=== PATIENT | female | born 1940 ===

== ENCOUNTER 2016-12-15 22:44 | Observation (INO) | payer MEDICARE, MEDICAID ==
[2016-12-15 22:45] VITALS: BMI 34.9
[2016-12-15 23:45] LABS: BASO # 0.1 K/uL (0.0-0.2); BASO % 0.9 % (0.0-2.0); EOS # 0.2 K/uL (0.0-0.7); EOS % 2.5 % (0.0-4.0); HEMATOCRIT 33.5 % (34.0-47.0); LYMPH # 1.2 K/uL (1.0-4.3); LYMPH % 16.8 % (20.0-40.0); MEAN CELL VOLUME 97.3 fl (81.0-99.0); MEAN CORPUSCULAR HEMOGLOBIN 30.7 pg (27.0-31.0); MEAN CORPUSCULAR HGB CONC 31.5 g/dL (33.0-37.0); MEAN PLATELET VOLUME 9.3 fl (7.2-11.7); MONO # 0.6 K/uL (0.0-0.8); MONO % 7.6 % (0.0-10.0); NEUT # 5.3 K/uL (1.8-7.0); NEUT % 72.2 % (50.0-75.0); RED CELL DISTRIBUTION WIDTH 15.7 % (11.5-14.5); WHITE BLOOD COUNT 7.3 K/uL (4.8-10.8)
--- NOTE | 2016-12-15 23:54 | ED PDOC ---
HPI: SOB/CHF/COPD Time Seen by Provider: 12/15/16 22:53 Chief Complaint (Nursing): Chest Pain Chief Complaint (Provider): SOB History Per: Patient History/Exam Limitations: no limitations Onset/Duration Of Symptoms: Hrs Current Symptoms Are (Timing): Still Present Additional Complaint(s): 76yo female who is oxygen dependent presents to the ED with c/o SOB with associated mild chest pain. Patient states she was out all day with daughter and was experiencing worsening SOB throughout the day. States she noticed portable oxygen concentrator was not working throughout the entire day. Currently complaining of shortness of breath. Past Medical History Reviewed: Historical Data, Nursing Documentation, Vital Signs Vital Signs: Last Vital Signs Temp 98.4 F 12/15/16 22:52 Pulse 82 12/15/16 22:52 Resp 20 12/15/16 22:52 BP 160/73 H 12/15/16 22:52 Pulse Ox 92 L 12/16/16 00:38 - Medical History PMH: Anxiety, Arthritis, CAD (with stent), CHF, CVA (?paresthesias), Diabetes, Gastritis, HTN, Hypercholesterolemia, Sleep Apnea Denies: HIV, Chronic Kidney Disease - Surgical History Surgical History: Coronary Stent Denies: - Family History Family History: States: No Known Family Hx - Home Medications Home Medications: Ambulatory Orders Medication Instructions Recorded Aspirin [Aspirin Chewable] 81 mg PO DAILY 12/16/16 Atorvastatin [Lipitor] 1 tab PO HS 12/16/16 Carvedilol [Coreg] 1 tab PO BID 12/16/16 Clopidogrel [Plavix] 1 tab PO DAILY 12/16/16 Furosemide [Lasix] 1 tab PO DAILY 12/16/16 Hunalog 12/16/16 Insulin Detemir [Levemir] 40 units SQ BID 12/16/16 Multivitamin [Daily John] 1 tab PO DAILY 12/16/16 Valsartan [Diovan] 1 tab PO DAILY 12/16/16 amLODIPine [Norvasc] 1 tab PO DAILY 12/16/16 - Allergies Allergies/Adverse Reactions: Allergies Allergy/AdvReac Type Severity Reaction Status Date / Time No Known Allergies Allergy Verified 02/15/16 20:23 Review of Systems ROS Statement: Except As Marked, All Systems Reviewed And Found Negative Cardiovascular: Positive for: Chest Pain (mild ) Respiratory: Positive for: Shortness of Breath Physical Exam - Reviewed Nursing Documentation Reviewed: Yes (mild at bases) Vital Signs Reviewed: Yes - Physical Exam Appears: Positive for: Well, No Acute Distress Head Exam: Positive for: ATRAUMATIC, NORMAL INSPECTION, NORMOCEPHALIC Skin: Positive for: Normal Color, Warm, Dry Eye Exam: Positive for: Normal appearance, EOMI, PERRL ENT: Positive for: Normal ENT Inspection Neck: Positive for: Normal, Painless ROM, Supple Cardiovascular/Chest: Positive for: Regular Rate, Rhythm. Negative for: Murmur , Tachycardia Respiratory: Positive for: Crackles (b/l ). Negative for: Wheezing, Respiratory Distress Gastrointestinal/Abdominal: Positive for: Normal Exam, Soft. Negative for: Tenderness Back: Positive for: Normal Inspection. Negative for: L CVA Tenderness, R CVA Tenderness Extremity: Positive for: Normal ROM. Negative for: Tenderness, Pedal Edema, Deformity Neurologic/Psych: Positive for: Alert, Oriented - Laboratory Results Result Diagrams: 12/15/16 23:43 12/15/16 23:43 - ECG O2 Sat by Pulse Oximetry: 92 Medical Decision Making Medical Decision Makin: Impression: r/o ACS v. hypercapnia Plan: ABG EKG Labs CXR O2 via nasal cannula reassess 1230AM: Will admit for r/o ACS, hypercapnia. Scribe Attestation: Documented by Gwendolyn Ohara acting as a scribe for Tho Troncoso MD. Provider Scribe Attestation: All medical record entries made by the Scribe were at my direction and personally dictated by me. I have reviewed the chart and agree that the record accurately reflects my personal performance of the history, physical exam, medical decision making, and the department course for this patient. I have also personally directed, reviewed, and agree with the discharge instructions and disposition. Disposition - Clinical Impression Clinical Impression: Chest pain, Hypercapnia, Hyperglycemia - Disposition Disposition Time: 00:30 Condition: STABLE
[2016-12-15 23:58] LABS: BLOOD UREA NITROGEN 21 mg/dl (7-17); CALCIUM 9.1 mg/dL (8.4-10.2); CARBON DIOXIDE 33 mmol/L (22-30); CHLORIDE 96 mmol/L (98-107); GFR AFRICAN-AMERICAN > 60; SODIUM 137 mmol/l (132-148)
[2016-12-16] LABS: GLUCOSE,RANDOM 436 mg/dL (65-105)
[2016-12-16 00:01] LABS: POTASSIUM 5.9 MMOL/L (3.6-5.0)
[2016-12-16 00:20] LABS: PARTIAL THROMBOPLASTIN TIME 25.5 SECONDS (23.3-32.5)
[2016-12-16 00:25] LABS: ABG ALLEN TEST YES; ARTERIAL BLOOD GAS HCO3 34.1 mmol/L (21-28); ARTERIAL BLOOD GAS MODE 2LNC; ARTERIAL BLOOD GAS PH 7.35 (7.35-7.45); ARTERIAL BLOOD GAS PO2 73 mm/Hg (80-100)
[2016-12-16] MEDS ORDERED: Insulin Regular 100 units/ml SC STA (00:37)
[2016-12-16] MEDS ORDERED: Insulin Regular 100 units/ml ONE ×4 (00:55→16:33)
[2016-12-16] MEDS ORDERED: Dextrose 50% SYRINGE Inj (50 ml) IV PRN (01:00)
[2016-12-16] MEDS ORDERED: Glucagon Recombinant 1 mg Inj IM PRN (01:00)
[2016-12-16] MEDS: Sodium Chloride 0.9% 1,000 ML IV SCH ×3 (01:03→21:30)
[2016-12-16] MEDS ORDERED: Simethicone 80 mg Chewtab PO PRN (01:03)
--- NOTE | 2016-12-16 01:05 | CP.PCM.HP ---
History of Present Illness - History of Present Illness History of Present Illness: 76 y/o female with past medical history of CAD, DM, HLD, HTN, CVA, urinary incontinence and hypercapnia; who is also oxygen dependent presents to the ED with c/o SOB with associated mild chest pain. Patient states she was out all day with daughter and was experiencing worsening SOB throughout the day. daughter reports she noticed portable oxygen concentrator was not working throughout the entire day. Pt seen and evaluated in ED, SOB has improved as she is on oxygen now, chest pain has improved as well. denies any dizziness, changes in vision. Also reports feeling abdominal pain due to feeling very gassy , no other complaints otherwise Present on Admission - Present on Admission Any Indicators Present on Admission: Yes History of Uncontrolled Diabetes: Yes Review of Systems - Review of Systems All systems: reviewed and no additional remarkable complaints except Review of Systems: Per HPI Past Patient History - Tetanus Immunizations Tetanus Immunization: Unknown - Past Medical History & Family History Past Medical History?: Yes - Past Social History Smoking Status: Never Smoked - CARDIAC Hx Congestive Heart Failure: Yes Hx Hypercholesterolemia: Yes Hx Hypertension: Yes - PULMONARY Hx Sleep Apnea: Yes - NEUROLOGICAL Hx Neurological Disorder: Yes (CVA) - HEENT Hx HEENT Problems: No - RENAL Hx Chronic Kidney Disease: No - ENDOCRINE/METABOLIC Hx Endocrine Disorders: Yes (DM) - HEMATOLOGICAL/ONCOLOGICAL Hx Human Immunodeficiency Virus (HIV): No - INTEGUMENTARY Hx Dermatological Problems: No - MUSCULOSKELETAL/RHEUMATOLOGICAL Hx Arthritis: Yes - GASTROINTESTINAL Hx Gastritis: Yes - GENITOURINARY/GYNECOLOGICAL Hx Genitourinary Disorders: No - PSYCHIATRIC Hx Anxiety: Yes - SURGICAL HISTORY Hx Coronary Stent: Yes - ANESTHESIA Hx Anesthesia: Yes Hx Anesthesia Reactions: No Hx Malignant Hyperthermia: No Meds Allergies/Adverse Reactions: Allergies Allergy/AdvReac Type Severity Reaction Status Date / Time No Known Allergies Allergy Verified 02/15/16 20:23 Physical Exam - Constitutional Appears: Non-toxic, No Acute Distress - Head Exam Head Exam: NORMOCEPHALIC - Eye Exam Eye Exam: Normal appearance - ENT Exam ENT Exam: Mucous Membranes Moist - Respiratory Exam Respiratory Exam: Clear to Auscultation Bilateral, NORMAL BREATHING PATTERN. absent: Wheezes - Cardiovascular Exam Cardiovascular Exam: REGULAR RHYTHM, +S1, +S2 - GI/Abdominal Exam GI & Abdominal Exam: Normal Bowel Sounds, Soft, Tenderness. absent: Guarding Additional comments: diffuse tenderness - Extremities Exam Extremities exam: Negative for: calf tenderness, pedal edema - Neurological Exam Neurological exam: Alert, CN II-XII Intact, Oriented x3 - Skin Skin Exam: Normal Color Results - Vital Signs Recent Vital Signs: Last Vital Signs Temp 98.4 F 12/15/16 22:52 Pulse 82 12/15/16 22:52 Resp 20 12/15/16 22:52 BP 160/73 H 12/15/16 22:52 Pulse Ox 92 L 12/16/16 00:42 - Labs Result Diagrams: 12/16/16 05:58 12/15/16 23:43 Assessment & Plan - Assessment and Plan (Free Text) Assessment: 76 y/o female with past medical history of CAD, DM, HLD, HTN, CVA, urinary incontinence and hypercapnia, being admitted for ACS rule out and hypercapnia Plan: 1. Chest pain ACS rule out F/u trop x2 R/u repeat EKG the morning monitor 2. Hypercapnia (Chronic) Pt currently on oxygen SOB Improving monitor 3. Gas pain Simethicone ordered Monitor 4. Insulin Dependent Diabetic Accucheck Home levemir restarted SSI hypoglycemic protocol ordered 5. HTN and CAD Home meds resumed 6. HLD Home meds resumed 7. Diet Diabetic Heart Healthy 8. DVT prophylaxis- lovenox 40mg SC
--- NOTE | 2016-12-16 01:29 | CT ---
EXAM: CT Head Without Intravenous Contrast CLINICAL HISTORY: 76 years old, female; Signs and symptoms; Speech disturbance; Additional info: Slurred speech x 2 days TECHNIQUE: Axial computed tomography images of the head/brain without intravenous contrast. This CT exam was performed using one or more of the following dose reduction techniques: automated exposure control, adjustment of the mA and/or kV according to patient size, and/or use of iterative reconstruction technique. Coronal and sagittal reformatted images were created and reviewed. EXAM DATE/TIME: 12/16/2016 12:34 AM COMPARISON: CT - HEAD W/O CONTRAST 07/18/2016 9:04:48 PM FINDINGS: Brain: Ventricles are normal in size and configuration. There is no midline shift.There is mild decrease attenuation in periventricular white matter. There are no intra-axial or extra-axial mass lesions or areas of hemorrhage. There are no abnormal fluid collections. Ramirez-white differentiation is maintained. Ventricles: See above. Bones: Cranial vault is intact. Soft tissues: unremarkable Sinuses: There is no acute sinusitis. Ears and mastoids: Middle ears and mastoids are unremarkable Orbits: Orbital contents are unremarkable. IMPRESSION: No acute intracranial abnormality
[2016-12-16 06:03] LABS: BASO # 0.1 K/uL (0.0-0.2); EOS # 0.2 K/uL (0.0-0.7); EOS % 2.3 % (0.0-4.0); HEMATOCRIT 32.6 % (34.0-47.0); LYMPH # 1.2 K/uL (1.0-4.3); LYMPH % 15.5 % (20.0-40.0); MEAN CELL VOLUME 97.7 fl (81.0-99.0); MEAN CORPUSCULAR HEMOGLOBIN 30.8 pg (27.0-31.0); MEAN CORPUSCULAR HGB CONC 31.5 g/dL (33.0-37.0); MEAN PLATELET VOLUME 8.8 fl (7.2-11.7); MONO # 0.8 K/uL (0.0-0.8); MONO % 10.7 % (0.0-10.0); NEUT # 5.4 K/uL (1.8-7.0); NEUT % 70.5 % (50.0-75.0); RED CELL DISTRIBUTION WIDTH 15.5 % (11.5-14.5); WHITE BLOOD COUNT 7.7 K/uL (4.8-10.8)
[2016-12-16 07:10] LABS: ALB/GLOB RATIO 1.5 (1.0-2.1); ALKALINE PHOSPHATASE 85 U/L (38-126); ALT/SGPT 40 U/L (9-52); AST/SGOT 21 U/L (14-36); BILIRUBIN,TOTAL 0.5 mg/dl (0.2-1.3); BLOOD UREA NITROGEN 18 mg/dl (7-17); CALCIUM 9.2 mg/dL (8.4-10.2); CARBON DIOXIDE 33 mmol/L (22-30); CHLORIDE 101 mmol/L (98-107); GFR AFRICAN-AMERICAN > 60; GLUCOSE,RANDOM 236 mg/dL (65-105); POTASSIUM 4.1 MMOL/L (3.6-5.0); SODIUM 144 mmol/l (132-148); TOTAL PROTEIN 6.7 G/DL (6.3-8.2)
--- NOTE | 2016-12-16 08:02 | CARD ---
APPROVED REPORT EKG Measurement Heart [id number] <Conclusion> Normal sinus rhythm Possible Left atrial enlargement Nonspecific ST abnormality Abnormal ECG
[2016-12-16] MEDS ORDERED: Patient's Own Med (Insulin Detemir [Levemir] 40 units) SQ SCH (09:00)
[2016-12-16] MEDS ORDERED: Patient's Own Med (Multivitamin [Daily Vite] 1 TAB) PO SCH (09:00)
[2016-12-16] MEDS: Insulin Regular 100 units/ml SC SCH ×4 (09:05→22:51)
[2016-12-16] MEDS: Multivitamin With Minerals Tab PO SCH (09:09)
[2016-12-16] MEDS: Enoxaparin 40 mg Syringe SC SCH (09:10)
--- NOTE | 2016-12-16 10:15 | RAD ---
PROCEDURE: CHEST RADIOGRAPH, 1 VIEW HISTORY: sob, cp COMPARISON: None available. FINDINGS: LUNGS: Clear. PLEURA: No pneumothorax or pleural fluid seen. CARDIOVASCULAR: Normal. OSSEOUS STRUCTURES: No significant abnormalities. VISUALIZED UPPER ABDOMEN: Normal. OTHER FINDINGS: None. IMPRESSION: No active disease.
[2016-12-16] MEDS: Insulin Detemir 100 Units/ml Inj SC SCH ×2 (11:04→22:52)
--- NOTE | 2016-12-16 16:49 | CP.PCM.PCO ---
Physician Communication Note - Physician Communication Note Physician Communication Note: Seen AM, stable, Decided to admit to hosp PM, Pulm and Cardio consults.
--- NOTE | 2016-12-16 23:05 | CP.PCM.CON ---
History of Present Illness - History of Present Illness History of Present Illness: Pt seen and examined, chart reviewed, full consult to follow. Cont present treatment. Maintain O2 Sat > 90% but avoid hyperoxia. Cont nebulized treatment. R/O ACS. PUD and DVT Px. Past Patient History - Tetanus Immunizations Tetanus Immunization: Unknown - Past Medical History & Family History Past Medical History?: Yes - Past Social History Smoking Status: Never Smoked - CARDIAC Hx Cardiac Disorders: Yes (CHF,CAD,HTN,HLD) - PULMONARY Hx Respiratory Disorders: Yes (SOB) - NEUROLOGICAL Hx Neurological Disorder: Yes (CVA) - HEENT Hx HEENT Problems: No - RENAL Hx Chronic Kidney Disease: No - ENDOCRINE/METABOLIC Hx Endocrine Disorders: Yes (DM) - HEMATOLOGICAL/ONCOLOGICAL Hx Blood Disorders: Yes (ANEMIA) - INTEGUMENTARY Hx Dermatological Problems: No - MUSCULOSKELETAL/RHEUMATOLOGICAL Hx Musculoskeletal Disorders: Yes (ARTHRITIS) - GASTROINTESTINAL Hx Gastritis: Yes - GENITOURINARY/GYNECOLOGICAL Hx Genitourinary Disorders: No - PSYCHIATRIC Hx Psychophysiologic Disorder: No - SURGICAL HISTORY Hx Coronary Stent: Yes - ANESTHESIA Hx Anesthesia: Yes Hx Anesthesia Reactions: No Hx Malignant Hyperthermia: No Meds Allergies/Adverse Reactions: Allergies Allergy/AdvReac Type Severity Reaction Status Date / Time No Known Allergies Allergy Verified 02/15/16 20:23 - Medications Medications: Current Medications Amlodipine Besylate (Norvasc) 5 mg PO DAILY [facility] Last Admin: 12/16/16 09:09 Dose: 5 mg Aspirin (Aspirin Chewable) 81 mg PO DAILY [facility] Last Admin: 12/16/16 09:09 Dose: 81 mg Atorvastatin Calcium (Lipitor) 40 mg PO HS [facility] Last Admin: 12/16/16 22:54 Dose: 40 mg Carvedilol (Coreg) 25 mg PO BID [facility] Last Admin: 12/16/16 11:42 Dose: 25 mg Clopidogrel Bisulfate (Plavix) 75 mg PO DAILY [facility] Last Admin: 12/16/16 09:09 Dose: 75 mg Dextrose (Dextrose 50% Inj) 0 ml IV STAT PRN; Protocol PRN Reason: Hyglycemia Protocol Dextrose (Glutose 15) 0 gm PO ONCE PRN; Protocol PRN Reason: Hypoglycemia Protocol Enoxaparin Sodium (Lovenox) 40 mg SC DAILY [facility] PRN Reason: Protocol Last Admin: 12/16/16 09:10 Dose: 40 mg Furosemide (Lasix) 40 mg PO DAILY [facility] Last Admin: 12/16/16 09:09 Dose: 40 mg Glucagon (Glucagen Diagnostic Kit) 0 mg IM STAT PRN; Protocol PRN Reason: Hypoglycemia Protocol Sodium Chloride (Sodium Chloride 0.9%) 1,000 mls @ 100 mls/hr IV .Q10H [facility] Stop: 12/17/16 00:36 Last Admin: 12/16/16 21:30 Dose: 100 mls/hr Insulin Detemir (Levemir) 40 units SC BID [facility] Last Admin: 12/16/16 22:52 Dose: 40 unit Insulin Human Regular (Humulin R) 0 units SC ACHS [facility] PRN Reason: Protocol Last Admin: 12/16/16 22:51 Dose: Not Given Multivitamins/Minerals (Therapeutic-M Tab) 1 tab PO DAILY [facility] Last Admin: 12/16/16 09:09 Dose: 1 tab Simethicone (Mylicon Chew Tab) 80 mg PO QID PRN PRN Reason: Flatulence Valsartan (Diovan) 160 mg PO DAILY [facility] Last Admin: 12/16/16 09:09 Dose: 160 mg Results - Vital Signs Recent Vital Signs: Last Vital Signs Temp 97.9 F 12/16/16 20:16 Pulse 70 12/16/16 20:16 Resp 18 12/16/16 20:16 BP 154/71 H 12/16/16 20:16 Pulse Ox 99 12/16/16 20:16 - Labs Result Diagrams: 12/16/16 05:58 12/16/16 05:58 Labs: Laboratory Results - last 24 hr 12/16/16 12/16/16 16:30 22:06 POC Glucose (mg/dL) 212 H Troponin I 0.0190
[2016-12-17] MEDS: Insulin Regular 100 units/ml SC SCH ×3 (06:33→18:04)
[2016-12-17 06:47] LABS: BASO # 0.1 K/uL (0.0-0.2); BASO % 0.7 % (0.0-2.0); EOS # 0.2 K/uL (0.0-0.7); EOS % 2.9 % (0.0-4.0); HEMATOCRIT 30.8 % (34.0-47.0); MEAN CELL VOLUME 97.4 fl (81.0-99.0); MEAN CORPUSCULAR HEMOGLOBIN 31.4 pg (27.0-31.0); MEAN CORPUSCULAR HGB CONC 32.2 g/dL (33.0-37.0); MEAN PLATELET VOLUME 8.4 fl (7.2-11.7); MONO # 0.6 K/uL (0.0-0.8); MONO % 8.7 % (0.0-10.0); NEUT % 72.7 % (50.0-75.0); RED CELL DISTRIBUTION WIDTH 15.5 % (11.5-14.5); WHITE BLOOD COUNT 6.9 K/uL (4.8-10.8)
[2016-12-17 07:20] LABS: ALB/GLOB RATIO 1.5 (1.0-2.1); ALKALINE PHOSPHATASE 83 U/L (38-126); ALT/SGPT 38 U/L (9-52); AST/SGOT 23 U/L (14-36); BILIRUBIN,TOTAL 0.6 mg/dl (0.2-1.3); BLOOD UREA NITROGEN 15 mg/dl (7-17); CALCIUM 9.3 mg/dL (8.4-10.2); CARBON DIOXIDE 37 mmol/L (22-30); CHLORIDE 101 mmol/L (98-107); GFR AFRICAN-AMERICAN > 60; GLUCOSE,RANDOM 100 mg/dL (65-105); POTASSIUM 4.6 MMOL/L (3.6-5.0); SODIUM 144 mmol/l (132-148); TOTAL PROTEIN 6.5 G/DL (6.3-8.2)
[2016-12-17] MEDS: Multivitamin With Minerals Tab PO SCH (09:07)
[2016-12-17] MEDS: Insulin Detemir 100 Units/ml Inj SC SCH ×2 (09:08→18:04)
[2016-12-17] MEDS: Enoxaparin 40 mg Syringe SC SCH (09:09)
--- NOTE | 2016-12-17 12:19 | CP.PCM.CON ---
History of Present Illness - History of Present Illness History of Present Illness: CC: Chest pain. HPI: I have been requested on cardiac consultation by Dr. Mendez for Mrs. Alexandra who is a pleasant 76 year old female who is well known to our practice and is accompanied by her psychometrician. She has a history of CAD, s/p PCI , hypertension, DM, dyslipidemia and gait instability and presents with complaints of non radiating left sided chest pain which is constant and is associated with left sided back pain. She also complains of easy fatigability and dyspnea with minimal effort, however due to her gait instability her mobility is limited. The patient states that she is compliant with her medical regimen and no changes have been made. She denies fever, cough, congestion, nausea, vomiting or syncope but has generalized weakness and fatigue. A chest Xray revealed nor acute findings, an ECG shows NSR, NSSTT abnormalities, troponin is negative and the Hgb is 9.9. She has been maintained on her medical regimen and bipap with improvement in her symptoms. Review of Systems - Constitutional Constitutional: As Per HPI, Fatigue, Lethargy, Weakness - EENT Additional comments: Negative. - Cardiovascular Cardiovascular: Chest Pain at Rest, Dyspnea on Exertion - Respiratory Respiratory: Dyspnea, Dyspnea on Exertion - Gastrointestinal Additional comments: Negative. - Genitourinary Additional comments: Negative. - Musculoskeletal Musculoskeletal: Muscle Weakness - Integumentary Additional comments: Negative. - Neurological Neurological: Abnormal Gait - Psychiatric Additional comments: Negative. - Endocrine Endocrine: Fatigue - Hematologic/Lymphatic Additional comments: Negative. Past Patient History - Tetanus Immunizations Tetanus Immunization: Unknown - Past Medical History & Family History Past Medical History?: Yes - Past Social History Smoking Status: Never Smoked Alcohol: None Home Situation {Lives}: With Family - CARDIAC Hx Cardiac Disorders: Yes (CHF,CAD,HTN,HLD) Hx Angina: Yes Hx Circulatory Problems: Yes Hx Hypercholesterolemia: Yes Hx Hypertension: Yes - PULMONARY Hx Respiratory Disorders: Yes (SOB) - NEUROLOGICAL Hx Neurological Disorder: Yes (CVA) - HEENT Hx HEENT Problems: No - RENAL Hx Chronic Kidney Disease: No - ENDOCRINE/METABOLIC Hx Endocrine Disorders: Yes (DM) Hx Diabetes Mellitus Type 1: Yes - HEMATOLOGICAL/ONCOLOGICAL Hx Blood Disorders: Yes (ANEMIA) Hx AIDS: No Hx Human Immunodeficiency Virus (HIV): No - INTEGUMENTARY Hx Dermatological Problems: No - MUSCULOSKELETAL/RHEUMATOLOGICAL Hx Musculoskeletal Disorders: Yes (ARTHRITIS) Hx Falls: No - GASTROINTESTINAL Hx Gastritis: Yes - GENITOURINARY/GYNECOLOGICAL Hx Genitourinary Disorders: No - PSYCHIATRIC Hx Psychophysiologic Disorder: No - SURGICAL HISTORY Hx Angiogram: Yes Hx Angioplasty: Yes Hx Cardiac Catheterization: Yes Hx Coronary Stent: Yes - ANESTHESIA Hx Anesthesia: Yes Hx Anesthesia Reactions: No Hx Malignant Hyperthermia: No Meds Allergies/Adverse Reactions: Allergies Allergy/AdvReac Type Severity Reaction Status Date / Time No Known Allergies Allergy Verified 02/15/16 20:23 - Medications Medications: Current Medications Amlodipine Besylate (Norvasc) 5 mg PO DAILY [facility] Last Admin: 12/17/16 09:09 Dose: 5 mg Aspirin (Aspirin Chewable) 81 mg PO DAILY [facility] Last Admin: 12/17/16 09:07 Dose: 81 mg Atorvastatin Calcium (Lipitor) 40 mg PO HS [facility] Last Admin: 12/16/16 22:54 Dose: 40 mg Carvedilol (Coreg) 25 mg PO BID [facility] Last Admin: 12/17/16 09:07 Dose: 25 mg Clopidogrel Bisulfate (Plavix) 75 mg PO DAILY [facility] Last Admin: 12/17/16 09:06 Dose: 75 mg Dextrose (Dextrose 50% Inj) 0 ml IV STAT PRN; Protocol PRN Reason: Hyglycemia Protocol Dextrose (Glutose 15) 0 gm PO ONCE PRN; Protocol PRN Reason: Hypoglycemia Protocol Enoxaparin Sodium (Lovenox) 40 mg SC DAILY [facility] PRN Reason: Protocol Last Admin: 12/17/16 09:09 Dose: 40 mg Furosemide (Lasix) 40 mg PO DAILY [facility] Last Admin: 12/17/16 09:08 Dose: 40 mg Glucagon (Glucagen Diagnostic Kit) 0 mg IM STAT PRN; Protocol PRN Reason: Hypoglycemia Protocol Insulin Detemir (Levemir) 40 units SC BID [facility] Last Admin: 12/17/16 09:08 Dose: 40 unit Insulin Human Regular (Humulin R) 0 units SC ACHS [facility] PRN Reason: Protocol Last Admin: 12/17/16 06:33 Dose: Not Given Multivitamins/Minerals (Therapeutic-M Tab) 1 tab PO DAILY [facility] Last Admin: 12/17/16 09:07 Dose: 1 tab Simethicone (Mylicon Chew Tab) 80 mg PO QID PRN PRN Reason: Flatulence Last Admin: 12/17/16 09:06 Dose: 80 mg Valsartan (Diovan) 160 mg PO DAILY [facility] Last Admin: 12/17/16 09:07 Dose: 160 mg Physical Exam - Constitutional Appears: Well, Non-toxic, No Acute Distress - Head Exam Head Exam: NORMAL INSPECTION, NORMOCEPHALIC - Eye Exam Eye Exam: Normal appearance - ENT Exam ENT Exam: Mucous Membranes Moist, Normal Exam - Neck Exam Neck exam: Positive for: Normal Inspection - Respiratory Exam Respiratory Exam: Clear to Auscultation Bilateral, NORMAL BREATHING PATTERN - Cardiovascular Exam Cardiovascular Exam: REGULAR RHYTHM, +S1, +S2, Systolic Murmur - GI/Abdominal Exam GI & Abdominal Exam: Soft Additional comments: Obese. - Extremities Exam Extremities exam: Positive for: full ROM, normal inspection - Back Exam Back exam: NORMAL INSPECTION - Neurological Exam Neurological exam: Alert, Oriented x3 - Psychiatric Exam Psychiatric exam: Normal Affect, Normal Mood - Skin Skin Exam: Dry, Intact, Normal Color, Warm Results - Vital Signs Recent Vital Signs: Last Vital Signs Temp 98.4 F 12/17/16 08:22 Pulse 76 12/17/16 09:09 Resp 18 12/17/16 08:22 BP 156/56 H 12/17/16 09:09 Pulse Ox 96 12/17/16 08:22 - Labs Result Diagrams: 12/17/16 05:40 12/17/16 05:40 Labs: Laboratory Results - last 24 hr 12/16/16 12/16/16 12/16/16 16:30 16:37 22:06 WBC RBC Hgb Hct MCV MCH MCHC RDW Plt Count MPV Neut % (Auto) Lymph % (Auto) Brewster % (Auto) Eos % (Auto) Baso % (Auto) Neut # Lymph # Brewster # Eos # Baso # Sodium Potassium Chloride Carbon Dioxide Anion Gap BUN Creatinine Est GFR ( Amer) Est GFR (Non-Af Amer) POC Glucose (mg/dL) 254 H 212 H Random Glucose Calcium Total Bilirubin AST ALT Alkaline Phosphatase Troponin I 0.0190 Total Protein Albumin Globulin Albumin/Globulin Ratio 12/17/16 12/17/16 12/17/16 04:58 05:40 05:40 WBC 6.9 RBC 3.16 L Hgb 9.9 L Hct 30.8 L MCV 97.4 MCH 31.4 H MCHC 32.2 L RDW 15.5 H Plt Count 178 MPV 8.4 Neut % (Auto) 72.7 Lymph % (Auto) 15.0 L Brewster % (Auto) 8.7 Eos % (Auto) 2.9 Baso % (Auto) 0.7 Neut # 5.0 Lymph # 1.0 Brewster # 0.6 Eos # 0.2 Baso # 0.1 Sodium 144 Potassium 4.6 Chloride 101 Carbon Dioxide 37 H Anion Gap 11 BUN 15 Creatinine 0.7 Est GFR ( Amer) > 60 Est GFR (Non-Af Amer) > 60 POC Glucose (mg/dL) 131 H Random Glucose 100 Calcium 9.3 Total Bilirubin 0.6 AST 23 ALT 38 Alkaline Phosphatase 83 Troponin I Total Protein 6.5 Albumin 3.9 Globulin 2.6 Albumin/Globulin Ratio 1.5 12/17/16 11:22 WBC RBC Hgb Hct MCV MCH MCHC RDW Plt Count MPV Neut % (Auto) Lymph % (Auto) Brewster % (Auto) Eos % (Auto) Baso % (Auto) Neut # Lymph # Brewster # Eos # Baso # Sodium Potassium Chloride Carbon Dioxide Anion Gap BUN Creatinine Est GFR ( Amer) Est GFR (Non-Af Amer) POC Glucose (mg/dL) 336 H Random Glucose Calcium Total Bilirubin AST ALT Alkaline Phosphatase Troponin I Total Protein Albumin Globulin Albumin/Globulin Ratio Assessment & Plan - Assessment and Plan (Free Text) Assessment: Atypical chest pain. Dyspnea. CAD. HTN. DM. Dyslipidemia. Gait instability. Plan: Continue present cardiac medications. Follow up troponin. PT/OT. Stable cardiac shel[facility], will review past records. Thank you.
[2016-12-17 12:23] VITALS: RESP 20
--- NOTE | 2016-12-17 13:28 | CP.PCM.PN ---
Subjective - Date & Time of Evaluation Date of Evaluation: 12/17/16 Time of Evaluation: 08:55 - Subjective Subjective: Patient seen and examined bedside. Sitting upright in bed, wearing NC at 2L, with reported dyspnea, that has improved since admission. The patient continues to have chest pain and back pain that is constant, nonradiating. She slept with bipap machine, and reports she slept well while using the machine. Admits chest and back pain, fatigue and dyspnea, Denies headache, nausea, vomiting, abdominal pain, pedal edema. Objective - Vital Signs/Intake and Output Vital Signs (last 24 hours): Temp Pulse Resp BP Pulse Ox 98.0 F 71 20 143/64 97 12/17/16 12:22 12/17/16 12:22 12/17/16 12:22 12/17/16 12:22 12/17/16 12:22 - Medications Medications: Current Medications Amlodipine Besylate (Norvasc) 5 mg PO DAILY [facility] Last Admin: 12/17/16 09:09 Dose: 5 mg Aspirin (Aspirin Chewable) 81 mg PO DAILY [facility] Last Admin: 12/17/16 09:07 Dose: 81 mg Atorvastatin Calcium (Lipitor) 40 mg PO HS [facility] Last Admin: 12/16/16 22:54 Dose: 40 mg Carvedilol (Coreg) 25 mg PO BID [facility] Last Admin: 12/17/16 09:07 Dose: 25 mg Clopidogrel Bisulfate (Plavix) 75 mg PO DAILY [facility] Last Admin: 12/17/16 09:06 Dose: 75 mg Dextrose (Dextrose 50% Inj) 0 ml IV STAT PRN; Protocol PRN Reason: Hyglycemia Protocol Dextrose (Glutose 15) 0 gm PO ONCE PRN; Protocol PRN Reason: Hypoglycemia Protocol Enoxaparin Sodium (Lovenox) 40 mg SC DAILY [facility] PRN Reason: Protocol Last Admin: 12/17/16 09:09 Dose: 40 mg Furosemide (Lasix) 40 mg PO DAILY [facility] Last Admin: 12/17/16 09:08 Dose: 40 mg Glucagon (Glucagen Diagnostic Kit) 0 mg IM STAT PRN; Protocol PRN Reason: Hypoglycemia Protocol Insulin Detemir (Levemir) 40 units SC BID [facility] Last Admin: 12/17/16 09:08 Dose: 40 unit Insulin Human Regular (Humulin R) 0 units SC ACHS [facility] PRN Reason: Protocol Last Admin: 12/17/16 06:33 Dose: Not Given Multivitamins/Minerals (Therapeutic-M Tab) 1 tab PO DAILY [facility] Last Admin: 12/17/16 09:07 Dose: 1 tab Simethicone (Mylicon Chew Tab) 80 mg PO QID PRN PRN Reason: Flatulence Last Admin: 12/17/16 09:06 Dose: 80 mg Valsartan (Diovan) 160 mg PO DAILY [facility] Last Admin: 12/17/16 09:07 Dose: 160 mg - Labs Labs: 12/17/16 05:40 12/17/16 05:40 PT 10.4 SECONDS (9.6-11.2) 12/15/16 23:12 INR 1.00 (0.92-1.08) 12/15/16 23:12 APTT 25.5 SECONDS (23.3-32.5) 12/15/16 23:12 - Constitutional Appears: Non-toxic - Head Exam Head Exam: NORMAL INSPECTION - Eye Exam Eye Exam: Normal appearance - ENT Exam ENT Exam: Mucous Membranes Moist - Respiratory Exam Respiratory Exam: Rales (bilateral, right more than left), NORMAL BREATHING PATTERN - GI/Abdominal Exam GI & Abdominal Exam: Soft, Normal Bowel Sounds. absent: Tenderness - Extremities Exam Extremities Exam: absent: Pedal Edema - Neurological Exam Neurological Exam: Alert, Awake, CN II-XII Intact, Oriented x3 - Skin Skin Exam: Dry, Intact, Normal Color Assessment and Plan - Assessment and Plan (Free Text) Assessment: Assessment: 76 y/o female with past medical history of CAD, DM, HLD, HTN, CVA, urinary incontinence and hypercapnia, admitted for ACS rule out and hypercapnia. Plan: 1. Chest pain ACS rule out chest and back pain are constant, but do not appear to be cardiac in nature. Will follow up with recommendations from pulmonary. troponins : negative x 2 monitor Appreciate cardiology input: Stable cardiac shelby, will continue current medications and recommend PT/OT and f/u troponins. 2. Hypercapnia (Chronic) Pt currently on oxygen. SOB Improving but persists. Positive results with the BIPAP. Walking test today. monitor Will discuss with case management: home o2 and bipap machine. 3. Gas pain Resolved Simethicone ordered 4. Insulin Dependent Diabetic Accuchecks, Home levemir restarted SSI hypoglycemic protocol ordered Will continue to monitor. 5. HTN and CAD Home meds resumed 6. HLD Home meds resumed 7. Diet Diabetic Heart Healthy 8. DVT prophylaxis- lovenox 40mg SC
[2016-12-17 19:36] VITALS: BP 146/66; PULSE 73; TEMP 98.4; O2SAT 98
== END 2016-12-17 20:35 | disposition home or self-care (01) ==
LOC: H.ER 22:44 → H.ERHOLD 12-16 00:40 → OBSVTOIN 12-16 15:27 → INTOOBSV 12-16 15:27 → H.TEL 12-16 18:41
PROVIDERS: ADMIT Family Medicine Geriatric Medicine; ATTEND Family Medicine Geriatric Medicine
DX: R07.89 Other chest pain (principal); R06.89 Other abnormalities of breathing; I25.10 Atherosclerotic heart disease of native coronary artery without angina pectoris; E11.9 Type 2 diabetes mellitus without complications; E78.5 Hyperlipidemia, unspecified; I11.0 Hypertensive heart disease with heart failure; I50.9 Heart failure, unspecified; R26.89 Other abnormalities of gait and mobility; Z95.5 Presence of coronary angioplasty implant and graft; Z99.81 Dependence on supplemental oxygen; G47.30 Sleep apnea, unspecified; Z79.4 Long term (current) use of insulin; Z86.73 Personal history of transient ischemic attack (TIA), and cerebral infarction without residual deficits
CPT/HCPCS: 36415; 70450; 71010; 80048; 80053; 82164; 82803; 82948; 83880; 84484; 85025; 85610; 85730; 93005; 94620; 94660; 96372; 99285; G0378; J1650; J7040

== ENCOUNTER 2017-07-23 16:03 | Emergency (ER) | payer MEDICARE, MEDICAID ==
[2017-07-23 16:03] VITALS: BMI 34.9
[2017-07-23 16:21] VITALS: RESP 18; TEMP 99.2
--- NOTE | 2017-07-23 17:12 | ED PDOC ---
HPI: SOB/CHF/COPD Time Seen by Provider: 07/23/17 16:39 Chief Complaint (Nursing): Shortness Of Breath History Per: Patient (this is a 77 yo female who presents to the ER with complaints of cough, chills, bodyaches and shortness since yesterday. She has a h/o DM, hyperlipidemia and CHF/CAD (h/o coronary cath). She has not received her flu vaccine.), Family History/Exam Limitations: no limitations Onset/Duration Of Symptoms: Days (yesterday), Sudden Onset Current Symptoms Are (Timing): Still Present Initiating Event: Upper Respiratory Illness Current Respiratory Medications: See Home Med List Severity: Moderate Past Medical History Reviewed: Historical Data, Nursing Documentation, Vital Signs Vital Signs: Last Vital Signs Temp 99.2 F 07/23/17 16:19 Pulse 97 H 07/23/17 16:19 Resp 18 07/23/17 17:24 BP 148/64 07/23/17 16:19 Pulse Ox 97 07/23/17 17:24 - Medical History PMH: Anxiety, Arthritis, CAD (with stent), CHF, CVA (?paresthesias), Diabetes, Gastritis, HTN, Hypercholesterolemia, Sleep Apnea Denies: HIV, Chronic Kidney Disease - Surgical History Surgical History: Coronary Stent Denies: - Family History Family History: States: No Known Family Hx - Living Arrangements Living Arrangements: With Family - Social History Current smoker - smoking cessation education provided: No Ex-Smoker (has not smoked in the last 12 months): No Alcohol: None Drugs: Denies - Home Medications Home Medications: Ambulatory Orders Medication Instructions Recorded Aspirin [Aspirin Chewable] 81 mg PO DAILY 12/16/16 Atorvastatin [Lipitor] 1 tab PO HS 12/16/16 Carvedilol [Coreg] 1 tab PO BID 12/16/16 Clopidogrel [Plavix] 1 tab PO DAILY 12/16/16 Furosemide [Lasix] 1 tab PO DAILY 12/16/16 Insulin Detemir [Levemir] 40 units SQ BID 12/16/16 Insulin Lispro [humALOG] 5 unit SC WM 12/16/16 Multivitamin [Daily John] 1 tab PO DAILY 12/16/16 Valsartan [Diovan] 1 tab PO DAILY 12/16/16 amLODIPine [Norvasc] 1 tab PO DAILY 12/16/16 Insulin Detemir [Levemir] 40 units SC BID vial 12/17/16 Insulin Human Regular [HumuLIN R] 0 units SC ACHS ml 12/17/16 Multimineral/Multivitamin 1 tab PO DAILY tab 12/17/16 [Therapeutic-M Tab] Oseltamivir Phosphate [Tamiflu] 75 mg PO BID #10 capsule 07/23/17 - Allergies Allergies/Adverse Reactions: Allergies Allergy/AdvReac Type Severity Reaction Status Date / Time No Known Allergies Allergy Verified 02/15/16 20:23 Review of Systems ROS Statement: Except As Marked, All Systems Reviewed And Found Negative Constitutional: Positive for: Chills, Malaise. Negative for: Fever Cardiovascular: Negative for: Chest Pain Respiratory: Positive for: Cough, Shortness of Breath, SOB with Exertion Gastrointestinal: Negative for: Nausea, Vomiting Neurological: Positive for: Weakness Physical Exam - Reviewed Nursing Documentation Reviewed: Yes Vital Signs Reviewed: Yes - Physical Exam Appears: Positive for: Well, Non-toxic, No Acute Distress Head Exam: Positive for: ATRAUMATIC, NORMAL INSPECTION, NORMOCEPHALIC Skin: Positive for: Normal Color, Warm, DRY Eye Exam: Positive for: Normal appearance, EOMI ENT: Positive for: Normal ENT Inspection Neck: Positive for: Normal Cardiovascular/Chest: Positive for: Regular Rate, Rhythm Respiratory: Positive for: Normal Breath Sounds, Rales (both bases bilaterally) Gastrointestinal/Abdominal: Positive for: Normal Exam, Bowel Sounds, Soft Back: Positive for: Normal Inspection Extremity: Positive for: Normal ROM. Negative for: Pedal Edema, Swelling Neurologic/Psych: Positive for: Alert, Oriented - Laboratory Results Result Diagrams: 07/23/17 17:30 - ECG O2 Sat by Pulse Oximetry: 99 Disposition - Clinical Impression Clinical Impression: Influenza A - Patient ED Disposition Is Patient to be Admitted: No Doctor Will See Patient In The: Office Counseled Patient/Family Regarding: Diagnosis, Need For Followup, Rx Given - Disposition Referrals: [facility] [Outside] Disposition: Routine/Home Disposition Time: 18:00 Condition: STABLE Prescriptions: Oseltamivir Phosphate [Tamiflu] 75 mg PO BID #10 capsule Instructions: Influenza (ED) Forms: [facility] (Trinidadian) Print Language: ESTONIAN - POA Present On Arrival: None
[2017-07-23 17:38] LABS: EOS # 0.2 K/uL (0.0-0.7); EOS % 4.8 % (0.0-4.0); HEMOGLOBIN 12.3 g/dL (12.0-16.0); LYMPH # 0.9 K/uL (1.0-4.3); LYMPH % 18.6 % (20.0-40.0); MEAN CELL VOLUME 96.1 fl (81.0-99.0); MEAN CORPUSCULAR HEMOGLOBIN 30.6 pg (27.0-31.0); MEAN CORPUSCULAR HGB CONC 31.9 g/dL (33.0-37.0); MEAN PLATELET VOLUME 8.7 fl (7.2-11.7); MONO # 0.9 K/uL (0.0-0.8); MONO % 18.1 % (0.0-10.0); NEUT # 2.8 K/uL (1.8-7.0); NEUT % 57.5 % (50.0-75.0); NRBC % 0.2 % (0.0-0.0); RBC 4.01 Mil/uL (3.80-5.20); RED CELL DISTRIBUTION WIDTH 14.2 % (11.5-14.5); WHITE BLOOD COUNT 4.8 K/uL (4.8-10.8)
--- NOTE | 2017-07-23 17:43 | RAD ---
HISTORY: shortness of breath COMPARISON: 02/22/2017. TECHNIQUE: Chest PA and lateral FINDINGS: LUNGS: No active pulmonary disease. Linear atelectasis left lower lobe PLEURA: No significant pleural effusion identified. No pneumothorax apparent. CARDIOVASCULAR: No radiographic findings to suggest acute or significant cardiovascular disease. OSSEOUS STRUCTURES: No significant abnormalities. VISUALIZED UPPER ABDOMEN: Normal. OTHER FINDINGS: None. IMPRESSION: No active disease. No significant interval change compared to the prior examination(s).
[2017-07-23 18:24] VITALS: O2SAT 99
[2017-07-23 18:42] VITALS: BP 144/84; PULSE 84
--- NOTE | 2017-07-24 12:04 | CARD ---
APPROVED REPORT EKG Measurement Heart [id number] <Conclusion> Normal sinus rhythm Prolonged QT Abnormal ECG
== END 2017-07-23 18:42 | disposition home or self-care (01) ==
LOC: H.ER 16:03
DX: J10.1 Influenza due to other identified influenza virus with other respiratory manifestations (principal); E11.9 Type 2 diabetes mellitus without complications; E78.00 Pure hypercholesterolemia, unspecified; F41.9 Anxiety disorder, unspecified; I11.0 Hypertensive heart disease with heart failure; Z79.4 Long term (current) use of insulin; J44.9 Chronic obstructive pulmonary disease, unspecified; Z79.82 Long term (current) use of aspirin; Z86.73 Personal history of transient ischemic attack (TIA), and cerebral infarction without residual deficits; Z87.891 Personal history of nicotine dependence; Z95.5 Presence of coronary angioplasty implant and graft

== ENCOUNTER 2017-11-12 15:47 | Emergency (ER) | payer MEDICARE, MEDICAID ==
[2017-11-12 15:47] VITALS: BMI 34.9
[2017-11-12 16:03] VITALS: TEMP 98.1; O2SAT 98
[2017-11-12 17:24] LABS: BASO # 0.1 K/uL (0.0-0.2); BASO % 1.1 % (0.0-2.0); EOS # 0.2 K/uL (0.0-0.7); EOS % 2.1 % (0.0-4.0); HEMOGLOBIN 12.2 g/dL (12.0-16.0); LYMPH # 1.4 K/uL (1.0-4.3); LYMPH % 19.3 % (20.0-40.0); MEAN CELL VOLUME 96.9 fl (81.0-99.0); MEAN CORPUSCULAR HEMOGLOBIN 32.4 pg (27.0-31.0); MEAN CORPUSCULAR HGB CONC 33.4 g/dL (33.0-37.0); MEAN PLATELET VOLUME 9.2 fl (7.2-11.7); MONO # 0.7 K/uL (0.0-0.8); MONO % 9.4 % (0.0-10.0); NEUT % 68.1 % (50.0-75.0); NRBC % 0.1 % (0.0-0.0); RBC 3.78 Mil/uL (3.80-5.20); RED CELL DISTRIBUTION WIDTH 13.7 % (11.5-14.5); WHITE BLOOD COUNT 7.3 K/uL (4.8-10.8)
[2017-11-12 17:38] LABS: ALB/GLOB RATIO 1.3 (1.0-2.1); ALBUMIN 3.9 g/dL (3.5-5.0); ALT/SGPT 37 U/L (9-52); AST/SGOT 23 U/L (14-36); BLOOD UREA NITROGEN 20 mg/dl (7-17); CALCIUM 9.5 mg/dL (8.4-10.2); GFR AFRICAN-AMERICAN > 60; GFR NON-AFRICAN AMERICAN > 60
--- NOTE | 2017-11-12 17:46 | CT ---
PROCEDURE: CT HEAD WITHOUT CONTRAST. HISTORY: headache, right sided pain COMPARISON: Unenhanced head CT 12/16/2016 prior TECHNIQUE: Axial computed tomography images were obtained through the head/brain without intravenous contrast. Radiation dose: Total exam DLP = 836.54 mGy-cm. This CT exam was performed using one or more of the following dose reduction techniques: Automated exposure control, adjustment of the mA and/or kV according to patient size, and/or use of iterative reconstruction technique. FINDINGS: HEMORRHAGE: No intracranial hemorrhage. BRAIN: Trace periventricular chronic microangiopathy is reiterated with normal corticomedullary differentiation once again. There is no mass-effect in the midline brain anatomy is unremarkable throughout. Post fossa contents are stable including the brainstem. Cavernous ICA segment superior atherosclerotic. No suspicious extra-axial fluid collection appreciated. VENTRICLES: Unremarkable. No hydrocephalus. CALVARIUM: Unremarkable. PARANASAL SINUSES: Unremarkable as visualized. No significant inflammatory changes. MASTOID AIR CELLS: Unremarkable as visualized. No inflammatory changes. OTHER FINDINGS: None. IMPRESSION: Stable nonacute unenhanced head CT as discussed above. Limited age-related neuro degenerative changes are reiterated. Follow-up CT or MRI are available if clinically warranted.
[2017-11-12 17:49] LABS: PARTIAL THROMBOPLASTIN TIME 28.9 Seconds (25.6-37.1)
--- NOTE | 2017-11-12 19:11 | ED PDOC ---
HPI: General Adult Time Seen by Provider: 11/12/17 16:31 Chief Complaint (Nursing): Lower Extremity Problem/Injury Chief Complaint (Provider): Right knee pain, right shoulder pain History Per: Patient History/Exam Limitations: no limitations Onset/Duration Of Symptoms: Days Have you had recent travel within the past 21 days to any of the following countries: [place], [place], [place] or [place]?: No Current Symptoms Are (Timing): Still Present Additional Complaint(s): 77 yo female with HTN and DM presents with right shoulder and arm pain with tingling and right knee pain since yesterday. Pt reports frontal headache. PT denies chest pain or SOB. PT denies N/V/D. Pt denies trauma. Pt reports right shoulder pain in the past. Past Medical History Reviewed: Historical Data, Nursing Documentation, Vital Signs Vital Signs: Last Vital Signs Temp 98.1 F 11/12/17 16:00 Pulse 73 11/12/17 16:00 Resp 14 11/12/17 16:00 BP 170/75 H 11/12/17 16:00 Pulse Ox 98 11/12/17 16:00 - Medical History PMH: Anxiety, Arthritis, CAD (with stent), CHF, CVA (?paresthesias), Diabetes, Gastritis, HTN, Hypercholesterolemia, Sleep Apnea Denies: HIV, Chronic Kidney Disease - Surgical History Surgical History: Coronary Stent Denies: - Family History Family History: States: Unknown Family Hx - Living Arrangements Living Arrangements: With Family - Social History Current smoker - smoking cessation education provided: No - Home Medications Home Medications: Ambulatory Orders Medication Instructions Recorded Aspirin [Aspirin Chewable] 81 mg PO DAILY 12/16/16 Atorvastatin [Lipitor] 1 tab PO HS 12/16/16 Carvedilol [Coreg] 1 tab PO BID 12/16/16 Clopidogrel [Plavix] 1 tab PO DAILY 12/16/16 Furosemide [Lasix] 1 tab PO DAILY 12/16/16 Insulin Detemir [Levemir] 40 units SQ BID 12/16/16 Insulin Lispro [humALOG] 5 unit SC WM 12/16/16 Multivitamin [Daily John] 1 tab PO DAILY 12/16/16 Valsartan [Diovan] 1 tab PO DAILY 12/16/16 amLODIPine [Norvasc] 1 tab PO DAILY 12/16/16 Insulin Detemir [Levemir] 40 units SC BID vial 12/17/16 Insulin Human Regular [HumuLIN R] 0 units SC ACHS ml 12/17/16 Multimineral/Multivitamin 1 tab PO DAILY tab 12/17/16 [Therapeutic-M Tab] Oseltamivir Phosphate [Tamiflu] 75 mg PO BID #10 capsule 07/23/17 - Allergies Allergies/Adverse Reactions: Allergies Allergy/AdvReac Type Severity Reaction Status Date / Time No Known Allergies Allergy Verified 11/12/17 16:00 Review of Systems ROS Statement: Except As Marked, All Systems Reviewed And Found Negative Constitutional: Negative for: Fever, Chills Musculoskeletal: Positive for: Shoulder Pain, Leg Pain Physical Exam - Reviewed Nursing Documentation Reviewed: Yes Vital Signs Reviewed: Yes - Physical Exam Appears: Positive for: Well, Non-toxic, No Acute Distress Head Exam: Positive for: ATRAUMATIC, NORMAL INSPECTION, NORMOCEPHALIC Skin: Positive for: Normal Color, Warm, DRY Eye Exam: Positive for: Normal appearance ENT: Positive for: Normal ENT Inspection Neck: Positive for: Normal, Painless ROM Cardiovascular/Chest: Positive for: Regular Rate, Rhythm Respiratory: Positive for: CNT, Normal Breath Sounds Gastrointestinal/Abdominal: Positive for: Normal Exam, Soft. Negative for: Bowel Sounds, Tenderness Back: Positive for: Normal Inspection Extremity: Positive for: Normal ROM (Pt reports pain in right shoulder with ROM and right knee ). Negative for: Tenderness, Deformity, Swelling Neurologic/Psych: Positive for: Alert, Oriented - Laboratory Results Result Diagrams: 11/12/17 17:19 11/12/17 17:19 - ECG O2 Sat by Pulse Oximetry: 98 Pulse Ox Interpretation: Normal Medical Decision Making Medical Decision Making: Labs normal except glucose. Accucheck at 1910 - [address] Hernandes. Disposition - Clinical Impression Clinical Impression: Arthritis - Patient ED Disposition Is Patient to be Admitted: No Counseled Patient/Family Regarding: Diagnosis, Need For Followup - Disposition Disposition: Routine/Home Disposition Time: 19:29 Condition: GOOD Additional Instructions: Please follow-up with PMD. Instructions: Arthritis and Exercise Print Language: TURKMEN
[2017-11-12 19:44] VITALS: BP 167/71; PULSE 84; RESP 18
--- NOTE | 2017-11-13 08:26 | RAD ---
HISTORY: right shoulder pain/tingling, feverish, headache COMPARISON: 07/23/2017. FINDINGS: Incompletely visualized is a left endovascular stent graft. LUNGS: The lungs are clear. PLEURA: No significant pleural effusion identified, no pneumothorax apparent. CARDIOVASCULAR: Normal. OSSEOUS STRUCTURES: No significant abnormalities. VISUALIZED UPPER ABDOMEN: Normal. OTHER FINDINGS: None. IMPRESSION: No active pulmonary disease.
--- NOTE | 2017-11-13 12:36 | CARD ---
APPROVED REPORT EKG Measurement Heart [id number] <Conclusion> Normal sinus rhythm Nonspecific ST abnormality Abnormal ECG
== END 2017-11-12 19:44 | disposition home or self-care (01) ==
LOC: H.ER 15:47
DX: M25.511 Pain in right shoulder (principal); M25.561 Pain in right knee; R51 Headache; R20.2 Paresthesia of skin; E11.9 Type 2 diabetes mellitus without complications; E78.00 Pure hypercholesterolemia, unspecified; F41.9 Anxiety disorder, unspecified; I11.0 Hypertensive heart disease with heart failure; I25.10 Atherosclerotic heart disease of native coronary artery without angina pectoris; Z79.4 Long term (current) use of insulin; Z79.82 Long term (current) use of aspirin; Z86.73 Personal history of transient ischemic attack (TIA), and cerebral infarction without residual deficits; Z95.5 Presence of coronary angioplasty implant and graft

== ENCOUNTER 2018-04-15 17:22 | Inpatient (IN) | payer MEDICARE, MEDICAID ==
[2018-04-15 17:23] VITALS: BMI 34.9
[2018-04-15] MEDS ORDERED: Albuterol-Ipratrop 3 mg / 0.5 (3 ml) UD INH STA (18:04)
[2018-04-15 18:21] LABS: BASO % 0.4 % (0.0-2.0); EOS % 0.3 % (0.0-4.0); HEMOGLOBIN 10.2 g/dL (12.0-16.0); LYMPH # 0.6 K/uL (1.0-4.3); LYMPH % 10.2 % (20.0-40.0); MEAN CELL VOLUME 100.1 fl (81.0-99.0); MEAN CORPUSCULAR HEMOGLOBIN 32.9 pg (27.0-31.0); MEAN CORPUSCULAR HGB CONC 32.9 g/dL (33.0-37.0); MEAN PLATELET VOLUME 8.3 fl (7.2-11.7); MONO # 0.4 K/uL (0.0-0.8); NEUT # 5.2 K/uL (1.8-7.0); NEUT % 83.1 % (50.0-75.0); RBC 3.1 Mil/uL (3.80-5.20); RED CELL DISTRIBUTION WIDTH 15.1 % (11.5-14.5); WHITE BLOOD COUNT 6.2 K/uL (4.8-10.8)
[2018-04-15] MEDS ORDERED: Insulin Regular 100 units/ml IV STA (18:25)
[2018-04-15] MEDS ORDERED: Albuterol-Ipratrop 3 mg / 0.5 (3 ml) UD ONE (18:28)
--- NOTE | 2018-04-15 18:28 | RAD ---
Date of service: 04/15/2018 HISTORY: SOB COMPARISON: Chest radiograph dated 11/12/2017. TECHNIQUE: Chest PA and lateral FINDINGS: LUNGS: Questionable patchy infiltrate in the right midlung. PLEURA: No significant pleural effusion identified. No pneumothorax apparent. CARDIOVASCULAR: Atherosclerotic aortic calcifications. Cardiomediastinal silhouette stably enlarged OSSEOUS STRUCTURES: Unchanged. VISUALIZED UPPER ABDOMEN: Normal. OTHER FINDINGS: None. IMPRESSION: Questionable patchy infiltrate in the right midlung.
[2018-04-15 18:32] LABS: PROTHROMBIN TIME 10.6 Seconds (9.8-13.1)
[2018-04-15 18:35] LABS: PARTIAL THROMBOPLASTIN TIME 29.9 Seconds (25.6-37.1)
[2018-04-15 18:37] LABS: ALB/GLOB RATIO 1.1 (1.0-2.1); ALBUMIN 3.1 g/dL (3.5-5.0); CALCIUM 8.9 mg/dL (8.4-10.2)
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
[2018-04-15] MEDS ORDERED: Azithromycin 500 MG in Sodium Chloride 0.9% 250 ML IV STA (18:52)
[2018-04-15 18:55] LABS: TROPONIN I 0.044 ng/mL (0.00-0.120)
--- NOTE | 2018-04-15 18:58 | CT ---
Date of service: 04/15/2018 PROCEDURE: CT HEAD WITHOUT CONTRAST. HISTORY: Dizziness COMPARISON: CT head dated 11/12/2017 TECHNIQUE: Axial computed tomography images were obtained through the head/brain without intravenous contrast. Radiation dose: Total exam DLP = 846.1 mGy-cm. This CT exam was performed using one or more of the following dose reduction techniques: Automated exposure control, adjustment of the mA and/or kV according to patient size, and/or use of iterative reconstruction technique. FINDINGS: HEMORRHAGE: No intracranial hemorrhage. BRAIN: No mass effect or edema. Mild atrophy. Mild chronic microvascular ischemic changes. VENTRICLES: Unremarkable. No hydrocephalus. CALVARIUM: Unremarkable. PARANASAL SINUSES: Unremarkable as visualized. No significant inflammatory changes. MASTOID AIR CELLS: Unremarkable as visualized. No inflammatory changes. OTHER FINDINGS: None. IMPRESSION: No acute intracranial pathology. Age-related changes. No significant interval change.
[2018-04-15] MEDS ORDERED: cefTRIAXone (Rocephin) 1 gm Inj ONE (19:14)
[2018-04-15] MEDS ORDERED: Azithromycin 500 MG IV IVPB ONE (19:15)
[2018-04-15] MEDS ORDERED: Insulin Regular 100 units/ml ONE (19:15)
[2018-04-15] MEDS ORDERED: Sodium Chloride 3% for Inhalation 4 ML VIAL.NEB IH PRN (20:47)
[2018-04-15] MEDS ORDERED: Albuterol-Ipratrop 3 mg / 0.5 (3 ml) UD INH PRN (21:06)
[2018-04-15] MEDS ORDERED: Dextrose 50% SYRINGE Inj (50 ml) IV PRN (21:07)
[2018-04-15] MEDS ORDERED: Glucagon Recombinant 1 mg Inj IM PRN (21:07)
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
[2018-04-16] MEDS: Piperacillin/Tazobact 3.375 GM in Sodium Chloride 0.9% 100 ML IVPB SCH ×3 (00:44→17:09)
[2018-04-16] MEDS: Insulin Lispro (humaLOG) 100 Units/ml Inj SC SCH ×5 (00:46→22:03)
[2018-04-16] MEDS ORDERED: Influenza Vaccine (5 YR UP)/PF 60 MCG/0.5 ML SYR IM ONE (02:23)
[2018-04-16 05:20] LABS: BASO % 0.5 % (0.0-2.0); EOS # 0.1 K/uL (0.0-0.7); EOS % 1.1 % (0.0-4.0); HEMOGLOBIN 10.2 g/dL (12.0-16.0); LYMPH # 1.2 K/uL (1.0-4.3); LYMPH % 19.7 % (20.0-40.0); MEAN CELL VOLUME 99.1 fl (81.0-99.0); MEAN CORPUSCULAR HEMOGLOBIN 32.8 pg (27.0-31.0); MEAN CORPUSCULAR HGB CONC 33.1 g/dL (33.0-37.0); MEAN PLATELET VOLUME 8.7 fl (7.2-11.7); MONO # 0.6 K/uL (0.0-0.8); NEUT % 67.7 % (50.0-75.0); RBC 3.11 Mil/uL (3.80-5.20); RED CELL DISTRIBUTION WIDTH 14.9 % (11.5-14.5); WHITE BLOOD COUNT 5.9 K/uL (4.8-10.8)
[2018-04-16 05:25] LABS: ALB/GLOB RATIO 1.1 (1.0-2.1); ALT/SGPT 36 U/L (9-52); AST/SGOT 26 U/L (14-36); BLOOD UREA NITROGEN 23 mg/dl (7-17); CALCIUM 8.9 mg/dL (8.4-10.2); GFR NON-AFRICAN AMERICAN > 60
[2018-04-16] MEDS ORDERED: Insulin Lispro (humaLOG) 100 Units/ml Inj SC SCH (07:30)
[2018-04-16] MEDS ORDERED: Patient's Own Med (Insulin Detemir [Levemir] 40 units) SQ SCH (09:00)
[2018-04-16] MEDS ORDERED: Patient's Own Med (Multivitamin [Daily Vite] 1 TAB) PO SCH (09:00)
[2018-04-16] MEDS ORDERED: Insulin Detemir 100 Units/ml Inj SC SCH (09:00)
[2018-04-16] MEDS: Enoxaparin 40 mg Syringe SC SCH (09:09)
[2018-04-16] MEDS: Multivitamin With Minerals Tab PO SCH (09:11)
--- NOTE | 2018-04-16 09:28 | CARD ---
APPROVED REPORT Date of service: 04/15/2018 EKG Measurement Heart [id number] <Conclusion> Normal sinus rhythm Anterior infarct, age undetermined Abnormal ECG
[2018-04-16] MEDS: Insulin Detemir 100 Units/ml Inj SC SCH ×2 (10:20→22:06)
[2018-04-16 10:51] LABS: ABG ALLEN TEST YES; ARTERIAL BLOOD GAS HCO3 31.9 mmol/L (21-28); ARTERIAL BLOOD GAS HEMOGLOBIN 10.7 g/dL (11.7-17.4); ARTERIAL BLOOD GAS O2 CAPACITY 14.5 mL/dL (16-24); ARTERIAL BLOOD GAS O2 CONTENT 11.7 ML/dL (15-23); ARTERIAL BLOOD GAS O2 SAT 80.5 % (95-98); ARTERIAL BLOOD GAS PCO2 58 mm/Hg (35-45); ARTERIAL BLOOD GAS PO2 39 mm/Hg (80-100); ARTERIAL BLOOD GAS TCO2 37.7 mmol/L (22-28)
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
[2018-04-16] MEDS: guaiFENesin 600 mg ER Tab PO SCH ×2 (12:29→21:13)
[2018-04-17] MEDS: Piperacillin/Tazobact 3.375 GM in Sodium Chloride 0.9% 100 ML IVPB SCH ×3 (01:09→16:59)
[2018-04-17 07:09] LABS: HEMOGLOBIN 10.3 g/dL (12.0-16.0); MEAN CELL VOLUME 100.4 fl (81.0-99.0); MEAN CORPUSCULAR HEMOGLOBIN 33.4 pg (27.0-31.0); MEAN CORPUSCULAR HGB CONC 33.3 g/dL (33.0-37.0); RBC 3.1 Mil/uL (3.80-5.20); RED CELL DISTRIBUTION WIDTH 14.6 % (11.5-14.5); WHITE BLOOD COUNT 7.5 K/uL (4.8-10.8)
[2018-04-17] MEDS: Insulin Lispro (humaLOG) 100 Units/ml Inj SC SCH ×4 (07:21→22:00)
[2018-04-17 08:14] LABS: CALCIUM 9.1 mg/dL (8.4-10.2)
[2018-04-17] MEDS: Enoxaparin 40 mg Syringe SC SCH (08:24)
[2018-04-17] MEDS: Multivitamin With Minerals Tab PO SCH (08:25)
[2018-04-17] MEDS: guaiFENesin 600 mg ER Tab PO SCH ×2 (08:26→22:00)
[2018-04-17] MEDS: Insulin Detemir 100 Units/ml Inj SC SCH ×2 (08:27→21:53)
--- NOTE | 2018-04-17 08:56 | CP.PCM.PN ---
Addendum entered by Lexi Ferrell MD 04/17/18 18:52: Surrogate Decision maker - daughter Symone Original Note: <Arturo Felizel - Last Filed: 04/17/18 09:56> Subjective - Date & Time of Evaluation Date of Evaluation: 04/17/18 Time of Evaluation: 09:20 - Subjective Subjective: Seen at bedside in not acute distress, sitting in bed. No acute events overnight. States she feels "better". On O2 NC. No changes in urination or stools. Tolerating PO diet. Objective - Vital Signs/Intake and Output Vital Signs (last 24 hours): Temp Pulse Resp BP Pulse Ox 97.9 F 80 20 140/86 94 L 04/17/18 04:30 04/17/18 08:26 04/17/18 04:30 04/17/18 08:26 04/17/18 04:30 Intake and Output: 04/17/18 04/17/18 06:59 18:59 Intake Total 250 Balance 250 - Medications Medications: Current Medications Albuterol/Ipratropium (Duoneb 3 Mg/0.5 Mg (3 Ml) Ud) 3 ml INH RQ4 PRN PRN Reason: Shortness of Breath Last Admin: 04/16/18 11:22 Dose: 3 ml Aspirin (Aspirin Chewable) 81 mg PO DAILY [facility] Last Admin: 04/17/18 08:25 Dose: 81 mg Atorvastatin Calcium (Lipitor) 40 mg PO HS [facility] Last Admin: 04/16/18 21:13 Dose: 40 mg Carvedilol (Coreg) 25 mg PO BID [facility] Last Admin: 04/17/18 08:25 Dose: 25 mg Clopidogrel Bisulfate (Plavix) 75 mg PO DAILY [facility] Last Admin: 04/17/18 08:25 Dose: 75 mg Dextrose (Dextrose 50% Inj) 0 ml IV STAT PRN; Protocol PRN Reason: Hypoglycemia Protocol Dextrose (Glutose 15) 0 gm PO ONCE PRN; Protocol PRN Reason: Hypoglycemia Protocol Enoxaparin Sodium (Lovenox) 40 mg SC DAILY [facility]; Protocol Last Admin: 04/17/18 08:24 Dose: 40 mg Escitalopram Oxalate (Lexapro) 20 mg PO HS [facility] Last Admin: 04/16/18 21:13 Dose: 20 mg Furosemide (Lasix) 40 mg PO DAILY [facility] Last Admin: 04/17/18 08:24 Dose: 40 mg Glucagon (Glucagen Diagnostic Kit) 0 mg IM STAT PRN; Protocol PRN Reason: Hypoglycemia Protocol Guaifenesin (Mucinex La) 600 mg PO Q12 [facility] Last Admin: 04/17/18 08:26 Dose: 600 mg Vancomycin HCl 1 gm/ Sodium (Chloride) 250 mls @ 166.667 mls/hr IVPB DAILY [facility]; Protocol Last Admin: 04/17/18 08:29 Dose: 166.667 mls/hr Piperacillin Sod/Tazobactam (Sod 3.375 gm/ Sodium Chloride) 100 mls @ 100 mls/hr IVPB Q8 [facility]; Protocol Last Admin: 04/17/18 08:28 Dose: 100 mls/hr Insulin Detemir (Levemir) 30 units SC BID@0900,2100 [facility] Last Admin: 04/17/18 08:27 Dose: 30 units Insulin Human Lispro (Humalog) 8 units SC WM [facility] Insulin Human Lispro (Humalog) 0 units SC ACHS [facility]; Protocol Last Admin: 04/17/18 07:21 Dose: 3 units Isosorbide Mononitrate (Imdur) 60 mg PO DAILY [facility] Last Admin: 04/17/18 08:30 Dose: 60 mg Losartan Potassium (Cozaar) 50 mg PO DAILY [facility] Last Admin: 04/17/18 08:26 Dose: 50 mg Mirtazapine (Remeron 15mg Odt) 15 mg PO DAILY [facility] Last Admin: 04/17/18 08:25 Dose: 15 mg Multivitamins/Minerals (Therapeutic-M Tab) 1 tab PO DAILY [facility] Last Admin: 04/17/18 08:25 Dose: 1 tab - Labs Labs: 04/17/18 06:08 04/17/18 06:08 PT 10.6 Seconds (9.8-13.1) 04/15/18 18:16 INR 1.0 04/15/18 18:16 APTT 29.9 Seconds (25.6-37.1) 04/15/18 18:16 - Constitutional Appears: Non-toxic, No Acute Distress - Head Exam Head Exam: NORMAL INSPECTION - Eye Exam Eye Exam: EOMI, PERRL - ENT Exam ENT Exam: Mucous Membranes Moist - Respiratory Exam Respiratory Exam: Rales (BB and R/middle lung), NORMAL BREATHING PATTERN. absent: Decreased Breath Sounds, Wheezes - Cardiovascular Exam Cardiovascular Exam: REGULAR RHYTHM, +S1, +S2. absent: Gallop - GI/Abdominal Exam GI & Abdominal Exam: Soft, Normal Bowel Sounds. absent: Tenderness - Extremities Exam Extremities Exam: Normal Capillary Refill. absent: Calf Tenderness, Pedal Edema - Neurological Exam Neurological Exam: Alert, Awake, Oriented x3 - Psychiatric Exam Psychiatric exam: Normal Affect, Normal Mood - Skin Skin Exam: Normal Color, Warm Assessment and Plan - Assessment and Plan (Free Text) Assessment: 77 y/o woman w/ pmh of CAD, HTN, preserved EF CHF, IDDM2, Hx of CVA, СВЕТЛАНА (CPAP at home), on home O2 presents to the ED w/ dyspnea CAP acute Stable CURB 65 =2 on admission - Rales on right middle and lower lobe on PE - CXR: questionable patchy infiltrate in the right midlung - ABG Yesterday showed hypoxemia with hypercarbia on room air - c/w duonebs q4h PRN - C/w Current abx treatment with Vanco and Zosyn - f/u blood and sputum culture - C/w mucinex q12h - manager hris consult for home O2 Preserved EF CHF - last echo 07/21/2016: EF 60-65%, normal systolic function, aortic valve sclerosis - c/w coreg, losartan, ASA, isosorbide - No signs of fluid overload. Hold lasix for now IDDM2 - uncontrolled - last HbA1c 9.9% (09/03/2017) - Accuchecks around 200s since Yesterrday - Increase Levemir 30 units q12h - hold lispro WM for now - C/w insulin correction scale - hypoglycemic protocol CAD - c/w coreg, ASA, statin HODA on admission - GFR worsened compared to Yesterday. Poss due to dyuretics? - BUN improved - Creat WNL - Hold Lasix for now Monitor HTN - chronic - BP stable - c/w losartan СЕВТЛАНА - CPAP at home CVA - c/w plavix, ASA Prophylactic measures - DVT: lovenox 40 mg SC daily <Lexi Ferrell - Last Filed: 04/17/18 16:24> Objective - Vital Signs/Intake and Output Vital Signs (last 24 hours): Temp Pulse Resp BP Pulse Ox 98.5 F 76 20 132/64 99 09/30/18 16:10 04/17/18 16:10 04/17/18 16:10 04/17/18 16:10 04/17/18 16:10 Intake and Output: 04/17/18 04/17/18 06:59 18:59 Intake Total 250 Balance 250 - Medications Medications: Current Medications Albuterol/Ipratropium (Duoneb 3 Mg/0.5 Mg (3 Ml) Ud) 3 ml INH RQ4 PRN PRN Reason: Shortness of Breath Last Admin: 04/16/18 11:22 Dose: 3 ml Aspirin (Aspirin Chewable) 81 mg PO DAILY [facility] Last Admin: 04/17/18 08:25 Dose: 81 mg Atorvastatin Calcium (Lipitor) 40 mg PO HS [facility] Last Admin: 04/16/18 21:13 Dose: 40 mg Carvedilol (Coreg) 25 mg PO BID [facility] Last Admin: 04/17/18 08:25 Dose: 25 mg Clopidogrel Bisulfate (Plavix) 75 mg PO DAILY [facility] Last Admin: 04/17/18 08:25 Dose: 75 mg Dextrose (Dextrose 50% Inj) 0 ml IV STAT PRN; Protocol PRN Reason: Hypoglycemia Protocol Dextrose (Glutose 15) 0 gm PO ONCE PRN; Protocol PRN Reason: Hypoglycemia Protocol Enoxaparin Sodium (Lovenox) 40 mg SC DAILY [facility]; Protocol Last Admin: 04/17/18 08:24 Dose: 40 mg Escitalopram Oxalate (Lexapro) 20 mg PO HS [facility] Last Admin: 04/16/18 21:13 Dose: 20 mg Furosemide (Lasix) 40 mg PO DAILY [facility] Last Admin: 04/17/18 08:24 Dose: 40 mg Glucagon (Glucagen Diagnostic Kit) 0 mg IM STAT PRN; Protocol PRN Reason: Hypoglycemia Protocol Guaifenesin (Mucinex La) 600 mg PO Q12 [facility] Last Admin: 04/17/18 08:26 Dose: 600 mg Vancomycin HCl 1 gm/ Sodium (Chloride) 250 mls @ 166.667 mls/hr IVPB DAILY [facility]; Protocol Last Admin: 04/17/18 08:29 Dose: 166.667 mls/hr Piperacillin Sod/Tazobactam (Sod 3.375 gm/ Sodium Chloride) 100 mls @ 100 mls/hr IVPB Q8 [facility]; Protocol Last Admin: 04/17/18 08:28 Dose: 100 mls/hr Insulin Detemir (Levemir) 30 units SC BID@0900,2100 [facility] Last Admin: 04/17/18 08:27 Dose: 30 units Insulin Human Lispro (Humalog) 8 units SC WM [facility] Insulin Human Lispro (Humalog) 0 units SC ACHS [facility]; Protocol Last Admin: 04/17/18 12:23 Dose: 6 units Isosorbide Mononitrate (Imdur) 60 mg PO DAILY [facility] Last Admin: 04/17/18 08:30 Dose: 60 mg Losartan Potassium (Cozaar) 50 mg PO DAILY [facility] Last Admin: 04/17/18 08:26 Dose: 50 mg Mirtazapine (Remeron 15mg Odt) 15 mg PO DAILY [facility] Last Admin: 04/17/18 08:25 Dose: 15 mg Multivitamins/Minerals (Therapeutic-M Tab) 1 tab PO DAILY [facility] Last Admin: 04/17/18 08:25 Dose: 1 tab Saccharomyces Boulardii (Florastor) 250 mg PO BID [facility] - Labs Labs: 04/17/18 06:08 04/17/18 06:08 PT 10.6 Seconds (9.8-13.1) 04/15/18 18:16 INR 1.0 04/15/18 18:16 APTT 29.9 Seconds (25.6-37.1) 04/15/18 18:16 Attending/Attestation - Attestation I have personally seen and examined this patient.: Yes I have fully participated in the care of the patient.: Yes I have reviewed all pertinent clinical information, including history, physical exam and plan: Yes Notes (Text): Pneumonia, likely bacterial CHF, chronic, diastolic dysfunction, normal EF DM type II , uncontrolled, with retirement use of Insulin Acute Kidney Injury
[2018-04-17 16:19] LABS: SQUAMOUS EPITHIAL < 1 /hpf (0-5); URINE BACTERIA RARE (<OCC); URINE BILIRUBIN NEGATIVE (NEGATIVE); URINE BLOOD SMALL (NEGATIVE); URINE CLARITY SLIGHTY-CLOUDY (Clear); URINE COLOR YELLOW (YELLOW); URINE GLUCOSE (UA) >=500 mg/dL (Normal); URINE LEUKOCYTE ESTERASE NEG Leu/uL (Negative); URINE PROTEIN 100 mg/dL (NEGATIVE); URINE UROBILINOGEN 0.2-1.0 mg/dL (0.2-1.0)
[2018-04-17] MEDS: Saccharomyces Boulardi 250 mg Cap PO SCH (16:57)
[2018-04-18] MEDS: Piperacillin/Tazobact 3.375 GM in Sodium Chloride 0.9% 100 ML IVPB SCH ×3 (01:10→16:45)
[2018-04-18 05:39] LABS: MEAN CELL VOLUME 98.8 fl (81.0-99.0); MEAN CORPUSCULAR HEMOGLOBIN 32.9 pg (27.0-31.0); MEAN CORPUSCULAR HGB CONC 33.3 g/dL (33.0-37.0); RBC 3.06 Mil/uL (3.80-5.20); RED CELL DISTRIBUTION WIDTH 14.5 % (11.5-14.5); WHITE BLOOD COUNT 7.2 K/uL (4.8-10.8)
[2018-04-18] MEDS: Insulin Lispro (humaLOG) 100 Units/ml Inj SC SCH ×5 (06:46→21:19)
[2018-04-18] MEDS: Saccharomyces Boulardi 250 mg Cap PO SCH ×2 (09:43→16:41)
[2018-04-18] MEDS: guaiFENesin 600 mg ER Tab PO SCH ×2 (09:45→21:18)
[2018-04-18] MEDS: Enoxaparin 40 mg Syringe SC SCH (09:45)
[2018-04-18] MEDS: Multivitamin With Minerals Tab PO SCH (09:47)
[2018-04-18] MEDS: Insulin Detemir 100 Units/ml Inj SC SCH ×2 (11:20→21:17)
--- NOTE | 2018-04-18 12:24 | CP.PCM.PN ---
Addendum entered and electronically signed by Rosalba Booth MD 04/18/18 20:35: Levemir changed to 34 units BID & Lispro restarted, 3 units SC WM Original Note: Subjective - Date & Time of Evaluation Date of Evaluation: 04/18/18 Time of Evaluation: 10:45 - Subjective Subjective: Patient was seen and evaluated this morning with Dr. Burger. Patient was not in any acute distress. She slept well last night, but complained of shortness of breath while walking to the restroom this morning. She is currently on 3L of oxygen via [place]. She denied any fever, chills, chest pain or abdominal pain. Objective - Vital Signs/Intake and Output Vital Signs (last 24 hours): Temp Pulse Resp BP Pulse Ox 98.9 F 90 18 145/73 96 04/18/18 12:18 04/18/18 12:18 04/18/18 12:18 04/18/18 12:18 04/18/18 12:18 - Medications Medications: Current Medications Albuterol/Ipratropium (Duoneb 3 Mg/0.5 Mg (3 Ml) Ud) 3 ml INH RQ4 PRN PRN Reason: Shortness of Breath Last Admin: 04/16/18 11:22 Dose: 3 ml Aspirin (Aspirin Chewable) 81 mg PO DAILY [facility] Last Admin: 04/18/18 09:41 Dose: 81 mg Atorvastatin Calcium (Lipitor) 40 mg PO HS [facility] Last Admin: 04/17/18 21:53 Dose: 40 mg Carvedilol (Coreg) 25 mg PO BID [facility] Last Admin: 04/18/18 09:41 Dose: 25 mg Clopidogrel Bisulfate (Plavix) 75 mg PO DAILY [facility] Last Admin: 04/18/18 09:46 Dose: 75 mg Dextrose (Dextrose 50% Inj) 0 ml IV STAT PRN; Protocol PRN Reason: Hypoglycemia Protocol Dextrose (Glutose 15) 0 gm PO ONCE PRN; Protocol PRN Reason: Hypoglycemia Protocol Enoxaparin Sodium (Lovenox) 40 mg SC DAILY [facility]; Protocol Last Admin: 04/18/18 09:45 Dose: 40 mg Escitalopram Oxalate (Lexapro) 20 mg PO HS [facility] Last Admin: 04/17/18 21:53 Dose: 20 mg Furosemide (Lasix) 40 mg PO DAILY [facility] Last Admin: 04/17/18 08:24 Dose: 40 mg Glucagon (Glucagen Diagnostic Kit) 0 mg IM STAT PRN; Protocol PRN Reason: Hypoglycemia Protocol Guaifenesin (Mucinex La) 600 mg PO Q12 [facility] Last Admin: 04/18/18 09:45 Dose: 600 mg Vancomycin HCl 1 gm/ Sodium (Chloride) 250 mls @ 166.667 mls/hr IVPB DAILY [facility]; Protocol Last Admin: 04/18/18 09:47 Dose: 166.667 mls/hr Piperacillin Sod/Tazobactam (Sod 3.375 gm/ Sodium Chloride) 100 mls @ 100 mls/h r IVPB Q8 [facility]; Protocol Last Admin: 04/18/18 10:40 Dose: 100 mls/hr Insulin Detemir (Levemir) 30 units SC BID@0900,2100 [facility] Last Admin: 04/18/18 11:20 Dose: 30 units Insulin Human Lispro (Humalog) 8 units SC WM [facility] Insulin Human Lispro (Humalog) 0 units SC ACHS [facility]; Protocol Last Admin: 04/18/18 06:46 Dose: Not Given Isosorbide Mononitrate (Imdur) 60 mg PO DAILY [facility] Last Admin: 04/18/18 09:43 Dose: 60 mg Losartan Potassium (Cozaar) 50 mg PO DAILY [facility] Last Admin: 04/18/18 09:42 Dose: 50 mg Mirtazapine (Remeron 15mg Odt) 15 mg PO HS ONE Stop: 04/19/18 20:01 Multivitamins/Minerals (Therapeutic-M Tab) 1 tab PO DAILY [facility] Last Admin: 04/18/18 09:47 Dose: 1 tab Saccharomyces Boulardii (Florastor) 250 mg PO BID [facility] Last Admin: 04/18/18 09:43 Dose: 250 mg - Labs Labs: 04/18/18 04:30 04/18/18 04:30 PT 10.6 Seconds (9.8-13.1) 04/15/18 18:16 INR 1.0 04/15/18 18:16 APTT 29.9 Seconds (25.6-37.1) 04/15/18 18:16 - Constitutional Appears: Non-toxic, No Acute Distress - Head Exam Head Exam: ATRAUMATIC - Neck Exam Neck Exam: Full ROM - Respiratory Exam Additional comments: Crackles noted on right, but no wheeze or rhonchi - Cardiovascular Exam Cardiovascular Exam: REGULAR RHYTHM, +S1, +S2 - GI/Abdominal Exam GI & Abdominal Exam: Soft, Normal Bowel Sounds - Extremities Exam Additional comments: calves nontender with no pitting edema Assessment and Plan - Assessment and Plan (Free Text) Assessment: 77 y/o woman with pmhx of CAD, HTN, CHF with preserved EF, Insulin-dependent DM2, hx of CVA, СВЕТЛАНА with CPAP and home O2 was admitted for community acquire pneumonia. 1. Community Acquired Pneumonia (Acute) -Will discontinue Vanco and continue Zosyn. -Repeat CXR done today showed no active pulmonary disease, no significant pleural effusion identified. -Previous CXR showed questionable patchy infiltrate in the right mid-lung. -Continue with duonebs q4h PRN. - Follow up blood and sputum culture. - Continue with mucinex q12h. - health spa manager consult for home Oxygen. 2. CHF with Preserved EF - Last echo 07/21/2016: EF 60-65%, normal systolic function, aortic valve sclerosis - Will continue with Coreg, Losartan, ASA, and Isosorbide Mononitrate. - Will resume lasix 40mg QD. -Cardiology consulted. Will follow up recommendations. IDDM2 (Uncontrolled) - last HbA1c 9.9% (09/03/2017) - Accuchecks around 200s since yesterday - Increase Levemir 40 units q12h. - With continue to hold lispro WM for now - Continue with insulin correction scale. - Hypoglycemic protocol in place. CAD - Will continue Coreg, ASA & Statin. HODA on admission - BUN 23 with creatinine 1.2. - Lasix was restarted today. -Ordered BMP for tomorrow AM. HTN (chronic) - Will continue losartan. СВЕТЛАНА - CPAP at home. CVA - Will continue with plavix & ASA. Prophylactic measures - DVT: lovenox 40 mg SC daily
--- NOTE | 2018-04-18 14:09 | RAD ---
Date of service: 04/18/2018 HISTORY: Exertional dyspnea COMPARISON: 04/15/2018. TECHNIQUE: Chest PA and lateral FINDINGS: LUNGS: No active pulmonary disease. PLEURA: No significant pleural effusion identified. No pneumothorax apparent. CARDIOVASCULAR: No radiographic findings to suggest acute or significant cardiovascular disease. OSSEOUS STRUCTURES: No significant abnormalities. VISUALIZED UPPER ABDOMEN: Normal. OTHER FINDINGS: None. IMPRESSION: No active disease. No significant interval change compared to the prior examination(s).
--- NOTE | 2018-04-18 17:35 | CP.PCM.CON ---
History of Present Illness - History of Present Illness History of Present Illness: CC: Dizziness. HPI: I have been requested on cardiology consultation by Dr. Burger on Mrs. Alexandra who is a 77 year old female with a PMH of CAD, s/p PCI, HTN, DM and dyslipidemia who presents with her for evaluation of intermittent dizziness since last . Fortunately she has not had any syncope, but has experienced gait disturbance and falls in the past. She denies chest pain, palpitations, edema, cough, fever, chills but has mild exertional dyspnea. A chest xray was unremarkable and an ECG revealed NSR, anterior SC, old. No cardiac troponin or BNP has been checked. She has been diagnosed with pneumonia and has been started on antibiotics and feels well at this time, however her dizziness persists. Review of Systems - Constitutional Constitutional: As Per HPI, Weakness. absent: Chills, Fever, Night Sweats - EENT Eyes: absent: Blurred Vision, Diplopia Ears: Disequilibrium, Dizziness Nose/Mouth/Throat: absent: Nasal Congestion, Dysphagia - Cardiovascular Cardiovascular: Dyspnea on Exertion. absent: Chest Pain, Edema, Leg Edema, Palpitations, Syncope - Respiratory Respiratory: Dyspnea on Exertion. absent: Wheezing, Chest Congestion, Excessive Mucous Production - Gastrointestinal Gastrointestinal: absent: Abdominal Pain, Diarrhea, Heartburn, Nausea, Vomiting - Genitourinary Genitourinary: absent: Dysuria - Musculoskeletal Musculoskeletal: Back Pain. absent: Muscle Weakness, Myalgias, Numbness - Integumentary Integumentary: absent: Erythema, Rash - Neurological Neurological: Dizziness, Vertigo - Psychiatric Psychiatric: absent: Anxiety, Confusion - Endocrine Endocrine: Fatigue - Hematologic/Lymphatic Hematologic: absent: Easy Bleeding, Easy Bruising Past Patient History - Infectious Disease Hx of Infectious Diseases: None - Tetanus Immunizations Tetanus Immunization: Unknown - Past Medical History & Family History Past Medical History?: Yes - Past Social History Smoking Status: Never Smoked - CARDIAC Hx Cardiac Disorders: Yes Hx Angina: Yes Hx Circulatory Problems: Yes Hx Congestive Heart Failure: Yes Hx Hypercholesterolemia: Yes Hx Hypertension: Yes - PULMONARY Hx Respiratory Disorders: Yes Hx Sleep Apnea: Yes - NEUROLOGICAL Hx Neurological Disorder: Yes HX Cerebrovascular Accident: Yes Hx Vertigo: Yes - RENAL Hx Chronic Kidney Disease: No - ENDOCRINE/METABOLIC Hx Endocrine Disorders: Yes Hx Diabetes Mellitus Type 2: Yes - HEMATOLOGICAL/ONCOLOGICAL Hx Blood Disorders: No Hx Human Immunodeficiency Virus (HIV): No - INTEGUMENTARY Hx Dermatological Problems: No - MUSCULOSKELETAL/RHEUMATOLOGICAL Hx Musculoskeletal Disorders: Yes Hx Arthritis: Yes Hx Falls: Yes - GASTROINTESTINAL Hx Gastrointestinal Disorders: Yes Hx Gastritis: Yes - GENITOURINARY/GYNECOLOGICAL Hx Genitourinary Disorders: No - PSYCHIATRIC Hx Psychophysiologic Disorder: Yes Hx Anxiety: Yes Hx Substance Use: No - SURGICAL HISTORY Hx Surgeries: Yes Hx Coronary Stent: Yes - ANESTHESIA Hx Anesthesia: Yes Hx Anesthesia Reactions: No Hx Malignant Hyperthermia: No Meds Allergies/Adverse Reactions: Allergies Allergy/AdvReac Type Severity Reaction Status Date / Time No Known Allergies Allergy Verified 01/10/18 14:32 - Medications Medications: Current Medications Albuterol/Ipratropium (Duoneb 3 Mg/0.5 Mg (3 Ml) Ud) 3 ml INH RQ4 PRN PRN Reason: Shortness of Breath Last Admin: 04/16/18 11:22 Dose: 3 ml Aspirin (Aspirin Chewable) 81 mg PO DAILY [facility] Last Admin: 04/18/18 09:41 Dose: 81 mg Atorvastatin Calcium (Lipitor) 40 mg PO HS [facility] Last Admin: 04/17/18 21:53 Dose: 40 mg Carvedilol (Coreg) 25 mg PO BID [facility] Last Admin: 04/18/18 16:41 Dose: 25 mg Clopidogrel Bisulfate (Plavix) 75 mg PO DAILY [facility] Last Admin: 04/18/18 09:46 Dose: 75 mg Dextrose (Dextrose 50% Inj) 0 ml IV STAT PRN; Protocol PRN Reason: Hypoglycemia Protocol Dextrose (Glutose 15) 0 gm PO ONCE PRN; Protocol PRN Reason: Hypoglycemia Protocol Enoxaparin Sodium (Lovenox) 40 mg SC DAILY [facility]; Protocol Last Admin: 04/18/18 09:45 Dose: 40 mg Escitalopram Oxalate (Lexapro) 20 mg PO HS [facility] Last Admin: 04/17/18 21:53 Dose: 20 mg Furosemide (Lasix) 40 mg PO DAILY [facility] Last Admin: 04/17/18 08:24 Dose: 40 mg Glucagon (Glucagen Diagnostic Kit) 0 mg IM STAT PRN; Protocol PRN Reason: Hypoglycemia Protocol Guaifenesin (Mucinex La) 600 mg PO Q12 [facility] Last Admin: 04/18/18 09:45 Dose: 600 mg Vancomycin HCl 1 gm/ Sodium (Chloride) 250 mls @ 166.667 mls/hr IVPB DAILY [facility]; Protocol Last Admin: 04/18/18 09:47 Dose: 166.667 mls/hr Piperacillin Sod/Tazobactam (Sod 3.375 gm/ Sodium Chloride) 100 mls @ 100 mls/hr IVPB Q8 [facility]; Protocol Last Admin: 04/18/18 16:45 Dose: 100 mls/hr Insulin Detemir (Levemir) 40 units SC BID@0900,2100 [facility] Insulin Human Lispro (Humalog) 0 units SC ACHS [facility]; Protocol Last Admin: 04/18/18 16:36 Dose: 10 units Insulin Human Lispro (Humalog) 3 units SC [facility] Isosorbide Mononitrate (Imdur) 60 mg PO DAILY [facility] Last Admin: 04/18/18 09:43 Dose: 60 mg Losartan Potassium (Cozaar) 50 mg PO DAILY [facility] Last Admin: 04/18/18 09:42 Dose: 50 mg Mirtazapine (Remeron 15mg Odt) 15 mg PO HS ONE Stop: 04/19/18 20:01 Multivitamins/Minerals (Therapeutic-M Tab) 1 tab PO DAILY [facility] Last Admin: 04/18/18 09:47 Dose: 1 tab Saccharomyces Boulardii (Florastor) 250 mg PO BID [facility] Last Admin: 04/18/18 16:41 Dose: 250 mg Physical Exam - Constitutional Appears: Well, Non-toxic, No Acute Distress, Younger Than Stated Age - Head Exam Head Exam: ATRAUMATIC, NORMAL INSPECTION, NORMOCEPHALIC - Eye Exam Eye Exam: Normal appearance, PERRL. absent: Conjunctival injection, Scleral icterus - ENT Exam ENT Exam: Mucous Membranes Moist, Normal Exam, Normal External Ear Exam - Neck Exam Neck exam: Positive for: Full Rom, Normal Inspection - Respiratory Exam Respiratory Exam: Clear to Auscultation Bilateral, NORMAL BREATHING PATTERN. absent: Rales, Rhonchi, Wheezes - GI/Abdominal Exam GI & Abdominal Exam: Soft. absent: Distended, Guarding, Tenderness - Rectal Exam Rectal Exam: Deferred - Extremities Exam Extremities exam: Positive for: full ROM, normal capillary refill, normal inspection. Negative for: pedal edema - Back Exam Back exam: NORMAL INSPECTION - Neurological Exam Neurological exam: Alert, CN II-XII Intact, Oriented x3 - Psychiatric Exam Psychiatric exam: Normal Affect, Normal Mood - Skin Skin Exam: Dry, Intact, Normal Color, Warm Results - Vital Signs Recent Vital Signs: Last Vital Signs Temp 98.7 F 04/18/18 15:29 Pulse 77 04/18/18 16:41 Resp 20 04/18/18 15:29 BP 146/72 04/18/18 16:41 Pulse Ox 96 04/18/18 15:29 - Labs Result Diagrams: 04/18/18 04:30 04/18/18 04:30 Labs: Laboratory Results - last 24 hr 04/17/18 04/18/18 04/18/18 21:25 04:30 04:30 WBC 7.2 RBC 3.06 L Hgb 10.0 L Hct 30.2 L MCV 98.8 MCH 32.9 H MCHC 33.3 RDW 14.5 Plt Count 202 Sodium 142 Potassium 4.2 Chloride 104 Carbon Dioxide 35 H Anion Gap 7 L BUN 23 H Creatinine 1.2 Est GFR ( Amer) 53 Est GFR (Non-Af Amer) 44 POC Glucose (mg/dL) 146 H Random Glucose 108 H Calcium 9.0 04/18/18 04/18/18 05:27 11:23 WBC RBC Hgb Hct MCV MCH MCHC RDW Plt Count Sodium Potassium Chloride Carbon Dioxide Anion Gap BUN Creatinine Est GFR ( Amer) Est GFR (Non-Af Amer) POC Glucose (mg/dL) 104 237 H Random Glucose Calcium Assessment & Plan - Assessment and Plan (Free Text) Assessment: 1. Dizziness. 2. Vertigo. 3. CAD, stable. 4. Possible pneumonia. 5. DM. 6. HTN. 7. Dyslipidemia. Plan: 1. Continue antibiotics. 2. Continue present cardiac medications. 3. MRI of brain. 4. Neurology evaluation. 5. Stable cardiac shelby, will sign off, thank you for allowing me to participate in the care of this patient. - Date & Time Date: 04/18/18 Time: 17:15
[2018-04-18] MEDS ORDERED: Insulin Detemir 100 Units/ml Inj SC SCH (21:00)
[2018-04-19] MEDS: Piperacillin/Tazobact 3.375 GM in Sodium Chloride 0.9% 100 ML IVPB SCH ×3 (00:19→17:17)
[2018-04-19 06:12] LABS: CALCIUM 8.9 mg/dL (8.4-10.2)
[2018-04-19] MEDS: Insulin Lispro (humaLOG) 100 Units/ml Inj SC SCH ×7 (06:44→22:02)
--- NOTE | 2018-04-19 09:20 | CP.PCM.PN ---
Addendum entered and electronically signed by Rosalba Booht MD 04/20/18 14:30: hx of CVA Original Note: Subjective - Date & Time of Evaluation Date of Evaluation: 04/19/18 Time of Evaluation: 08:57 - Subjective Subjective: Patient was seen and examined this AM. She is complaining of dizziness, which she reports has prevented her from getting out of bed. She denied any fever, chills, chest pain or shortness of breath at this time. Objective - Vital Signs/Intake and Output Vital Signs (last 24 hours): Temp Pulse Resp BP Pulse Ox 98.5 F 77 18 179/66 H 97 04/19/18 08:01 04/19/18 08:01 04/19/18 08:01 04/19/18 08:01 04/19/18 08:01 Intake and Output: 04/19/18 04/19/18 06:59 18:59 Intake Total 280 Balance 280 - Medications Medications: Current Medications Albuterol/Ipratropium (Duoneb 3 Mg/0.5 Mg (3 Ml) Ud) 3 ml INH RQ4 PRN PRN Reason: Shortness of Breath Last Admin: 04/16/18 11:22 Dose: 3 ml Aspirin (Aspirin Chewable) 81 mg PO DAILY [facility] Last Admin: 04/18/18 09:41 Dose: 81 mg Atorvastatin Calcium (Lipitor) 40 mg PO HS [facility] Last Admin: 04/18/18 21:20 Dose: 40 mg Carvedilol (Coreg) 25 mg PO BID [facility] Last Admin: 04/18/18 16:41 Dose: 25 mg Clopidogrel Bisulfate (Plavix) 75 mg PO DAILY [facility] Last Admin: 04/18/18 09:46 Dose: 75 mg Dextrose (Dextrose 50% Inj) 0 ml IV STAT PRN; Protocol PRN Reason: Hypoglycemia Protocol Dextrose (Glutose 15) 0 gm PO ONCE PRN; Protocol PRN Reason: Hypoglycemia Protocol Enoxaparin Sodium (Lovenox) 40 mg SC DAILY [facility]; Protocol Last Admin: 04/18/18 09:45 Dose: 40 mg Escitalopram Oxalate (Lexapro) 20 mg PO HS [facility] Last Admin: 04/18/18 21:20 Dose: 20 mg Furosemide (Lasix) 40 mg PO DAILY [facility] Last Admin: 04/17/18 08:24 Dose: 40 mg Glucagon (Glucagen Diagnostic Kit) 0 mg IM STAT PRN; Protocol PRN Reason: Hypoglycemia Protocol Guaifenesin (Mucinex La) 600 mg PO Q12 [facility] Last Admin: 04/18/18 21:18 Dose: 600 mg Piperacillin Sod/Tazobactam (Sod 3.375 gm/ Sodium Chloride) 100 mls @ 100 mls/hr IVPB Q8 [facility]; Protocol Last Admin: 04/19/18 00:19 Dose: 100 mls/hr Insulin Detemir (Levemir) 34 units SC BID@0900,2100 [facility] Last Admin: 04/18/18 21:17 Dose: 34 units Insulin Human Lispro (Humalog) 0 units SC ACHS [facility]; Protocol Last Admin: 04/19/18 06:44 Dose: 2 units Insulin Human Lispro (Humalog) 3 units SC WM [facility] Last Admin: 04/18/18 17:43 Dose: 3 units Isosorbide Mononitrate (Imdur) 60 mg PO DAILY [facility] Last Admin: 04/18/18 09:43 Dose: 60 mg Losartan Potassium (Cozaar) 50 mg PO DAILY [facility] Last Admin: 04/18/18 09:42 Dose: 50 mg Mirtazapine (Remeron 15mg Odt) 15 mg PO HS ONE Stop: 04/19/18 20:01 Multivitamins/Minerals (Therapeutic-M Tab) 1 tab PO DAILY [facility] Last Admin: 04/18/18 09:47 Dose: 1 tab Saccharomyces Boulardii (Florastor) 250 mg PO BID [facility] Last Admin: 04/18/18 16:41 Dose: 250 mg - Labs Labs: 04/18/18 04:30 04/19/18 04:20 PT 10.6 Seconds (9.8-13.1) 04/15/18 18:16 INR 1.0 04/15/18 18:16 APTT 29.9 Seconds (25.6-37.1) 04/15/18 18:16 - Constitutional Appears: No Acute Distress - Head Exam Head Exam: ATRAUMATIC - Respiratory Exam Additional comments: crackles noted b/l; no wheeze or rhonchi - Cardiovascular Exam Cardiovascular Exam: REGULAR RHYTHM, +S1, +S2 - GI/Abdominal Exam GI & Abdominal Exam: Soft, Normal Bowel Sounds Additional comments: no guarding or rigidity - Extremities Exam Extremities Exam: Full ROM Additional comments: no pitting edema Assessment and Plan - Assessment and Plan (Free Text) Assessment: 77 y/o woman with pmhx of CAD, HTN, CHF with preserved EF, Insulin-dependent DM2, hx of CVA, СВЕТЛАНА with CPAP and home O2 was admitted for community acquire pneumonia. 1. Community Acquired Pneumonia (Acute) - Continue Zosyn. -Repeat CXR done 04/18/2018 showed no active pulmonary disease, no significant pleural effusion identified. -Previous CXR showed questionable patchy infiltrate in the right mid-lung. -Continue with duonebs q4h PRN. - Continue with mucinex q12h. - Will continue to follow up with protective services case worker in regards to home oxygen. 2. CHF with Preserved EF - Last echo 07/21/2016: EF 60-65%, normal systolic function, aortic valve sclerosis. -(04/15/2018) Troponin: 0.0440 -(04/15/2018)Pro-BNP: 768 -Will continue with Coreg, Losartan, ASA, and Isosorbide Mononitrate. - Continue lasix 40mg QD. -Record Center Coordinator, Dr. Dodge was consulted, and noted that patient is stable cardiac shelby/continue with cardiac meds. 3. IDDM2 (Uncontrolled) - last HbA1c 9.9% (09/03/2017) - Accuchecks around 200s since yesterday - Continue Levemir 34 units q12h. - Continue lispro 3 units SC WM. - Continue with insulin correction scale. - Hypoglycemic protocol in place. 4. Dizziness -Neurology was consulted and recommended gabapentin. -PT evaluated and recommended TCU vs home with home care. 5. CAD -Continue Coreg, ASA & Statin. 6. HODA on admission - BUN 27 with creatinine 1.1. Today's BUN/creatinine: 25/1.3 - Continue Lasix. -Ordered BMP for tomorrow AM. 7. HTN (chronic) - Continue losartan. - Continue lasix. 8. СВЕТЛАНА - Continue CPAP. 9. CVA - Continue with plavix & ASA. 10. DVT prophylaxis - Lovenox 40 mg SC daily
[2018-04-19] MEDS: Saccharomyces Boulardi 250 mg Cap PO SCH ×2 (10:11→17:05)
[2018-04-19] MEDS: Enoxaparin 40 mg Syringe SC SCH (10:13)
[2018-04-19] MEDS: Multivitamin With Minerals Tab PO SCH (10:14)
[2018-04-19] MEDS: guaiFENesin 600 mg ER Tab PO SCH ×2 (10:14→21:30)
[2018-04-19] MEDS: Insulin Detemir 100 Units/ml Inj SC SCH ×2 (10:20→21:30)
--- NOTE | 2018-04-19 15:57 | CP.PCM.CON ---
History of Present Illness - History of Present Illness History of Present Illness: neurology consult dictated plan; 1. neurontin 300 mg qhs 2. physical therapy and gait training thank you Dr. najera Past Patient History - Infectious Disease Hx of Infectious Diseases: None - Tetanus Immunizations Tetanus Immunization: Unknown - Past Medical History & Family History Past Medical History?: Yes - Past Social History Smoking Status: Never Smoked - CARDIAC Hx Cardiac Disorders: Yes Hx Congestive Heart Failure: Yes Hx Hypercholesterolemia: Yes Hx Hypertension: Yes - PULMONARY Hx Respiratory Disorders: Yes Hx Sleep Apnea: Yes - NEUROLOGICAL HX Cerebrovascular Accident: Yes - HEENT Hx HEENT Problems: No - RENAL Hx Chronic Kidney Disease: No - ENDOCRINE/METABOLIC Hx Diabetes Mellitus Type 2: Yes - HEMATOLOGICAL/ONCOLOGICAL Hx Blood Disorders: No Hx Human Immunodeficiency Virus (HIV): No - INTEGUMENTARY Hx Dermatological Problems: No - MUSCULOSKELETAL/RHEUMATOLOGICAL Hx Arthritis: Yes - GASTROINTESTINAL Hx Gastrointestinal Disorders: Yes Hx Gastritis: Yes - GENITOURINARY/GYNECOLOGICAL Hx Genitourinary Disorders: No - PSYCHIATRIC Hx Psychophysiologic Disorder: Yes Hx Anxiety: Yes Hx Substance Use: No - SURGICAL HISTORY Hx Surgeries: Yes Hx Coronary Stent: Yes - ANESTHESIA Hx Anesthesia: Yes Hx Anesthesia Reactions: No Hx Malignant Hyperthermia: No Meds Allergies/Adverse Reactions: Allergies Allergy/AdvReac Type Severity Reaction Status Date / Time No Known Allergies Allergy Verified 01/10/18 14:32 - Medications Medications: Current Medications Albuterol/Ipratropium (Duoneb 3 Mg/0.5 Mg (3 Ml) Ud) 3 ml INH RQ4 PRN PRN Reason: Shortness of Breath Last Admin: 04/16/18 11:22 Dose: 3 ml Aspirin (Aspirin Chewable) 81 mg PO DAILY [facility] Last Admin: 04/19/18 10:10 Dose: 81 mg Atorvastatin Calcium (Lipitor) 40 mg PO HS [facility] Last Admin: 04/18/18 21:20 Dose: 40 mg Carvedilol (Coreg) 25 mg PO BID [facility] Last Admin: 04/19/18 10:10 Dose: 25 mg Clopidogrel Bisulfate (Plavix) 75 mg PO DAILY [facility] Last Admin: 04/19/18 10:14 Dose: 75 mg Dextrose (Dextrose 50% Inj) 0 ml IV STAT PRN; Protocol PRN Reason: Hypoglycemia Protocol Dextrose (Glutose 15) 0 gm PO ONCE PRN; Protocol PRN Reason: Hypoglycemia Protocol Enoxaparin Sodium (Lovenox) 40 mg SC DAILY [facility]; Protocol Last Admin: 04/19/18 10:13 Dose: 40 mg Escitalopram Oxalate (Lexapro) 20 mg PO HS [facility] Last Admin: 04/18/18 21:20 Dose: 20 mg Furosemide (Lasix) 40 mg PO DAILY [facility] Last Admin: 04/19/18 10:12 Dose: 40 mg Glucagon (Glucagen Diagnostic Kit) 0 mg IM STAT PRN; Protocol PRN Reason: Hypoglycemia Protocol Guaifenesin (Mucinex La) 600 mg PO Q12 [facility] Last Admin: 04/19/18 10:14 Dose: 600 mg Piperacillin Sod/Tazobactam (Sod 3.375 gm/ Sodium Chloride) 100 mls @ 100 mls/hr IVPB Q8 [facility]; Protocol Last Admin: 04/19/18 10:14 Dose: 100 mls/hr Insulin Detemir (Levemir) 34 units SC BID@0900,2100 [facility] Last Admin: 04/19/18 10:20 Dose: Not Given Insulin Human Lispro (Humalog) 0 units SC ACHS [facility]; Protocol Last Admin: 04/19/18 06:44 Dose: 2 units Insulin Human Lispro (Humalog) 3 units SC [facility] Last Admin: 04/19/18 07:30 Dose: Not Given Isosorbide Mononitrate (Imdur) 60 mg PO DAILY [facility] Last Admin: 04/19/18 10:12 Dose: 60 mg Losartan Potassium (Cozaar) 50 mg PO DAILY [facility] Last Admin: 04/19/18 10:11 Dose: 50 mg Mirtazapine (Remeron 15mg Odt) 15 mg PO [facility] Multivitamins/Minerals (Therapeutic-M Tab) 1 tab PO DAILY [facility] Last Admin: 04/19/18 10:14 Dose: 1 tab Saccharomyces Boulardii (Florastor) 250 mg PO BID [facility] Last Admin: 04/19/18 10:11 Dose: 250 mg Results - Vital Signs Recent Vital Signs: Last Vital Signs Temp 97.9 F 04/19/18 12:21 Pulse 71 04/19/18 12:21 Resp 18 04/19/18 12:21 BP 124/64 04/19/18 12:21 Pulse Ox 100 04/19/18 12:21 - Labs Result Diagrams: 04/18/18 04:30 04/19/18 04:20 Labs: Laboratory Results - last 24 hr 04/18/18 04/18/18 04/18/18 15:42 15:45 21:13 Sodium Potassium Chloride Carbon Dioxide Anion Gap BUN Creatinine Est GFR ( Amer) Est GFR (Non-Af Amer) POC Glucose (mg/dL) 447 H* 442 H* 297 H Random Glucose Calcium 04/19/18 04/19/18 04/19/18 04:20 05:23 10:30 Sodium 139 Potassium 4.4 Chloride 103 Carbon Dioxide 34 H Anion Gap 6 L BUN 25 H Creatinine 1.3 H Est GFR ( Amer) 48 Est GFR (Non-Af Amer) 40 POC Glucose (mg/dL) 158 H 173 H Random Glucose 163 H Calcium 8.9 04/19/18 11:08 Sodium Potassium Chloride Carbon Dioxide Anion Gap BUN Creatinine Est GFR ( Amer) Est GFR (Non-Af Amer) POC Glucose (mg/dL) 170 H Random Glucose Calcium
[2018-04-20] MEDS: Piperacillin/Tazobact 3.375 GM in Sodium Chloride 0.9% 100 ML IVPB SCH ×2 (01:04→08:21)
[2018-04-20 06:02] LABS: HEMOGLOBIN 9.8 g/dL (12.0-16.0); MEAN CORPUSCULAR HEMOGLOBIN 33.6 pg (27.0-31.0); RBC 2.92 Mil/uL (3.80-5.20); WHITE BLOOD COUNT 7.9 K/uL (4.8-10.8)
[2018-04-20 06:28] LABS: ALBUMIN 3.2 g/dL (3.5-5.0); CALCIUM 9.4 mg/dL (8.4-10.2)
[2018-04-20] MEDS: Insulin Lispro (humaLOG) 100 Units/ml Inj SC SCH ×4 (06:45→12:01)
[2018-04-20 08:10] VITALS: RESP 18
[2018-04-20] MEDS: Multivitamin With Minerals Tab PO SCH (08:18)
[2018-04-20] MEDS: Saccharomyces Boulardi 250 mg Cap PO SCH (08:18)
[2018-04-20] MEDS: Enoxaparin 40 mg Syringe SC SCH (08:20)
[2018-04-20] MEDS: guaiFENesin 600 mg ER Tab PO SCH (08:21)
--- NOTE | 2018-04-20 08:44 | CON ---
DATE: 04/19/2018 HISTORY OF PRESENT ILLNESS: This is a 77-year-old woman with past medical history of hypertension, diabetes type 2, history of stroke, СВЕТЛАНА, CPAP at home, hypertension who presented to the ER initially for dyspnea and was admitted for the same; however, the patient reports that her walking is very slow for the last two years and they have not sort neurology consult. REVIEW OF SYSTEMS: Significant only for weakness bilaterally. No headache. No diarrhea. No nausea. No vomiting. There is no history of fall. There is no history of lower back disease. There is no other history available at this time. The patient does not complain of aphagia, does not complain of weakness, does not complain blurring to vision. A 12-point assessed negative and was otherwise as reported in HPI. PAST MEDICAL HISTORY CAD, CHF, IDM2, history of stroke, СВЕТЛАНА . PAST SURGICAL HISTORY: None. FAMILY HISTORY: No tobacco. No alcohol. Lives with family. Has several daughters. PHYSICAL EXAMINATION: GENERAL: Alert and oriented x3. NEUROLOGIC: PERRL. Cranial nerves II through XII intact. The patient has somewhat mask like faces. There is no cogwheel rigidity noted. Strength is normal bilaterally. asymmetric stocking distribution in her legs bilaterally. Strength is 5/5 upper and lower limbs bilaterally. Sensory intact to fine touch and pin in the upper limbs and lower limbs as reported. Gait is wide based and guarded, +1 DTRs upper and lower limbs bilaterally. CAT scan of the head was done on admission and it showed that there were no stroke, there were no hemorrhages, essentially normal. LABORATORY DATA: White count 7.2, hemoglobin 10, hematocrit 30, platelets 202. Chemistry sodium 139, potassium 4.4, carbon dioxide 34, BUN 25, creatinine 1.3, glucose 170 high as 442 on admission. Urine is normal except for 6 rbcs. MEDICATIONS: She is on aspirin, carvedilol, Plavix, dextrose, enoxaparin, Lexapro, Lasix, Glucagon, insulin, Humalog 3 units and 34 units, valsartan, mirtazapine and multivitamins. IMPRESSION: This is a 77-year-old female with severe diabetic neuropathy. I feel that her gait abnormality is secondary to this neuropathy. In addition, she does not seem to have disease although we will have physical therapy evaluate her and will make further determination after their assessment. PLAN: 1. Uncontrolled diabetes. 2. Gabapentin 300 mg ever night if patient complaints of numbness and tingling although now she is not. 3. Physical therapy and gait training. Thank you for this interesting consult. We will follow. Kelin Snyder MD
[2018-04-20] MEDS ORDERED: Insulin Detemir 100 Units/ml Inj SC SCH (09:00)
--- NOTE | 2018-04-20 10:51 | CP.PCM.DIS ---
Provider - Provider Date of Admission: 04/15/18 19:49 Attending physician: Santhosh Burger MD Time Spent in preparation of Discharge (in minutes): 60 Hospital Course - Lab Results Lab Results: Most Recent Lab Values WBC 7.9 K/uL (4.8-10.8) 04/20/18 05:30 RBC 2.92 Mil/uL (3.80-5.20) L 04/20/18 05:30 Hgb 9.8 g/dL (12.0-16.0) L 04/20/18 05:30 Hct 28.9 % (34.0-47.0) L 04/20/18 05:30 MCV 99.0 fl (81.0-99.0) 04/20/18 05:30 MCH 33.6 pg (27.0-31.0) H 04/20/18 05:30 MCHC 34.0 g/dL (33.0-37.0) 04/20/18 05:30 RDW 14.0 % (11.5-14.5) 04/20/18 05:30 Plt Count 257 K/uL (130-400) 04/20/18 05:30 MPV 8.7 fl (7.2-11.7) 04/16/18 04:50 Neut % (Auto) 67.7 % (50.0-75.0) 04/16/18 04:50 Lymph % (Auto) 19.7 % (20.0-40.0) L 04/16/18 04:50 [place] % (Auto) 11.0 % (0.0-10.0) H 04/16/18 04:50 Eos % (Auto) 1.1 % (0.0-4.0) 04/16/18 04:50 Baso % (Auto) 0.5 % (0.0-2.0) 04/16/18 04:50 Neut # (Auto) 4.0 K/uL (1.8-7.0) 04/16/18 04:50 Lymph # (Auto) 1.2 K/uL (1.0-4.3) 04/16/18 04:50 [place] # (Auto) 0.6 K/uL (0.0-0.8) 04/16/18 04:50 Eos # (Auto) 0.1 K/uL (0.0-0.7) 04/16/18 04:50 Baso # (Auto) 0.0 K/uL (0.0-0.2) 04/16/18 04:50 PT 10.6 Seconds (9.8-13.1) 04/15/18 18:16 INR 1.0 04/15/18 18:16 APTT 29.9 Seconds (25.6-37.1) 04/15/18 18:16 pCO2 58 mm/Hg (35-45) H 04/16/18 08:16 pO2 39 mm/Hg (80-100) L* 04/16/18 08:16 HCO3 31.9 mmol/L (21-28) H 04/16/18 08:16 ABG pH 7.40 (7.35-7.45) 04/16/18 08:16 ABG Total CO2 37.7 mmol/L (22-28) H 04/16/18 08:16 ABG O2 Saturation 80.5 % (95-98) L 04/16/18 08:16 ABG O2 Content 11.7 ML/dL (15-23) L 04/16/18 08:16 ABG Base Excess 9.4 mmol/L (-2.0-3.0) H 04/16/18 08:16 ABG Hemoglobin 10.7 g/dL (11.7-17.4) L 04/16/18 08:16 ABG Carboxyhemoglobin 1.8 % (0.5-1.5) H 04/16/18 08:16 POC ABG HHb (Measured) 18.9 % (0.0-5.0) H 04/16/18 08:16 ABG Methemoglobin 1.4 % (0.0-3.0) 04/16/18 08:16 ABG O2 Capacity 14.5 mL/dL (16-24) L 04/16/18 08:16 Parviz Test Yes 04/16/18 08:16 A-a O2 Difference 38.0 mm/Hg 04/16/18 08:16 Hgb O2 Saturation 77.9 % (95.0-98.0) L 04/16/18 08:16 FiO2 21.0 % 04/16/18 08:16 Crit Value Called To Dr avery monteiro 04/16/18 08:16 Crit Value Called By 15 04/16/18 08:16 Crit Value Read Back Y 04/16/18 08:16 Blood Gas Notified Time 1059 04/16/18 08:16 Sodium 140 mmol/l (132-148) 04/20/18 04:30 Potassium 4.4 MMOL/L (3.6-5.0) 04/20/18 04:30 Chloride 100 mmol/L (98-107) 04/20/18 04:30 Carbon Dioxide 34 mmol/L (22-30) H 04/20/18 04:30 Anion Gap 10 (10-20) 04/20/18 04:30 BUN 23 mg/dl (7-17) H 04/20/18 04:30 Creatinine 1.2 mg/dl (0.7-1.2) 04/20/18 04:30 Est GFR ( Amer) 53 04/20/18 04:30 Est GFR (Non-Af Amer) 44 04/20/18 04:30 POC Glucose (mg/dL) 229 mg/dL (65-110) H 04/20/18 05:37 Random Glucose 258 mg/dL (65-105) H 04/20/18 04:30 Calcium 9.4 mg/dL (8.4-10.2) 04/20/18 04:30 Phosphorus 3.5 mg/dl (2.5-4.5) 04/20/18 04:30 Magnesium 2.3 MG/DL (1.6-2.3) 04/20/18 04:30 Total Bilirubin 0.5 mg/dl (0.2-1.3) 04/20/18 04:30 AST 30 U/L (14-36) 04/20/18 04:30 ALT 27 U/L (9-52) 04/20/18 04:30 Alkaline Phosphatase 63 U/L (38-126) 04/20/18 04:30 Troponin I 0.0440 ng/mL (0.00-0.120) 04/15/18 18:16 NT-Pro-B Natriuret Pep 768 pg/ml (0-900) 04/15/18 18:16 Total Protein 6.4 G/DL (6.3-8.2) 04/20/18 04:30 Albumin 3.2 g/dL (3.5-5.0) L 04/20/18 04:30 Globulin 3.2 gm/dL (2.2-3.9) 04/20/18 04:30 Albumin/Globulin Ratio 1.0 (1.0-2.1) 04/20/18 04:30 Urine Color Yellow (YELLOW) 04/17/18 15:46 Urine Clarity Slighty-cloudy (Clear) 04/17/18 15:46 Urine pH 6.0 (5.0-8.0) 04/17/18 15:46 Ur Specific [place] 1.011 (1.003-1.030) 04/17/18 15:46 Urine Protein 100 mg/dL (NEGATIVE) 04/17/18 15:46 Urine Glucose (UA) >=500 mg/dL (Normal) 04/17/18 15:46 Urine Ketones Negative mg/dL (NEGATIVE) 04/17/18 15:46 Urine Blood Small (NEGATIVE) 04/17/18 15:46 Urine Nitrate Negative (NEGATIVE) 04/17/18 15:46 Urine Bilirubin Negative (NEGATIVE) 04/17/18 15:46 Urine Urobilinogen 0.2-1.0 mg/dL (0.2-1.0) 04/17/18 15:46 Ur Leukocyte Esterase Neg Moni/uL (Negative) 04/17/18 15:46 Urine RBC (Auto) 6 /hpf (0-3) H 04/17/18 15:46 Urine Microscopic WBC 1 /hpf (0-5) 04/17/18 15:46 Ur Squamous Epith Cells < 1 /hpf (0-5) 04/17/18 15:46 Urine Bacteria Rare (<OCC) 04/17/18 15:46 - Hospital Course Hospital Course: 77 y/o woman with pmhx of CAD, HTN, CHF with preserved EF, Insulin-dependent DM2, hx of CVA, СВЕТЛАНА with CPAP and home O2 who presented to ED c/o shortness of breath after being without home oxygen for 2 days because it was stolen. Initial CXR was performed and showed questionable patchy infiltrate in the right mid- lung. She was admitted for community acquired pneumonia, and treated with antibiotics. She also had complaints of dizziness. She was seen and evaluated by neurologist who recommended gabapentin & physical therapy. PT evaluated the patient, TCU was recommended, and she will be admitted to TCU for further evaluation/treatment. 1. Community Acquired Pneumonia (Acute, resolved) -Zosyn- received 5th dose today; will continue for 2 more doses for 7 total doses. 2. CHF with Preserved EF (Chronic, asymptomatic) - Last echo 07/21/2016: EF 60-65%, normal systolic function, aortic valve sclerosis. -Continue with Coreg, Losartan, ASA, Lasix, and Isosorbide Mononitrate. 3. IDDM2 (Uncontrolled, Chronic) - last HbA1c 9.9% (09/03/2017) 4. Dizziness (Acute) -Neurology was consulted and recommended gabapentin. -PT evaluated and recommended TCU. 5. CAD (previous history) -Continue Coreg, ASA & Statin. 6. HODA on admission (acute, stable) - BUN 23 with creatinine 1.2 today. - Continue Lasix. 7. HTN (Chronic, asymptomatic) - Losartan dose increased to 100mg PO QD. - Continue lasix. 8. СВЕТЛАНА (Chronic) - Continue CPAP. 9. CVA (previous hx, asymptomatic) - Continue with plavix & ASA. Discharge Exam - Head Exam Head Exam: ATRAUMATIC, NORMOCEPHALIC - Neck Exam Neck exam: Full Rom - Respiratory Exam Additional comments: crackles diffusely noted - Cardiovascular Exam Cardiovascular Exam: REGULAR RHYTHM, +S1, +S2 - GI/Abdominal Exam GI & Abdominal Exam: Normal Bowel Sounds, Soft Additional comments: nontender, no rigidity, no guarding - Extremities Exam Additional comments: calves nontender, no pitting edema - Neurological Exam Neurological exam: Alert, Oriented x3 - Psychiatric Exam Psychiatric exam: Normal Affect, Normal Mood Discharge Plan - Discharge Medications Prescriptions: Clopidogrel [Plavix] 75 mg PO DAILY 30 Days #30 tab - Follow Up Plan Condition: GUARDED Disposition: HOME/ ROUTINE
[2018-04-20 12:00] VITALS: BP 157/69; PULSE 67; TEMP 97.7; O2SAT 99
== END 2018-04-20 15:13 | DRG 194 ==
LOC: H.ER 17:22 → H.ERHOLD 19:49 → H.TEL 22:45
PROVIDERS: ADMIT Family Medicine; ATTEND Family Medicine
PROC: 5A09457 Assistance with Respiratory Ventilation, 24-96 Consecutive Hours, Continuous Positive Airway Pressure (ICD-10-PCS; principal; 2018-04-15)
PROC: 3E0F7GC Introduction of Other Therapeutic Substance into Respiratory Tract, Via Natural or Artificial Opening (ICD-10-PCS; 2018-04-15)
PROC: 3E02340 Introduction of Influenza Vaccine into Muscle, Percutaneous Approach (ICD-10-PCS; 2018-04-16)
DX: J15.9 Unspecified bacterial pneumonia (principal); I50.32 Chronic diastolic (congestive) heart failure; N17.9 Acute kidney failure, unspecified; I35.8 Other nonrheumatic aortic valve disorders; I25.10 Atherosclerotic heart disease of native coronary artery without angina pectoris; I11.0 Hypertensive heart disease with heart failure; E11.40 Type 2 diabetes mellitus with diabetic neuropathy, unspecified; E11.65 Type 2 diabetes mellitus with hyperglycemia; R09.02 Hypoxemia; G47.33 Obstructive sleep apnea (adult) (pediatric); E78.5 Hyperlipidemia, unspecified; E78.00 Pure hypercholesterolemia, unspecified; E86.0 Dehydration; R42 Dizziness and giddiness; F41.9 Anxiety disorder, unspecified; K29.70 Gastritis, unspecified, without bleeding; M19.90 Unspecified osteoarthritis, unspecified site; Z86.73 Personal history of transient ischemic attack (TIA), and cerebral infarction without residual deficits; Z23 Encounter for immunization; Z99.81 Dependence on supplemental oxygen; Z91.14 Patient's other noncompliance with medication regimen; Z91.11 Patient's noncompliance with dietary regimen; Z79.4 Long term (current) use of insulin; Z95.5 Presence of coronary angioplasty implant and graft; Z79.02 Long term (current) use of antithrombotics/antiplatelets

== ENCOUNTER 2018-04-20 14:14 | Inpatient (IN) | payer OTHER, MEDICAID ==
[2018-04-20 15:27] VITALS: BMI 34.6
[2018-04-20] MEDS ORDERED: Sodium Chloride 3% for Inhalation 4 ML VIAL.NEB IH SCH (17:00)
[2018-04-20] MEDS ORDERED: Insulin Detemir 100 Units/ml Inj SC SCH ×2 (17:00→17:30)
[2018-04-20] MEDS ORDERED: Dextrose 50% SYRINGE Inj (50 ml) IVP PRN (17:22)
[2018-04-20] MEDS ORDERED: Glucagon Recombinant 1 mg Inj IM PRN (17:22)
[2018-04-20] MEDS ORDERED: Dextrose 50% SYRINGE Inj (50 ml) IV PRN (17:22)
[2018-04-20] MEDS: Saccharomyces Boulardi 250 mg Cap PO SCH ×2 (18:16→18:56)
[2018-04-20] MEDS: Albuterol 0.083% Inhal Sol (2.5 mg/3 mL) UD INH PRN (18:26)
[2018-04-20] MEDS: Insulin Lispro (humaLOG) 100 Units/ml Inj SC SCH (18:53)
[2018-04-20] MEDS: Insulin Detemir 100 Units/ml Inj SC SCH (21:39)
[2018-04-20] MEDS: Insulin Regular 100 units/ml SC SCH (21:40)
[2018-04-21 06:29] LABS: HEMOGLOBIN 8.9 g/dL (12.0-16.0); MEAN CORPUSCULAR HEMOGLOBIN 33.3 pg (27.0-31.0); MEAN CORPUSCULAR HGB CONC 33.7 g/dL (33.0-37.0); RBC 2.66 Mil/uL (3.80-5.20); RED CELL DISTRIBUTION WIDTH 14.2 % (11.5-14.5); WHITE BLOOD COUNT 7.1 K/uL (4.8-10.8)
[2018-04-21] MEDS: Insulin Regular 100 units/ml SC SCH ×4 (06:35→22:07)
[2018-04-21 06:36] LABS: CALCIUM 9.1 mg/dL (8.4-10.2)
[2018-04-21 07:26] LABS: IRON 12 ug/dL (37-170)
[2018-04-21 07:35] LABS: % IRON SATURATION 6 % (20-55); TOTAL IRON BINDING CAPACITY 211 ug/dL (250-450)
[2018-04-21] MEDS: Insulin Lispro (humaLOG) 100 Units/ml Inj SC SCH ×3 (07:45→18:31)
[2018-04-21] MEDS: guaiFENesin 600 mg ER Tab PO PRN ×2 (08:44→22:06)
[2018-04-21] MEDS: Enoxaparin 40 mg Syringe SC SCH (08:44)
[2018-04-21] MEDS: Saccharomyces Boulardi 250 mg Cap PO SCH ×2 (08:44→16:53)
[2018-04-21] MEDS: Insulin Detemir 100 Units/ml Inj SC SCH ×2 (08:48→21:00)
--- NOTE | 2018-04-21 12:48 | CP.PCM.HP ---
History of Present Illness - History of Present Illness History of Present Illness: 77 y/o F with hx of CAD, HTN, CHF with preserved ED, DMII, hx of CVA, СВЕТЛАНА ( on CPAP at home) is admitted to TCU after being discharged from hospital where she was admitted due to dyspnea following two days without home oxygen. Since being on TCU, patient complained of nausea, and was given zofran. PMD: Dr. Burger PMH: CAD, HTN, CHF with preserved ED, DMII, hx of CVA, СВЕТЛАНА ( on CPAP at home) Meds: see list PSH: none Famhx: non-contributory Sochx: denies EtOH, smoking or drug use Present on Admission - Present on Admission Any Indicators Present on Admission: No History of DVT/PE: No History of Uncontrolled Diabetes: Yes Urinary Catheter: No Decubitus Ulcer Present: No Past Patient History - Infectious Disease Hx of Infectious Diseases: None - Tetanus Immunizations Tetanus Immunization: Unknown - Past Medical History & Family History Past Medical History?: Yes - Past Social History Smoking Status: Never Smoked - CARDIAC Hx Cardiac Disorders: Yes Hx Congestive Heart Failure: Yes Hx Hypercholesterolemia: Yes Hx Hypertension: Yes - PULMONARY Hx Respiratory Disorders: Yes Hx Pneumonia: Yes (recent admission) Hx Sleep Apnea: Yes - NEUROLOGICAL HX Cerebrovascular Accident: Yes - HEENT Hx HEENT Problems: No - RENAL Hx Chronic Kidney Disease: No - ENDOCRINE/METABOLIC Hx Diabetes Mellitus Type 2: Yes - HEMATOLOGICAL/ONCOLOGICAL Hx Blood Disorders: No Hx AIDS: No Hx Human Immunodeficiency Virus (HIV): No - INTEGUMENTARY Hx Dermatological Problems: No - MUSCULOSKELETAL/RHEUMATOLOGICAL Hx Arthritis: Yes - GASTROINTESTINAL Hx Gastrointestinal Disorders: Yes Hx Gastritis: Yes - GENITOURINARY/GYNECOLOGICAL Hx Genitourinary Disorders: No - PSYCHIATRIC Hx Psychophysiologic Disorder: Yes Hx Anxiety: Yes Hx Substance Use: No - SURGICAL HISTORY Hx Surgeries: Yes Hx Coronary Stent: Yes - ANESTHESIA Hx Anesthesia: Yes Hx Anesthesia Reactions: No Hx Malignant Hyperthermia: No Has any member of the family had a problem w/ anesthesia?: Yes Meds Allergies/Adverse Reactions: Allergies Allergy/AdvReac Type Severity Reaction Status Date / Time No Known Allergies Allergy Verified 04/20/18 15:23 Physical Exam - Constitutional Appears: Non-toxic - Head Exam Head Exam: ATRAUMATIC, NORMAL INSPECTION - Neck Exam Neck exam: Positive for: Full Rom - Respiratory Exam Additional comments: crackles auscultated diffusely - Cardiovascular Exam Cardiovascular Exam: REGULAR RHYTHM, +S1, +S2 - GI/Abdominal Exam Additional comments: soft, nontender, rigidity, guarding - Extremities Exam Additional comments: calves nontender, no pitting edema Results - Vital Signs Recent Vital Signs: Last Vital Signs Temp 97.9 F 04/21/18 08:00 Pulse 82 04/21/18 09:15 Resp 20 04/21/18 08:00 BP 150/60 04/21/18 12:21 Pulse Ox 92 L 04/21/18 09:15 - Labs Result Diagrams: 04/21/18 06:00 04/21/18 06:00 Labs: Laboratory Results - last 24 hr 04/20/18 04/20/18 04/20/18 16:51 19:40 21:30 WBC RBC Hgb Hct MCV MCH MCHC RDW Plt Count Sodium Potassium Chloride Carbon Dioxide Anion Gap BUN Creatinine Est GFR ( Amer) Est GFR (Non-Af Amer) POC Glucose (mg/dL) 210 H 177 H 144 H Random Glucose Calcium Iron TIBC % Saturation Ferritin 04/21/18 04/21/18 04/21/18 05:22 06:00 06:00 WBC 7.1 RBC 2.66 L Hgb 8.9 L Hct 26.3 L MCV 99.0 MCH 33.3 H MCHC 33.7 RDW 14.2 Plt Count 260 Sodium 139 Potassium 4.5 Chloride 101 Carbon Dioxide 38 H Anion Gap 5 L BUN 24 H Creatinine 1.1 Est GFR ( Amer) 58 Est GFR (Non-Af Amer) 48 POC Glucose (mg/dL) 120 H Random Glucose 124 H Calcium 9.1 Iron TIBC % Saturation Ferritin 04/21/18 04/21/18 04/21/18 07:07 07:07 10:57 WBC RBC Hgb Hct MCV MCH MCHC RDW Plt Count Sodium Potassium Chloride Carbon Dioxide Anion Gap BUN Creatinine Est GFR ( Amer) Est GFR (Non-Af Amer) POC Glucose (mg/dL) 319 H Random Glucose Calcium Iron 12 L TIBC 211 L % Saturation 6 L Ferritin 172.0 Assessment & Plan - Assessment and Plan (Free Text) Assessment: 77 y/o F with hx of CAD, HTN, CHF with preserved EF, DMII, hx of CVA, СВЕТЛАНА (CPAP on home admitted to TCU for physical therapy needed because of deconditioning). 1. Community Acquired Pneumonia (Acute) -Zosyn- received 6th dose today; will continue for 1 more doses for 7 total doses. 2. CHF with Preserved EF (Chronic, asymptomatic) -Continue with Coreg, Losartan, ASA, Lasix, and Isosorbide Mononitrate. 3. IDDM2 (Uncontrolled, Chronic) - last HbA1c 9.9% (09/03/2017) -Continue levemir 38 units, and lispro 5 units. 4. Dizziness (Acute) -Neurology was consulted and recommended gabapentin. -PT evaluated and recommended TCU. 5. Hypoxia (Acute, patient desaturated to 88% while working with PT) -PT held for today; Continue 3L of oxygen [place] -Continue to monitor 6. CAD (previous history) -Continue Coreg, ASA & Statin. 7. HODA on admission (acute, stable) - BUN 23 with creatinine 1.2 today. - Continue Lasix. 8. HTN (Chronic, asymptomatic) - Losartan dose increased to 100mg PO QD. - Given lasix 20mg IVP because morning BP remains elevated. -Continue lasix PO. 9. СВЕТЛАНА (Chronic) - Continue CPAP. 10. CVA (previous hx, asymptomatic) - Continue with plavix & ASA. 11. DVT Prophylaxis -Lovenox 40 mg SC daily
[2018-04-22] MEDS: Insulin Regular 100 units/ml SC SCH ×4 (07:14→21:41)
[2018-04-22] MEDS: Insulin Lispro (humaLOG) 100 Units/ml Inj SC SCH ×3 (07:15→17:53)
[2018-04-22] MEDS: Saccharomyces Boulardi 250 mg Cap PO SCH ×2 (08:28→17:04)
[2018-04-22] MEDS: Insulin Detemir 100 Units/ml Inj SC SCH ×2 (08:28→21:43)
[2018-04-22] MEDS: Pantoprazole 20 mg EC Tab PO SCH (08:29)
[2018-04-22] MEDS: Enoxaparin 40 mg Syringe SC SCH (08:29)
[2018-04-22 11:21] LABS: ABG ALLEN TEST YES; ARTERIAL BLOOD GAS HCO3 32.8 mmol/L (21-28); ARTERIAL BLOOD GAS HEMOGLOBIN 9.1 g/dL (11.7-17.4); ARTERIAL BLOOD GAS O2 CAPACITY 12.4 mL/dL (16-24); ARTERIAL BLOOD GAS O2 CONTENT 12.4 ML/dL (15-23); ARTERIAL BLOOD GAS O2 SAT 100.2 % (95-98); ARTERIAL BLOOD GAS PCO2 64 mm/Hg (35-45); ARTERIAL BLOOD GAS PH 7.37 (7.35-7.45); ARTERIAL BLOOD GAS PO2 85 mm/Hg (80-100)
[2018-04-22 11:35] LABS: HEMOGLOBIN 8.9 g/dL (12.0-16.0); MEAN CELL VOLUME 99.5 fl (81.0-99.0); MEAN CORPUSCULAR HEMOGLOBIN 32.7 pg (27.0-31.0); MEAN CORPUSCULAR HGB CONC 32.9 g/dL (33.0-37.0); RBC 2.71 Mil/uL (3.80-5.20); RED CELL DISTRIBUTION WIDTH 14.1 % (11.5-14.5); WHITE BLOOD COUNT 6.5 K/uL (4.8-10.8)
[2018-04-22 11:49] LABS: CALCIUM 9.1 mg/dL (8.4-10.2)
[2018-04-23] MEDS: Insulin Regular 100 units/ml SC SCH ×4 (07:06→21:15)
[2018-04-23] MEDS: Insulin Lispro (humaLOG) 100 Units/ml Inj SC SCH ×3 (07:07→18:27)
[2018-04-23 08:33] LABS: HEMOGLOBIN 9.5 g/dL (12.0-16.0); MEAN CELL VOLUME 98.3 fl (81.0-99.0); MEAN CORPUSCULAR HEMOGLOBIN 33.1 pg (27.0-31.0); MEAN CORPUSCULAR HGB CONC 33.7 g/dL (33.0-37.0); RBC 2.87 Mil/uL (3.80-5.20); RED CELL DISTRIBUTION WIDTH 14.1 % (11.5-14.5); WHITE BLOOD COUNT 7.3 K/uL (4.8-10.8)
[2018-04-23] MEDS: Pantoprazole 20 mg EC Tab PO SCH (08:39)
[2018-04-23] MEDS: Enoxaparin 40 mg Syringe SC SCH (08:41)
[2018-04-23] MEDS: Insulin Detemir 100 Units/ml Inj SC SCH ×2 (08:43→21:09)
[2018-04-23 08:47] LABS: CALCIUM 9.6 mg/dL (8.4-10.2)
--- NOTE | 2018-04-23 11:53 | CP.PCM.CON ---
History of Present Illness - History of Present Illness History of Present Illness: Asked to evaluate this 77-year-old female with a prior diagnosis of obstructive sleep apnea. She underwent a sleep study approximately 2 years ago and has been using nasal CPAP as directed since that time. She does relate a history of sleeping well since the initiation of her CPAP but does still complain of daytime somnolence. She does use her CPAP as needed during the daytime as well. She has had a number of hospitalizations and review of prior blood gases do show chronic hypercapnic respiratory failure. She has been chronically overweight, but her present weight has been stable. She has worked in a clothing factory in the past, but denies any symptomatology such as coughing or shortness of breath during her employment. Past Patient History - Infectious Disease Hx of Infectious Diseases: None - Tetanus Immunizations Tetanus Immunization: Unknown - Past Medical History & Family History Past Medical History?: Yes Past Family History: Reviewed and not pertinent (no family members with pulmonary disease) - Past Social History Smoking Status: Never Smoked (raised in the home where her father smoked heavily) Chewing Tobacco Use: No Cigar Use: No Alcohol: None Drugs: Denies Home Situation {Lives}: With Family - CARDIAC Hx Congestive Heart Failure: Yes Hx Hypercholesterolemia: Yes Hx Hypertension: Yes - PULMONARY Hx Pneumonia: Yes (recent admission) Hx Sleep Apnea: Yes (on nasal CPAP at home) - NEUROLOGICAL HX Cerebrovascular Accident: Yes - HEENT Hx HEENT Problems: No - RENAL Hx Chronic Kidney Disease: No - ENDOCRINE/METABOLIC Hx Diabetes Mellitus Type 2: Yes - HEMATOLOGICAL/ONCOLOGICAL Hx Blood Disorders: No Hx Human Immunodeficiency Virus (HIV): No - INTEGUMENTARY Hx Dermatological Problems: No - MUSCULOSKELETAL/RHEUMATOLOGICAL Hx Arthritis: Yes - GASTROINTESTINAL Hx Gastritis: Yes - GENITOURINARY/GYNECOLOGICAL Hx Genitourinary Disorders: No - PSYCHIATRIC Hx Anxiety: Yes Hx Substance Use: No - SURGICAL HISTORY Hx Coronary Stent: Yes - ANESTHESIA Hx Anesthesia: Yes Hx Anesthesia Reactions: No Hx Malignant Hyperthermia: No Has any member of the family had a problem w/ anesthesia?: Yes Meds Allergies/Adverse Reactions: Allergies Allergy/AdvReac Type Severity Reaction Status Date / Time No Known Allergies Allergy Verified 04/20/18 15:23 - Medications Medications: Current Medications Albuterol Sulfate (Albuterol 0.083% Inhal Stephanie (2.5 Mg/3 Ml) Ud) 2.5 mg INH RQ6 PRN PRN Reason: Shortness of Breath Last Admin: 04/20/18 18:26 Dose: 2.5 mg Amlodipine Besylate (Norvasc) 5 mg PO DAILY [facility] Last Admin: 04/23/18 08:41 Dose: 5 mg Aspirin (Aspirin Chewable) 81 mg PO DAILY [facility] Last Admin: 04/23/18 08:41 Dose: 81 mg Atorvastatin Calcium (Lipitor) 40 mg PO HS [facility] Last Admin: 04/22/18 21:45 Dose: 40 mg Carvedilol (Coreg) 25 mg PO BID [facility] Last Admin: 04/23/18 08:40 Dose: 25 mg Clopidogrel Bisulfate (Plavix) 75 mg PO DAILY [facility] Last Admin: 04/23/18 08:39 Dose: 75 mg Dextrose (Dextrose 50% Inj) 0 ml IV STAT PRN; Protocol PRN Reason: Hypoglycemia Protocol Last Admin: 04/22/18 06:05 Dose: 50 ml Dextrose (Dextrose 50% Inj) 50 ml IVP ONCE PRN PRN Reason: Hypoglycemia Dextrose (Glutose 15) 0 gm PO ONCE PRN; Protocol PRN Reason: Hypoglycemia Protocol Docusate Sodium (Colace) 100 mg PO DAILY [facility] Last Admin: 04/23/18 08:41 Dose: 100 mg Enoxaparin Sodium (Lovenox) 40 mg SC DAILY [facility]; Protocol Last Admin: 04/23/18 08:41 Dose: 40 mg Escitalopram Oxalate (Lexapro) 20 mg PO DAILY [facility] Last Admin: 04/23/18 08:42 Dose: 20 mg Ferrous Sulfate (Feosol) 325 mg PO BID [facility] Last Admin: 04/23/18 09:23 Dose: 325 mg Furosemide (Lasix) 40 mg PO Q12 [facility] Last Admin: 04/23/18 08:43 Dose: 40 mg Glucagon (Glucagen Diagnostic Kit) 0 mg IM STAT PRN; Protocol PRN Reason: Hypoglycemia Protocol Guaifenesin (Mucinex La) 600 mg PO Q12 PRN PRN Reason: Cough Last Admin: 04/21/18 22:06 Dose: 600 mg Insulin Detemir (Levemir) 34 units SC Q12 [facility] Last Admin: 04/23/18 08:43 Dose: 34 units Insulin Human Lispro (Humalog) 3 units SC WM [facility] Last Admin: 04/23/18 07:07 Dose: 3 units Insulin Human Regular (Humulin R) 0 units SC [facility]; Protocol Last Admin: 04/23/18 07:06 Dose: 2 units Isosorbide Mononitrate (Imdur) 60 mg PO DAILY [facility] Last Admin: 04/23/18 08:42 Dose: 60 mg Losartan Potassium (Cozaar) 100 mg PO DAILY [facility] Last Admin: 04/23/18 08:40 Dose: 100 mg Mirtazapine (Remeron) 15 mg PO HS [facility] Last Admin: 04/22/18 21:46 Dose: 15 mg Pantoprazole Sodium (Protonix Ec Tab) 20 mg PO DAILY [facility] Last Admin: 04/23/18 08:39 Dose: 20 mg Physical Exam - Additional Findings Additional findings: Overweight female lying comfortably in bed on her right side. Her memory appears intact and her speech is fluent. Conjunctivae are pink and there is no scleral icterus. Nasal passages are patent bilaterally. No bleeding or exudate. Pharynx is pink and mucous membranes are moist. Neck is supple and trachea appears midline. No dullness on chest percussion anteriorly. No subcutaneous emphysema. Breath sounds do appear slightly diminished bilaterally with occasional sonorous rhonchi heard posteriorly. No audible wheezing or bronchial breath sounds. Heart sounds appear somewhat distant and the rhythm is regular. The abdomen is obese, fleshy and nontender with normal bowel sounds. There is no cyanosis or dependent edema. No calf tenderness. Results - Vital Signs Recent Vital Signs: Last Vital Signs Temp 98.6 F 04/23/18 08:43 Pulse 86 04/23/18 08:43 Resp 20 04/23/18 08:43 BP 176/79 H 04/23/18 08:43 Pulse Ox 90 L 04/23/18 10:35 - Labs Result Diagrams: 04/23/18 07:00 04/23/18 07:00 Labs: Laboratory Results - last 24 hr 04/22/18 04/22/18 04/22/18 11:26 16:15 21:05 WBC RBC Hgb Hct MCV MCH MCHC RDW Plt Count Sodium Potassium Chloride Carbon Dioxide 40 H* Anion Gap 4 L BUN Creatinine Est GFR ( Amer) Est GFR (Non-Af Amer) POC Glucose (mg/dL) 301 H 231 H Random Glucose Calcium 04/23/18 04/23/18 04/23/18 05:48 07:00 07:00 WBC 7.3 RBC 2.87 L Hgb 9.5 L Hct 28.2 L MCV 98.3 MCH 33.1 H MCHC 33.7 RDW 14.1 Plt Count 343 Sodium 141 Potassium 4.4 Chloride 100 Carbon Dioxide 37 H Anion Gap 8 L BUN 20 H Creatinine 1.1 Est GFR ( Amer) 58 Est GFR (Non-Af Amer) 48 POC Glucose (mg/dL) 198 H Random Glucose 207 H Calcium 9.6 Assessment & Plan (1) Chronic hypercapnic respiratory failure Status: Chronic Priority: High (2) Obstructive sleep apnea Status: Chronic Priority: High (3) Obesity with alveolar hypoventilation Status: Suspected Priority: High - Assessment and Plan (Free Text) Plan: Presently have increased NPPV settings to IPAP 12 cm and EPAP 6 cm with 30% oxygen. We will await results of her prior sleep study. Her chronic hypercapnia appears to likely be related to her long-standing sleep apnea likely associated with obesity hypoventilation syndrome. She also appears to have mild pulmonary hypertension which is likely related to the above. - Date & Time Date: 04/23/18 Time: 11:52
[2018-04-23] MEDS: Albuterol-Ipratrop 3 mg / 0.5 (3 ml) UD INH SCH (20:24)
[2018-04-24] MEDS: Albuterol-Ipratrop 3 mg / 0.5 (3 ml) UD INH SCH ×3 (02:00→13:01)
[2018-04-24] MEDS: Insulin Regular 100 units/ml SC SCH ×4 (06:45→21:07)
[2018-04-24] MEDS: Insulin Lispro (humaLOG) 100 Units/ml Inj SC SCH ×3 (08:17→17:36)
[2018-04-24] MEDS: Enoxaparin 40 mg Syringe SC SCH (08:17)
[2018-04-24] MEDS: Pantoprazole 20 mg EC Tab PO SCH (08:19)
[2018-04-24] MEDS: Insulin Detemir 100 Units/ml Inj SC SCH ×2 (08:20→21:04)
[2018-04-24] MEDS: Albuterol 0.083% Inhal Sol (2.5 mg/3 mL) UD INH PRN (22:06)
[2018-04-25 06:30] LABS: HEMOGLOBIN 8.9 g/dL (12.0-16.0); MEAN CELL VOLUME 99.4 fl (81.0-99.0); MEAN CORPUSCULAR HEMOGLOBIN 32.9 pg (27.0-31.0); MEAN CORPUSCULAR HGB CONC 33.1 g/dL (33.0-37.0); RBC 2.69 Mil/uL (3.80-5.20); RED CELL DISTRIBUTION WIDTH 14.2 % (11.5-14.5); WHITE BLOOD COUNT 7.9 K/uL (4.8-10.8)
[2018-04-25] MEDS: Insulin Regular 100 units/ml SC SCH ×4 (06:34→22:25)
[2018-04-25 06:46] LABS: CALCIUM 9.5 mg/dL (8.4-10.2)
[2018-04-25] MEDS: Albuterol 0.083% Inhal Sol (2.5 mg/3 mL) UD INH PRN ×2 (07:20→13:46)
[2018-04-25] MEDS: Insulin Lispro (humaLOG) 100 Units/ml Inj SC SCH ×3 (08:12→17:31)
[2018-04-25] MEDS: Enoxaparin 40 mg Syringe SC SCH (08:13)
[2018-04-25] MEDS: Pantoprazole 20 mg EC Tab PO SCH (08:16)
[2018-04-25] MEDS: Insulin Detemir 100 Units/ml Inj SC SCH ×2 (08:18→22:27)
--- NOTE | 2018-04-25 10:09 | CP.PCM.PN ---
Subjective - Date & Time of Evaluation Date of Evaluation: 04/25/18 Time of Evaluation: 10:08 - Subjective Subjective: The patient was seen on rounds in transitional care. She is presently seated in the bedside chair and appears comfortable. She offers no complaints of shortness of breath. He states she sleeps well and awakens feeling rested. AM Labs reviewed with total CO2 recorded at 46. On physical exam there are no audible wheezes. Breath sounds are diminished bilaterally. Rare dry to medium rales are heard in both lungs. No areas of bronchial breathing or egophony. Heart sounds are distant and the rhythm is regular. Chronic hypercapnic respiratory failure. Obstructive sleep apnea. Mild pulmonary hypertension. Likely additional element of obesity hypoventilation syndrome. Continue use of nocturnal CPAP and limited supplemental oxygen. Awaiting results of previous polysomnogram. Low-dose acetazolamide 250 once daily added to regimen. Objective - Vital Signs/Intake and Output Vital Signs (last 24 hours): Temp Pulse Resp BP Pulse Ox 98.2 F 68 20 170/69 H 97 04/25/18 08:31 04/25/18 08:31 04/25/18 08:31 04/25/18 08:31 04/25/18 08:31 - Medications Medications: Current Medications Acetazolamide (Diamox 250 Mg Tab) 250 mg PO DAILY [facility] Albuterol Sulfate (Albuterol 0.083% Inhal Stephanie (2.5 Mg/3 Ml) Ud) 2.5 mg INH RQ6 PRN PRN Reason: Shortness of Breath Last Admin: 04/25/18 07:20 Dose: 2.5 mg Amlodipine Besylate (Norvasc) 5 mg PO DAILY [facility] Last Admin: 04/25/18 08:15 Dose: 5 mg Aspirin (Aspirin Chewable) 81 mg PO DAILY [facility] Last Admin: 04/25/18 08:14 Dose: 81 mg Atorvastatin Calcium (Lipitor) 40 mg PO HS [facility] Last Admin: 04/24/18 21:04 Dose: 40 mg Carvedilol (Coreg) 25 mg PO BID [facility] Last Admin: 04/25/18 08:14 Dose: 25 mg Clopidogrel Bisulfate (Plavix) 75 mg PO DAILY [facility] Last Admin: 04/25/18 08:14 Dose: 75 mg Dextrose (Dextrose 50% Inj) 0 ml IV STAT PRN; Protocol PRN Reason: Hypoglycemia Protocol Last Admin: 04/22/18 06:05 Dose: 50 ml Dextrose (Dextrose 50% Inj) 50 ml IVP ONCE PRN PRN Reason: Hypoglycemia Dextrose (Glutose 15) 0 gm PO ONCE PRN; Protocol PRN Reason: Hypoglycemia Protocol Docusate Sodium (Colace) 100 mg PO DAILY [facility] Last Admin: 04/25/18 08:14 Dose: 100 mg Enoxaparin Sodium (Lovenox) 40 mg SC DAILY [facility]; Protocol Last Admin: 04/25/18 08:13 Dose: 40 mg Escitalopram Oxalate (Lexapro) 20 mg PO DAILY [facility] Last Admin: 04/25/18 08:15 Dose: 20 mg Ferrous Sulfate (Feosol) 325 mg PO BID [facility] Last Admin: 04/25/18 08:14 Dose: 325 mg Furosemide (Lasix) 40 mg PO DAILY [facility] Glucagon (Glucagen Diagnostic Kit) 0 mg IM STAT PRN; Protocol PRN Reason: Hypoglycemia Protocol Guaifenesin (Mucinex La) 600 mg PO Q12 PRN PRN Reason: Cough Last Admin: 04/21/18 22:06 Dose: 600 mg Insulin Detemir (Levemir) 38 units SC Q12 [facility] Last Admin: 04/25/18 08:18 Dose: 38 units Insulin Human Lispro (Humalog) 5 units SC [facility] Last Admin: 04/25/18 08:12 Dose: 5 unit Insulin Human Regular (Humulin R) 0 units SC [facility]; Protocol Last Admin: 04/25/18 06:34 Dose: 2 units Isosorbide Mononitrate (Imdur) 60 mg PO DAILY [facility] Last Admin: 04/25/18 08:15 Dose: 60 mg Losartan Potassium (Cozaar) 100 mg PO DAILY [facility] Last Admin: 04/25/18 08:15 Dose: 100 mg Mirtazapine (Remeron) 15 mg PO HS [facility] Last Admin: 04/24/18 21:04 Dose: 15 mg Pantoprazole Sodium (Protonix Ec Tab) 20 mg PO DAILY [facility] Last Admin: 04/25/18 08:16 Dose: 20 mg - Labs Labs: 04/25/18 06:20 04/25/18 06:20 Assessment and Plan (1) Chronic hypercapnic respiratory failure Status: Chronic (2) Obstructive sleep apnea Status: Chronic (3) Obesity with alveolar hypoventilation Status: Suspected
--- NOTE | 2018-04-25 15:20 | CP.PCM.PN ---
Subjective - Date & Time of Evaluation Date of Evaluation: 04/25/18 Time of Evaluation: 15:17 - Subjective Subjective: 77 YO F seen resting comfortably in her chair. Denies any difficulty with breathing. She slept well overnight. - Morning labs showed a critical value of CO2 of 46. - Denies any chest pain, SOB, N/V/D. Objective - Vital Signs/Intake and Output Vital Signs (last 24 hours): Temp Pulse Resp BP Pulse Ox 98.2 F 68 20 170/69 H 97 04/25/18 08:31 04/25/18 08:31 04/25/18 08:31 04/25/18 08:31 04/25/18 08:31 - Medications Medications: Current Medications Acetazolamide (Diamox 250 Mg Tab) 250 mg PO DAILY [facility] Last Admin: 04/25/18 13:56 Dose: 250 mg Albuterol Sulfate (Albuterol 0.083% Inhal Stephanie (2.5 Mg/3 Ml) Ud) 2.5 mg INH RQ6 PRN PRN Reason: Shortness of Breath Last Admin: 04/25/18 13:46 Dose: 2.5 mg Amlodipine Besylate (Norvasc) 5 mg PO DAILY [facility] Last Admin: 04/25/18 08:15 Dose: 5 mg Aspirin (Aspirin Chewable) 81 mg PO DAILY [facility] Last Admin: 04/25/18 08:14 Dose: 81 mg Atorvastatin Calcium (Lipitor) 40 mg PO HS [facility] Last Admin: 04/24/18 21:04 Dose: 40 mg Carvedilol (Coreg) 25 mg PO BID [facility] Last Admin: 04/25/18 08:14 Dose: 25 mg Clopidogrel Bisulfate (Plavix) 75 mg PO DAILY [facility] Last Admin: 04/25/18 08:14 Dose: 75 mg Dextrose (Dextrose 50% Inj) 0 ml IV STAT PRN; Protocol PRN Reason: Hypoglycemia Protocol Last Admin: 04/22/18 06:05 Dose: 50 ml Dextrose (Dextrose 50% Inj) 50 ml IVP ONCE PRN PRN Reason: Hypoglycemia Dextrose (Glutose 15) 0 gm PO ONCE PRN; Protocol PRN Reason: Hypoglycemia Protocol Docusate Sodium (Colace) 100 mg PO DAILY [facility] Last Admin: 04/25/18 08:14 Dose: 100 mg Enoxaparin Sodium (Lovenox) 40 mg SC DAILY [facility]; Protocol Last Admin: 04/25/18 08:13 Dose: 40 mg Escitalopram Oxalate (Lexapro) 20 mg PO DAILY [facility] Last Admin: 04/25/18 08:15 Dose: 20 mg Ferrous Sulfate (Feosol) 325 mg PO BID [facility] Last Admin: 04/25/18 08:14 Dose: 325 mg Furosemide (Lasix) 40 mg PO DAILY [facility] Glucagon (Glucagen Diagnostic Kit) 0 mg IM STAT PRN; Protocol PRN Reason: Hypoglycemia Protocol Guaifenesin (Mucinex La) 600 mg PO Q12 PRN PRN Reason: Cough Last Admin: 04/21/18 22:06 Dose: 600 mg Insulin Detemir (Levemir) 38 units SC Q12 [facility] Last Admin: 04/25/18 08:18 Dose: 38 units Insulin Human Lispro (Humalog) 5 units SC WM [facility] Last Admin: 04/25/18 11:48 Dose: 5 unit Insulin Human Regular (Humulin R) 0 units SC ACHS [facility]; Protocol Last Admin: 04/25/18 11:48 Dose: 4 units Isosorbide Mononitrate (Imdur) 60 mg PO DAILY [facility] Last Admin: 04/25/18 08:15 Dose: 60 mg Losartan Potassium (Cozaar) 100 mg PO DAILY [facility] Last Admin: 04/25/18 08:15 Dose: 100 mg Mirtazapine (Remeron) 15 mg PO HS [facility] Last Admin: 04/24/18 21:04 Dose: 15 mg Pantoprazole Sodium (Protonix Ec Tab) 20 mg PO DAILY [facility] Last Admin: 04/25/18 08:16 Dose: 20 mg - Labs Labs: 04/25/18 06:20 04/25/18 06:20 - Constitutional Appears: No Acute Distress - Head Exam Head Exam: NORMAL INSPECTION - Eye Exam Eye Exam: Normal appearance - Respiratory Exam Respiratory Exam: Decreased Breath Sounds, Rales. absent: Rhonchi, Wheezes, Respiratory Distress - Cardiovascular Exam Cardiovascular Exam: REGULAR RHYTHM, +S1, +S2 - GI/Abdominal Exam GI & Abdominal Exam: Soft, Normal Bowel Sounds. absent: Tenderness Assessment and Plan - Assessment and Plan (Free Text) Assessment: 77 y/o F with hx of CAD, HTN, CHF with preserved EF, DMII, hx of CVA, СВЕТЛАНА (CPAP on home admitted to TCU for physical therapy needed because of deconditioning). 1. Community Acquired Pneumonia: (Resolved) - Completed course of antibiotics. 2. CHF with Preserved EF (Chronic, asymptomatic) -Continue with Coreg, Losartan, ASA, Lasix, and Isosorbide Mononitrate. 3. IDDM2 (Uncontrolled, Chronic) - last HbA1c 9.9% (09/03/2017) -Continue levemir 38 units, and lispro 5 units. - Blood sugars noted between 150- 250 4) Hypoxia (Acute, patient desaturated to 88% while working with PT) - Continue 2L of oxygen NC at rest and 3 L on exertion -Continue to monitor 5) Chronic hypercapnic respiratory failure - CO2: 46 - C/W CPAP - Start acetazolamide 250 6. CAD (previous history) -Continue Coreg, ASA & Statin. 7. HODA on admission (acute, stable) - BUN 27 with creatinine 1.2 today. - Decrease lasix to once a day 8. HTN (Chronic, asymptomatic) - Losartan 100mg PO QD. - Increased norvasc from 5mg to 10 mg -Continue lasix once daily 9. СВЕТЛАНА (Chronic) - Continue CPAP. - Will attempt to get sleep studies.
[2018-04-26] MEDS: Insulin Lispro (humaLOG) 100 Units/ml Inj SC SCH ×3 (07:06→18:14)
[2018-04-26] MEDS: Insulin Regular 100 units/ml SC SCH ×4 (07:08→21:14)
[2018-04-26] MEDS: Albuterol 0.083% Inhal Sol (2.5 mg/3 mL) UD INH PRN (07:33)
[2018-04-26] MEDS: Insulin Detemir 100 Units/ml Inj SC SCH ×2 (09:06→21:14)
[2018-04-26] MEDS: Enoxaparin 40 mg Syringe SC SCH (09:07)
[2018-04-26] MEDS: Pantoprazole 20 mg EC Tab PO SCH (09:08)
[2018-04-26] MEDS: guaiFENesin 600 mg ER Tab PO PRN (10:31)
[2018-04-27] MEDS ORDERED: Glucagon Recombinant 1 mg Inj IM PRN (05:51)
[2018-04-27] MEDS ORDERED: Dextrose 50% SYRINGE Inj (50 ml) IV PRN (05:51)
[2018-04-27] MEDS: Insulin Regular 100 units/ml SC SCH ×4 (06:29→21:43)
[2018-04-27 06:46] LABS: BASO # 0.1 K/uL (0.0-0.2); BASO % 1.2 % (0.0-2.0); EOS # 0.2 K/uL (0.0-0.7); EOS % 2.1 % (0.0-4.0); HEMOGLOBIN 8.4 g/dL (12.0-16.0); LYMPH # 1.7 K/uL (1.0-4.3); LYMPH % 23.2 % (20.0-40.0); MEAN CELL VOLUME 99.2 fl (81.0-99.0); MEAN CORPUSCULAR HEMOGLOBIN 33.1 pg (27.0-31.0); MEAN CORPUSCULAR HGB CONC 33.3 g/dL (33.0-37.0); MEAN PLATELET VOLUME 8.4 fl (7.2-11.7); MONO # 1.1 K/uL (0.0-0.8); MONO % 14.9 % (0.0-10.0); NEUT # 4.4 K/uL (1.8-7.0); NEUT % 58.6 % (50.0-75.0); NRBC % 0.1 % (0.0-0.0); RBC 2.55 Mil/uL (3.80-5.20); RED CELL DISTRIBUTION WIDTH 14.4 % (11.5-14.5); WHITE BLOOD COUNT 7.4 K/uL (4.8-10.8)
[2018-04-27 07:02] LABS: CALCIUM 9.4 mg/dL (8.4-10.2)
[2018-04-27] MEDS: Insulin Lispro (humaLOG) 100 Units/ml Inj SC SCH ×3 (08:07→18:47)
[2018-04-27] MEDS: Insulin Detemir 100 Units/ml Inj SC SCH ×2 (08:11→21:40)
[2018-04-27] MEDS: Enoxaparin 40 mg Syringe SC SCH (08:12)
[2018-04-27] MEDS: Pantoprazole 20 mg EC Tab PO SCH (08:12)
[2018-04-27 10:08] VITALS: TEMP 97.7
--- NOTE | 2018-04-27 10:10 | CP.PCM.PN ---
Subjective - Date & Time of Evaluation Date of Evaluation: 04/27/18 Time of Evaluation: 10:04 - Subjective Subjective: Patient seen on rounds this morning in the gym. She has been doing quite well on the current regimen. Her vital signs have remained stable and she continues to be afebrile. SpO2 has been stable and she uses CPAP as prescribed. TCO2 has decreased to 38 this AM from 46. Plan is for discharge back to home. She already has DME at home and can also be continued on low dose acetazolamide 250 daily. Objective - Vital Signs/Intake and Output Vital Signs (last 24 hours): Temp Pulse Resp BP Pulse Ox 98 F 75 20 144/64 96 04/26/18 20:32 04/27/18 08:12 04/26/18 20:32 04/27/18 08:12 04/26/18 20:32 - Medications Medications: Current Medications Acetazolamide (Diamox 250 Mg Tab) 250 mg PO DAILY [facility] Last Admin: 04/27/18 08:10 Dose: 250 mg Albuterol Sulfate (Albuterol 0.083% Inhal Stephanie (2.5 Mg/3 Ml) Ud) 2.5 mg INH RQ6 PRN PRN Reason: Shortness of Breath Last Admin: 04/26/18 07:33 Dose: 2.5 mg Amlodipine Besylate (Norvasc) 10 mg PO DAILY [facility] Last Admin: 04/27/18 08:12 Dose: 10 mg Aspirin (Aspirin Chewable) 81 mg PO DAILY [facility] Last Admin: 04/27/18 08:09 Dose: 81 mg Atorvastatin Calcium (Lipitor) 40 mg PO HS [facility] Last Admin: 04/26/18 21:13 Dose: 40 mg Carvedilol (Coreg) 25 mg PO BID [facility] Last Admin: 04/27/18 08:09 Dose: 25 mg Clopidogrel Bisulfate (Plavix) 75 mg PO DAILY [facility] Last Admin: 04/27/18 08:12 Dose: 75 mg Dextrose (Dextrose 50% Inj) 0 ml IV STAT PRN; Protocol PRN Reason: Hypoglycemia Protocol Last Admin: 04/22/18 06:05 Dose: 50 ml Dextrose (Dextrose 50% Inj) 50 ml IVP ONCE PRN PRN Reason: Hypoglycemia Dextrose (Glutose 15) 0 gm PO ONCE PRN; Protocol PRN Reason: Hypoglycemia Protocol Dextrose (Dextrose 50% Inj) 0 ml IV STAT PRN; Protocol PRN Reason: Hypoglycemia Protocol Dextrose (Glutose 15) 0 gm PO ONCE PRN; Protocol PRN Reason: Hypoglycemia Protocol Docusate Sodium (Colace) 100 mg PO DAILY [facility] Last Admin: 04/27/18 08:09 Dose: 100 mg Enoxaparin Sodium (Lovenox) 40 mg SC DAILY [facility]; Protocol Last Admin: 04/27/18 08:12 Dose: 40 mg Escitalopram Oxalate (Lexapro) 20 mg PO DAILY [facility] Last Admin: 04/27/18 08:11 Dose: 20 mg Ferrous Sulfate (Feosol) 325 mg PO BID [facility] Last Admin: 04/27/18 08:10 Dose: 325 mg Furosemide (Lasix) 40 mg PO DAILY [facility] Last Admin: 04/27/18 08:10 Dose: 40 mg Glucagon (Glucagen Diagnostic Kit) 0 mg IM STAT PRN; Protocol PRN Reason: Hypoglycemia Protocol Glucagon (Glucagen Diagnostic Kit) 0 mg IM STAT PRN; Protocol PRN Reason: Hypoglycemia Protocol Guaifenesin (Mucinex La) 600 mg PO Q12 PRN PRN Reason: Cough Last Admin: 04/26/18 10:31 Dose: 600 mg Insulin Detemir (Levemir) 40 units SC Q12 [facility] Last Admin: 04/27/18 08:11 Dose: 40 units Insulin Human Lispro (Humalog) 5 units SC WM [facility] Last Admin: 04/27/18 08:07 Dose: 5 unit Insulin Human Regular (Humulin R) 0 units SC ACHS [facility]; Protocol Last Admin: 04/27/18 06:29 Dose: 2 units Isosorbide Mononitrate (Imdur) 60 mg PO DAILY [facility] Last Admin: 04/27/18 08:10 Dose: 60 mg Losartan Potassium (Cozaar) 100 mg PO DAILY [facility] Last Admin: 04/27/18 08:10 Dose: 100 mg Mirtazapine (Remeron) 15 mg PO HS [facility] Last Admin: 04/26/18 21:13 Dose: 15 mg Pantoprazole Sodium (Protonix Ec Tab) 20 mg PO DAILY [facility] Last Admin: 04/27/18 08:12 Dose: 20 mg - Labs Labs: 04/27/18 06:30 04/27/18 06:30 Assessment and Plan (1) Chronic hypercapnic respiratory failure Status: Chronic (2) Obstructive sleep apnea Status: Chronic (3) Obesity with alveolar hypoventilation Status: Suspected
[2018-04-27 17:30] VITALS: RESP 20
[2018-04-27] MEDS: Albuterol 0.083% Inhal Sol (2.5 mg/3 mL) UD INH PRN (21:48)
[2018-04-28] MEDS: Insulin Regular 100 units/ml SC SCH ×2 (06:55→12:02)
[2018-04-28 07:05] LABS: HEMOGLOBIN 8.3 g/dL (12.0-16.0); MEAN CELL VOLUME 100.2 fl (81.0-99.0); MEAN CORPUSCULAR HEMOGLOBIN 33.7 pg (27.0-31.0); MEAN CORPUSCULAR HGB CONC 33.7 g/dL (33.0-37.0); RBC 2.46 Mil/uL (3.80-5.20); RED CELL DISTRIBUTION WIDTH 14.7 % (11.5-14.5); WHITE BLOOD COUNT 7.8 K/uL (4.8-10.8)
[2018-04-28 07:11] LABS: CALCIUM 9.7 mg/dL (8.4-10.2)
[2018-04-28] MEDS: Insulin Lispro (humaLOG) 100 Units/ml Inj SC SCH ×2 (07:40→12:02)
[2018-04-28] MEDS: guaiFENesin 600 mg ER Tab PO PRN (08:37)
[2018-04-28] MEDS: Pantoprazole 20 mg EC Tab PO SCH (08:38)
[2018-04-28] MEDS: Enoxaparin 40 mg Syringe SC SCH (08:38)
[2018-04-28 08:40] VITALS: BP 138/54; PULSE 75; O2SAT 99
[2018-04-28] MEDS: Insulin Detemir 100 Units/ml Inj SC SCH (08:41)
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
== END 2018-04-28 12:00 | disposition home or self-care (01) | DRG 194 ==
LOC: H.TCU 15:37
PROVIDERS: ADMIT Family Medicine; ATTEND Family Medicine
PROC: F08Z1FZ Dressing Techniques Treatment using Assistive, Adaptive, Supportive or Protective Equipment (ICD-10-PCS; principal; 2018-04-20)
PROC: F07Z9FZ Gait Training/Functional Ambulation Treatment using Assistive, Adaptive, Supportive or Protective Equipment (ICD-10-PCS; 2018-04-20)
PROC: F07L6GZ Therapeutic Exercise Treatment of Musculoskeletal System - Lower Back / Lower Extremity using Aerobic Endurance and Conditioning Equipment (ICD-10-PCS; 2018-04-20)
PROC: 5A09557 Assistance with Respiratory Ventilation, Greater than 96 Consecutive Hours, Continuous Positive Airway Pressure (ICD-10-PCS; 2018-04-20)
DX: J18.9 Pneumonia, unspecified organism (principal); I50.32 Chronic diastolic (congestive) heart failure; N17.9 Acute kidney failure, unspecified; J96.12 Chronic respiratory failure with hypercapnia; E66.2 Morbid (severe) obesity with alveolar hypoventilation; I11.0 Hypertensive heart disease with heart failure; E11.65 Type 2 diabetes mellitus with hyperglycemia; G47.33 Obstructive sleep apnea (adult) (pediatric); Z86.73 Personal history of transient ischemic attack (TIA), and cerebral infarction without residual deficits; I25.10 Atherosclerotic heart disease of native coronary artery without angina pectoris; E78.00 Pure hypercholesterolemia, unspecified; K29.70 Gastritis, unspecified, without bleeding; Z95.5 Presence of coronary angioplasty implant and graft; Z79.4 Long term (current) use of insulin; I27.20 Pulmonary hypertension, unspecified; Z68.34 Body mass index [BMI] 34.0-34.9, adult

== ENCOUNTER 2018-04-29 23:25 | Inpatient (IN) | payer MEDICARE, MEDICAID ==
[2018-04-29 23:25] VITALS: BMI 34.6
[2018-04-30 01:28] LABS: BASO # 0.1 K/uL (0.0-0.2); BASO % 0.7 % (0.0-2.0); EOS # 0.1 K/uL (0.0-0.7); EOS % 0.9 % (0.0-4.0); HEMOGLOBIN 8.6 g/dL (12.0-16.0); LYMPH # 1.3 K/uL (1.0-4.3); LYMPH % 10.5 % (20.0-40.0); MEAN CELL VOLUME 101.8 fl (81.0-99.0); MEAN CORPUSCULAR HEMOGLOBIN 32.2 pg (27.0-31.0); MEAN CORPUSCULAR HGB CONC 31.6 g/dL (33.0-37.0); MEAN PLATELET VOLUME 8.7 fl (7.2-11.7); MONO # 1.2 K/uL (0.0-0.8); MONO % 9.8 % (0.0-10.0); NEUT # 9.7 K/uL (1.8-7.0); NEUT % 78.1 % (50.0-75.0); NRBC % 0.1 % (0.0-0.0); RBC 2.68 Mil/uL (3.80-5.20); RED CELL DISTRIBUTION WIDTH 14.9 % (11.5-14.5); WHITE BLOOD COUNT 12.4 K/uL (4.8-10.8)
[2018-04-30 01:30] LABS: ABG ALLEN TEST YES; ARTERIAL BLOOD GAS HCO3 30.9 mmol/L (21-28); ARTERIAL BLOOD GAS HEMOGLOBIN 8.6 g/dL (11.7-17.4); ARTERIAL BLOOD GAS O2 CAPACITY 11.4 mL/dL (16-24); ARTERIAL BLOOD GAS O2 CONTENT 11.2 ML/dL (15-23); ARTERIAL BLOOD GAS PCO2 88 mm/Hg (35-45); ARTERIAL BLOOD GAS PH 7.23 (7.35-7.45); ARTERIAL BLOOD GAS PO2 64 mm/Hg (80-100); ARTERIAL BLOOD GAS TCO2 39.6 mmol/L (22-28)
[2018-04-30 01:36] LABS: CALCIUM 9.3 mg/dL (8.4-10.2)
[2018-04-30 01:50] LABS: TROPONIN I 1.56 ng/mL (0.00-0.120)
[2018-04-30] MEDS ORDERED: Enoxaparin 100 mg Syringe SC STA (03:15)
--- NOTE | 2018-04-30 04:18 | CP.PCM.CON ---
History of Present Illness - History of Present Illness History of Present Illness: Attending: Dr Burger Reason for Consult: Critical Care management Chief complaint: SOB The patient was seen and examined in the ED HPI: The hx is obtained from the family and after review of the laboratory, radiological and medical records, as the patient is on the BIPAP. This is a 77 years old Obese female with hx of CAD, HTN, CHF and Obstructive Sleep apnea with chronic Hypercapnic Respiratory Failure. She was discharged from the TCU on 04/28/18 after being admitted on 04/15/18 and diagnosed with Pneumonia. The family stated that on the Evening of the 04/29/18 the patient developed severe SOB with dizziness, generalized weakness and her blood glucose was found to be elevated. No hx of chest pain, nausea, vomits nor headaches. PMH: Anxiety; Arthritis; Gastritis; CAD; HTN; CHF with preserved EF; DM II; CVA; СВЕТЛАНА with CPAP and home oxygen; Chronic hypercapnic Respiratory failure PSH: Coronary stent placement SH; Never Smoked; no Alcohol nor Illegal drug use; Live with family FH: no Known family Hx allergies: NKDA Medication: Reviewed Review of Systems - Review of Systems Review of Systems: Review of systems limited because of patient being on the BIPAP Past Patient History - Infectious Disease Hx of Infectious Diseases: None - Tetanus Immunizations Tetanus Immunization: Unknown - Past Medical History & Family History Past Medical History?: Yes - Past Social History Smoking Status: Never Smoked (raised in the home where her father smoked heavily) Chewing Tobacco Use: No Cigar Use: No Alcohol: None Drugs: Denies Home Situation {Lives}: With Family - CARDIAC Hx Congestive Heart Failure: Yes Hx Hypercholesterolemia: Yes Hx Hypertension: Yes - PULMONARY Hx Sleep Apnea: Yes - NEUROLOGICAL HX Cerebrovascular Accident: Yes - HEENT Hx HEENT Problems: No - RENAL Hx Chronic Kidney Disease: No - ENDOCRINE/METABOLIC Hx Diabetes Mellitus Type 2: Yes - HEMATOLOGICAL/ONCOLOGICAL Hx Blood Disorders: No Hx Human Immunodeficiency Virus (HIV): No - INTEGUMENTARY Hx Dermatological Problems: No - MUSCULOSKELETAL/RHEUMATOLOGICAL Hx Arthritis: Yes - GASTROINTESTINAL Hx Gastritis: Yes - GENITOURINARY/GYNECOLOGICAL Hx Genitourinary Disorders: No - PSYCHIATRIC Hx Anxiety: Yes Hx Substance Use: No - SURGICAL HISTORY Hx Coronary Stent: Yes - ANESTHESIA Hx Anesthesia: Yes Hx Anesthesia Reactions: No Hx Malignant Hyperthermia: No Meds Allergies/Adverse Reactions: Allergies Allergy/AdvReac Type Severity Reaction Status Date / Time No Known Allergies Allergy Verified 04/29/18 23:30 Physical Exam - Constitutional Additional comments: No acute Respiratory distress on the BIPAP - Head Exam Head Exam: ATRAUMATIC, NORMAL INSPECTION, NORMOCEPHALIC - Eye Exam Eye Exam: EOMI, Normal appearance Pupil Exam: NORMAL ACCOMODATION, PERRL - ENT Exam ENT Exam: Mucous Membranes Dry, Normal Exam, Normal External Ear Exam - Neck Exam Neck exam: Positive for: Full Rom, Normal Inspection. Negative for: Lymphadenopathy, Tenderness - Respiratory Exam Additional comments: Distant inspiratory rales at the bases - Cardiovascular Exam Cardiovascular Exam: REGULAR RHYTHM, +S1, +S2. absent: Gallop - GI/Abdominal Exam Additional comments: Distended, non tender, tympanic to percussion, no guarding nor rebound, +ve bowel sounds - Rectal Exam Rectal Exam: Deferred - Extremities Exam Additional comments: trace edema at both ankles - Back Exam Back exam: NORMAL INSPECTION. absent: CVA tenderness (L), CVA tenderness (R) - Neurological Exam Additional comments: Sleepy but easily aroused. no facial droop, moves all extremities - Psychiatric Exam Psychiatric exam: Normal Affect, Normal Mood - Skin Skin Exam: Dry, Normal Color, Warm Results - Vital Signs Recent Vital Signs: Last Vital Signs Temp 97.7 F 04/29/18 23:30 Pulse 78 04/30/18 01:52 Resp 18 04/29/18 23:30 BP 122/56 L 04/30/18 03:46 Pulse Ox 95 04/29/18 23:30 - Labs Result Diagrams: 04/30/18 01:25 04/30/18 01:25 Labs: Laboratory Results - last 24 hr 04/30/18 04/30/18 04/30/18 01:08 01:25 01:25 WBC 12.4 H D RBC 2.68 L Hgb 8.6 L Hct 27.3 L MCV 101.8 H MCH 32.2 H MCHC 31.6 L RDW 14.9 H Plt Count 352 MPV 8.7 Neut % (Auto) 78.1 H Lymph % (Auto) 10.5 L Lucas % (Auto) 9.8 Eos % (Auto) 0.9 Baso % (Auto) 0.7 Neut # (Auto) 9.7 H Lymph # (Auto) 1.3 Lucas # (Auto) 1.2 H Eos # (Auto) 0.1 Baso # (Auto) 0.1 D-Dimer, Quantitative pCO2 88 H* pO2 64 L HCO3 30.9 H ABG pH 7.23 L ABG Total CO2 39.6 H ABG O2 Saturation 98.0 ABG O2 Content 11.2 L ABG Base Excess 7.7 H ABG Hemoglobin 8.6 L ABG Carboxyhemoglobin 4.0 H POC ABG HHb (Measured) 1.9 ABG Methemoglobin 2.1 ABG O2 Capacity 11.4 L Parviz Test Yes A-a O2 Difference 54.0 Hgb O2 Saturation 92.0 L Vent Mode 3lnc FiO2 32.0 Crit Value Called To maryann Hernandes md Crit Value Called By Titus coulter Crit Value Read Back Y Blood Gas Notified Time 130 Sodium 139 Potassium 4.6 Chloride 102 Carbon Dioxide 35 H Anion Gap 7 L BUN 28 H Creatinine 1.1 Est GFR ( Amer) 58 Est GFR (Non-Af Amer) 48 Random Glucose 306 H Calcium 9.3 Troponin I 1.5600 H* NT-Pro-B Natriuret Pep 2410 H 04/30/18 01:25 WBC RBC Hgb Hct MCV MCH MCHC RDW Plt Count MPV Neut % (Auto) Lymph % (Auto) Lucas % (Auto) Eos % (Auto) Baso % (Auto) Neut # (Auto) Lymph # (Auto) Lucas # (Auto) Eos # (Auto) Baso # (Auto) D-Dimer, Quantitative 870 H pCO2 pO2 HCO3 ABG pH ABG Total CO2 ABG O2 Saturation ABG O2 Content ABG Base Excess ABG Hemoglobin ABG Carboxyhemoglobin POC ABG HHb (Measured) ABG Methemoglobin ABG O2 Capacity Parviz Test A-a O2 Difference Hgb O2 Saturation Vent Mode FiO2 Crit Value Called To Crit Value Called By Crit Value Read Back Blood Gas Notified Time Sodium Potassium Chloride Carbon Dioxide Anion Gap BUN Creatinine Est GFR ( Amer) Est GFR (Non-Af Amer) Random Glucose Calcium Troponin I NT-Pro-B Natriuret Pep - EKG Data EKG comments: NSR 79/min Wavy baseline - Imaging and Cardiology Chest x-ray Status: Image reviewed by me (generalized bilateral interstitial infiltrate) Assessment & Plan - Assessment and Plan (Free Text) Assessment: #. Acute on Chronic CHF with preserved EF #. Hypercapnic Respiratory failure #. Elevated Tropinin #. HTN Uncontrolled #. DM II insulin requiring #. СВЕТЛАНА #. Macrocytic Anemia #. Azotemia Plan: 77 years old Obese female with hx of CAD, HTN, CHF and Obstructive Sleep apnea with chronic Hypercapnic Respiratory Failure was discharged from the TCU on 04/28/18 after being admitted on 04/15/18 and diagnosed with Pneumonia. On the Evening of the 04/29/18 she developed severe SOB with dizziness, generalized weakness and her blood glucose was found to be elevated. #. Acute on Chronic CHF with preserved EF of 55-60 -consult Dr Amato Cardiology - Lasix 20mg IV BID - Isosorbid Mononitdrate/Losartan/ #. Hypercapnic Respiratory failure - Consult Dr River Pulmonary - BIPAP - Follow ABG #. Elevated Tropinin probably due to the CHF, r/o ACS - Cardiology on consult - Srial Troponin - Serial EKG - Start Lovenox therapeutic dose #. HTN Uncontrolled - Losartan/Norvasc - follow blood pressures #. DM II insulin requiring - insulin Lispro sliding scale according to Accucheck ACHS #. СВЕТЛАНА - At Present patient on BIPAP, will change to CPAP once improved - Pulmonary on consult #. Macrocytic Anemia - Follow Hb #. Azotemia - Follow Renal labs #. DVT prophylaxis : Pte on Lovenox #. Code Status: Full - Date & Time Date: 04/30/18 Time: 04:18
--- NOTE | 2018-04-30 04:24 | CP.PCM.HP ---
<Enzo Mcdermott - Last Filed: 04/30/18 05:25> History of Present Illness - History of Present Illness History of Present Illness: CC: SOB HPI: Hx taken via daughter whom is at bedside, as pt is currently on BiPaP. 77 y/o female, with PMHx of CAD, HTN, CHF with preserved EF, IDDM2 and СВЕТЛАНА presents via EMS for evaluation of SOB, dizziness, and hyperglycemia. Symptoms started earlier today and have been worsening. No inciting or triggering event. Adherent with most recent medications upon prior discharge. Was recently discharged from TCU after completing PT for recent CAP. No hx of fever/chills, vomiting, leg pain, numbness/tingling. ROS: As per HPI PMD: Dr. Burger PMH: CAD, HTN, preserved EF CHF, IDDM2, Hx of CVA, СВЕТЛАНА (CPAP at home), on home O2 meds: as per med rec PSH: none Fam: non-contributory SOC: denies smoking, alcohol, and drugs Present on Admission - Present on Admission Any Indicators Present on Admission: Yes History of DVT/PE: No History of Uncontrolled Diabetes: Yes Urinary Catheter: No Decubitus Ulcer Present: No Past Patient History - Infectious Disease Hx of Infectious Diseases: None - Tetanus Immunizations Tetanus Immunization: Unknown - Past Medical History & Family History Past Medical History?: Yes - Past Social History Smoking Status: Never Smoked (raised in the home where her father smoked heavily ) Chewing Tobacco Use: No - CARDIAC Hx Congestive Heart Failure: Yes Hx Hypercholesterolemia: Yes Hx Hypertension: Yes - PULMONARY Hx Sleep Apnea: Yes - NEUROLOGICAL HX Cerebrovascular Accident: Yes - HEENT Hx HEENT Problems: No - RENAL Hx Chronic Kidney Disease: No - ENDOCRINE/METABOLIC Hx Diabetes Mellitus Type 2: Yes - HEMATOLOGICAL/ONCOLOGICAL Hx Blood Disorders: No Hx Human Immunodeficiency Virus (HIV): No - INTEGUMENTARY Hx Dermatological Problems: No - MUSCULOSKELETAL/RHEUMATOLOGICAL Hx Arthritis: Yes - GASTROINTESTINAL Hx Gastritis: Yes - GENITOURINARY/GYNECOLOGICAL Hx Genitourinary Disorders: No - PSYCHIATRIC Hx Anxiety: Yes Hx Substance Use: No - SURGICAL HISTORY Hx Coronary Stent: Yes - ANESTHESIA Hx Anesthesia: Yes Hx Anesthesia Reactions: No Hx Malignant Hyperthermia: No Meds Allergies/Adverse Reactions: Allergies Allergy/AdvReac Type Severity Reaction Status Date / Time No Known Allergies Allergy Verified 10/12/18 23:30 Physical Exam - Constitutional Appears: Non-toxic, No Acute Distress Additional comments: on BiPaP - Head Exam Head Exam: ATRAUMATIC, NORMOCEPHALIC - Eye Exam Eye Exam: EOMI Pupil Exam: PERRL - Neck Exam Neck exam: Negative for: Lymphadenopathy - Respiratory Exam Respiratory Exam: Accessory Muscle Use, Decreased Breath Sounds, Wheezes. absent: Clear to Auscultation Bilateral, NORMAL BREATHING PATTERN - Cardiovascular Exam Cardiovascular Exam: REGULAR RHYTHM, RRR, +S1, +S2. absent: Tachycardia, JVD, Rubs, Systolic Murmur - GI/Abdominal Exam GI & Abdominal Exam: Normal Bowel Sounds, Soft. absent: Tenderness - Neurological Exam Neurological exam: Alert, CN II-XII Intact, Oriented x3 - Skin Skin Exam: Dry, Normal Color, Warm Results - Vital Signs Recent Vital Signs: Last Vital Signs Temp 97.7 F 04/29/18 23:30 Pulse 78 04/30/18 01:52 Resp 18 04/29/18 23:30 BP 122/56 L 04/30/18 03:46 Pulse Ox 95 04/29/18 23:30 - Labs Result Diagrams: 04/30/18 01:25 04/30/18 01:25 Labs: Laboratory Results - last 24 hr 04/30/18 04/30/18 04/30/18 01:08 01:25 01:25 WBC 12.4 H D RBC 2.68 L Hgb 8.6 L Hct 27.3 L MCV 101.8 H MCH 32.2 H MCHC 31.6 L RDW 14.9 H Plt Count 352 MPV 8.7 Neut % (Auto) 78.1 H Lymph % (Auto) 10.5 L Lander % (Auto) 9.8 Eos % (Auto) 0.9 Baso % (Auto) 0.7 Neut # (Auto) 9.7 H Lymph # (Auto) 1.3 Lander # (Auto) 1.2 H Eos # (Auto) 0.1 Baso # (Auto) 0.1 D-Dimer, Quantitative pCO2 88 H* pO2 64 L HCO3 30.9 H ABG pH 7.23 L ABG Total CO2 39.6 H ABG O2 Saturation 98.0 ABG O2 Content 11.2 L ABG Base Excess 7.7 H ABG Hemoglobin 8.6 L ABG Carboxyhemoglobin 4.0 H POC ABG HHb (Measured) 1.9 ABG Methemoglobin 2.1 ABG O2 Capacity 11.4 L Parviz Test Yes A-a O2 Difference 54.0 Hgb O2 Saturation 92.0 L Vent Mode 3lnc FiO2 32.0 Crit Value Called To maryann Hernandes md Crit Value Called By Titus coulter Crit Value Read Back Y Blood Gas Notified Time 130 Sodium 139 Potassium 4.6 Chloride 102 Carbon Dioxide 35 H Anion Gap 7 L BUN 28 H Creatinine 1.1 Est GFR ( Amer) 58 Est GFR (Non-Af Amer) 48 Random Glucose 306 H Calcium 9.3 Troponin I 1.5600 H* NT-Pro-B Natriuret Pep 2410 H 04/30/18 01:25 WBC RBC Hgb Hct MCV MCH MCHC RDW Plt Count MPV Neut % (Auto) Lymph % (Auto) Lander % (Auto) Eos % (Auto) Baso % (Auto) Neut # (Auto) Lymph # (Auto) Lander # (Auto) Eos # (Auto) Baso # (Auto) D-Dimer, Quantitative 870 H pCO2 pO2 HCO3 ABG pH ABG Total CO2 ABG O2 Saturation ABG O2 Content ABG Base Excess ABG Hemoglobin ABG Carboxyhemoglobin POC ABG HHb (Measured) ABG Methemoglobin ABG O2 Capacity Parviz Test A-a O2 Difference Hgb O2 Saturation Vent Mode FiO2 Crit Value Called To Crit Value Called By Crit Value Read Back Blood Gas Notified Time Sodium Potassium Chloride Carbon Dioxide Anion Gap BUN Creatinine Est GFR ( Amer) Est GFR (Non-Af Amer) Random Glucose Calcium Troponin I NT-Pro-B Natriuret Pep Assessment & Plan - Assessment and Plan (Free Text) Assessment: 77 y/o female with extensive medical history admitted for acute respiratory insufficiency with elevated troponin, BNP, and D-dimer. Plan: 1) Respiratory Insufficiency with Hypercarbia -PCO2: 88 on ABG -started on BiPaP in ED, IPAP 16, EPAP 6, FIO2 45, Rate 14 -repeat ABG pending -c/w BiPAP support -Chest CTA pending -ICU admission 2) Elevated Troponin -1.56 on initial presentation -trend troponin Q6H -repeat EKG in AM -Cardiology consult pending -given Lovenox 90mg in ED -ASA 325mg given in ED -ICU monitoring 3) Acute CHF exacerbation -elevated P-BNP: 2410 -s/p Lasix 20mg IV in ED -Lasix 20mg BID -head of bed elevation -control BP with home meds -I/Os -daily weight check 4) IDDM2 -lispro correction scale -accu-checks ACHS -resume home meds 5) Diet -heart healthy/moderate carb 6) Prophylaxis -SCDs -Lovenox 90mg given in ED -head of bed elevation 7) Code Status -full code <Geoffrey Franco A - Last Filed: 04/30/18 08:10> Results - Vital Signs Recent Vital Signs: Last Vital Signs Temp 97.6 F 04/30/18 04:25 Pulse 70 04/30/18 06:51 Resp 14 04/30/18 06:35 BP 100/57 L 04/30/18 06:35 Pulse Ox 100 04/30/18 06:22 - Labs Result Diagrams: 04/30/18 01:25 04/30/18 01:25 Labs: Laboratory Results - last 24 hr 04/30/18 04/30/18 04/30/18 01:08 01:25 01:25 WBC 12.4 H D RBC 2.68 L Hgb 8.6 L Hct 27.3 L MCV 101.8 H MCH 32.2 H MCHC 31.6 L RDW 14.9 H Plt Count 352 MPV 8.7 Neut % (Auto) 78.1 H Lymph % (Auto) 10.5 L Lander % (Auto) 9.8 Eos % (Auto) 0.9 Baso % (Auto) 0.7 Neut # (Auto) 9.7 H Lymph # (Auto) 1.3 Lander # (Auto) 1.2 H Eos # (Auto) 0.1 Baso # (Auto) 0.1 D-Dimer, Quantitative pCO2 88 H* pO2 64 L HCO3 30.9 H ABG pH 7.23 L ABG Total CO2 39.6 H ABG O2 Saturation 98.0 ABG O2 Content 11.2 L ABG Base Excess 7.7 H ABG Hemoglobin 8.6 L ABG Carboxyhemoglobin 4.0 H POC ABG HHb (Measured) 1.9 ABG Methemoglobin 2.1 ABG O2 Capacity 11.4 L Parviz Test Yes A-a O2 Difference 54.0 Hgb O2 Saturation 92.0 L Vent Mode 3lnc Mechanical Rate FiO2 32.0 Inspiratory BiPAP Expiratory BiPAP Crit Value Called To maryann Hernandes md Crit Value Called By [facility] Crit Value Read Back Y Blood Gas Notified Time 130 Sodium 139 Potassium 4.6 Chloride 102 Carbon Dioxide 35 H Anion Gap 7 L BUN 28 H Creatinine 1.1 Est GFR ( Amer) 58 Est GFR (Non-Af Amer) 48 Random Glucose 306 H Calcium 9.3 Troponin I 1.5600 H* NT-Pro-B Natriuret Pep 2410 H 04/30/18 04/30/18 01:25 04:36 WBC RBC Hgb Hct MCV MCH MCHC RDW Plt Count MPV Neut % (Auto) Lymph % (Auto) Lander % (Auto) Eos % (Auto) Baso % (Auto) Neut # (Auto) Lymph # (Auto) Lander # (Auto) Eos # (Auto) Baso # (Auto) D-Dimer, Quantitative 870 H pCO2 81 H* pO2 101 H HCO3 31.7 H ABG pH 7.27 L ABG Total CO2 39.7 H ABG O2 Saturation 99.5 H ABG O2 Content 11.4 L ABG Base Excess 8.7 H ABG Hemoglobin 8.4 L ABG Carboxyhemoglobin 1.8 H POC ABG HHb (Measured) 0.5 ABG Methemoglobin 2.4 ABG O2 Capacity 11.5 L Parviz Test Yes A-a O2 Difference 119.0 Hgb O2 Saturation 95.3 Vent Mode Bipap Mechanical Rate 14 FiO2 45.0 Inspiratory BiPAP 14 Expiratory BiPAP 6 Crit Value Called To maryann Hernandes md Crit Value Called By [facility] Crit Value Read Back Y Blood Gas Notified Time 445 Sodium Potassium Chloride Carbon Dioxide Anion Gap BUN Creatinine Est GFR ( Amer) Est GFR (Non-Af Amer) Random Glucose Calcium Troponin I NT-Pro-B Natriuret Pep Attending/Attestation - Attestation I have personally seen and examined this patient.: Yes I have fully participated in the care of the patient.: Yes I have reviewed all pertinent clinical information: Yes Notes (Text): 04/30/18 07:57 I saw,examined and discussed this patient with Dr Mcdermott. I agree with the assessment and plan outlined with represent my direct input. This is a 77 years old female , recently discharged with a PCo2 of 40s, returning one day later with severe SOB and elevated PCO2 of 88. Elevated Pro BNP and Troponin. A&P #. Acute on chronic CHF - Cardiology consult - IV lasix/Losartan/Isosorbide #. Hypercapnic Respiratory Failure - Pulmonary Consult - BIPAP Follow ABG #. Elevated Troponin probably due to the Acute CHF. r/o ACS - serial Troponn\ - serial EKG - ASA/Lovenox/ Lipitor #. HTN Uncontrolled - Losartan/Norvas #. DM II with hyperglycemia - Lispro sliding scale with accucheck #. Macrocytic Anemia - Follow Hb #. СВЕТЛАНА - Pulmonary on consult - BIPAP then change to CPAP when improved Geoffrey Franco MD Hospitalist 04/30/18 08:07
[2018-04-30 04:46] LABS: ABG ALLEN TEST YES; ARTERIAL BLOOD GAS HCO3 31.7 mmol/L (21-28); ARTERIAL BLOOD GAS HEMOGLOBIN 8.4 g/dL (11.7-17.4); ARTERIAL BLOOD GAS O2 CAPACITY 11.5 mL/dL (16-24); ARTERIAL BLOOD GAS O2 CONTENT 11.4 ML/dL (15-23); ARTERIAL BLOOD GAS O2 SAT 99.5 % (95-98); ARTERIAL BLOOD GAS PCO2 81 mm/Hg (35-45); ARTERIAL BLOOD GAS PH 7.27 (7.35-7.45); ARTERIAL BLOOD GAS PO2 101 mm/Hg (80-100); ARTERIAL BLOOD GAS TCO2 39.7 mmol/L (22-28)
--- NOTE | 2018-04-30 06:20 | ED PDOC ---
HPI: SOB/CHF/COPD Time Seen by Provider: 04/30/18 00:29 Chief Complaint (Nursing): Shortness Of Breath Chief Complaint (Provider): Shortness Of Breath History Per: Patient History/Exam Limitations: no limitations Onset/Duration Of Symptoms: Days (x1) Current Symptoms Are (Timing): Still Present Additional Complaint(s): 77 year old female with a history of CAD, CHF and stents presents today for difficulty breathing on going today. Earlier today she began experiencing symptoms, but has no cough, fever, or chest pain. She was admitted to this hospital for pneumonia for 2 weeks but discharged the day before. PMD: Dr. Burger Past Medical History Reviewed: Historical Data, Nursing Documentation, Vital Signs Vital Signs: Last Vital Signs Temp 97.6 F 04/30/18 04:25 Pulse 61 04/30/18 05:32 Resp 14 04/30/18 05:32 BP 100/57 L 04/30/18 05:32 Pulse Ox 100 04/30/18 05:32 - Medical History PMH: Anxiety, Arthritis, CAD, CHF, CVA (?paresthesias), Diabetes, Gastritis, HTN, Hypercholesterolemia, Pneumonia (recent admission), Sleep Apnea Denies: HIV, Chronic Kidney Disease - Surgical History Surgical History: Coronary Stent Denies: - Family History Family History: States: Unknown Family Hx - Social History Alcohol: None Drugs: Denies - Home Medications Home Medications: Ambulatory Orders Medication Instructions Recorded RX: Atorvastatin [Lipitor] 1 tab PO HS 12/16/16 RX: Furosemide [Lasix] 1 tab PO DAILY 12/16/16 RX: Insulin Lispro [humALOG] 5 unit SC WM 12/16/16 RX: Escitalopram [Lexapro] 20 mg PO DAILY 04/15/18 RX: Ibuprofen [Motrin Tab] 800 mg PO Q6H PRN 04/15/18 RX: Mirtazapine [Remeron] 15 mg PO DAILY 04/15/18 RX: Isosorbide Mononitrate [Imdur] 60 mg PO DAILY tab 04/28/18 RX: acetaZOLAMIDE [Diamox 250 mg 250 mg PO DAILY #30 tab 04/28/18 Tab] Valsartan [Diovan] 320 mg PO DAILY 30 Days #30 tab 04/28/18 amLODIPine [Norvasc] 5 mg PO DAILY 30 Days #30 tab 04/28/18 Insulin Detemir [Levemir] 40 units SC BID 30 Days vial 05/02/18 - Allergies Allergies/Adverse Reactions: Allergies Allergy/AdvReac Type Severity Reaction Status Date / Time No Known Allergies Allergy Verified 04/29/18 23:30 Wells Criteria for PE - Wells Criteria for Pulmonary Embolism Clinical Signs and Symptoms of DVT: No P.E is #1 Diagnosis, or Equally Likely: No Heart Rate >100: No Immobilization at least 3 days;Surgery previous 4 weeks: Yes Previous, objectively diagnosed PE or DVT: No Hemoptysis: No Malignancy w/treatment within 6 months, or palliative: No Total Score: 1.5 Review of Systems ROS Statement: Except As Marked, All Systems Reviewed And Found Negative Respiratory: Positive for: Shortness of Breath Physical Exam - Reviewed Nursing Documentation Reviewed: Yes Vital Signs Reviewed: Yes - Physical Exam Appears: Positive for: Non-toxic, No Acute Distress Head Exam: Positive for: ATRAUMATIC, NORMOCEPHALIC Skin: Positive for: Normal Color, Warm, Dry Eye Exam: Positive for: Normal appearance, EOMI ENT: Positive for: Normal ENT Inspection Cardiovascular/Chest: Positive for: Regular Rate, Rhythm. Negative for: Murmur Respiratory: Positive for: Decreased Breath Sounds. Negative for: Accessory Muscle Use, Wheezing, Respiratory Distress Gastrointestinal/Abdominal: Positive for: Normal Exam, Soft, Other (obese). Negative for: Tenderness Extremity: Positive for: Normal ROM. Negative for: Pedal Edema, Deformity Neurologic/Psych: Positive for: Alert, Oriented (x3), Mood/Affect (somnolent) - Laboratory Results Result Diagrams: 05/02/18 04:30 05/02/18 04:30 - ECG O2 Sat by Pulse Oximetry: 100 (RA) Pulse Ox Interpretation: Normal - Critical Care Total Time (In Min): 60 Medical Decision Making Medical Decision Making: Time: 0141 Initial Impression: shortness of breath Differential diagnoses include but are not limited to: CHF exacerbation, pulmonary embolism, ACS, obstructive sleep apnea, hypercapnia Initial Plan: --ABG --CT angio --EKG --Cardiac labs --Lasix 20 mg IVP --Lovenox 90 mg SC --BIPAP 0200 ABG reveals hypercapnia. Patient started on BIPAP Repeat ABG with improvement. Ddimer is elevated. Unable to perform CT angio due to difficult IV access. Perfusion scan ordered for am. P Lovenox treatment is started. Troponin is elevated. No EKG changes. ASA and lovenox started. Cardiology consult with Dr Arnol palmer. Scribe Attestation: Documented by Xenia Martin, acting as a scribe for Chantelle Hernandes MD Provider Scribe Attestation: All medical record entries made by the Scribe were at my direction and personally dictated by me. I have reviewed the chart and agree that the record accurately reflects my personal performance of the history, physical exam, medical decision making, and the department course for this patient. I have also personally directed, reviewed, and agree with the discharge instructions and disposition. Disposition - Clinical Impression Clinical Impression: CHF (congestive heart failure), Acute hypercapnic respiratory failure, Elevated troponin, Acute and chronic respiratory failure with hypercapnia - Patient ED Disposition Is Patient to be Admitted: Yes Discussed With : Geoffrey Franco Doctor Will See Patient In The: ED Counseled Patient/Family Regarding: Studies Performed, Diagnosis - Disposition Disposition Time: 02:00 Condition: STABLE - Pt Status Changed To: Hospital Disposition Of: Inpatient - Admit Certification Admit to Inpatient:: After my assessment, the patient will require hospitalization for at least two midnights. This is because of the severity of symptoms shown, intensity of services needed, and/or the medical risk in this patient being treated as an outpatient. - POA Present On Arrival: Poor Glycemic Control
[2018-04-30] MEDS ORDERED: levoFLOXacin 500 mg in D5W 500 MG/100 ML BAG IVPB STA (06:28)
--- NOTE | 2018-04-30 07:55 | RAD ---
Date of service: 04/30/2018 PROCEDURE: CHEST RADIOGRAPH, 1 VIEW HISTORY: dyspnea COMPARISON: Comparison is made with 04/18/2018 FINDINGS: LUNGS: Interval appearance of patchy opacities in the lungs since the previous study. There is a new consolidation and infiltrate at left lower lung associated with blunting of left costophrenic angle. PLEURA: Findings suspicious for left pleural effusion. CARDIOVASCULAR: Normal. OSSEOUS STRUCTURES: No significant abnormalities. VISUALIZED UPPER ABDOMEN: Normal. OTHER FINDINGS: None. IMPRESSION: New opacities and infiltrates in the lungs more prominent at the left lower lobe likely associated with pleural effusion. Correlate clinically for multifocal pneumonia or ARDS.
[2018-04-30] MEDS: Insulin Lispro (humaLOG) 100 Units/ml Inj SC SCH ×4 (08:42→23:10)
[2018-04-30 09:02] LABS: CALCIUM 9.4 mg/dL (8.4-10.2)
--- NOTE | 2018-04-30 09:24 | CP.PCM.CON ---
History of Present Illness - History of Present Illness History of Present Illness: 77 y/o female, with PMHx of CAD, HTN, CHF with preserved EF, IDDM2 and СВЕТЛАНА was admitted last night to ICU after she presented via EMS to ER with ation of SOB, dizziness, and had hyperglycemia. Symptoms started earlier yesterday and have been worsening. No inciting or triggering event. She was adherent with most recent medications upon prior discharge. Was recently discharged from TCU after completing PT for recent CAP. No hx of fever/chills, no c/o CP, cough, vomiting, leg pain, numbness/tingling. Review of Systems - Review of Systems Systems not reviewed;Unavailable: Respiratory Distress - Constitutional Constitutional: As Per HPI - EENT Eyes: As Per HPI - Cardiovascular Cardiovascular: As Per HPI - Respiratory Respiratory: Dyspnea - Gastrointestinal Gastrointestinal: As Per HPI - Musculoskeletal Musculoskeletal: As Per HPI Past Patient History - Infectious Disease Hx of Infectious Diseases: None - Tetanus Immunizations Tetanus Immunization: Unknown - Past Medical History & Family History Past Medical History?: Yes - Past Social History Alcohol: None Drugs: Denies - CARDIAC Hx Congestive Heart Failure: Yes Hx Hypercholesterolemia: Yes Hx Hypertension: Yes - PULMONARY Hx Pneumonia: Yes (recent admission) Hx Sleep Apnea: Yes - NEUROLOGICAL HX Cerebrovascular Accident: Yes - HEENT Hx HEENT Problems: No - RENAL Hx Chronic Kidney Disease: No - ENDOCRINE/METABOLIC Hx Diabetes Mellitus Type 2: Yes - HEMATOLOGICAL/ONCOLOGICAL Hx Human Immunodeficiency Virus (HIV): No - INTEGUMENTARY Hx Dermatological Problems: No - MUSCULOSKELETAL/RHEUMATOLOGICAL Hx Arthritis: Yes - GASTROINTESTINAL Hx Gastritis: Yes - GENITOURINARY/GYNECOLOGICAL Hx Genitourinary Disorders: No - PSYCHIATRIC Hx Anxiety: Yes - SURGICAL HISTORY Hx Coronary Stent: Yes - ANESTHESIA Hx Anesthesia: Yes Hx Anesthesia Reactions: No Hx Malignant Hyperthermia: No Meds Allergies/Adverse Reactions: Allergies Allergy/AdvReac Type Severity Reaction Status Date / Time No Known Allergies Allergy Verified 04/29/18 23:30 - Medications Medications: Current Medications Acetazolamide (Diamox 250 Mg Tab) 250 mg PO DAILY [facility] Amlodipine Besylate (Norvasc) 5 mg PO DAILY [facility] Atorvastatin Calcium (Lipitor) 40 mg PO HS [facility] Enoxaparin Sodium (Lovenox) 90 mg SC Q12 [facility]; Protocol Escitalopram Oxalate (Lexapro) 20 mg PO DAILY [facility] Furosemide (Lasix) 40 mg IVP BID [facility] Insulin Human Lispro (Humalog) 0 units SC ACHS [facility]; Protocol Last Admin: 04/30/18 08:42 Dose: 2 units Isosorbide Mononitrate (Imdur) 60 mg PO DAILY [facility] Losartan Potassium (Cozaar) 100 mg PO DAILY [facility] Mirtazapine (Remeron) 15 mg PO DAILY [facility] Physical Exam - Head Exam Head Exam: ATRAUMATIC - Eye Exam Eye Exam: Normal appearance - ENT Exam ENT Exam: Mucous Membranes Moist - Neck Exam Neck exam: Positive for: Full Rom - Respiratory Exam Respiratory Exam: Rales, Rhonchi - Cardiovascular Exam Cardiovascular Exam: REGULAR RHYTHM - GI/Abdominal Exam GI & Abdominal Exam: Soft Results - Vital Signs Recent Vital Signs: Last Vital Signs Temp 97.7 F 04/30/18 08:00 Pulse 73 04/30/18 08:23 Resp 20 04/30/18 08:00 BP 154/89 H 04/30/18 08:00 Pulse Ox 100 04/30/18 08:00 - Labs Result Diagrams: 04/30/18 01:25 04/30/18 06:00 Labs: Laboratory Results - last 24 hr 04/30/18 04/30/18 04/30/18 01:08 01:19 01:25 WBC RBC Hgb Hct MCV MCH MCHC RDW Plt Count MPV Neut % (Auto) Lymph % (Auto) [place] % (Auto) Eos % (Auto) Baso % (Auto) Neut # (Auto) Lymph # (Auto) [place] # (Auto) Eos # (Auto) Baso # (Auto) D-Dimer, Quantitative pCO2 88 H* pO2 64 L HCO3 30.9 H ABG pH 7.23 L ABG Total CO2 39.6 H ABG O2 Saturation 98.0 ABG O2 Content 11.2 L ABG Base Excess 7.7 H ABG Hemoglobin 8.6 L ABG Carboxyhemoglobin 4.0 H POC ABG HHb (Measured) 1.9 ABG Methemoglobin 2.1 ABG O2 Capacity 11.4 L Parviz Test Yes A-a O2 Difference 54.0 Hgb O2 Saturation 92.0 L Vent Mode 3lnc Mechanical Rate FiO2 32.0 Inspiratory BiPAP Expiratory BiPAP Crit Value Called To maryann Hernandes md Crit Value Called By [facility] Crit Value Read Back Y Blood Gas Notified Time 130 Sodium 139 Potassium 4.6 Chloride 102 Carbon Dioxide 35 H Anion Gap 7 L BUN 28 H Creatinine 1.1 Est GFR ( Amer) 58 Est GFR (Non-Af Amer) 48 POC Glucose (mg/dL) 305 H Random Glucose 306 H Calcium 9.3 Phosphorus Magnesium Troponin I 1.5600 H* NT-Pro-B Natriuret Pep 2410 H 04/30/18 04/30/18 04/30/18 01:25 01:25 04:36 WBC 12.4 H D RBC 2.68 L Hgb 8.6 L Hct 27.3 L MCV 101.8 H MCH 32.2 H MCHC 31.6 L RDW 14.9 H Plt Count 352 MPV 8.7 Neut % (Auto) 78.1 H Lymph % (Auto) 10.5 L [place] % (Auto) 9.8 Eos % (Auto) 0.9 Baso % (Auto) 0.7 Neut # (Auto) 9.7 H Lymph # (Auto) 1.3 [place] # (Auto) 1.2 H Eos # (Auto) 0.1 Baso # (Auto) 0.1 D-Dimer, Quantitative 870 H pCO2 81 H* pO2 101 H HCO3 31.7 H ABG pH 7.27 L ABG Total CO2 39.7 H ABG O2 Saturation 99.5 H ABG O2 Content 11.4 L ABG Base Excess 8.7 H ABG Hemoglobin 8.4 L ABG Carboxyhemoglobin 1.8 H POC ABG HHb (Measured) 0.5 ABG Methemoglobin 2.4 ABG O2 Capacity 11.5 L Parviz Test Yes A-a O2 Difference 119.0 Hgb O2 Saturation 95.3 Vent Mode Bipap Mechanical Rate 14 FiO2 45.0 Inspiratory BiPAP 14 Expiratory BiPAP 6 Crit Value Called To maryann Hernandes md Crit Value Called By [facility] Crit Value Read Back Y Blood Gas Notified Time 445 Sodium Potassium Chloride Carbon Dioxide Anion Gap BUN Creatinine Est GFR ( Amer) Est GFR (Non-Af Amer) POC Glucose (mg/dL) Random Glucose Calcium Phosphorus Magnesium Troponin I NT-Pro-B Natriuret Pep 04/30/18 06:00 WBC RBC Hgb Hct MCV MCH MCHC RDW Plt Count MPV Neut % (Auto) Lymph % (Auto) [place] % (Auto) Eos % (Auto) Baso % (Auto) Neut # (Auto) Lymph # (Auto) [place] # (Auto) Eos # (Auto) Baso # (Auto) D-Dimer, Quantitative pCO2 pO2 HCO3 ABG pH ABG Total CO2 ABG O2 Saturation ABG O2 Content ABG Base Excess ABG Hemoglobin ABG Carboxyhemoglobin POC ABG HHb (Measured) ABG Methemoglobin ABG O2 Capacity Parviz Test A-a O2 Difference Hgb O2 Saturation Vent Mode Mechanical Rate FiO2 Inspiratory BiPAP Expiratory BiPAP Crit Value Called To Crit Value Called By Crit Value Read Back Blood Gas Notified Time Sodium 140 Potassium 4.7 Chloride 104 Carbon Dioxide 32 H Anion Gap 9 L BUN 29 H Creatinine 1.1 Est GFR ( Amer) 58 Est GFR (Non-Af Amer) 48 POC Glucose (mg/dL) Random Glucose 306 H Calcium 9.4 Phosphorus 3.9 Magnesium 2.4 H Troponin I NT-Pro-B Natriuret Pep Assessment & Plan - Assessment and Plan (Free Text) Assessment: Plan and Plan: #. CHF exacerbation h/o CHFpEF EF: 55-60% - increased lasix to 40 mg IV BID, one dose now - Isosorbid Mononitdrate/Losartan/ Cardiology consult #. Hypercapnic Respiratory failure - - BIPAP : currently on 01/01, Fio: 45%, - Follow ABG result Pt appears to be more comfortable Ox sat 100% Pulm consult #. Elevated Tropinin probably due to the CHF, r/o ACS - Cardiology on consult - Srial Troponin - Serial EKG - Start Lovenox therapeutic dose #. HTN Uncontrolled - Losartan/Norvasc - Monitoring blood pressures, better now #. DM II insulin requiring - insulin Lispro sliding scale according to Accucheck ACHS #. DVT prophylaxis : Pte on Lovenox #. Code Status: Sales Developer spent: 50 minutes.
[2018-04-30 09:25] LABS: TROPONIN I 1.43 ng/mL (0.00-0.120)
--- NOTE | 2018-04-30 10:51 | CP.PCM.CON ---
History of Present Illness - History of Present Illness History of Present Illness: This 77 year old female is known to me from a recent admission to this hospital. She has a past history of chronic hypercapnic respiratory failure likely as a result of Sleep Apnea and Obesity Hypoventilation Syndrome. She had been home only a few days and apparently using her DME (bilevel NPPV via nasal pillows) when she became short of breath, sweating, and found to have a glucose markedly elevated (?600). There was no apparent complaint of chest pain, no sputum or hemoptysis, no fever or chills. She was immediately brought to the emergency room where she was found to have respiratory acidosis on chronic hypercapnea with mild elevation of WBC, elevated troponin and high proBNP. Her chest x-ray showed patchy infiltrates bilaterally and vascular congestion. Past Patient History - Infectious Disease Hx of Infectious Diseases: None - Tetanus Immunizations Tetanus Immunization: Unknown - Past Medical History & Family History Past Medical History?: Yes Past Family History: Reviewed and not pertinent - Past Social History Smoking Status: Never Smoked (raised in a smoking household) Chewing Tobacco Use: No Cigar Use: No Alcohol: None Drugs: Denies Home Situation {Lives}: With Family - CARDIAC Hx Congestive Heart Failure: Yes Hx Hypercholesterolemia: Yes Hx Hypertension: Yes - PULMONARY Hx Pneumonia: Yes (recent admission) Hx Sleep Apnea: Yes Other/Comment: chronic hypercapnic ventilatory failure. suspected obesity hypoventilation syndrome - NEUROLOGICAL HX Cerebrovascular Accident: Yes - HEENT Hx HEENT Problems: No - RENAL Hx Chronic Kidney Disease: No - ENDOCRINE/METABOLIC Hx Diabetes Mellitus Type 2: Yes - HEMATOLOGICAL/ONCOLOGICAL Hx Human Immunodeficiency Virus (HIV): No - INTEGUMENTARY Hx Dermatological Problems: No - MUSCULOSKELETAL/RHEUMATOLOGICAL Hx Arthritis: Yes - GASTROINTESTINAL Hx Gastritis: Yes - GENITOURINARY/GYNECOLOGICAL Hx Genitourinary Disorders: No - PSYCHIATRIC Hx Anxiety: Yes - SURGICAL HISTORY Hx Coronary Stent: Yes - ANESTHESIA Hx Anesthesia: Yes Hx Anesthesia Reactions: No Hx Malignant Hyperthermia: No Meds Allergies/Adverse Reactions: Allergies Allergy/AdvReac Type Severity Reaction Status Date / Time No Known Allergies Allergy Verified 04/29/18 23:30 - Medications Medications: Current Medications Acetazolamide (Diamox 250 Mg Tab) 250 mg PO DAILY [facility] Amlodipine Besylate (Norvasc) 5 mg PO DAILY [facility] Atorvastatin Calcium (Lipitor) 40 mg PO HS [facility] Enoxaparin Sodium (Lovenox) 90 mg SC Q12 [facility]; Protocol Escitalopram Oxalate (Lexapro) 20 mg PO DAILY [facility] Furosemide (Lasix) 40 mg IVP BID [facility] Insulin Human Lispro (Humalog) 0 units SC ACHS [facility]; Protocol Last Admin: 04/30/18 08:42 Dose: 2 units Isosorbide Mononitrate (Imdur) 60 mg PO DAILY [facility] Losartan Potassium (Cozaar) 100 mg PO DAILY [facility] Mirtazapine (Remeron) 15 mg PO DAILY [facility] Physical Exam - Additional Findings Additional findings: Obese female lying in bed at 15-20 degrees elevation of the head. She has a full face mask for BiPAP ventilation and 40% oxygen. She is awake and communicative. Not in any distress. No recruitment or retractions. Repeat ABG shows good oxygenation and an improved acid/base balance. Neck is short and JVD not assessed. No palpable lymphadenopathy. Musculo-skeletal, anterior chest pain on palpation (left/upper). No dullness on chest percussion, no subcutaneous emphysema. Breath sounds are diminished equally in both lungs. No wheezes. Medium rales are present in both lower lobes posteriorly. No bronchial breath sounds appreciated, no rub. Heart sounds are distant and rhythm regular. Abdomen is obese and non-tender, bowel sounds are present. Minimal dependant edema, no cyanosis, no calf tenderness or palpable venous cords. Results - Vital Signs Recent Vital Signs: Last Vital Signs Temp 97.7 F 04/30/18 08:00 Pulse 73 04/30/18 08:23 Resp 20 04/30/18 08:06 BP 154/89 H 04/30/18 08:00 Pulse Ox 100 04/30/18 08:00 - Labs Result Diagrams: 05/02/18 04:30 05/02/18 04:30 Labs: Laboratory Results - last 24 hr 04/30/18 04/30/18 04/30/18 01:08 01:19 01:25 WBC RBC Hgb Hct MCV MCH MCHC RDW Plt Count MPV Neut % (Auto) Lymph % (Auto) [place] % (Auto) Eos % (Auto) Baso % (Auto) Neut # (Auto) Lymph # (Auto) [place] # (Auto) Eos # (Auto) Baso # (Auto) D-Dimer, Quantitative pCO2 88 H* pO2 64 L HCO3 30.9 H ABG pH 7.23 L ABG Total CO2 39.6 H ABG O2 Saturation 98.0 ABG O2 Content 11.2 L ABG Base Excess 7.7 H ABG Hemoglobin 8.6 L ABG Carboxyhemoglobin 4.0 H POC ABG HHb (Measured) 1.9 ABG Methemoglobin 2.1 ABG O2 Capacity 11.4 L Parviz Test Yes A-a O2 Difference 54.0 Hgb O2 Saturation 92.0 L Vent Mode 3lnc Mechanical Rate FiO2 32.0 Inspiratory BiPAP Expiratory BiPAP Crit Value Called To maryann Hernandes md Crit Value Called By Titus coulter Crit Value Read Back Y Blood Gas Notified Time 130 Sodium 139 Potassium 4.6 Chloride 102 Carbon Dioxide 35 H Anion Gap 7 L BUN 28 H Creatinine 1.1 Est GFR ( Amer) 58 Est GFR (Non-Af Amer) 48 POC Glucose (mg/dL) 305 H Random Glucose 306 H Calcium 9.3 Phosphorus Magnesium Troponin I 1.5600 H* NT-Pro-B Natriuret Pep 2410 H 04/30/18 04/30/18 04/30/18 01:25 01:25 04:36 WBC 12.4 H D RBC 2.68 L Hgb 8.6 L Hct 27.3 L MCV 101.8 H MCH 32.2 H MCHC 31.6 L RDW 14.9 H Plt Count 352 MPV 8.7 Neut % (Auto) 78.1 H Lymph % (Auto) 10.5 L [place] % (Auto) 9.8 Eos % (Auto) 0.9 Baso % (Auto) 0.7 Neut # (Auto) 9.7 H Lymph # (Auto) 1.3 [place] # (Auto) 1.2 H Eos # (Auto) 0.1 Baso # (Auto) 0.1 D-Dimer, Quantitative 870 H pCO2 81 H* pO2 101 H HCO3 31.7 H ABG pH 7.27 L ABG Total CO2 39.7 H ABG O2 Saturation 99.5 H ABG O2 Content 11.4 L ABG Base Excess 8.7 H ABG Hemoglobin 8.4 L ABG Carboxyhemoglobin 1.8 H POC ABG HHb (Measured) 0.5 ABG Methemoglobin 2.4 ABG O2 Capacity 11.5 L Parviz Test Yes A-a O2 Difference 119.0 Hgb O2 Saturation 95.3 Vent Mode Bipap Mechanical Rate 14 FiO2 45.0 Inspiratory BiPAP 14 Expiratory BiPAP 6 Crit Value Called To maryann Hernandes md Crit Value Called By Titus coulter Crit Value Read Back Y Blood Gas Notified Time 445 Sodium Potassium Chloride Carbon Dioxide Anion Gap BUN Creatinine Est GFR ( Amer) Est GFR (Non-Af Amer) POC Glucose (mg/dL) Random Glucose Calcium Phosphorus Magnesium Troponin I NT-Pro-B Natriuret Pep 04/30/18 06:00 WBC RBC Hgb Hct MCV MCH MCHC RDW Plt Count MPV Neut % (Auto) Lymph % (Auto) [place] % (Auto) Eos % (Auto) Baso % (Auto) Neut # (Auto) Lymph # (Auto) [place] # (Auto) Eos # (Auto) Baso # (Auto) D-Dimer, Quantitative pCO2 pO2 HCO3 ABG pH ABG Total CO2 ABG O2 Saturation ABG O2 Content ABG Base Excess ABG Hemoglobin ABG Carboxyhemoglobin POC ABG HHb (Measured) ABG Methemoglobin ABG O2 Capacity Parviz Test A-a O2 Difference Hgb O2 Saturation Vent Mode Mechanical Rate FiO2 Inspiratory BiPAP Expiratory BiPAP Crit Value Called To Crit Value Called By Crit Value Read Back Blood Gas Notified Time Sodium 140 Potassium 4.7 Chloride 104 Carbon Dioxide 32 H Anion Gap 9 L BUN 29 H Creatinine 1.1 Est GFR ( Amer) 58 Est GFR (Non-Af Amer) 48 POC Glucose (mg/dL) Random Glucose 306 H Calcium 9.4 Phosphorus 3.9 Magnesium 2.4 H Troponin I 1.4300 H* NT-Pro-B Natriuret Pep Assessment & Plan (1) Acute and chronic respiratory failure with hypercapnia Status: Acute Priority: High (2) CHF exacerbation Status: Acute Priority: High (3) Chest pain Status: Acute Priority: High (4) Diabetes mellitus type 2, uncontrolled Status: Chronic Priority: High (5) Obstructive sleep apnea Status: Chronic Priority: High (6) Obesity with alveolar hypoventilation Status: Chronic Priority: High - Assessment and Plan (Free Text) Assessment: Acute on chronic hypercapnic respiratory failure, multiple comorbidities may be involved: Obese patient with СВЕТЛАНА and marked hyperglycemia on presentation, elevated BNP and a chest x-ray showing bilateral patchy infiltrates and possible LLL consolidation. She has a slight elevation of the WBC's, but has been afebrile. I do not think she has pneumonia and a CT chest has been requested, but I do not think contrast will be given with a eGFR of 48 (BUN 29/creat 1.1). V/Q lung scan would not be done emergently in an ICU patient requiring NPPV. A CT w/o contrast would be helpful to check for consolidation and any effusion, but again, she requires 40% oxygen and NPPV at the present time. I would suggest a good portable CXR for now and continued treatment with BiPAP/O2 and anticoagulation (full dose). Antibiotics if WBC increases or fever develops. Avoid sedation, control hyperglycemia, strict reduced calories diet for weight loss. Cardiology has been consulted as well for further diagnosis and management. - Date & Time Date: 04/30/18 Time: 10:49
[2018-04-30 11:16] LABS: ABG ALLEN TEST YES; ARTERIAL BLOOD GAS HCO3 31.2 mmol/L (21-28); ARTERIAL BLOOD GAS HEMOGLOBIN 8.6 g/dL (11.7-17.4); ARTERIAL BLOOD GAS O2 CAPACITY 11.8 mL/dL (16-24); ARTERIAL BLOOD GAS O2 CONTENT 11.8 ML/dL (15-23); ARTERIAL BLOOD GAS O2 SAT 99.9 % (95-98); ARTERIAL BLOOD GAS PCO2 67 mm/Hg (35-45); ARTERIAL BLOOD GAS PH 7.33 (7.35-7.45); ARTERIAL BLOOD GAS PO2 96 mm/Hg (80-100); ARTERIAL BLOOD GAS TCO2 37.4 mmol/L (22-28)
[2018-04-30] MEDS: Enoxaparin 100 mg Syringe SC SCH ×2 (16:35→23:05)
[2018-05-01 06:14] LABS: BASO # 0.1 K/uL (0.0-0.2); BASO % 1.1 % (0.0-2.0); EOS # 0.1 K/uL (0.0-0.7); EOS % 1.5 % (0.0-4.0); HEMOGLOBIN 8.6 g/dL (12.0-16.0); LYMPH # 1.7 K/uL (1.0-4.3); LYMPH % 18.9 % (20.0-40.0); MEAN CORPUSCULAR HEMOGLOBIN 32.4 pg (27.0-31.0); MEAN CORPUSCULAR HGB CONC 32.4 g/dL (33.0-37.0); MEAN PLATELET VOLUME 8.6 fl (7.2-11.7); MONO # 1.1 K/uL (0.0-0.8); MONO % 11.5 % (0.0-10.0); NEUT # 6.1 K/uL (1.8-7.0); RBC 2.65 Mil/uL (3.80-5.20); RED CELL DISTRIBUTION WIDTH 14.7 % (11.5-14.5); WHITE BLOOD COUNT 9.1 K/uL (4.8-10.8)
[2018-05-01 06:52] LABS: ALB/GLOB RATIO 0.9 (1.0-2.1); ALBUMIN 3.2 g/dL (3.5-5.0); ALT/SGPT 48 U/L (9-52); AST/SGOT 27 U/L (14-36); BLOOD UREA NITROGEN 26 mg/dl (7-17); GFR NON-AFRICAN AMERICAN > 60
--- NOTE | 2018-05-01 07:18 | CARD ---
APPROVED REPORT Date of service: 04/30/2018 EKG Measurement Heart [id number] <Conclusion> Normal sinus rhythm Cannot rule out Anterior infarct, age undetermined Abnormal ECG
[2018-05-01 07:36] LABS: ABG ALLEN TEST YES; ARTERIAL BLOOD GAS HCO3 30.9 mmol/L (21-28); ARTERIAL BLOOD GAS HEMOGLOBIN 8.7 g/dL (11.7-17.4); ARTERIAL BLOOD GAS O2 SAT 100.1 % (95-98); ARTERIAL BLOOD GAS PCO2 59 mm/Hg (35-45); ARTERIAL BLOOD GAS PH 7.37 (7.35-7.45); ARTERIAL BLOOD GAS PO2 113 mm/Hg (80-100); ARTERIAL BLOOD GAS TCO2 35.9 mmol/L (22-28)
[2018-05-01] MEDS: Insulin Lispro (humaLOG) 100 Units/ml Inj SC SCH ×4 (07:40→21:23)
--- NOTE | 2018-05-01 09:01 | CP.CCUPN ---
CCU Subjective - Physician Review Events Since Last Encounter (Free Text): 05/01/18 08:58 alert and awake, on BiPAP, was also comfortable when taken off from BiPAP temporarily , had good urine output yesterday in lasix still has bilateral basal crackles. Afebrile, no cough, WBC count is better now 9 K, no left shift. CCU Objective - Vital Signs / Intake & Output Vital Signs (Last 4 hours): Vital Signs Pulse Resp BP Pulse Ox 05/01/18 08:00 88 19 185/70 H 95 05/01/18 06:00 81 42 H 161/71 H 98 05/01/18 05:09 74 Intake and Output (Last 8hrs): Intake & Output 04/30/18 05/01/18 05/01/18 22:59 06:59 14:59 Intake Total 10 170 Output Total 1150 200 Balance -1140 -30 Weight 212 lb Intake: IV 10 Oral 170 Output: Urine 1150 200 Urine, Voided 1150 200 Other: # Voids Urine, Voided 1 - Physical Exam Narrative Physical Exam (Free Text): 05/01/18 09:02 P/E Neck: No JVD Lungs : bilateral basal crackles Abdomen: soft, non-tender Ext: + 1 edema heart: No gallop - Medications Active Medications: Active Medications Generic Name Dose Route Start Last Admin Trade Name Nghiaq PRN Reason Stop Dose Admin Acetazolamide 250 mg 04/30/18 09:00 04/30/18 11:10 Diamox 250 Mg Tab PO 250 mg DAILY MILLER Administration Amlodipine Besylate 5 mg 04/30/18 09:00 04/30/18 11:10 Norvasc PO 5 mg DAILY MILLER Administration Atorvastatin Calcium 40 mg 04/30/18 22:00 04/30/18 23:04 Lipitor PO 40 mg HS MILLER Administration Enoxaparin Sodium 90 mg 04/30/18 15:00 04/30/18 23:05 Lovenox SC 90 mg Q12 MILLER Administration Protocol Escitalopram Oxalate 20 mg 04/30/18 09:00 04/30/18 11:10 Lexapro PO 20 mg DAILY MILLER Administration Furosemide 40 mg 04/30/18 09:30 04/30/18 16:32 Lasix IVP 40 mg BID MILLER Administration Insulin Human Lispro 0 units 04/30/18 07:30 05/01/18 07:40 Humalog SC 3 units ACHS MILLER Administration Protocol Isosorbide Mononitrate 60 mg 04/30/18 09:00 04/30/18 11:11 Imdur PO 60 mg DAILY MILLER Administration Losartan Potassium 100 mg 04/30/18 09:00 04/30/18 11:11 Cozaar PO 100 mg DAILY MILLER Administration Mirtazapine 15 mg 04/30/18 09:00 04/30/18 11:10 Remeron PO 15 mg DAILY MILLER Administration - Patient Studies Lab Studies: Lab Studies 05/01/18 05/01/18 05/01/18 Range/Units 07:25 05:42 05:30 WBC (4.8-10.8) K/uL RBC (3.80-5.20) Mil/uL Hgb (12.0-16.0) g/dL Hct (34.0-47.0) % MCV (81.0-99.0) fl MCH (27.0-31.0) pg MCHC (33.0-37.0) g/dL RDW (11.5-14.5) % Plt Count (130-400) K/uL MPV (7.2-11.7) fl Neut % (Auto) (50.0-75.0) % Lymph % (Auto) (20.0-40.0) % [place] % (Auto) (0.0-10.0) % Eos % (Auto) (0.0-4.0) % Baso % (Auto) (0.0-2.0) % Neut # (Auto) (1.8-7.0) K/uL Lymph # (Auto) (1.0-4.3) K/uL [place] # (Auto) (0.0-0.8) K/uL Eos # (Auto) (0.0-0.7) K/uL Baso # (Auto) (0.0-0.2) K/uL pCO2 59 H (35-45) mm/Hg pO2 113 H (80-100) mm/Hg HCO3 30.9 H (21-28) mmol/L ABG pH 7.37 (7.35-7.45) ABG Total CO2 35.9 H (22-28) mmol/L ABG O2 Saturation 100.1 H (95-98) % ABG O2 Content 12.0 L (15-23) ML/dL ABG Base Excess 7.6 H (-2.0-3.0) mmol/L ABG Hemoglobin 8.7 L (11.7-17.4) g/dL ABG Carboxyhemoglobin 2.1 H (0.5-1.5) % POC ABG HHb (Measured) -0.1 L (0.0-5.0) % ABG Methemoglobin 1.5 (0.0-3.0) % ABG O2 Capacity 12.0 L (16-24) mL/dL Parviz Test Yes A-a O2 Difference 98.0 mm/Hg Hgb O2 Saturation 96.5 (95.0-98.0) % Vent Mode Bipap Mechanical Rate 16 FiO2 40.0 % Inspiratory BiPAP 18 Expiratory BiPAP 8 Sodium 142 (132-148) mmol/l Potassium 4.3 (3.6-5.0) MMOL/L Chloride 102 (98-107) mmol/L Carbon Dioxide 29 (22-30) mmol/L Anion Gap 15 (10-20) BUN 26 H (7-17) mg/dl Creatinine 0.9 (0.7-1.2) mg/dl Est GFR ( Amer) > 60 Est GFR (Non-Af Amer) > 60 POC Glucose (mg/dL) 280 H (65-110) mg/dL Random Glucose 253 H (65-105) mg/dL Calcium 9.0 (8.4-10.2) mg/dL Phosphorus (2.5-4.5) mg/dl Magnesium (1.6-2.3) MG/DL Total Bilirubin 0.5 (0.2-1.3) mg/dl AST 27 (14-36) U/L ALT 48 (9-52) U/L Alkaline Phosphatase 69 (38-126) U/L Troponin I (0.00-0.120) ng/mL Total Protein 6.6 (6.3-8.2) G/DL Albumin 3.2 L (3.5-5.0) g/dL Globulin 3.4 (2.2-3.9) gm/dL Albumin/Globulin Ratio 0.9 L (1.0-2.1) Procalcitonin (0.19-0.49) NG/ML 10/14/18 10/13/18 10/13/18 Range/Units 05:30 23:08 16:28 WBC 9.1 (4.8-10.8) K/uL RBC 2.65 L (3.80-5.20) Mil/uL Hgb 8.6 L (12.0-16.0) g/dL Hct 26.5 L (34.0-47.0) % MCV 100.0 H (81.0-99.0) fl MCH 32.4 H (27.0-31.0) pg MCHC 32.4 L (33.0-37.0) g/dL RDW 14.7 H (11.5-14.5) % Plt Count 370 (130-400) K/uL MPV 8.6 (7.2-11.7) fl Neut % (Auto) 67.0 (50.0-75.0) % Lymph % (Auto) 18.9 L (20.0-40.0) % [place] % (Auto) 11.5 H (0.0-10.0) % Eos % (Auto) 1.5 (0.0-4.0) % Baso % (Auto) 1.1 (0.0-2.0) % Neut # (Auto) 6.1 (1.8-7.0) K/uL Lymph # (Auto) 1.7 (1.0-4.3) K/uL [place] # (Auto) 1.1 H (0.0-0.8) K/uL Eos # (Auto) 0.1 (0.0-0.7) K/uL Baso # (Auto) 0.1 (0.0-0.2) K/uL pCO2 (35-45) mm/Hg pO2 (80-100) mm/Hg HCO3 (21-28) mmol/L ABG pH (7.35-7.45) ABG Total CO2 (22-28) mmol/L ABG O2 Saturation (95-98) % ABG O2 Content (15-23) ML/dL ABG Base Excess (-2.0-3.0) mmol/L ABG Hemoglobin (11.7-17.4) g/dL ABG Carboxyhemoglobin (0.5-1.5) % POC ABG HHb (Measured) (0.0-5.0) % ABG Methemoglobin (0.0-3.0) % ABG O2 Capacity (16-24) mL/dL Parviz Test A-a O2 Difference mm/Hg Hgb O2 Saturation (95.0-98.0) % Vent Mode Mechanical Rate FiO2 % Inspiratory BiPAP Expiratory BiPAP Sodium (132-148) mmol/l Potassium (3.6-5.0) MMOL/L Chloride (98-107) mmol/L Carbon Dioxide (22-30) mmol/L Anion Gap (10-20) BUN (7-17) mg/dl Creatinine (0.7-1.2) mg/dl Est GFR ( Amer) Est GFR (Non-Af Amer) POC Glucose (mg/dL) 312 H 251 H (65-110) mg/dL Random Glucose (65-105) mg/dL Calcium (8.4-10.2) mg/dL Phosphorus (2.5-4.5) mg/dl Magnesium (1.6-2.3) MG/DL Total Bilirubin (0.2-1.3) mg/dl AST (14-36) U/L ALT (9-52) U/L Alkaline Phosphatase (38-126) U/L Troponin I (0.00-0.120) ng/mL Total Protein (6.3-8.2) G/DL Albumin (3.5-5.0) g/dL Globulin (2.2-3.9) gm/dL Albumin/Globulin Ratio (1.0-2.1) Procalcitonin (0.19-0.49) NG/ML 04/30/18 04/30/18 04/30/18 Range/Units 12:00 12:00 10:48 WBC (4.8-10.8) K/uL RBC (3.80-5.20) Mil/uL Hgb (12.0-16.0) g/dL Hct (34.0-47.0) % MCV (81.0-99.0) fl MCH (27.0-31.0) pg MCHC (33.0-37.0) g/dL RDW (11.5-14.5) % Plt Count (130-400) K/uL MPV (7.2-11.7) fl Neut % (Auto) (50.0-75.0) % Lymph % (Auto) (20.0-40.0) % [place] % (Auto) (0.0-10.0) % Eos % (Auto) (0.0-4.0) % Baso % (Auto) (0.0-2.0) % Neut # (Auto) (1.8-7.0) K/uL Lymph # (Auto) (1.0-4.3) K/uL [place] # (Auto) (0.0-0.8) K/uL Eos # (Auto) (0.0-0.7) K/uL Baso # (Auto) (0.0-0.2) K/uL pCO2 67 H (35-45) mm/Hg pO2 96 (80-100) mm/Hg HCO3 31.2 H (21-28) mmol/L ABG pH 7.33 L (7.35-7.45) ABG Total CO2 37.4 H (22-28) mmol/L ABG O2 Saturation 99.9 H (95-98) % ABG O2 Content 11.8 L (15-23) ML/dL ABG Base Excess 8.0 H (-2.0-3.0) mmol/L ABG Hemoglobin 8.6 L (11.7-17.4) g/dL ABG Carboxyhemoglobin 2.1 H (0.5-1.5) % POC ABG HHb (Measured) 0.1 (0.0-5.0) % ABG Methemoglobin 1.3 (0.0-3.0) % ABG O2 Capacity 11.8 L (16-24) mL/dL Parviz Test Yes A-a O2 Difference 105.0 mm/Hg Hgb O2 Saturation 96.5 (95.0-98.0) % Vent Mode Mechanical Rate 20 FiO2 40.0 % Inspiratory BiPAP 18 Expiratory BiPAP 8 Sodium (132-148) mmol/l Potassium (3.6-5.0) MMOL/L Chloride (98-107) mmol/L Carbon Dioxide (22-30) mmol/L Anion Gap (10-20) BUN (7-17) mg/dl Creatinine (0.7-1.2) mg/dl Est GFR ( Amer) Est GFR (Non-Af Amer) POC Glucose (mg/dL) (65-110) mg/dL Random Glucose (65-105) mg/dL Calcium (8.4-10.2) mg/dL Phosphorus (2.5-4.5) mg/dl Magnesium (1.6-2.3) MG/DL Total Bilirubin (0.2-1.3) mg/dl AST (14-36) U/L ALT (9-52) U/L Alkaline Phosphatase (38-126) U/L Troponin I 1.1000 H* (0.00-0.120) ng/mL Total Protein (6.3-8.2) G/DL Albumin (3.5-5.0) g/dL Globulin (2.2-3.9) gm/dL Albumin/Globulin Ratio (1.0-2.1) Procalcitonin 0.13 L (0.19-0.49) NG/ML 04/30/18 Range/Units 06:00 WBC (4.8-10.8) K/uL RBC (3.80-5.20) Mil/uL Hgb (12.0-16.0) g/dL Hct (34.0-47.0) % MCV (81.0-99.0) fl MCH (27.0-31.0) pg MCHC (33.0-37.0) g/dL RDW (11.5-14.5) % Plt Count (130-400) K/uL MPV (7.2-11.7) fl Neut % (Auto) (50.0-75.0) % Lymph % (Auto) (20.0-40.0) % [place] % (Auto) (0.0-10.0) % Eos % (Auto) (0.0-4.0) % Baso % (Auto) (0.0-2.0) % Neut # (Auto) (1.8-7.0) K/uL Lymph # (Auto) (1.0-4.3) K/uL [place] # (Auto) (0.0-0.8) K/uL Eos # (Auto) (0.0-0.7) K/uL Baso # (Auto) (0.0-0.2) K/uL pCO2 (35-45) mm/Hg pO2 (80-100) mm/Hg HCO3 (21-28) mmol/L ABG pH (7.35-7.45) ABG Total CO2 (22-28) mmol/L ABG O2 Saturation (95-98) % ABG O2 Content (15-23) ML/dL ABG Base Excess (-2.0-3.0) mmol/L ABG Hemoglobin (11.7-17.4) g/dL ABG Carboxyhemoglobin (0.5-1.5) % POC ABG HHb (Measured) (0.0-5.0) % ABG Methemoglobin (0.0-3.0) % ABG O2 Capacity (16-24) mL/dL Parviz Test A-a O2 Difference mm/Hg Hgb O2 Saturation (95.0-98.0) % Vent Mode Mechanical Rate FiO2 % Inspiratory BiPAP Expiratory BiPAP Sodium 140 (132-148) mmol/l Potassium 4.7 (3.6-5.0) MMOL/L Chloride 104 (98-107) mmol/L Carbon Dioxide 32 H (22-30) mmol/L Anion Gap 9 L (10-20) BUN 29 H (7-17) mg/dl Creatinine 1.1 (0.7-1.2) mg/dl Est GFR ( Amer) 58 Est GFR (Non-Af Amer) 48 POC Glucose (mg/dL) (65-110) mg/dL Random Glucose 306 H (65-105) mg/dL Calcium 9.4 (8.4-10.2) mg/dL Phosphorus 3.9 (2.5-4.5) mg/dl Magnesium 2.4 H (1.6-2.3) MG/DL Total Bilirubin (0.2-1.3) mg/dl AST (14-36) U/L ALT (9-52) U/L Alkaline Phosphatase (38-126) U/L Troponin I 1.4300 H* (0.00-0.120) ng/mL Total Protein (6.3-8.2) G/DL Albumin (3.5-5.0) g/dL Globulin (2.2-3.9) gm/dL Albumin/Globulin Ratio (1.0-2.1) Procalcitonin (0.19-0.49) NG/ML Laboratory Results - last 24 hr 04/30/18 04/30/18 04/30/18 06:00 10:48 12:00 WBC RBC Hgb Hct MCV MCH MCHC RDW Plt Count MPV Neut % (Auto) Lymph % (Auto) [place] % (Auto) Eos % (Auto) Baso % (Auto) Neut # (Auto) Lymph # (Auto) [place] # (Auto) Eos # (Auto) Baso # (Auto) pCO2 67 H pO2 96 HCO3 31.2 H ABG pH 7.33 L ABG Total CO2 37.4 H ABG O2 Saturation 99.9 H ABG O2 Content 11.8 L ABG Base Excess 8.0 H ABG Hemoglobin 8.6 L ABG Carboxyhemoglobin 2.1 H POC ABG HHb (Measured) 0.1 ABG Methemoglobin 1.3 ABG O2 Capacity 11.8 L Parviz Test Yes A-a O2 Difference 105.0 Hgb O2 Saturation 96.5 Vent Mode Mechanical Rate 20 FiO2 40.0 Inspiratory BiPAP 18 Expiratory BiPAP 8 Sodium 140 Potassium 4.7 Chloride 104 Carbon Dioxide 32 H Anion Gap 9 L BUN 29 H Creatinine 1.1 Est GFR ( Amer) 58 Est GFR (Non-Af Amer) 48 POC Glucose (mg/dL) Random Glucose 306 H Calcium 9.4 Phosphorus 3.9 Magnesium 2.4 H Total Bilirubin AST ALT Alkaline Phosphatase Troponin I 1.4300 H* 1.1000 H* Total Protein Albumin Globulin Albumin/Globulin Ratio Procalcitonin 04/30/18 04/30/18 04/30/18 12:00 16:28 23:08 WBC RBC Hgb Hct MCV MCH MCHC RDW Plt Count MPV Neut % (Auto) Lymph % (Auto) [place] % (Auto) Eos % (Auto) Baso % (Auto) Neut # (Auto) Lymph # (Auto) [place] # (Auto) Eos # (Auto) Baso # (Auto) pCO2 pO2 HCO3 ABG pH ABG Total CO2 ABG O2 Saturation ABG O2 Content ABG Base Excess ABG Hemoglobin ABG Carboxyhemoglobin POC ABG HHb (Measured) ABG Methemoglobin ABG O2 Capacity Parviz Test A-a O2 Difference Hgb O2 Saturation Vent Mode Mechanical Rate FiO2 Inspiratory BiPAP Expiratory BiPAP Sodium Potassium Chloride Carbon Dioxide Anion Gap BUN Creatinine Est GFR ( Amer) Est GFR (Non-Af Amer) POC Glucose (mg/dL) 251 H 312 H Random Glucose Calcium Phosphorus Magnesium Total Bilirubin AST ALT Alkaline Phosphatase Troponin I Total Protein Albumin Globulin Albumin/Globulin Ratio Procalcitonin 0.13 L 05/01/18 05/01/18 05/01/18 05:30 05:30 05:42 WBC 9.1 RBC 2.65 L Hgb 8.6 L Hct 26.5 L MCV 100.0 H MCH 32.4 H MCHC 32.4 L RDW 14.7 H Plt Count 370 MPV 8.6 Neut % (Auto) 67.0 Lymph % (Auto) 18.9 L [place] % (Auto) 11.5 H Eos % (Auto) 1.5 Baso % (Auto) 1.1 Neut # (Auto) 6.1 Lymph # (Auto) 1.7 [place] # (Auto) 1.1 H Eos # (Auto) 0.1 Baso # (Auto) 0.1 pCO2 pO2 HCO3 ABG pH ABG Total CO2 ABG O2 Saturation ABG O2 Content ABG Base Excess ABG Hemoglobin ABG Carboxyhemoglobin POC ABG HHb (Measured) ABG Methemoglobin ABG O2 Capacity Parviz Test A-a O2 Difference Hgb O2 Saturation Vent Mode Mechanical Rate FiO2 Inspiratory BiPAP Expiratory BiPAP Sodium 142 Potassium 4.3 Chloride 102 Carbon Dioxide 29 Anion Gap 15 BUN 26 H Creatinine 0.9 Est GFR ( Amer) > 60 Est GFR (Non-Af Amer) > 60 POC Glucose (mg/dL) 280 H Random Glucose 253 H Calcium 9.0 Phosphorus Magnesium Total Bilirubin 0.5 AST 27 ALT 48 Alkaline Phosphatase 69 Troponin I Total Protein 6.6 Albumin 3.2 L Globulin 3.4 Albumin/Globulin Ratio 0.9 L Procalcitonin 05/01/18 07:25 WBC RBC Hgb Hct MCV MCH MCHC RDW Plt Count MPV Neut % (Auto) Lymph % (Auto) [place] % (Auto) Eos % (Auto) Baso % (Auto) Neut # (Auto) Lymph # (Auto) [place] # (Auto) Eos # (Auto) Baso # (Auto) pCO2 59 H pO2 113 H HCO3 30.9 H ABG pH 7.37 ABG Total CO2 35.9 H ABG O2 Saturation 100.1 H ABG O2 Content 12.0 L ABG Base Excess 7.6 H ABG Hemoglobin 8.7 L ABG Carboxyhemoglobin 2.1 H POC ABG HHb (Measured) -0.1 L ABG Methemoglobin 1.5 ABG O2 Capacity 12.0 L Parviz Test Yes A-a O2 Difference 98.0 Hgb O2 Saturation 96.5 Vent Mode Bipap Mechanical Rate 16 FiO2 40.0 Inspiratory BiPAP 18 Expiratory BiPAP 8 Sodium Potassium Chloride Carbon Dioxide Anion Gap BUN Creatinine Est GFR ( Amer) Est GFR (Non-Af Amer) POC Glucose (mg/dL) Random Glucose Calcium Phosphorus Magnesium Total Bilirubin AST ALT Alkaline Phosphatase Troponin I Total Protein Albumin Globulin Albumin/Globulin Ratio Procalcitonin EKG/Cardiology Studies: Cardiology / EKG Studies 04/30/18 08:00 EKG [ELECTROCARDIOGRAM] Routine Comment: Mode Of Transportation: PORTABLE Reason For Exam: Elevated Troponin Does Patient Have a Pacemaker?: No Fingerstick Blood Sugar Results: 280 Critical Care Progress Note - Nutrition Nutrition: Nutrition Category Date Time Status Heart Healthy Diet [DIET] Diets 04/30/18 Breakfast Active Assessment/Plan - Assessment and Plan (Free Text) Assessment: Plan and Plan: #. CHF exacerbation h/o CHFpEF EF: 55-60% - increased lasix to 40 mg IV TID from BID, needs more diuresis - Isosorbid Mononitdrate/Losartan/ Cardiology consult #. Hypercapnic Respiratory failure - - Currently on BIPAP : ABG showe, lower PCO2, still has hypercapnea , clininically better, will take off from BiPAP and will monitor. No signs of PNA, no Abx needed at this point. - Pulm consult : Dr River following #. Elevated Tropinin probably due to the CHF, r/o ACS - Cardiology on consult - Srial Troponin - Serial EKG - Start Lovenox therapeutic dose #. HTN Uncontrolled - Losartan/Norvasc - Monitoring blood pressures, better now #. DM II insulin requiring - insulin Lispro sliding scale according to Accucheck ACHS #. DVT prophylaxis : Pte on Lovenox #. Code Status: Full
[2018-05-01] MEDS: Enoxaparin 100 mg Syringe SC SCH ×2 (09:33→21:21)
--- NOTE | 2018-05-01 11:23 | CP.PCM.PN ---
Addendum entered and electronically signed by Vj Bar MD 05/01/18 15:46: Patient seen and examined bedside . All chart and clinical data reviewed . Case discussed with resident . Agree with assessment and plan. 77 y/o female with PMH HTN , СВЕТЛАНА, CHF ( preserved EF ), IDDM, obese, chronic anemia, presented for acute dyspnea. CXR showed flash pulmonary edema ABG showed PCO2 88 PO2 64 ph 7.2 She was admitted for acute on Chronic hypercarbic respiratory failure and CHF exacerbation with flash pulmonary edema She was placed on BIPAP and started on lasix IV Currently improving , off BIPAP during the day on 2 L O2 via NC saturating 95-98 %, no respiratory distress. ABG this AM on BIPAP IPAP 18 / 8/40 % FIO2 PCO2 59 PO2 113 Ph 7.37 Continue current management Transfer to telemetry Original Note: Subjective - Date & Time of Evaluation Date of Evaluation: 05/01/18 Time of Evaluation: 10:39 - Subjective Subjective: Interpretation services utilized- [id number] Patient seen and examined. Patient laying in supine position, awake & alert on o2 via NC. Patient reports feeling better. She denied any fever, chills, chest pain or shortness of breath. Objective - Vital Signs/Intake and Output Vital Signs (last 24 hours): Temp Pulse Resp BP Pulse Ox 98.6 F 79 19 169/74 H 95 05/01/18 04:00 05/01/18 09:33 05/01/18 08:00 05/01/18 09:41 05/01/18 08:00 Intake and Output: 05/01/18 05/01/18 06:59 18:59 Intake Total 180 Output Total 1000 Balance -820 - Medications Medications: Current Medications Acetazolamide (Diamox 250 Mg Tab) 250 mg PO DAILY [facility] Last Admin: 05/01/18 09:31 Dose: 250 mg Amlodipine Besylate (Norvasc) 5 mg PO DAILY [facility] Last Admin: 05/01/18 09:31 Dose: 5 mg Atorvastatin Calcium (Lipitor) 40 mg PO HS [facility] Last Admin: 04/30/18 23:04 Dose: 40 mg Enoxaparin Sodium (Lovenox) 90 mg SC Q12 [facility]; Protocol Last Admin: 05/01/18 09:33 Dose: 90 mg Escitalopram Oxalate (Lexapro) 20 mg PO DAILY [facility] Last Admin: 05/01/18 09:33 Dose: 20 mg Furosemide (Lasix) 40 mg IVP BID [facility] Last Admin: 05/01/18 09:41 Dose: 40 mg Insulin Human Lispro (Humalog) 0 units SC ACHS [facility]; Protocol Last Admin: 05/01/18 07:40 Dose: 3 units Isosorbide Mononitrate (Imdur) 60 mg PO DAILY [facility] Last Admin: 05/01/18 09:34 Dose: 60 mg Losartan Potassium (Cozaar) 100 mg PO DAILY [facility] Last Admin: 05/01/18 09:33 Dose: 100 mg Mirtazapine (Remeron) 15 mg PO DAILY [facility] Last Admin: 05/01/18 09:33 Dose: 15 mg - Labs Labs: 05/01/18 05:30 05/01/18 05:30 - Constitutional Appears: No Acute Distress - Head Exam Head Exam: ATRAUMATIC - Neck Exam Neck Exam: Full ROM - Respiratory Exam Additional comments: crackles noted in b/l lower bases but no wheeze or rales - Cardiovascular Exam Cardiovascular Exam: REGULAR RHYTHM, +S1, +S2 - GI/Abdominal Exam GI & Abdominal Exam: Distended, Soft, Normal Bowel Sounds. absent: Guarding, Tenderness - Extremities Exam Extremities Exam: absent: Calf Tenderness - Neurological Exam Neurological Exam: Alert, Awake, Oriented x3 - Psychiatric Exam Psychiatric exam: Normal Affect, Normal Mood - Skin Skin Exam: Dry, Intact Assessment and Plan - Assessment and Plan (Free Text) Assessment: 77 y/o female, with PMHx of CAD, HTN, CHF with preserved EF, IDDM2 and СВЕТЛАНА presents via EMS for evaluation of SOB, dizziness, and hyperglycemia. 1) Acute on chronic hypercapneic respiratory failure -Dr. River's recommendation's have been appreciated. -On admission PCO2: 88; today levels decreased to 55. -Patient currently with trial off BiPaP as per Dr. Zapata. -Continue to monitor. 2) Elevated Troponin (Acute) -1.56 on admission with repeat levels of 1.4300 & 1.1000 likely due to CHF. -Continue therapeutic Lovenox 90mg BID. -Continue to monitor. 3) Acute exacerbation of CHF with preserved EF -[employer], Dr. Dodge, consulted. FU recommendations. -Pro-BNP: 2410 on admission. -Continue lasix 40mg IVP, Isosorbid mononitrate -Continue head of bed elevation. -Continue to monitor I/O's. -Continue daily weight check. 4)HTN (Chronic, uncontrolled) -Continue norvasc 5mg PO QD. -Continue losartan 100mg PO QD. 5) IDDM2 (Chronic) -lispro correction scale -accu-checks ACHS -resume home meds 6) СВЕТЛАНА (Chronic) -on CPAP at home 7) hx of CAD (Chronic, stable) -Continue atorvastatin 40mg HS. 8) DVT Prophylaxis -On therapeutic Lovenox 90mg BID
--- NOTE | 2018-05-01 16:57 | RAD ---
Date of service: 05/01/2018 PROCEDURE: CHEST RADIOGRAPH, 1 VIEW HISTORY: CHF, infiltrate COMPARISON: Comparison is made with 04/30/2018 FINDINGS: LUNGS: Again noted are small patchy opacities in the lungs. Mild to moderate pulmonary vascular congestion is noted. PLEURA: There is blunting of the right costophrenic angle CARDIOVASCULAR: Normal. OSSEOUS STRUCTURES: No significant abnormalities. VISUALIZED UPPER ABDOMEN: Normal. OTHER FINDINGS: None. IMPRESSION: Pulmonary congestion and possible small right pleural effusion.
--- NOTE | 2018-05-01 19:08 | RAD ---
Date of service: 04/30/2018 HISTORY: SOB COMPARISON: Comparison is made with 04/30/2018 FINDINGS: LUNGS: Interval improvement in the lungs noted since the previous study. Residual patchy small opacities in the lungs are noted. PLEURA: No significant pleural effusion identified, no pneumothorax apparent. CARDIOVASCULAR: Normal. OSSEOUS STRUCTURES: No significant abnormalities. VISUALIZED UPPER ABDOMEN: Normal. OTHER FINDINGS: None. IMPRESSION: Interval improvement in the lungs noted since the previous exam.
[2018-05-02 05:15] LABS: BASO # 0.1 K/uL (0.0-0.2); BASO % 1.4 % (0.0-2.0); EOS # 0.1 K/uL (0.0-0.7); EOS % 1.6 % (0.0-4.0); HEMOGLOBIN 8.7 g/dL (12.0-16.0); LYMPH # 2.2 K/uL (1.0-4.3); LYMPH % 28.9 % (20.0-40.0); MEAN CELL VOLUME 100.5 fl (81.0-99.0); MEAN CORPUSCULAR HEMOGLOBIN 33.1 pg (27.0-31.0); MEAN PLATELET VOLUME 8.8 fl (7.2-11.7); MONO # 1.1 K/uL (0.0-0.8); MONO % 14.7 % (0.0-10.0); NEUT # 4.1 K/uL (1.8-7.0); NEUT % 53.4 % (50.0-75.0); NRBC % 0.1 % (0.0-0.0); RBC 2.63 Mil/uL (3.80-5.20); RED CELL DISTRIBUTION WIDTH 14.3 % (11.5-14.5); WHITE BLOOD COUNT 7.7 K/uL (4.8-10.8)
[2018-05-02 05:25] LABS: CALCIUM 9.3 mg/dL (8.4-10.2)
[2018-05-02] MEDS: Insulin Lispro (humaLOG) 100 Units/ml Inj SC SCH ×4 (06:54→22:45)
--- NOTE | 2018-05-02 09:01 | CP.PCM.PN ---
Subjective - Date & Time of Evaluation Date of Evaluation: 05/02/18 Time of Evaluation: 08:57 - Subjective Subjective: Seen in ICU on morning rounds. Remains on NPPV using BiPAP mask ventilation. Her x-rays and labs from yesterday were reviewed. Her blood pressure has been fairly well controlled and she remains afebrile. No leukocytosis and stable, low hemoglobin with negative stool guiac. Oxygenation has been 100% SpO2 and her ABG from yesterday was satisfactory. Mery is lying almost completely supine in bed on mask ventilation. She is awake and cooperative with the exam. She answers questions appropriately. Minimal dependant edema present, no cyanosis. Neck is supple and trachea midline. No dullness on chest percussion, no subcut emphysema palpated. Breath sounds are diminished bilaterally. Dry to medium rales posteriorly in LL's, more L than R. No audible wheezes or bronchial breath sounds. Heart sounds distant, rhythm is regular. Abdomen is obese, non-tender, + bowel sounds. Decompensated hypercapnic ventilatory failure-improved. Decompensated CHF-improved. СВЕТЛАНА and obesity/hypoventilation-compensated. Mild pulmonary hypertension by echocardiogram. Agree that she may be transferred out of ICU to telemetry. Eliminate or reduce as possible sedating medications. Nutrition counselling for weight loss. Oxygen reduced to 35%. Begin OOB activities, mobilization. V/Q scan would be appropriate when more stable. Objective - Vital Signs/Intake and Output Vital Signs (last 24 hours): Temp Pulse Resp BP Pulse Ox 98.7 F 78 14 134/66 100 05/02/18 04:00 05/02/18 05:17 05/02/18 05:17 05/02/18 05:17 05/02/18 05:17 Intake and Output: 05/01/18 05/02/18 23:59 11:59 Intake Total 430 80 Output Total 700 Balance -270 80 - Medications Medications: Current Medications Acetazolamide (Diamox 250 Mg Tab) 250 mg PO DAILY [facility] [place] Last Admin: 05/01/18 09:31 Dose: 250 mg Amlodipine Besylate (Norvasc) 10 mg PO DAILY [facility] [place] Atorvastatin Calcium (Lipitor) 40 mg PO HS [facility] [place] Last Admin: 05/01/18 21:22 Dose: 40 mg Enoxaparin Sodium (Lovenox) 90 mg SC Q12 [facility] [place]; Protocol Last Admin: 05/01/18 21:21 Dose: 90 mg Escitalopram Oxalate (Lexapro) 10 mg PO DAILY [facility] [place] Furosemide (Lasix) 40 mg IVP BID [facility] [place] Last Admin: 05/01/18 16:41 Dose: 40 mg Insulin Detemir (Levemir) 36 units SC BID [facility] [place] Insulin Human Lispro (Humalog) 0 units SC ACHS [facility] [place]; Protocol Last Admin: 05/02/18 06:54 Dose: 8 units Isosorbide Mononitrate (Imdur) 60 mg PO DAILY [facility] [place] Last Admin: 05/01/18 09:34 Dose: 60 mg Losartan Potassium (Cozaar) 100 mg PO DAILY [facility] [place] Last Admin: 05/01/18 09:33 Dose: 100 mg Mirtazapine (Remeron) 15 mg PO DAILY [facility] [place] Last Admin: 05/01/18 09:33 Dose: 15 mg - Labs Labs: 05/02/18 04:30 05/02/18 04:30 Assessment and Plan (1) Acute and chronic respiratory failure with hypercapnia Status: Acute (2) CHF exacerbation Status: Acute (3) Chest pain Status: Acute (4) Diabetes mellitus type 2, uncontrolled Status: Chronic (5) Obstructive sleep apnea Status: Chronic (6) Obesity with alveolar hypoventilation Status: Chronic
--- NOTE | 2018-05-02 09:54 | CP.PCM.PN ---
Addendum entered and electronically signed by Vj Bar MD 05/02/18 15:10: Patient seen and examined bedside .All chart and clinical data reviewed . Case discussed with resident . Agree with assessment and plan . Feeling well. Much improved .With on and off chest pain at rest.Hemodynamically stable, BP controlled , afebrile. Tolerating BiPAP at night and at present on 2 L o2 via NC saturating 98-100 % Physical exam positive for bibasilar rales , no JVD CXR showed improved pulmonary edema V/Q scan showed low probability PE lab work up showed worsening Cr to 1.3 will decrease Lasix to 340 mg IV daily Continue O2 via NC during the day and BiPAP at night Continue BP and glycemic control .Cardiology eval appreciated . Plan for cardiac [facility] at [facility] by Dr. Dodge continue current management transfer to telemetry repeat BMP in AM Original Note: Subjective - Date & Time of Evaluation Date of Evaluation: 05/02/18 Time of Evaluation: 09:41 - Subjective Subjective: Interpretation services used: [id number] Patient was seen and examined this morning, laying comfortably in supine positing with no use of accessory muscles. Patient received Bipap last night & currently is on 2L of NC with 02sat of 97%. She endorses that her breathing is much better, and denies any fever, chills, chest pain or shortness of breath. Objective - Vital Signs/Intake and Output Vital Signs (last 24 hours): Temp Pulse Resp BP Pulse Ox 98.7 F 76 14 134/66 100 05/02/18 04:00 05/02/18 08:55 05/02/18 05:17 05/02/18 05:17 05/02/18 05:17 Intake and Output: 05/02/18 05/02/18 06:59 18:59 Intake Total 110 Balance 110 - Medications Medications: Current Medications Acetazolamide (Diamox 250 Mg Tab) 250 mg PO DAILY [facility] Last Admin: 05/01/18 09:31 Dose: 250 mg Amlodipine Besylate (Norvasc) 10 mg PO DAILY [facility] Atorvastatin Calcium (Lipitor) 40 mg PO HS [facility] Last Admin: 05/01/18 21:22 Dose: 40 mg Enoxaparin Sodium (Lovenox) 90 mg SC Q12 [facility]; Protocol Last Admin: 05/01/18 21:21 Dose: 90 mg Escitalopram Oxalate (Lexapro) 10 mg PO DAILY [facility] Furosemide (Lasix) 40 mg IVP DAILY [facility] Insulin Detemir (Levemir) 36 units SC BID [facility] Insulin Human Lispro (Humalog) 0 units SC ACHS [facility]; Protocol Last Admin: 05/02/18 06:54 Dose: 8 units Isosorbide Mononitrate (Imdur) 60 mg PO DAILY [facility] Last Admin: 05/01/18 09:34 Dose: 60 mg Losartan Potassium (Cozaar) 100 mg PO DAILY [facility] Last Admin: 05/01/18 09:33 Dose: 100 mg Mirtazapine (Remeron) 15 mg PO DAILY [facility] Last Admin: 05/01/18 09:33 Dose: 15 mg - Labs Labs: 05/02/18 04:30 05/02/18 04:30 - Constitutional Appears: No Acute Distress - Head Exam Head Exam: ATRAUMATIC - Neck Exam Neck Exam: Full ROM - Respiratory Exam Additional comments: Crackles on b/l lower bases, decreased from yesterday, no wheezing noted - Cardiovascular Exam Cardiovascular Exam: REGULAR RHYTHM, +S1, +S2 - GI/Abdominal Exam GI & Abdominal Exam: Distended, Soft, Normal Bowel Sounds. absent: Guarding, Rigid, Tenderness - Extremities Exam Extremities Exam: absent: Calf Tenderness, Pedal Edema - Neurological Exam Neurological Exam: Alert, Awake, Oriented x3 - Psychiatric Exam Psychiatric exam: Normal Affect, Normal Mood - Skin Skin Exam: Dry, Intact Assessment and Plan - Assessment and Plan (Free Text) Assessment: 77 y/o female, with PMHx of CAD, HTN, CHF with preserved EF, IDDM2 and СВЕТЛАНА presented via EMS for evaluation of SOB, dizziness, and hyperglycemia found to have acute on chronic hypercapneic respiratory failure, elevated troponins, and acute exacerbation of CHF with preserved EF. 1) Acute on chronic hypercapneic respiratory failure -FU VQ scan results. -Dr. River's recommendation's have been appreciated. -On admission PCO2 from ABG was: 88; yesterday levels decreased to 59. -Patient currently on 2L of oxygen via NC saturating 97%. -Continue to monitor. 2) Elevated Troponin (Acute) -Desktop Support Manager, Dr. Dodge's recommendation's appreciation. Patient will go for cardiac cath tomorrow or wednesday. -1.56 on admission with repeat levels of 1.4300 & 1.1000 possibly due to CHF. -Continue therapeutic Lovenox 90mg BID. -Continue to monitor. 3) Acute exacerbation of CHF with preserved EF -Desktop Support Manager, Dr. Dodge recommendation's appreciated. -Pro-BNP: 2410 on admission. -Continue lasix 40mg IVP & Isosorbid mononitrate -Continue head of bed elevation. -Continue to monitor I/O's. -Continue daily weight check. 4)HTN (Chronic, uncontrolled) -Continue norvasc 5mg PO QD. -Continue losartan 100mg PO QD. 5) IDDM2 (Chronic) -Continue levemir 36 units -Continue lispro -Lispro correction scale -Accu-checks ACHS 6) СВЕТЛАНА (Chronic) -on CPAP at home 7) hx of CAD (Chronic, stable) -Continue atorvastatin 40mg HS. 8)Depression -Lexapro decreased to 10mg PO QD -Continue mirtazipine 15mf PO QD -Will consider possibly decreasing mirtazapine due to sedative effects which may have attributed to respiratory failure -Continue to monitor 9) DVT Prophylaxis -On therapeutic Lovenox 90mg BID
[2018-05-02] MEDS: Insulin Detemir 100 Units/ml Inj SC SCH ×2 (10:52→16:57)
[2018-05-02] MEDS: Enoxaparin 100 mg Syringe SC SCH ×2 (10:55→21:15)
--- NOTE | 2018-05-02 15:22 | NM ---
Date of service: 05/02/2018 COMPARISON: 05/01/2018 TECHNIQUE: 44.2 mCi technetium 99-m DTPA aerosol. 5.8 mCI technetium 99-m MAA administered intravenously. FINDINGS: VENTILATION COMPONENT: Markedly heterogeneous ventilation. Retention of radionuclide in the tracheobronchial tree and ingestion of radionuclide in the stomach, incidental findings PERFUSION COMPONENT: Heterogeneous distribution of radionuclide. No geographic, segmental, lobar abnormalities apparent on the present examination. IMPRESSION: Low probability ventilation perfusion scan for pulmonary embolism.
[2018-05-02 23:59] VITALS: RESP 18
--- NOTE | 2018-05-03 01:26 | CP.PCM.CON ---
History of Present Illness - History of Present Illness History of Present Illness: CC: Dyspnea. HPI: I have been requested on cardiology consultation by Dr. Burger on Mrs. Alexandra who is a 77 year old female with a PMH of CAD, s/p PCI of LAD, DM, HTN and dyslipidemia who presents to [facility] with two days of worsening shortness of breath associated with a cough and left sided chest pain. Her symptoms were exacerbated by exertion and relieved with rest. She states that she has been compliant with her edications and no changes have been made. She did not use any nitrates for symptom relief. An ECG did not have any acute changes, however the cardiac troponins were elevated. She was also noted to have uncontrolled hyperglycemia on admission. The patient also requires Bipap for adequate oxygenation especially at night. Review of Systems - Constitutional Constitutional: As Per HPI, Fatigue, Lethargy, Malaise, Weakness. absent: Fever - EENT Eyes: absent: Blurred Vision, Pain Ears: absent: Ear Pain, Dizziness Nose/Mouth/Throat: absent: Dysphagia, Sore Throat, Neck Pain - Cardiovascular Cardiovascular: Chest Pain, Chest Pain with Activity, Dyspnea, Dyspnea on Exertion. absent: Edema, Palpitations - Respiratory Respiratory: Cough, Dyspnea, Dyspnea on Exertion. absent: Wheezing, Excessive Mucous Production - Gastrointestinal Gastrointestinal: absent: Abdominal Pain, Diarrhea, Nausea, Vomiting - Genitourinary Genitourinary: absent: Dysuria - Musculoskeletal Musculoskeletal: Myalgias - Integumentary Integumentary: absent: Erythema, Rash - Neurological Neurological: absent: Abnormal Gait, Abnormal Speech, Focal Weakness, Syncope - Psychiatric Psychiatric: Anxiety - Endocrine Endocrine: Fatigue Past Patient History - Infectious Disease Hx of Infectious Diseases: None - Tetanus Immunizations Tetanus Immunization: Unknown - Past Medical History & Family History Past Medical History?: Yes Past Family History: Reviewed and not pertinent - Past Social History Smoking Status: Never Smoked Alcohol: None Drugs: Denies - CARDIAC Hx Cardiac Disorders: Yes Hx Angina: Yes Hx Circulatory Problems: Yes Hx Congestive Heart Failure: Yes Hx Hypercholesterolemia: Yes Hx Hypertension: Yes - PULMONARY Hx Pneumonia: Yes (recent admission) Hx Sleep Apnea: Yes - NEUROLOGICAL HX Cerebrovascular Accident: Yes - HEENT Hx HEENT Problems: No - RENAL Hx Chronic Kidney Disease: No - ENDOCRINE/METABOLIC Hx Diabetes Mellitus Type 2: Yes - HEMATOLOGICAL/ONCOLOGICAL Hx Human Immunodeficiency Virus (HIV): No - INTEGUMENTARY Hx Dermatological Problems: No - MUSCULOSKELETAL/RHEUMATOLOGICAL Hx Arthritis: Yes - GASTROINTESTINAL Hx Gastritis: Yes - GENITOURINARY/GYNECOLOGICAL Hx Genitourinary Disorders: No - PSYCHIATRIC Hx Anxiety: Yes - SURGICAL HISTORY Hx Coronary Stent: Yes - ANESTHESIA Hx Anesthesia: Yes Hx Anesthesia Reactions: No Hx Malignant Hyperthermia: No Meds Home Medications: Home Medication List Medication Instructions Recorded Confirmed Type Insulin Detemir [Levemir] 40 units SC BID 30 Days vial 05/02/18 Rx Allergies/Adverse Reactions: Allergies Allergy/AdvReac Type Severity Reaction Status Date / Time No Known Allergies Allergy Verified 04/29/18 23:30 - Medications Medications: Current Medications Acetazolamide (Diamox 250 Mg Tab) 250 mg PO DAILY [facility] Last Admin: 05/02/18 10:50 Dose: 250 mg Amlodipine Besylate (Norvasc) 10 mg PO DAILY [facility] Last Admin: 05/02/18 10:55 Dose: 10 mg Atorvastatin Calcium (Lipitor) 40 mg PO HS [facility] Last Admin: 05/02/18 21:15 Dose: 40 mg Enoxaparin Sodium (Lovenox) 90 mg SC Q12 [facility]; Protocol Last Admin: 05/02/18 21:15 Dose: 90 mg Escitalopram Oxalate (Lexapro) 10 mg PO DAILY [facility] Last Admin: 05/02/18 10:54 Dose: 10 mg Furosemide (Lasix) 40 mg IVP DAILY [facility] Last Admin: 05/02/18 10:56 Dose: 40 mg Insulin Detemir (Levemir) 36 units SC BID [facility] Last Admin: 05/02/18 16:57 Dose: 36 u Insulin Human Lispro (Humalog) 0 units SC ACHS [facility]; Protocol Last Admin: 05/02/18 22:45 Dose: 3 units Isosorbide Mononitrate (Imdur) 60 mg PO DAILY [facility] Last Admin: 05/02/18 10:51 Dose: 60 mg Losartan Potassium (Cozaar) 100 mg PO DAILY [facility] Last Admin: 05/02/18 10:50 Dose: 100 mg Mirtazapine (Remeron) 15 mg PO DAILY [facility] Last Admin: 05/02/18 10:56 Dose: 15 mg Physical Exam - Constitutional Appears: Well, Non-toxic, No Acute Distress, Older Than Stated Age - Head Exam Head Exam: ATRAUMATIC, NORMAL INSPECTION, NORMOCEPHALIC - Eye Exam Eye Exam: EOMI, Normal appearance, PERRL. absent: Scleral icterus Pupil Exam: PERRL - ENT Exam ENT Exam: Mucous Membranes Moist, Normal Exam, Normal External Ear Exam - Neck Exam Neck exam: Positive for: Full Rom, Normal Inspection - Respiratory Exam Respiratory Exam: Clear to Auscultation Bilateral, NORMAL BREATHING PATTERN. absent: Rales, Rhonchi, Wheezes - Cardiovascular Exam Cardiovascular Exam: REGULAR RHYTHM, RRR, +S1, +S2, +S4, Systolic Murmur - GI/Abdominal Exam GI & Abdominal Exam: Soft. absent: Guarding, Rebound, Tenderness - Rectal Exam Rectal Exam: Deferred - Extremities Exam Extremities exam: Positive for: full ROM, normal capillary refill, normal inspection. Negative for: pedal edema - Back Exam Back exam: NORMAL INSPECTION - Psychiatric Exam Psychiatric exam: Anxious, Normal Affect, Normal Mood - Skin Skin Exam: Dry, Intact, Normal Color, Warm Results - Vital Signs Recent Vital Signs: Last Vital Signs Temp 98.1 F 05/02/18 23:58 Pulse 72 05/02/18 23:58 Resp 18 05/02/18 23:58 BP 132/52 L 05/02/18 23:58 Pulse Ox 100 05/02/18 23:58 - Labs Result Diagrams: 05/02/18 04:30 05/02/18 04:30 Labs: Laboratory Results - last 24 hr 05/01/18 05/01/18 05/01/18 11:33 16:06 21:12 WBC RBC Hgb Hct MCV MCH MCHC RDW Plt Count MPV Neut % (Auto) Lymph % (Auto) Zavala % (Auto) Eos % (Auto) Baso % (Auto) Neut # (Auto) Lymph # (Auto) Zavala # (Auto) Eos # (Auto) Baso # (Auto) Sodium Potassium Chloride Carbon Dioxide Anion Gap BUN Creatinine Est GFR ( Amer) Est GFR (Non-Af Amer) POC Glucose (mg/dL) 345 H 432 H* 359 H Random Glucose Calcium 05/02/18 05/02/18 05/02/18 04:30 04:30 06:22 WBC 7.7 RBC 2.63 L Hgb 8.7 L Hct 26.4 L MCV 100.5 H MCH 33.1 H MCHC 33.0 RDW 14.3 Plt Count 344 MPV 8.8 Neut % (Auto) 53.4 Lymph % (Auto) 28.9 Zavala % (Auto) 14.7 H Eos % (Auto) 1.6 Baso % (Auto) 1.4 Neut # (Auto) 4.1 Lymph # (Auto) 2.2 Zavala # (Auto) 1.1 H Eos # (Auto) 0.1 Baso # (Auto) 0.1 Sodium 139 Potassium 3.8 Chloride 101 Carbon Dioxide 35 H Anion Gap 7 L BUN 28 H Creatinine 1.3 H Est GFR ( Amer) 48 Est GFR (Non-Af Amer) 40 POC Glucose (mg/dL) 388 H Random Glucose 373 H Calcium 9.3 05/02/18 05/02/18 11:19 16:50 WBC RBC Hgb Hct MCV MCH MCHC RDW Plt Count MPV Neut % (Auto) Lymph % (Auto) Zavala % (Auto) Eos % (Auto) Baso % (Auto) Neut # (Auto) Lymph # (Auto) Zavala # (Auto) Eos # (Auto) Baso # (Auto) Sodium Potassium Chloride Carbon Dioxide Anion Gap BUN Creatinine Est GFR ( Amer) Est GFR (Non-Af Amer) POC Glucose (mg/dL) > 500 H* 425 H* Random Glucose Calcium - EKG Data EKG Interpreted by: Other EKG shows normal: Sinus rhythm Assessment & Plan - Assessment and Plan (Free Text) Assessment: 1. CHF, acute on chronic diastolic dysfunction. 2. NSTEMI. 3. Angina pectoris. 4. CAD, s/p PCI of LAD. 5. DM, uncontrolled. 6. HTN. 7. Dyslipidemia. 8. Anemia. 9. Obesity. Plan: 1. Continue present medical management. 2. Monitor telemetry. 3. Bipap. 4. Plan for cardiac cath in am. - Date & Time Date: 05/02/18 Time: 12:05
[2018-05-03 05:22] LABS: CALCIUM 9.2 mg/dL (8.4-10.2)
[2018-05-03] MEDS: Insulin Lispro (humaLOG) 100 Units/ml Inj SC SCH ×3 (06:44→16:30)
[2018-05-03] MEDS ORDERED: Potassium Chloride 20 mEq ER Tab PO ONE (07:00)
--- NOTE | 2018-05-03 08:53 | CP.PCM.PN ---
Subjective - Date & Time of Evaluation Date of Evaluation: 05/03/18 Time of Evaluation: 08:47 - Subjective Subjective: Seated on the EOB eating breakfast. Not on any oxygen presently; SpO2 83%. Placed on nasal canula @ 2LPM; SpO2 95%. Appears comfortable, relates sleeping well last night. Offers no C/O cough or SOB, no chest pain. Antidepressant doses were reduced by half. No dependant edema, no peripheral or central cyanosis. Breath sounds are present equally in both lungs. No audible wheezes or bronchial breath sounds. Few dry rales are present on the lung bases. Heart sounds are distant, regular rhythm. Maintain nasal O2 at all times when not on BiPAP. Will reduce supplemental O2 in BiPAP to 30%. Maintain SpO2 at 95% or higher at all times. V/Q lung scan yesterday; low probability of PE. On full dose anticoagulation post NSTEMI. Follow clinically for now. Post discharge there should be a home visit to evaluate what DME she actually dennis s there. Objective - Vital Signs/Intake and Output Vital Signs (last 24 hours): Temp Pulse Resp BP Pulse Ox 97.6 F 64 18 149/53 L 97 05/03/18 08:07 05/03/18 08:07 05/03/18 08:07 05/03/18 08:07 05/03/18 08:07 Intake and Output: 05/02/18 05/03/18 23:59 11:59 Output Total 400 Balance -400 - Medications Medications: Current Medications Acetazolamide (Diamox 250 Mg Tab) 250 mg PO DAILY [facility] Last Admin: 05/02/18 10:50 Dose: 250 mg Amlodipine Besylate (Norvasc) 10 mg PO DAILY [facility] Last Admin: 05/02/18 10:55 Dose: 10 mg Atorvastatin Calcium (Lipitor) 40 mg PO HS [facility] Last Admin: 05/02/18 21:15 Dose: 40 mg Enoxaparin Sodium (Lovenox) 90 mg SC Q12 [facility]; Protocol Last Admin: 05/02/18 21:15 Dose: 90 mg Escitalopram Oxalate (Lexapro) 10 mg PO DAILY [facility] Last Admin: 05/02/18 10:54 Dose: 10 mg Furosemide (Lasix) 40 mg IVP DAILY [facility] Last Admin: 05/02/18 10:56 Dose: 40 mg Insulin Detemir (Levemir) 36 units SC BID [facility] Last Admin: 05/02/18 16:57 Dose: 36 u Insulin Human Lispro (Humalog) 0 units SC ACHS [facility]; Protocol Last Admin: 05/03/18 06:44 Dose: Not Given Isosorbide Mononitrate (Imdur) 60 mg PO DAILY [facility] Last Admin: 05/02/18 10:51 Dose: 60 mg Losartan Potassium (Cozaar) 100 mg PO DAILY [facility] Last Admin: 05/02/18 10:50 Dose: 100 mg Mirtazapine (Remeron) 15 mg PO DAILY [facility] Last Admin: 05/02/18 10:56 Dose: 15 mg - Labs Labs: 05/02/18 04:30 05/03/18 04:20 Assessment and Plan (1) Acute and chronic respiratory failure with hypercapnia Status: Acute (2) CHF exacerbation Status: Acute (3) Chest pain Status: Acute (4) Diabetes mellitus type 2, uncontrolled Status: Chronic (5) Obstructive sleep apnea Status: Chronic (6) Obesity with alveolar hypoventilation Status: Chronic
[2018-05-03] MEDS: Enoxaparin 100 mg Syringe SC SCH (08:57)
[2018-05-03] MEDS: Insulin Detemir 100 Units/ml Inj SC SCH ×2 (09:13→17:00)
--- NOTE | 2018-05-03 10:06 | CP.PCM.PN ---
Addendum entered and electronically signed by Santhosh Burger MD 05/05/18 00:54: Patient seen and examined on 05/03/18 with residents case and plan discussed and documented below Patient will be transferred for cardiac cath to [facility] CAD troponin elevated on admission Original Note: Subjective - Date & Time of Evaluation Date of Evaluation: 05/03/18 Time of Evaluation: 10:06 - Subjective Subjective: 77 y/o female, with PMHx of CAD, HTN, CHF with preserved EF, IDDM2 and СВЕТЛАНА presented for evaluation of SOB, dizziness, and hyperglycemia found to have acute on chronic hypercapneic respiratory failure, elevated troponins, and acute exacerbation of CHF with preserved EF. Pt feels well has a good appetite. Pt denies SOB, chest pain, abdominal pain, nausea, vomiting, diarrhea, or constipation. Pt is on Bipap at night and 2L NC during the day, pt is NPO after breakfast for scheduled cath at [place] @12:30pm. Objective - Vital Signs/Intake and Output Vital Signs (last 24 hours): Temp Pulse Resp BP Pulse Ox 97.6 F 64 18 149/53 L 97 05/03/18 08:07 05/03/18 09:03 05/03/18 08:07 05/03/18 09:03 05/03/18 08:07 - Medications Medications: Current Medications Acetazolamide (Diamox 250 Mg Tab) 250 mg PO DAILY [facility] Last Admin: 05/03/18 08:59 Dose: 250 mg Amlodipine Besylate (Norvasc) 10 mg PO DAILY [facility] Last Admin: 05/03/18 09:03 Dose: 10 mg Atorvastatin Calcium (Lipitor) 40 mg PO HS [facility] Last Admin: 05/02/18 21:15 Dose: 40 mg Enoxaparin Sodium (Lovenox) 90 mg SC Q12 [facility]; Protocol Last Admin: 05/03/18 08:57 Dose: Not Given Escitalopram Oxalate (Lexapro) 10 mg PO DAILY [facility] Last Admin: 05/03/18 09:02 Dose: 10 mg Furosemide (Lasix) 40 mg IVP DAILY [facility] Last Admin: 05/03/18 09:00 Dose: 40 mg Insulin Detemir (Levemir) 36 units SC BID [facility] Last Admin: 05/03/18 09:13 Dose: Not Given Insulin Human Lispro (Humalog) 0 units SC ACHS [facility]; Protocol Last Admin: 05/03/18 06:44 Dose: Not Given Isosorbide Mononitrate (Imdur) 60 mg PO DAILY [facility] Last Admin: 05/03/18 08:59 Dose: 60 mg Losartan Potassium (Cozaar) 100 mg PO DAILY [facility] Last Admin: 05/03/18 08:58 Dose: 100 mg Mirtazapine (Remeron) 15 mg PO DAILY [facility] Last Admin: 05/03/18 09:03 Dose: 15 mg - Labs Labs: 05/02/18 04:30 05/03/18 04:20 - Constitutional Appears: Well, Non-toxic, No Acute Distress - Head Exam Head Exam: ATRAUMATIC, NORMAL INSPECTION, NORMOCEPHALIC - Eye Exam Eye Exam: EOMI, Normal appearance, PERRL - ENT Exam ENT Exam: Mucous Membranes Moist - Respiratory Exam Respiratory Exam: Clear to Ausculation Bilateral, NORMAL BREATHING PATTERN - Cardiovascular Exam Cardiovascular Exam: RRR, +S1, +S2 - GI/Abdominal Exam GI & Abdominal Exam: Soft, Normal Bowel Sounds - Extremities Exam Extremities Exam: Normal Inspection - Neurological Exam Neurological Exam: Alert, Awake, Oriented x3 Assessment and Plan - Assessment and Plan (Free Text) Plan: 77 y/o F with PMHx of CAD, HTN, CHF with preserved EF, IDDM2 and СВЕТЛАНА presented for evaluation of SOB, dizziness, and hyperglycemia found to have acute on chronic hypercapneic respiratory failure, elevated troponins, elevated D-Dimer and BNP, and acute exacerbation of CHF with preserved EF. 1) Acute on chronic hypercapneic respiratory failure -VQ scan- showed low probability of PE -Dr. River's recommendation's have been appreciated. -On admission PCO2 from ABG was: 88; yesterday levels decreased to 56. -Pt on Bipap at night -Patient currently on 2L of oxygen via NC saturating 97%, dropped to 83% without NC. -Improving, Continue to monitor, Keep O2Sat >95% -F/u with Bipap company to have them come to pts home to adjust settings. -Hypokalemic 3.4- Repleated K Dur 20meq Once 2) Elevated Troponin (Acute)- NSTEMI -Finance Professional, Dr. Dodge's recommendation's appreciated. -Patient scheduled for cardiac cath at [facility] today at 12:30pm -Trops 1.56 on admission with repeat levels of 1.4300 & 1.1000 possibly due to CHF. -Continue therapeutic Lovenox 90mg BID. -Continue to monitor. 3) Acute exacerbation of CHF with preserved EF -Finance Professional, Dr. Dodge recommendation's appreciated. -Pro-BNP: 2410 on admission. -Continue lasix 40mg IVP & Isosorbid mononitrate -Continue head of bed elevation. -Continue to monitor I/O's. -Continue daily weight check. 4)HTN (Chronic, uncontrolled) -Increased norvasc to 10mg PO QD. -Continue losartan 100mg PO QD. 5) IDDM2 (Chronic) -Continue levemir 36 units -Continue lispro -Lispro correction scale -Accu-checks ACHS 6) СВЕТЛАНА (Chronic) -on CPAP at home 7) hx of CAD (Chronic, stable) -Continue atorvastatin 40mg HS. 8)Depression -Lexapro 10mg PO QD -Continue mirtazipine 15mg PO QD -Will consider possibly decreasing mirtazapine due to sedative effects which may have attributed to respiratory failure -Continue to monitor 9) DVT Prophylaxis -On therapeutic Lovenox 90mg BID 10) Code status -Full Code
[2018-05-03 12:32] VITALS: BP 135/54; PULSE 89; TEMP 98.1; O2SAT 98
[2018-05-04] MEDS: Insulin Lispro (humaLOG) 100 Units/ml Inj SC SCH (00:50)
[2018-05-04] MEDS: Enoxaparin 100 mg Syringe SC SCH (00:51)
--- NOTE | 2018-05-04 10:14 | CP.PCM.PN ---
Subjective - Date & Time of Evaluation Date of Evaluation: 05/04/18 Time of Evaluation: 10:14 Objective - Vital Signs/Intake and Output Vital Signs (last 24 hours): Temp Pulse Resp BP Pulse Ox 98.1 F 89 18 135/54 L 98 05/03/18 12:31 05/03/18 12:31 05/03/18 12:31 05/03/18 12:31 05/03/18 12:31 - Medications Medications: Current Medications Acetazolamide (Diamox 250 Mg Tab) 250 mg PO DAILY [facility] Last Admin: 05/03/18 08:59 Dose: 250 mg Amlodipine Besylate (Norvasc) 10 mg PO DAILY [facility] Last Admin: 05/03/18 09:03 Dose: 10 mg Atorvastatin Calcium (Lipitor) 40 mg PO HS [facility] Last Admin: 05/04/18 00:50 Dose: Not Given Enoxaparin Sodium (Lovenox) 90 mg SC Q12 [facility]; Protocol Last Admin: 05/04/18 00:51 Dose: Not Given Escitalopram Oxalate (Lexapro) 10 mg PO DAILY [facility] Last Admin: 05/03/18 09:02 Dose: 10 mg Insulin Detemir (Levemir) 36 units SC BID [facility] Last Admin: 05/03/18 17:00 Dose: Not Given Insulin Human Lispro (Humalog) 0 units SC ACHS [facility]; Protocol Last Admin: 05/04/18 00:50 Dose: Not Given Isosorbide Mononitrate (Imdur) 60 mg PO DAILY [facility] Last Admin: 05/03/18 08:59 Dose: 60 mg Losartan Potassium (Cozaar) 100 mg PO DAILY [facility] Last Admin: 05/03/18 08:58 Dose: 100 mg Mirtazapine (Remeron) 15 mg PO DAILY [facility] Last Admin: 05/03/18 09:03 Dose: 15 mg - Labs Labs: 05/02/18 04:30 05/03/18 04:20
--- NOTE | 2018-05-04 16:52 | CP.PCM.PCO ---
Addendum Addendum: Pt was sent yesterday to [place] for cardiac cath, pt has not returned yesterday, Cardiology Dr. Garg spoke with Dr. Burger, Pt had 2 stents palced in the right RCA. Pt will be D/C from [place]. 05/04/18 16:49
== END 2018-05-04 17:00 | disposition short-term general hospital (02) | DRG 280 ==
LOC: H.ER 23:25 → H.ERHOLD 04-30 03:09 → H.ICU/CCU 04-30 06:42 → H.TEL 05-02 15:43
PROVIDERS: ADMIT Family Medicine; ATTEND Family Medicine
PROC: 5A09457 Assistance with Respiratory Ventilation, 24-96 Consecutive Hours, Continuous Positive Airway Pressure (ICD-10-PCS; principal; 2018-04-30)
DX: I21.4 Non-ST elevation (NSTEMI) myocardial infarction (principal); J96.22 Acute and chronic respiratory failure with hypercapnia; I50.33 Acute on chronic diastolic (congestive) heart failure; E87.2 Acidosis; E66.2 Morbid (severe) obesity with alveolar hypoventilation; I11.0 Hypertensive heart disease with heart failure; I27.20 Pulmonary hypertension, unspecified; E11.65 Type 2 diabetes mellitus with hyperglycemia; I25.119 Atherosclerotic heart disease of native coronary artery with unspecified angina pectoris; D53.9 Nutritional anemia, unspecified; E78.5 Hyperlipidemia, unspecified; E78.00 Pure hypercholesterolemia, unspecified; Z68.35 Body mass index [BMI] 35.0-35.9, adult; F41.9 Anxiety disorder, unspecified; K29.70 Gastritis, unspecified, without bleeding; M19.90 Unspecified osteoarthritis, unspecified site; Z87.01 Personal history of pneumonia (recurrent); Z95.5 Presence of coronary angioplasty implant and graft; Z99.81 Dependence on supplemental oxygen; Z86.73 Personal history of transient ischemic attack (TIA), and cerebral infarction without residual deficits; Z79.4 Long term (current) use of insulin

== ENCOUNTER 2018-09-12 12:58 | Inpatient (IN) | payer MEDICARE, MEDICAID ==
[2018-09-12 12:58] VITALS: BMI 34.6
--- NOTE | 2018-09-12 13:44 | ED PDOC ---
HPI: SOB/CHF/COPD Time Seen by Provider: 09/12/18 13:26 Chief Complaint (Nursing): Shortness Of Breath Chief Complaint (Provider): shortness of breath History Per: Patient History/Exam Limitations: no limitations Onset/Duration Of Symptoms: Days (x4-5) Current Symptoms Are (Timing): Still Present Associated Symptoms: Ankle/Leg Swelling. denies: Fever, Chills, Productive Cough Additional Complaint(s): Eliana Alexandra is a 78 year old female, with a past medical history of Diabetes, HTN, hypercholesterolemia, CHF and stents, who presents to the emergency department accompanied by daughter complaining of shortness of breath and fatigue onset x4-5 days ago but worst today. Daughter also reports swelling to the lower extremities. Patient states she was seen here in April of last year for the same symptoms and is currently on oxygen at home. She denies any fever, chills, chest pain or other medical complaints. PMD: Santhosh Burger Past Medical History Reviewed: Historical Data, Nursing Documentation, Vital Signs Vital Signs: Last Vital Signs Temp 98.5 F 09/12/18 13:02 Pulse 74 09/12/18 13:02 Resp 20 09/12/18 13:02 BP 150/60 09/12/18 13:02 Pulse Ox 97 09/12/18 13:02 - Medical History PMH: Anxiety, Arthritis, CAD, CHF, CVA (?paresthesias), Diabetes, Gastritis, HTN, Hypercholesterolemia, Pneumonia (recent admission), Sleep Apnea Denies: HIV, Chronic Kidney Disease - Surgical History Surgical History: Coronary Stent Denies: - Family History Family History: States: Unknown Family Hx - Social History Current smoker - smoking cessation education provided: No Alcohol: None Drugs: Denies - Home Medications Home Medications: Ambulatory Orders Medication Instructions Recorded Atorvastatin [Lipitor] 40 mg PO DAILY 12/16/16 Furosemide [Lasix] 40 mg PO BID 12/16/16 Escitalopram [Lexapro] 20 mg PO DAILY 04/15/18 Mirtazapine [Remeron] 15 mg PO HS 04/15/18 Isosorbide Mononitrate [Imdur] 60 mg PO DAILY tab 04/28/18 amLODIPine [Norvasc] 5 mg PO DAILY 30 Days #30 tab 04/28/18 Insulin Detemir [Levemir] 40 units SC BID 30 Days vial 05/02/18 Aspirin [Ecotrin] 81 mg PO DAILY 09/12/18 Carvedilol [Coreg] 25 mg PO Q12 09/12/18 Clopidogrel [Plavix] 75 mg PO DAILY 09/12/18 Ferrous Sulfate [Feosol] 325 mg PO DAILY 09/12/18 Insulin Aspart, Recombinant 5 unit SC ACTID 09/12/18 [Novolog] Multivitamin [Multi-Vitamin Daily] 1 tab PO DAILY 09/12/18 Valsartan [Diovan] 160 mg PO DAILY 09/12/18 metFORMIN [glucOPHAGE] 500 mg PO BID 09/12/18 - Allergies Allergies/Adverse Reactions: Allergies Allergy/AdvReac Type Severity Reaction Status Date / Time No Known Allergies Allergy Verified 04/29/18 23:30 Review of Systems ROS Statement: Except As Marked, All Systems Reviewed And Found Negative Constitutional: Negative for: Fever, Chills ENT: Negative for: Nose Congestion Cardiovascular: Positive for: Edema (leg). Negative for: Chest Pain Respiratory: Positive for: Shortness of Breath. Negative for: Cough Physical Exam - Reviewed Nursing Documentation Reviewed: Yes Vital Signs Reviewed: Yes - Physical Exam Appears: Positive for: No Acute Distress Head Exam: Positive for: ATRAUMATIC, NORMAL INSPECTION, NORMOCEPHALIC Skin: Positive for: Normal Color, Warm, Dry Eye Exam: Positive for: Normal appearance, EOMI, PERRL Neck: Positive for: Normal, Painless ROM, Supple Cardiovascular/Chest: Positive for: Regular Rate, Rhythm. Negative for: Murmur Respiratory: Positive for: Rales (Faint crackles to bilateral bases of lungs). Negative for: Respiratory Distress Gastrointestinal/Abdominal: Positive for: Normal Exam, Soft. Negative for: Tenderness, Guarding, Rebound Back: Positive for: Normal Inspection. Negative for: L CVA Tenderness, R CVA Tenderness, Vertebral Tenderness Extremity: Positive for: Normal ROM (upper and lower extremities), Swelling (bilateral lower extremities but worst on the left. ). Negative for: Deformity Neurologic/Psych: Positive for: Alert, Oriented. Negative for: Motor/Sensory Deficits - Laboratory Results Result Diagrams: 09/12/18 14:15 09/12/18 14:15 - ECG O2 Sat by Pulse Oximetry: 97 (RA) Pulse Ox Interpretation: Normal Medical Decision Making Medical Decision Making: Time: 13:26 Initial Impression: Work up for CHF. Chest X-Ray to rule out infection vs other pulmonary sources Initial Plan: --EKG --CMP --B-Type Natriuretic Peptide --Troponin I --CBC w/ differential --Chest two views (PA/LAT) [RAD] --Influenza A B --Reevaluation 15:28 -Patient with anemia of 8. Shortness of breath may be due to symptomatic anemia. Will discuss transfusion vs observation with the family and PMD. Chest x-ray show some infiltrates, pending official reading. WBC normal, no left shift. BNP of 700. Spoke with medicine resident regarding possible admission under Dr. Burger. Patient comfortable at this time. Scribe Attestation: Documented by Filiberto Miguel, acting as a scribe for Jessica Claudio MD Provider Scribe Attestation: All medical record entries made by the Scribe were at my direction and personally dictated by me. I have reviewed the chart and agree that the record accurately reflects my personal performance of the history, physical exam, medical decision making, and the department course for this patient. I have also personally directed, reviewed, and agree with the discharge instructions and disposition. Time: 1743 -- Rectal exam performed with ESTEFANIA Pham present. One external hemorrhoid noted that is non-thrombosed and not bleeding. No gross blood visualized. Small amount of soft brown stool noted in the anal canal. Fecal Occult and Blood Culture ordered. -- Blood Culture -- Occult Blood, Stool, ER Will observe pt for possible need for transfusion. Official CXR shows right hilar prominence. Pt admitted under Dr. Burger. Comfortable now with stable/normal vitals. Scribe Attestation: Documented by Low Navarrete, acting as a scribe for Jessica Claudio MD. Provider Scribe Attestation: All medical record entries made by the Scribe were at my direction and perso ruma dictated by me. I have reviewed the chart and agree that the record accurately reflects my personal performance of the history, physical exam, medical decision making, and the department course for this patient. I have also personally directed, reviewed, and agree with the discharge instructions and disposition. Disposition - Clinical Impression Clinical Impression: CHF (congestive heart failure) - Disposition Disposition Time: 17:43 Condition: GUARDED
[2018-09-12 14:21] LABS: BASO # 0.1 K/uL (0.0-0.2); BASO % 1.3 % (0.0-2.0); EOS # 0.2 K/uL (0.0-0.7); EOS % 2.2 % (0.0-4.0); LYMPH # 1.1 K/uL (1.0-4.3); LYMPH % 14.3 % (20.0-40.0); MEAN CELL VOLUME 97.9 fl (81.0-99.0); MEAN CORPUSCULAR HEMOGLOBIN 31.5 pg (27.0-31.0); MEAN CORPUSCULAR HGB CONC 32.2 g/dL (33.0-37.0); MEAN PLATELET VOLUME 8.5 fl (7.2-11.7); MONO # 0.7 K/uL (0.0-0.8); MONO % 8.4 % (0.0-10.0); NEUT # 5.8 K/uL (1.8-7.0); NEUT % 73.8 % (50.0-75.0); RBC 2.55 Mil/uL (3.80-5.20); RED CELL DISTRIBUTION WIDTH 15.4 % (11.5-14.5); WHITE BLOOD COUNT 7.9 K/uL (4.8-10.8)
[2018-09-12 14:47] LABS: B-TYPE NATRIURETIC PEPTIDE 693 pg/ml (0-900)
[2018-09-12 14:59] LABS: ALB/GLOB RATIO 1.4 (1.0-2.1); ALBUMIN 3.8 g/dL (3.5-5.0); ALT/SGPT 60 U/L (9-52); AST/SGOT 53 U/L (14-36); BLOOD UREA NITROGEN 29 mg/dl (7-17); CALCIUM 9.5 mg/dL (8.4-10.2); GFR NON-AFRICAN AMERICAN 54
--- NOTE | 2018-09-12 17:08 | CP.PCM.HP ---
History of Present Illness - History of Present Illness History of Present Illness: 78 y/o female with PMHx of CAD, HTN, preserved EF CHF, IDDM, СВЕТЛАНА(On CPAP), Hx of CVA on home O2 presents to ED complaining of shortness of breath. Shortness of breath started worsening 4-5 days ago especially with ambulation, going to kitchen, bathroom etc. Patient also reports associated fatigue, weakness, occasional headache and dizziness. Denies any fall or trauma. Patient also reports reproducible right shoulder pain, B/L leg swelling. Patient uses 3 pillow at night and wakes up 1-2 times due to SOB. Patient has СВЕТЛАНА and uses home O2 and CPAP at night. Denies any CP, cough, abdominal pain, nausea, vomiting, diarrhea, blood in stool, fever, chills, dysuria or sick contacts. Pt reports adherence to medications. PMD: Dr. Burger Wood Processing Worker: Dr. Ambrose PMH: CAD, HTN, preserved EF CHF, IDDM2, Hx of CVA, СВЕТЛАНА (CPAP at home), on home O2 Meds: See med list PSH: none Fam: non-contributory SOC: denies smoking, alcohol, and drugs ROS: 12 points assessed and negative unless otherwise reported in the HPI ED Course: Vitals: T: 98.5, HR 74, RR 20, O2 97%, BP 150/60 Labs: H/H: 8.0/24.9, MCV 97%, Na 142, K 4.5, Co2 40, BUN 29, Gluc 217, AST 53, ALT 60, Trop x 1 neg, ProBNP 693, Influenza a/b neg CXR: Right hilar LN, No acute infiltrate, Recommends CT follow up EKG: Pending Present on Admission - Present on Admission Any Indicators Present on Admission: Yes History of DVT/PE: No History of Uncontrolled Diabetes: Yes Urinary Catheter: No Decubitus Ulcer Present: No Review of Systems - Review of Systems Systems not reviewed;Unavailable: Respiratory Distress - Constitutional Constitutional: Fatigue, Headache, Weakness. absent: Fever - EENT Eyes: absent: Change in Vision - Cardiovascular Cardiovascular: Dyspnea, Dyspnea on Exertion, Leg Edema. absent: Chest Pain, Chest Pain at Rest, Palpitations, Radiating Pain, Syncope - Respiratory Respiratory: Dyspnea, Dyspnea on Exertion, Snoring. absent: Cough, Hemoptysis, Wheezing - Gastrointestinal Gastrointestinal: absent: Abdominal Pain, Constipation, Diarrhea, Nausea, Vomiting - Genitourinary Genitourinary: absent: Dysuria - Musculoskeletal Musculoskeletal: absent: Back Pain - Neurological Neurological: Dizziness. absent: Behavioral Changes, Confusion, Numbness, Focal Weakness - Psychiatric Psychiatric: absent: Anxiety, Behavioral Changes Past Patient History - Infectious Disease Hx of Infectious Diseases: None - Tetanus Immunizations Tetanus Immunization: Unknown - Past Medical History & Family History Past Medical History?: Yes - Past Social History Alcohol: None Drugs: Denies - CARDIAC Hx Congestive Heart Failure: Yes Hx Hypercholesterolemia: Yes Hx Hypertension: Yes - PULMONARY Hx Pneumonia: Yes (recent admission) Hx Sleep Apnea: Yes - NEUROLOGICAL HX Cerebrovascular Accident: Yes - HEENT Hx HEENT Problems: No - RENAL Hx Chronic Kidney Disease: No - ENDOCRINE/METABOLIC Hx Diabetes Mellitus Type 2: Yes - HEMATOLOGICAL/ONCOLOGICAL Hx Human Immunodeficiency Virus (HIV): No - INTEGUMENTARY Hx Dermatological Problems: No - MUSCULOSKELETAL/RHEUMATOLOGICAL Hx Arthritis: Yes - GASTROINTESTINAL Hx Gastritis: Yes - GENITOURINARY/GYNECOLOGICAL Hx Genitourinary Disorders: No - PSYCHIATRIC Hx Anxiety: Yes - SURGICAL HISTORY Hx Coronary Stent: Yes - ANESTHESIA Hx Anesthesia: Yes Hx Anesthesia Reactions: No Hx Malignant Hyperthermia: No Meds Allergies/Adverse Reactions: Allergies Allergy/AdvReac Type Severity Reaction Status Date / Time No Known Allergies Allergy Verified 04/29/18 23:30 Physical Exam - Constitutional Appears: No Acute Distress - Head Exam Head Exam: ATRAUMATIC, NORMAL INSPECTION, NORMOCEPHALIC - Eye Exam Eye Exam: EOMI, Normal appearance Pupil Exam: PERRL - ENT Exam ENT Exam: Mucous Membranes Moist - Respiratory Exam Respiratory Exam: Rales. absent: Rhonchi, Wheezes, Respiratory Distress - Cardiovascular Exam Cardiovascular Exam: REGULAR RHYTHM, +S1, +S2, Systolic Murmur - GI/Abdominal Exam GI & Abdominal Exam: Distended, Normal Bowel Sounds, Soft. absent: Tenderness - Extremities Exam Extremities exam: Positive for: pedal edema, tenderness - Neurological Exam Neurological exam: Alert, Altered, Oriented x3 - Psychiatric Exam Psychiatric exam: Normal Affect, Normal Mood - Skin Skin Exam: Dry, Intact, Normal Color, Warm Results - Vital Signs Recent Vital Signs: Last Vital Signs Temp 98.2 F 09/12/18 16:46 Pulse 77 09/12/18 16:46 Resp 18 09/12/18 16:46 BP 167/68 H 09/12/18 16:46 Pulse Ox 100 09/12/18 16:46 - Labs Result Diagrams: 09/12/18 14:15 09/12/18 14:15 Labs: Laboratory Results - last 24 hr 09/12/18 09/12/18 09/12/18 14:15 14:15 14:15 WBC 7.9 RBC 2.55 L Hgb 8.0 L D Hct 24.9 L MCV 97.9 MCH 31.5 H MCHC 32.2 L RDW 15.4 H Plt Count 233 MPV 8.5 Neut % (Auto) 73.8 Lymph % (Auto) 14.3 L Davidson % (Auto) 8.4 Eos % (Auto) 2.2 Baso % (Auto) 1.3 Neut # (Auto) 5.8 Lymph # (Auto) 1.1 Davidson # (Auto) 0.7 Eos # (Auto) 0.2 Baso # (Auto) 0.1 Sodium 142 Potassium 4.5 Chloride 94 L Carbon Dioxide 40 H* Anion Gap 13 BUN 29 H Creatinine 1.0 Est GFR ( Amer) > 60 Est GFR (Non-Af Amer) 54 Random Glucose 217 H Calcium 9.5 Total Bilirubin 0.3 AST 53 H D ALT 60 H D Alkaline Phosphatase 114 Troponin I 0.0190 NT-Pro-B Natriuret Pep 693 Total Protein 6.6 Albumin 3.8 Globulin 2.8 Albumin/Globulin Ratio 1.4 Influenza Typ A,B (EIA) Negative for flu a/b Assessment & Plan - Assessment and Plan (Free Text) Assessment: 78 y/o female with PMHx of CAD, HTN, preserved EF CHF, IDDM, СВЕТЛАНА(On CPAP), Hx of CVA on home O2 presents to ED complaining of shortness of breath. Pt admitted for CHF exacerbation vs symptomatic anemia. Plan: 1) Symptomatic anemia -Acute on chronic of chronic disease -unspecified but possible 2/2 CKD -Anemia work up -transfuse 2u pRBC -f/u CBC 2) SOB may be 2/2 CHF exacerbation vs PE vs anemia -pt does not ambulate to much -D dimer Stat -Probnp 693 -CXR no infiltrate. right hilar infiltrate, recommends CT follow up -Lasix 40 mg IVP once -c/w home medications -C/w CPAP machine as home 3) DM -Hold Home Meds -SSI -Hypoglycemia protocol 4) CKD stage 4 -chronic -hold metformin, no NSAIDs 5) HTN -c/w home meds Resume home medications except for metformin and lasix 40 PO BID 6) DVT Prophylaxis -Lovenox
[2018-09-12] MEDS ORDERED: Glucagon Recombinant 1 mg Inj IM PRN (17:20)
[2018-09-12] MEDS ORDERED: Dextrose 50% SYRINGE Inj (50 ml) IV PRN (17:20)
--- NOTE | 2018-09-12 17:33 | RAD ---
Date of service: 09/12/2018 HISTORY: cough COMPARISON: 09/28/2014 CT thorax. 05/01/18 chest TECHNIQUE: Chest PA and lateral FINDINGS: LUNGS: Right infrahilar mass/prominence. The finding is not seen with certainty on prior studies above. Follow-up recommended. PLEURA: Small left pleural effusion. CARDIOVASCULAR: Atherosclerotic calcifications identified primarily aortic arch. Pulmonary vascular congestion noted. Top-normal heart. OSSEOUS STRUCTURES: No significant abnormalities. VISUALIZED UPPER ABDOMEN: Normal. OTHER FINDINGS: None. IMPRESSION: Right hilar/infrahilar mass/prominence not seen previously. Recommend follow-up CT scan. Left pleural effusion.
[2018-09-12] MEDS ORDERED: Pneumococcal 23-Valent Vaccine IM ONE (20:06)
[2018-09-12 20:23] LABS: IRON 53 ug/dL (37-170)
[2018-09-12 20:32] LABS: % IRON SATURATION 19 % (20-55); TOTAL IRON BINDING CAPACITY 285 ug/dL (250-450)
--- NOTE | 2018-09-12 22:14 | PCM.RRT ---
<Remberto Crow - Last Filed: 09/13/18 05:00> [facility] [address] JUDGE Nurse Assessment - Situation Location: 6s med-surg Room Number: [address] Reason for Call: Respiratory Distress [place] [address] JUDGE Called By: RN - IV IV Inserted during [place] [facility] JUDGE?: No - Respiratory Oxygen Delivery Method: Nasal Cannula Received Nebulizer Treatments: No Was the Patient Ventilated with Bag/Mask 100% O2?: No Secretions Suctioned?: No Was the Patient Intubated?: No Was the Patient Placed on a Ventilator?: No - Ventilator Settings Ventilator Respiratory Rate Settin Ventilator Tidal Volume Settin - Medication Medications Administered During [facility] [facility] JUDGE: lasix 40mg iv stat - Diagnostic Test Ordered EKG: No Chest X-Ray: No CT Scan: No CPR started during [place] [facility] JUDGE?: No - Vital Signs Vital Signs: Rapid Response Vital Sign Blood Pressure 178/72 Pulse Rate 85 Respiratory Rate 22 Temperature 97.5 F Oxygen Saturation 96 - Time [facility] [facility] JUDGE Ended Time [facility] [facility] JUDGE Ended: 22:05 - Vital Signs at end of [place] [facility] JUDGE Vital Signs at end of [place] [facility] JUDGE: Rapid Response End Vital Sign Blood Pressure 177/63 Pulse Rate 85 Respiratory Rate 28 O2 Sat by Pulse Oximetry 95 - Recommendations [facility] [facility] JUDGE Level of Care Recommendations: Transfer to Telemetry I.Reason for [place] [facility] JUDGE - A) Acute Change in Patient: Subjective: [place] [address] JUDGE time called: [address] JUDGE response time: [address]GE reason: High blood pressure, SOB RT called by RN as patient's BP was noted to be elevated. Pt found lying in bed complaining of shortness of bed. Denied chest pain. Initial Vitals BP 178/72, HR 85, RR 22, O2 sat 86 on Nasal Cannula 2L PE: General: Elderly female seen lying in bed in mild distress CV: RRR, Systolic murmur +2, +Hepatojugular Reflex Respiratory: Rales Bl in lung bases, poor air entry bilaterally Abdomen: Soft, nontender Extremities: Pedal edema, +1 pitting, good capillary refill Neuro: Alert and oriented, no focal deficits noted [facility] [facility] JUDGE Interventions -Face mask w/ O2 on 100% O2 -Lasix 40mg IV -ABG pCO2 71, pO2 51, HCO3, 35.5 -Non Invasive Pressure Support, BIPAP settings 15/10, FIO2 100 End Vitals BP 177/63, HR 85, RR 28, O2 sat 95 A/P: Pt is a 78 y/o female with hx of CHF, СВЕТЛАНА, admitted for SOB in setting of anemia with hemoglobin of 8. [address] [address] JUDGE was called due to elevated blood pressure and worsening shortness of breath. Pt had signs of fluid overload and noted on ABG t o be retaining CO2. Also had elevated D dimer. -S/P Lasix 40mg IV -Resume home antihypertensive medication: Norvasc and Coreg -D-Dimer noted to be elevated; CT Angio ordered STAT -Transfer to Telemetry -Held Blood transfusion given fluid overload Present for [place] [facility] JUDGE: Attending-Dr. Soto, Resident-Lissa <Juan Jose Soto - Last Filed: 09/13/18 20:26> [address] [address] JUDGE Nurse Assessment - Vital Signs Vital Signs: Rapid Response Vital Sign Blood Pressure 178/72 Pulse Rate 85 Respiratory Rate 22 Temperature 97.5 F Oxygen Saturation 96 - Vital Signs at end of [place] [address] JUDGE Vital Signs at end of [place] [address] JUDGE: Rapid Response End Vital Sign Blood Pressure 177/63 Pulse Rate 85 Respiratory Rate 28 O2 Sat by Pulse Oximetry 95 Assessment & Plan - Assessment and Plan (Free Text) Assessment: History as documented by resident was reviewed with patient and resident. I personally performed the mckinney elements of physical exam and agree with the above findings. Diagnostics reviewed. X-ray and EKG as above interpreted by me. Medical decision making and plan of care performed by me. 78 yo female admitted for SOB and anemia. [place] [address] JUDGE was called as patient developed respiratory distress. Upon my exam hypertensive and in distress with rales b/l and positive hepatojugular reflux and b/l pedal edema. My impression is acute exacerbation of chronic diastolic CHF in the context of fluid overload and hypertensive crisis. Ordered IV Lasix and BP meds and started patient on bipap and transferred her to tele. Patient responded favorably. Diuresed well and BP improved and her respiratory distress resolved. Primary attending was informed. Of note, she was scheduled to receive PRBC transfusion which I don't think is a good idea at this point. Her Hb is 8 which can not be the cause of her SOB and transfusion can potentially worsen her overload problem. Will continue with diuretics and Bipap and will try to optimize BP. I spent total of 33 min trying to stabilize this critically unstable patient excluding any time spent for procedures.
[2018-09-12] MEDS ORDERED: Iodixanol 320 MG/ML 100 ML BOTTLE IV ONE ×2 (22:20→23:08)
[2018-09-12] MEDS ORDERED: Sodium Chloride 0.9% 50 ML IV ONE ×2 (22:20→23:08)
[2018-09-12 22:23] LABS: ABG ALLEN TEST YES; ARTERIAL BLOOD GAS HCO3 35.5 mmol/L (21-28); ARTERIAL BLOOD GAS HEMOGLOBIN 8.6 g/dL (11.7-17.4); ARTERIAL BLOOD GAS O2 CAPACITY 11.7 mL/dL (16-24); ARTERIAL BLOOD GAS O2 CONTENT 10.8 ML/dL (15-23); ARTERIAL BLOOD GAS O2 SAT 92.5 % (95-98); ARTERIAL BLOOD GAS PCO2 71 mm/Hg (35-45); ARTERIAL BLOOD GAS PH 7.37 (7.35-7.45); ARTERIAL BLOOD GAS PO2 51 mm/Hg (80-100); ARTERIAL BLOOD GAS TCO2 43.2 mmol/L (22-28)
[2018-09-12] MEDS: Insulin Lispro (humaLOG) 100 Units/ml Inj SC SCH (23:34)
[2018-09-13 02:19] LABS: ABG ALLEN TEST YES; ARTERIAL BLOOD GAS HCO3 35.5 mmol/L (21-28); ARTERIAL BLOOD GAS HEMOGLOBIN 7.7 g/dL (11.7-17.4); ARTERIAL BLOOD GAS O2 CAPACITY 11.4 mL/dL (16-24); ARTERIAL BLOOD GAS O2 CONTENT 11.4 ML/dL (15-23); ARTERIAL BLOOD GAS O2 SAT 99.9 % (95-98); ARTERIAL BLOOD GAS PCO2 74 mm/Hg (35-45); ARTERIAL BLOOD GAS PH 7.35 (7.35-7.45); ARTERIAL BLOOD GAS PO2 316 mm/Hg (80-100); ARTERIAL BLOOD GAS TCO2 43.2 mmol/L (22-28)
[2018-09-13 05:58] LABS: ALB/GLOB RATIO 1.1 (1.0-2.1); ALBUMIN 3.5 g/dL (3.5-5.0); CALCIUM 9.3 mg/dL (8.4-10.2)
[2018-09-13] MEDS: Insulin Lispro (humaLOG) 100 Units/ml Inj SC SCH ×4 (08:09→23:29)
--- NOTE | 2018-09-13 09:09 | CP.PCM.CON ---
History of Present Illness - History of Present Illness History of Present Illness: This 78 year old female is known to me from prior hospitalization. 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 She denies any chest pain, fever or chills at home. She also claims to not have had cough, sputum or hemoptysis. She was initially admitted to a medical floor, but did have AGRICULTURE INTERN because of respiratory distress and elevated BP. A CT chest was done showing areas of pleural based consolidation (right > left) with right pleural effusion and bilateral hilar/mediastinal adenopathy. No pulmonary emboli were demonstrated. She has been afebrile since admission and has no leukocytosis, but anemia of 8 GM. Review of Systems - Review of Systems All systems: reviewed and no additional remarkable complaints except - Cardiovascular Cardiovascular: Dyspnea on Exertion, Edema - Respiratory Respiratory: Dyspnea on Exertion Past Patient History - Infectious Disease Hx of Infectious Diseases: None - Tetanus Immunizations Tetanus Immunization: Unknown - Past Medical History & Family History Past Medical History?: Yes Past Family History: Reviewed and not pertinent - Past Social History Smoking Status: Never Smoked Chewing Tobacco Use: No Cigar Use: No Alcohol: None Drugs: Denies Home Situation {Lives}: With Family - CARDIAC Hx Congestive Heart Failure: Yes Hx Hypercholesterolemia: Yes Hx Hypertension: Yes Other/Comment: CAD - PULMONARY Hx Pneumonia: Yes Hx Sleep Apnea: Yes Other/Comment: Chronic hypercapnic respiratory failure - NEUROLOGICAL HX Cerebrovascular Accident: Yes - HEENT Hx HEENT Problems: No - RENAL Hx Chronic Kidney Disease: No - ENDOCRINE/METABOLIC Hx Diabetes Mellitus Type 2: Yes - HEMATOLOGICAL/ONCOLOGICAL Hx Anemia: Yes Hx Human Immunodeficiency Virus (HIV): No - INTEGUMENTARY Hx Dermatological Problems: No - MUSCULOSKELETAL/RHEUMATOLOGICAL Hx Arthritis: Yes Hx Falls: Yes - GASTROINTESTINAL Hx Gastritis: Yes - GENITOURINARY/GYNECOLOGICAL Hx Genitourinary Disorders: No - PSYCHIATRIC Hx Anxiety: Yes - SURGICAL HISTORY Hx Angioplasty: Yes Hx Cardiac Catheterization: Yes Hx Coronary Stent: Yes - ANESTHESIA Hx Anesthesia: Yes Hx Anesthesia Reactions: No Hx Malignant Hyperthermia: No Meds Allergies/Adverse Reactions: Allergies Allergy/AdvReac Type Severity Reaction Status Date / Time No Known Allergies Allergy Verified 04/29/18 23:30 - Medications Medications: Current Medications Aspirin (Ecotrin) 81 mg PO DAILY [facility] Atorvastatin Calcium (Lipitor) 40 mg PO DAILY [facility] Carvedilol (Coreg) 25 mg PO Q12 [facility] Last Admin: 09/12/18 22:01 Dose: Not Given Clopidogrel Bisulfate (Plavix) 75 mg PO DAILY [facility] Dextrose (Dextrose 50% Inj) 0 ml IV STAT PRN; Protocol PRN Reason: Hypoglycemia Protocol Dextrose (Glutose 15) 0 gm PO ONCE PRN; Protocol PRN Reason: Hypoglycemia Protocol Enoxaparin Sodium (Lovenox) 40 mg SC DAILY [facility]; Protocol Escitalopram Oxalate (Lexapro) 20 mg PO DAILY [facility] Ferrous Sulfate (Feosol) 325 mg PO DAILY [facility] Furosemide (Lasix) 40 mg PO BID [facility] Glucagon (Glucagen Diagnostic Kit) 0 mg IM STAT PRN; Protocol PRN Reason: Hypoglycemia Protocol Insulin Human Lispro (Humalog) 0 units SC ACCU-CHECK [facility]; Protocol Last Admin: 09/13/18 08:09 Dose: 4 units Isosorbide Mononitrate (Imdur) 60 mg PO DAILY [facility] Mirtazapine (Remeron) 15 mg PO HS [facility] Last Admin: 09/13/18 00:26 Dose: 15 mg Pneumococcal Polyvalent Vaccine (Pneumovax 23 Vaccine) 0.5 ml IM .ONCE ONE Stop: 09/12/18 20:07 Valsartan (Diovan) 160 mg PO DAILY [facility] Physical Exam - Additional Findings Additional findings: Obese female lying in bed, BiPAP mask on. Patient appears to be breathing comfortably. Awake and cooperative with exam. Answers all questions appropriately. Neck is supple and trachea midline. No respiratory recruitment, no IC retractions. No dullness on percussion of anterior chest wall. Breath sounds appear diminished equally in both lungs. Area of bronchial breathing is heard in RUL posteriorly. Medium rales are heard in both lower lobes posteriorly. No audible wheezes. Heart sounds are slightly distant, rhythm is regular. Abdomen is obese, appears non-tender, + bowel sounds. No cyanosis, extremities are warm and pink, trace-+ dependant edema bilaterally. Results - Vital Signs Recent Vital Signs: Last Vital Signs Temp 99 F 09/13/18 08:04 Pulse 75 09/13/18 08:05 Resp 18 09/13/18 08:04 BP 178/67 H 09/13/18 08:04 Pulse Ox 97 09/13/18 08:04 - Labs Result Diagrams: 09/13/18 09:16 09/13/18 05:00 Labs: Laboratory Results - last 24 hr 09/12/18 09/12/18 09/12/18 14:15 14:15 14:15 WBC 7.9 RBC 2.55 L Hgb 8.0 L D Hct 24.9 L MCV 97.9 MCH 31.5 H MCHC 32.2 L RDW 15.4 H Plt Count 233 MPV 8.5 Neut % (Auto) 73.8 Lymph % (Auto) 14.3 L [place] % (Auto) 8.4 Eos % (Auto) 2.2 Baso % (Auto) 1.3 Neut # (Auto) 5.8 Lymph # (Auto) 1.1 [place] # (Auto) 0.7 Eos # (Auto) 0.2 Baso # (Auto) 0.1 Retic Count D-Dimer, Quantitative pCO2 pO2 HCO3 ABG pH ABG Total CO2 ABG O2 Saturation ABG O2 Content ABG Base Excess ABG Hemoglobin ABG Carboxyhemoglobin POC ABG HHb (Measured) ABG Methemoglobin ABG O2 Capacity Parviz Test A-a O2 Difference Hgb O2 Saturation Vent Mode Mechanical Rate FiO2 Inspiratory BiPAP Expiratory BiPAP Blood Gas Comments Crit Value Called To Crit Value Called By Crit Value Read Back Blood Gas Notified Time Sodium 142 Potassium 4.5 Chloride 94 L Carbon Dioxide 40 H* Anion Gap 13 BUN 29 H Creatinine 1.0 Est GFR ( Amer) > 60 Est GFR (Non-Af Amer) 54 POC Glucose (mg/dL) Random Glucose 217 H Calcium 9.5 Iron TIBC % Saturation Ferritin Total Bilirubin 0.3 AST 53 H D ALT 60 H D Alkaline Phosphatase 114 Troponin I 0.0190 NT-Pro-B Natriuret Pep 693 Total Protein 6.6 Albumin 3.8 Globulin 2.8 Albumin/Globulin Ratio 1.4 Influenza Typ A,B (EIA) Negative for flu a/b Blood Type Antibody Screen Crossmatch BBK History Checked 09/12/18 09/12/18 09/12/18 18:07 19:22 19:22 WBC RBC Hgb Hct MCV MCH MCHC RDW Plt Count MPV Neut % (Auto) Lymph % (Auto) [place] % (Auto) Eos % (Auto) Baso % (Auto) Neut # (Auto) Lymph # (Auto) [place] # (Auto) Eos # (Auto) Baso # (Auto) Retic Count D-Dimer, Quantitative 2668 H pCO2 pO2 HCO3 ABG pH ABG Total CO2 ABG O2 Saturation ABG O2 Content ABG Base Excess ABG Hemoglobin ABG Carboxyhemoglobin POC ABG HHb (Measured) ABG Methemoglobin ABG O2 Capacity Parviz Test A-a O2 Difference Hgb O2 Saturation Vent Mode Mechanical Rate FiO2 Inspiratory BiPAP Expiratory BiPAP Blood Gas Comments Crit Value Called To Crit Value Called By Crit Value Read Back Blood Gas Notified Time Sodium Potassium Chloride Carbon Dioxide Anion Gap BUN Creatinine Est GFR ( Amer) Est GFR (Non-Af Amer) POC Glucose (mg/dL) 123 H Random Glucose Calcium Iron 53 TIBC 285 % Saturation 19 L Ferritin Total Bilirubin AST ALT Alkaline Phosphatase Troponin I NT-Pro-B Natriuret Pep Total Protein Albumin Globulin Albumin/Globulin Ratio Influenza Typ A,B (EIA) Blood Type Antibody Screen Crossmatch BBK History Checked 09/12/18 09/12/18 09/12/18 19:22 19:22 19:22 WBC RBC Hgb Hct MCV MCH MCHC RDW Plt Count MPV Neut % (Auto) Lymph % (Auto) [place] % (Auto) Eos % (Auto) Baso % (Auto) Neut # (Auto) Lymph # (Auto) [place] # (Auto) Eos # (Auto) Baso # (Auto) Retic Count 3.9 H D D-Dimer, Quantitative pCO2 pO2 HCO3 ABG pH ABG Total CO2 ABG O2 Saturation ABG O2 Content ABG Base Excess ABG Hemoglobin ABG Carboxyhemoglobin POC ABG HHb (Measured) ABG Methemoglobin ABG O2 Capacity Parviz Test A-a O2 Difference Hgb O2 Saturation Vent Mode Mechanical Rate FiO2 Inspiratory BiPAP Expiratory BiPAP Blood Gas Comments Crit Value Called To Crit Value Called By Crit Value Read Back Blood Gas Notified Time Sodium Potassium Chloride Carbon Dioxide Anion Gap BUN Creatinine Est GFR ( Amer) Est GFR (Non-Af Amer) POC Glucose (mg/dL) Random Glucose Calcium Iron TIBC % Saturation Ferritin 72.2 Total Bilirubin AST ALT Alkaline Phosphatase Troponin I NT-Pro-B Natriuret Pep Total Protein Albumin Globulin Albumin/Globulin Ratio Influenza Typ A,B (EIA) Blood Type A NEGATIVE Antibody Screen Negative Crossmatch See Detail BBK History Checked Patient has bt 02/25/19 02/25/19 02/26/19 21:45 21:52 02:16 WBC RBC Hgb Hct MCV MCH MCHC RDW Plt Count MPV Neut % (Auto) Lymph % (Auto) [place] % (Auto) Eos % (Auto) Baso % (Auto) Neut # (Auto) Lymph # (Auto) [place] # (Auto) Eos # (Auto) Baso # (Auto) Retic Count D-Dimer, Quantitative pCO2 71 H* 74 H* pO2 51 L 316 H HCO3 35.5 H 35.5 H ABG pH 7.37 7.35 ABG Total CO2 43.2 H 43.2 H ABG O2 Saturation 92.5 L 99.9 H ABG O2 Content 10.8 L 11.4 L ABG Base Excess 13.7 H 13.5 H ABG Hemoglobin 8.6 L 7.7 L ABG Carboxyhemoglobin 2.6 H 0.8 POC ABG HHb (Measured) 7.2 H 0.1 ABG Methemoglobin 1.4 1.4 ABG O2 Capacity 11.7 L 11.4 L Parviz Test Yes Yes A-a O2 Difference 74.0 305.0 Hgb O2 Saturation 88.7 L 97.7 Vent Mode Bipap Mechanical Rate 16 FiO2 30.0 100.0 Inspiratory BiPAP 15 Expiratory BiPAP 10 Blood Gas Comments 2l/m nc,rb Crit Value Called To Lilia uribe Crit Value Called By 15 Mj Crit Value Read Back Y Y Blood Gas Notified Time 2 219 Sodium Potassium Chloride Carbon Dioxide Anion Gap BUN Creatinine Est GFR ( Amer) Est GFR (Non-Af Amer) POC Glucose (mg/dL) 229 H Random Glucose Calcium Iron TIBC % Saturation Ferritin Total Bilirubin AST ALT Alkaline Phosphatase Troponin I NT-Pro-B Natriuret Pep Total Protein Albumin Globulin Albumin/Globulin Ratio Influenza Typ A,B (EIA) Blood Type Antibody Screen Crossmatch BBK History Checked 09/13/18 09/13/18 05:00 06:07 WBC RBC Hgb Hct MCV MCH MCHC RDW Plt Count MPV Neut % (Auto) Lymph % (Auto) [place] % (Auto) Eos % (Auto) Baso % (Auto) Neut # (Auto) Lymph # (Auto) [place] # (Auto) Eos # (Auto) Baso # (Auto) Retic Count D-Dimer, Quantitative pCO2 pO2 HCO3 ABG pH ABG Total CO2 ABG O2 Saturation ABG O2 Content ABG Base Excess ABG Hemoglobin ABG Carboxyhemoglobin POC ABG HHb (Measured) ABG Methemoglobin ABG O2 Capacity Parviz Test A-a O2 Difference Hgb O2 Saturation Vent Mode Mechanical Rate FiO2 Inspiratory BiPAP Expiratory BiPAP Blood Gas Comments Crit Value Called To Crit Value Called By Crit Value Read Back Blood Gas Notified Time Sodium 140 Potassium 4.0 Chloride 94 L Carbon Dioxide 36 H Anion Gap 14 BUN 26 H Creatinine 1.1 Est GFR ( Amer) 58 Est GFR (Non-Af Amer) 48 POC Glucose (mg/dL) 271 H Random Glucose 269 H Calcium 9.3 Iron TIBC % Saturation Ferritin Total Bilirubin 0.4 AST 29 ALT 59 H Alkaline Phosphatase 115 Troponin I NT-Pro-B Natriuret Pep Total Protein 6.7 Albumin 3.5 Globulin 3.2 Albumin/Globulin Ratio 1.1 Influenza Typ A,B (EIA) Blood Type Antibody Screen Crossmatch BBK History Checked Assessment & Plan (1) Pulmonary infiltrates Assessment and Plan: Bilateral, more right than left, suggestive of infectious process-CAP. Status: Acute Priority: High (2) Acute and chronic respiratory failure with hypercapnia Assessment and Plan: Acute on chronic process with hypercapnia and hypoxemia. Status: Acute Priority: High (3) Obesity with alveolar hypoventilation Status: Chronic Priority: High (4) Obstructive sleep apnea Status: Chronic Priority: High - Assessment and Plan (Free Text) Plan: Maintain BiPAP mask ventilation. Address underlying infectious process. Treat underlying cardiac failure. Correct other metabolic abnormalities. Agree with DVT prophylaxis. Would add PPI for GI prophylaxis. Consider holding clopidogrel for the present time. Urine antigen screening for strep oneumoniae and legionella. Antibody screening for mycoplasma. LDH and procalcitonin. - Date & Time Date: 09/13/18 Time: 11:30
[2018-09-13 09:28] LABS: BASO # 0.1 K/uL (0.0-0.2); BASO % 0.5 % (0.0-2.0); EOS # 0.1 K/uL (0.0-0.7); EOS % 0.8 % (0.0-4.0); HEMOGLOBIN 8.5 g/dL (12.0-16.0); LYMPH # 0.7 K/uL (1.0-4.3); LYMPH % 6.1 % (20.0-40.0); MEAN CELL VOLUME 97.9 fl (81.0-99.0); MEAN CORPUSCULAR HEMOGLOBIN 30.7 pg (27.0-31.0); MEAN CORPUSCULAR HGB CONC 31.4 g/dL (33.0-37.0); MEAN PLATELET VOLUME 8.8 fl (7.2-11.7); MONO # 1.4 K/uL (0.0-0.8); MONO % 11.1 % (0.0-10.0); NEUT # 9.9 K/uL (1.8-7.0); NEUT % 81.5 % (50.0-75.0); NRBC % 0.1 % (0.0-0.0); PLATELET COUNT 246 K/uL (130-400); RBC 2.76 Mil/uL (3.80-5.20); RED CELL DISTRIBUTION WIDTH 14.9 % (11.5-14.5); WHITE BLOOD COUNT 12.2 K/uL (4.8-10.8)
[2018-09-13] MEDS: Enoxaparin 40 mg Syringe SC SCH (09:46)
--- NOTE | 2018-09-13 10:19 | CT ---
Date of service: 09/12/2018 PROCEDURE: CT Chest with contrast (Pulmonary Angiogram) HISTORY: sob, hypoxia, elevated D Dimer COMPARISON: 04/22/2018 CT thorax. 05/02/2018 ventilation-perfusion scan. 09/12/2018 two-view chest TECHNIQUE: Axial computed tomography images were obtained of the chest in the pulmonary arterial phase of enhancement. Coronal and sagittal reformatted images were created and reviewed. Maximum intensity projection (MIP) reconstructed images in the following planes: Axial only. Intravenous contrast dose: 95 cc Visipaque 320. Mean Hounsfield value in the main pulmonary artery: 242.77 Radiation dose: Total exam DLP = 355.26 mGy-cm. This CT exam was performed using one or more of the following dose reduction techniques: Automated exposure control, adjustment of the mA and/or kV according to patient size, and/or use of iterative reconstruction technique. FINDINGS: PULMONARY ARTERIES: Unremarkable. No pulmonary embolism. AORTA: No acute findings. No thoracic aortic aneurysm. No atherosclerotic calcification or mural plaque present. LUNGS: Multifocal infiltrates bilaterally. Additional dependent atelectasis bilaterally. PLEURAL SPACES: Trace bilateral pleural effusions right larger than left. HEART: Unremarkable. No cardiomegaly. No significant pericardial effusion. LYMPH NODES: Mediastinal and hilar adenopathy particularly on the right. This conforms to findings on recent chest x-ray. BONES, CHEST WALL: Unremarkable. No fracture or destructive lesion OTHER FINDINGS: Unremarkable. IMPRESSION: Unremarkable CT pulmonary angiogram. No pulmonary embolus. Multifocal bilateral infiltrates. No discrete pulmonary nodules or masses. Small bilateral pleural effusions. Mediastinal and to a greater extent hilar adenopathy right greater than left. Concordant results (preliminary interpretation) provided by [facility]. Procedure Completed: 23:23. Preliminary Report: Interpreted and electronically signed: 00:03. Final Interpretation: 10:15. September 13, 2018
[2018-09-13] MEDS: Azithromycin 500 MG in Sodium Chloride 0.9% 250 ML IVPB SCH (12:11)
--- NOTE | 2018-09-13 12:13 | CP.PCM.PN ---
Subjective - Date & Time of Evaluation Date of Evaluation: 09/13/18 Time of Evaluation: 10:30 - Subjective Subjective: Patient seen and evaluated at bedside in AM. Patient had DIABETOLOGIST called yesterday night due to desaturation and tachycardia after which patient was transferred to Telemetry. D dimer elevated so CTA chest done for PT. Patient continues to have dyspnea with ambulation. Reports improvement in B/L leg swelling. Tolerating diet well PO. Denies fever, chills, cough. Denies any chest pain, nausea, vomiting, rectal bleeding, dizziness, headache, vision changes, calf tenderness, abdominal pain or urinary symptoms. Stool occult blood result unavailable, new order placed for stool occult blood. Pulmonary Dr. River consulted. Patient on BiPAP settings 14 IPAP/6EPAP/40%O2/16 RR. Objective - Vital Signs/Intake and Output Vital Signs (last 24 hours): Temp Pulse Resp BP Pulse Ox 99 F 73 18 160/66 H 97 09/13/18 09:00 09/13/18 09:42 09/13/18 09:00 09/13/18 09:44 09/13/18 09:00 - Medications Medications: Current Medications Aspirin (Ecotrin) 81 mg PO DAILY [facility] Last Admin: 09/13/18 09:45 Dose: 81 mg Atorvastatin Calcium (Lipitor) 40 mg PO DAILY [facility] Last Admin: 09/13/18 09:44 Dose: 40 mg Carvedilol (Coreg) 25 mg PO Q12 [facility] Last Admin: 09/13/18 09:42 Dose: 25 mg Clopidogrel Bisulfate (Plavix) 75 mg PO DAILY [facility] Last Admin: 09/13/18 09:43 Dose: 75 mg Dextrose (Dextrose 50% Inj) 0 ml IV STAT PRN; Protocol PRN Reason: Hypoglycemia Protocol Dextrose (Glutose 15) 0 gm PO ONCE PRN; Protocol PRN Reason: Hypoglycemia Protocol Enoxaparin Sodium (Lovenox) 40 mg SC DAILY [facility]; Protocol Last Admin: 09/13/18 09:46 Dose: 40 mg Escitalopram Oxalate (Lexapro) 20 mg PO DAILY [facility] Last Admin: 09/13/18 09:44 Dose: 20 mg Ferrous Sulfate (Feosol) 325 mg PO DAILY [facility] Last Admin: 09/13/18 09:43 Dose: 325 mg Furosemide (Lasix) 40 mg PO BID [facility] Last Admin: 09/13/18 09:44 Dose: 40 mg Glucagon (Glucagen Diagnostic Kit) 0 mg IM STAT PRN; Protocol PRN Reason: Hypoglycemia Protocol Ceftriaxone Sodium 1 gm/ (Sodium Chloride) 100 mls @ 100 mls/hr IVPB DAILY [facility]; Protocol Last Admin: 09/13/18 12:09 Dose: 100 mls/hr Azithromycin 500 mg/ Sodium (Chloride) 250 mls @ 250 mls/hr IVPB DAILY [facility]; Pr otocol Last Admin: 09/13/18 12:11 Dose: 250 mls/hr Insulin Human Lispro (Humalog) 0 units SC ACCU-CHECK [facility]; Protocol Last Admin: 09/13/18 11:33 Dose: 6 units Isosorbide Mononitrate (Imdur) 60 mg PO DAILY [facility] Last Admin: 09/13/18 09:44 Dose: 60 mg Mirtazapine (Remeron) 15 mg PO HS [facility] Last Admin: 09/13/18 00:26 Dose: 15 mg Valsartan (Diovan) 160 mg PO DAILY [facility] - Labs Labs: 09/13/18 09:16 09/13/18 05:00 - Constitutional Appears: Well, No Acute Distress - Head Exam Head Exam: ATRAUMATIC, NORMAL INSPECTION, NORMOCEPHALIC - Eye Exam Eye Exam: EOMI, Normal appearance - ENT Exam ENT Exam: Mucous Membranes Moist - Respiratory Exam Respiratory Exam: Rales, Respiratory Distress - Cardiovascular Exam Cardiovascular Exam: REGULAR RHYTHM, +S1, +S2, Murmur - GI/Abdominal Exam GI & Abdominal Exam: Soft, Normal Bowel Sounds. absent: Distended, Tenderness - Extremities Exam Extremities Exam: absent: Pedal Edema, Tenderness - Neurological Exam Neurological Exam: Alert, Awake, Oriented x3 - Psychiatric Exam Psychiatric exam: Normal Affect, Normal Mood - Skin Skin Exam: Dry, Intact, Normal Color, Warm Assessment and Plan - Assessment and Plan (Free Text) Assessment: 78 y/o female with PMHx of CAD, HTN, preserved EF CHF, IDDM, СВЕТЛАНА(On CPAP), Hx of CVA on home O2 presents to ED complaining of shortness of breath. Pt admitted for CHF exacerbation vs symptomatic anemia. CTA Chest: Unremarkable CT pulmonary angiogram. No pulmonary embolus. Multifocal bilateral infiltrates. No discrete pulmonary nodules or masses. Small bilateral pleural effusions. Mediastinal and to a greater extent hilar adenopathy right greater than left. Plan: Shortness of breath - Possibly 2/2 pulmonary infiltrate(CAP) vs CHF exacerbation vs anemia - DIABETOLOGIST yesterday for O2 sat <90 and tachycardia, Patient transferred to Telemetry -CXR no infiltrate. right hilar infiltrate, recommends CT follow up - WBC 12.2 - D Dimer 2600+, CTA Chest negative for PE, B/L pulmonary infiltrate and small pleural effusion -Started on Ceftriaxone 1 gm and Azithromycin 500 mg IVP daily for possible CAP -Started on BiPAP by Dr. River -F/U Urine antigen for strep pneumoniae, legionella, Antibody screening for mycoplasma. -F/U LDH and procalcitonin. CHF Exacerbation -Probnp 693, B/L rales -Lasix 40 mg PO BID, Will consider switching to 40 mg Lasix IVP daily -Continue Coreg 25 mg PO BID Anemia -Likely anemia of chronic disease -Iron 53, TIBC 285, Iron sat 19, Transferrin 214, Ferritin 72. -H/H 8.0/24.9 > 8.5/27.0, MCV 97% -Hold transfusion pRBC -f/u CBC, Stool occult blood DM -Hold Home Meds -SSI -Hypoglycemia protocol CKD stage 4 -chronic -hold metformin, no NSAIDs HTN -c/w Losartan 100 mg and Amlodipine H/O stroke -Hold clopidogrel -C/W ASA, Lovenox DVT Prophylaxis -Lovenox GI prophylaxis -Protonix 40 mg daily
[2018-09-13 12:48] LABS: LYMPHOCYTE 8 % (20-50); MONOCYTE 7 % (0-10); NEUTROPHIL 85 % (42-75); TOTAL CELLS COUNTED 100
[2018-09-13 12:49] LABS: ANISOCYTOSIS SLIGHT; HYPOCHROMIC MODERATE; PLATELET ESTIMATE NORMAL (NORMAL)
[2018-09-13 12:50] LABS: LARGE PLATELETS PRESENT; OVALOCYTES SLIGHT; PLATELET CLUMPS PRESENT; TOXIC GRANULATION PRESENT
--- NOTE | 2018-09-13 12:51 | CARD ---
APPROVED REPORT Date of service: 09/12/2018 EKG Measurement Heart [id number] ID [id number] <Conclusion> Normal sinus rhythm Nonspecific ST and T wave abnormality Abnormal ECG
[2018-09-13 14:37] LABS: ABG ALLEN TEST YES; ARTERIAL BLOOD GAS HCO3 35.2 mmol/L (21-28); ARTERIAL BLOOD GAS HEMOGLOBIN 7.2 g/dL (11.7-17.4); ARTERIAL BLOOD GAS O2 CONTENT 9.9 ML/dL (15-23); ARTERIAL BLOOD GAS O2 SAT 99.2 % (95-98); ARTERIAL BLOOD GAS PCO2 62 mm/Hg (35-45); ARTERIAL BLOOD GAS PH 7.41 (7.35-7.45); ARTERIAL BLOOD GAS PO2 100 mm/Hg (80-100); ARTERIAL BLOOD GAS TCO2 41.2 mmol/L (22-28)
[2018-09-14 05:35] LABS: BASO # 0.1 K/uL (0.0-0.2); BASO % 1.3 % (0.0-2.0); EOS # 0.2 K/uL (0.0-0.7); EOS % 2.4 % (0.0-4.0); HEMOGLOBIN 7.9 g/dL (12.0-16.0); LYMPH # 1.2 K/uL (1.0-4.3); LYMPH % 16.6 % (20.0-40.0); MEAN CORPUSCULAR HEMOGLOBIN 31.3 pg (27.0-31.0); MEAN CORPUSCULAR HGB CONC 31.9 g/dL (33.0-37.0); MEAN PLATELET VOLUME 8.5 fl (7.2-11.7); MONO # 0.7 K/uL (0.0-0.8); MONO % 9.1 % (0.0-10.0); NEUT # 5.2 K/uL (1.8-7.0); NEUT % 70.6 % (50.0-75.0); RBC 2.52 Mil/uL (3.80-5.20); RED CELL DISTRIBUTION WIDTH 15.4 % (11.5-14.5); WHITE BLOOD COUNT 7.4 K/uL (4.8-10.8)
[2018-09-14 06:48] LABS: ALB/GLOB RATIO 1.4 (1.0-2.1); ALBUMIN 3.7 g/dL (3.5-5.0)
[2018-09-14] MEDS: Insulin Lispro (humaLOG) 100 Units/ml Inj SC SCH ×4 (07:40→23:02)
[2018-09-14] MEDS: Azithromycin 500 MG in Sodium Chloride 0.9% 250 ML IVPB SCH (08:56)
[2018-09-14] MEDS ORDERED: Insulin Detemir 100 Units/ml Inj SC SCH ×2 (09:09→22:00)
--- NOTE | 2018-09-14 10:00 | CP.PCM.PN ---
Subjective - Date & Time of Evaluation Date of Evaluation: 09/14/18 Time of Evaluation: 09:46 - Subjective Subjective: Seated on edge of bed. Claims to be feeling better. Did NOT use BiPAP last night (poor mask tolerance). Able to get OOB to camode with assiatance and less dyspnea. ABG done yesterday afternoon did show improvement in CO2 and SpO2. AM labs noted; Hgb 7.9 today. Heme in the room with her now. No dependant edema, no calf tenderness, no cyanosis. Neck is supple and trachea midline. No dullness to percussion. Breath sounds are diminished equally in both lungs. Harsh BS in RUL region posteriorly, but no bronchial breathing. Medium rales still present in the bases posteriorly. No audible wheezes. Heart sounds are distant, rhythm is regular. Continue with present regimen. Family member will bring her mask from home today. Will use this if it fits our system. If it does not fit I would try using HFNC at 30% O2 and 40 LPM. Will request repeat CXR for tomorrow, but CT will be needed in 2-3 weeks. Objective - Vital Signs/Intake and Output Vital Signs (last 24 hours): Temp Pulse Resp BP Pulse Ox 98.4 F 83 20 158/73 H 96 09/14/18 08:05 09/14/18 08:53 09/14/18 08:05 09/14/18 08:55 09/14/18 08:05 - Medications Medications: Current Medications Acetaminophen (Tylenol 325mg Tab) 650 mg PO Q6 PRN PRN Reason: Headache Last Admin: 09/13/18 23:24 Dose: 650 mg Aspirin (Ecotrin) 81 mg PO DAILY [facility] Last Admin: 09/14/18 08:53 Dose: 81 mg Atorvastatin Calcium (Lipitor) 40 mg PO DAILY [facility] Last Admin: 09/14/18 08:55 Dose: 40 mg Carvedilol (Coreg) 25 mg PO Q12 [facility] Last Admin: 09/14/18 08:53 Dose: 25 mg Clopidogrel Bisulfate (Plavix) 75 mg PO DAILY [facility] Last Admin: 09/13/18 09:43 Dose: 75 mg Dextrose (Dextrose 50% Inj) 0 ml IV STAT PRN; Protocol PRN Reason: Hypoglycemia Protocol Dextrose (Glutose 15) 0 gm PO ONCE PRN; Protocol PRN Reason: Hypoglycemia Protocol Docusate Sodium (Colace) 100 mg PO ONCE ONE Stop: 09/14/18 16:45 Enoxaparin Sodium (Lovenox) 40 mg SC DAILY [facility]; Protocol Last Admin: 09/13/18 09:46 Dose: 40 mg Escitalopram Oxalate (Lexapro) 20 mg PO DAILY [facility] Last Admin: 09/14/18 08:55 Dose: 20 mg Ferrous Sulfate (Feosol) 325 mg PO DAILY [facility] Last Admin: 09/14/18 08:52 Dose: 325 mg Furosemide (Lasix) 40 mg PO BID [facility] Last Admin: 09/14/18 08:55 Dose: 40 mg Glucagon (Glucagen Diagnostic Kit) 0 mg IM STAT PRN; Protocol PRN Reason: Hypoglycemia Protocol Ceftriaxone Sodium 1 gm/ (Sodium Chloride) 100 mls @ 100 mls/hr IVPB DAILY [facility]; Protocol Last Admin: 09/14/18 08:38 Dose: 100 mls/hr Azithromycin 500 mg/ Sodium (Chloride) 250 mls @ 250 mls/hr IVPB DAILY [facility]; Protocol Last Admin: 09/14/18 08:56 Dose: 250 mls/hr Insulin Detemir (Levemir) 15 units SC [facility] Insulin Detemir (Levemir) 5 units SC DAILY [facility] Insulin Human Lispro (Humalog) 0 units SC ACCU-CHECK [facility]; Protocol Last Admin: 09/14/18 07:40 Dose: 10 units Isosorbide Mononitrate (Imdur) 60 mg PO DAILY [facility] Last Admin: 09/14/18 08:39 Dose: 60 mg Losartan Potassium (Cozaar) 100 mg PO DAILY [facility] Last Admin: 09/14/18 08:53 Dose: 100 mg Mirtazapine (Remeron) 15 mg PO HS [facility] Last Admin: 09/13/18 22:00 Dose: 15 mg - Labs Labs: 09/14/18 05:05 09/14/18 05:05 Assessment and Plan (1) Pulmonary infiltrates Status: Acute (2) Acute and chronic respiratory failure with hypercapnia Status: Acute (3) Obesity with alveolar hypoventilation Status: Chronic (4) Obstructive sleep apnea Status: Chronic
--- NOTE | 2018-09-14 11:18 | CP.PCM.CON ---
History of Present Illness - History of Present Illness History of Present Illness: This is a 78 yrs old female who was brought to the hospital because of increasing shortness of breath and fatigue. She has several co morbidities HTN, DM,CAD with stent placed ,CHF. She was found to be anemic with a hgb of 8.0., MCV97. WBC,7.9 and platelets.233k. She gives no h/o familial anemia, no bleeding from any site..Her ferritin was 108 but serum iron was a little low. Retic was 3.9. She has not had any infections until now. No h/o smoking or alcohol abuse. Past Patient History - Infectious Disease Hx of Infectious Diseases: None - Tetanus Immunizations Tetanus Immunization: Unknown - Past Medical History & Family History Past Medical History?: Yes Past Family History: Reviewed and not pertinent - Past Social History Smoking Status: Never Smoked Chewing Tobacco Use: No Cigar Use: No Alcohol: None Drugs: Denies Home Situation {Lives}: With Family - CARDIAC Hx Congestive Heart Failure: Yes Hx Hypercholesterolemia: Yes Hx Hypertension: Yes Other/Comment: CAD - PULMONARY Hx Pneumonia: Yes Hx Sleep Apnea: Yes Other/Comment: Chronic hypercapnic respiratory failure - NEUROLOGICAL HX Cerebrovascular Accident: Yes - HEENT Hx HEENT Problems: No - RENAL Hx Chronic Kidney Disease: No - ENDOCRINE/METABOLIC Hx Diabetes Mellitus Type 2: Yes - HEMATOLOGICAL/ONCOLOGICAL Hx Anemia: Yes Hx Human Immunodeficiency Virus (HIV): No - INTEGUMENTARY Hx Dermatological Problems: No - MUSCULOSKELETAL/RHEUMATOLOGICAL Hx Arthritis: Yes Hx Falls: Yes - GASTROINTESTINAL Hx Gastritis: Yes - GENITOURINARY/GYNECOLOGICAL Hx Genitourinary Disorders: No - PSYCHIATRIC Hx Anxiety: Yes - SURGICAL HISTORY Hx Angioplasty: Yes Hx Cardiac Catheterization: Yes Hx Coronary Stent: Yes - ANESTHESIA Hx Anesthesia: Yes Hx Anesthesia Reactions: No Hx Malignant Hyperthermia: No Meds Allergies/Adverse Reactions: Allergies Allergy/AdvReac Type Severity Reaction Status Date / Time No Known Allergies Allergy Verified 04/29/18 23:30 - Medications Medications: Current Medications Acetaminophen (Tylenol 325mg Tab) 650 mg PO Q6 PRN PRN Reason: Headache Last Admin: 09/13/18 23:24 Dose: 650 mg Aspirin (Ecotrin) 81 mg PO DAILY [facility] Last Admin: 09/14/18 08:53 Dose: 81 mg Atorvastatin Calcium (Lipitor) 40 mg PO DAILY [facility] Last Admin: 09/14/18 08:55 Dose: 40 mg Carvedilol (Coreg) 25 mg PO Q12 [facility] Last Admin: 09/14/18 08:53 Dose: 25 mg Clopidogrel Bisulfate (Plavix) 75 mg PO DAILY [facility] Last Admin: 09/13/18 09:43 Dose: 75 mg Dextrose (Dextrose 50% Inj) 0 ml IV STAT PRN; Protocol PRN Reason: Hypoglycemia Protocol Dextrose (Glutose 15) 0 gm PO ONCE PRN; Protocol PRN Reason: Hypoglycemia Protocol Docusate Sodium (Colace) 100 mg PO ONCE ONE Stop: 09/14/18 16:45 Enoxaparin Sodium (Lovenox) 40 mg SC DAILY [facility]; Protocol Last Admin: 09/13/18 09:46 Dose: 40 mg Escitalopram Oxalate (Lexapro) 20 mg PO DAILY [facility] Last Admin: 09/14/18 08:55 Dose: 20 mg Ferrous Sulfate (Feosol) 325 mg PO DAILY [facility] Last Admin: 09/14/18 08:52 Dose: 325 mg Furosemide (Lasix) 40 mg PO BID [facility] Last Admin: 09/14/18 08:55 Dose: 40 mg Glucagon (Glucagen Diagnostic Kit) 0 mg IM STAT PRN; Protocol PRN Reason: Hypoglycemia Protocol Ceftriaxone Sodium 1 gm/ (Sodium Chloride) 100 mls @ 100 mls/hr IVPB DAILY [facility]; Protocol Last Admin: 09/14/18 08:38 Dose: 100 mls/hr Azithromycin 500 mg/ Sodium (Chloride) 250 mls @ 250 mls/hr IVPB DAILY [facility]; Protocol Last Admin: 09/14/18 08:56 Dose: 250 mls/hr Insulin Detemir (Levemir) 15 units SC [facility] Insulin Detemir (Levemir) 5 units SC DAILY [facility] Insulin Human Lispro (Humalog) 0 units SC ACCU-CHECK [facility]; Protocol Last Admin: 09/14/18 07:40 Dose: 10 units Isosorbide Mononitrate (Imdur) 60 mg PO DAILY [facility] Last Admin: 09/14/18 08:39 Dose: 60 mg Losartan Potassium (Cozaar) 100 mg PO DAILY [facility] Last Admin: 09/14/18 08:53 Dose: 100 mg Mirtazapine (Remeron) 15 mg PO HS [facility] Last Admin: 09/13/18 22:00 Dose: 15 mg Physical Exam - Additional Findings Additional findings: Physical exam; Alert,well oriented in no acute distress neck; supple, no adenopathy Chest; Air entry reduced bilaterally, r.left. Heart; RSR, no murmur Abd; Soft, no mass.. no h/s megaly Results - Vital Signs Recent Vital Signs: Last Vital Signs Temp 98.4 F 09/14/18 09:00 Pulse 83 09/14/18 09:00 Resp 20 09/14/18 09:00 BP 158/73 H 09/14/18 09:00 Pulse Ox 96 09/14/18 09:00 - Labs Result Diagrams: 09/14/18 05:05 09/14/18 05:05 Labs: Laboratory Results - last 24 hr 09/12/18 09/13/18 09/13/18 19:22 09:16 11:04 WBC RBC Hgb Hct MCV MCH MCHC RDW Plt Count MPV Neut % (Auto) Lymph % (Auto) [place] % (Auto) Eos % (Auto) Baso % (Auto) Neut # (Auto) Lymph # (Auto) [place] # (Auto) Eos # (Auto) Baso # (Auto) Neutrophils % (Manual) 85 H Lymphocytes % (Manual) 8 L Monocytes % (Manual) 7 Toxic Granulation Present Platelet Estimate Normal Plt Clumps, EDTA Present Large Platelets Present Hypochromasia (manual) Moderate Anisocytosis (manual) Slight Ovalocytes Slight pCO2 pO2 HCO3 ABG pH ABG Total CO2 ABG O2 Saturation ABG O2 Content ABG Base Excess ABG Hemoglobin ABG Carboxyhemoglobin POC ABG HHb (Measured) ABG Methemoglobin ABG O2 Capacity Parviz Test A-a O2 Difference Hgb O2 Saturation Vent Mode FiO2 Inspiratory BiPAP Expiratory BiPAP Blood Gas Comments Crit Value Called To Crit Value Called By Crit Value Read Back Blood Gas Notified Time Sodium Potassium Chloride Carbon Dioxide Anion Gap BUN Creatinine Est GFR ( Amer) Est GFR (Non-Af Amer) POC Glucose (mg/dL) Random Glucose Calcium Transferrin 214.18 Ferritin Total Bilirubin AST ALT Alkaline Phosphatase Lactate Dehydrogenase Total Protein Albumin Globulin Albumin/Globulin Ratio Procalcitonin 0.08 L Mycoplasma pneumon IgM 09/13/18 09/13/18 09/13/18 11:04 11:04 11:31 WBC RBC Hgb Hct MCV MCH MCHC RDW Plt Count MPV Neut % (Auto) Lymph % (Auto) [place] % (Auto) Eos % (Auto) Baso % (Auto) Neut # (Auto) Lymph # (Auto) [place] # (Auto) Eos # (Auto) Baso # (Auto) Neutrophils % (Manual) Lymphocytes % (Manual) Monocytes % (Manual) Toxic Granulation Platelet Estimate Plt Clumps, EDTA Large Platelets Hypochromasia (manual) Anisocytosis (manual) Ovalocytes pCO2 62 H pO2 100 HCO3 35.2 H ABG pH 7.41 ABG Total CO2 41.2 H ABG O2 Saturation 99.2 H ABG O2 Content 9.9 L ABG Base Excess 13.2 H ABG Hemoglobin 7.2 L ABG Carboxyhemoglobin 1.3 POC ABG HHb (Measured) 0.8 ABG Methemoglobin 1.9 ABG O2 Capacity 10.0 L Parviz Test Yes A-a O2 Difference 108.0 Hgb O2 Saturation 96.1 Vent Mode Bipap FiO2 40.0 Inspiratory BiPAP 14 Expiratory BiPAP 6 Blood Gas Comments Bipap Crit Value Called To Elisa puente r.n. Crit Value Called By Tiffany Crit Value Read Back Y Blood Gas Notified Time 1437 Sodium Potassium Chloride Carbon Dioxide Anion Gap BUN Creatinine Est GFR ( Amer) Est GFR (Non-Af Amer) POC Glucose (mg/dL) Random Glucose Calcium Transferrin Ferritin Total Bilirubin AST ALT Alkaline Phosphatase Lactate Dehydrogenase 437 Total Protein Albumin Globulin Albumin/Globulin Ratio Procalcitonin Mycoplasma pneumon IgM Negative 09/13/18 09/13/18 09/14/18 15:50 21:18 05:05 WBC 7.4 RBC 2.52 L Hgb 7.9 L Hct 24.7 L MCV 98.0 MCH 31.3 H MCHC 31.9 L RDW 15.4 H Plt Count 232 MPV 8.5 Neut % (Auto) 70.6 Lymph % (Auto) 16.6 L [place] % (Auto) 9.1 Eos % (Auto) 2.4 Baso % (Auto) 1.3 Neut # (Auto) 5.2 Lymph # (Auto) 1.2 [place] # (Auto) 0.7 Eos # (Auto) 0.2 Baso # (Auto) 0.1 Neutrophils % (Manual) Lymphocytes % (Manual) Monocytes % (Manual) Toxic Granulation Platelet Estimate Plt Clumps, EDTA Large Platelets Hypochromasia (manual) Anisocytosis (manual) Ovalocytes pCO2 pO2 HCO3 ABG pH ABG Total CO2 ABG O2 Saturation ABG O2 Content ABG Base Excess ABG Hemoglobin ABG Carboxyhemoglobin POC ABG HHb (Measured) ABG Methemoglobin ABG O2 Capacity Parviz Test A-a O2 Difference Hgb O2 Saturation Vent Mode FiO2 Inspiratory BiPAP Expiratory BiPAP Blood Gas Comments Crit Value Called To Crit Value Called By Crit Value Read Back Blood Gas Notified Time Sodium Potassium Chloride Carbon Dioxide Anion Gap BUN Creatinine Est GFR ( Amer) Est GFR (Non-Af Amer) POC Glucose (mg/dL) 357 H 329 H Random Glucose Calcium Transferrin Ferritin Total Bilirubin AST ALT Alkaline Phosphatase Lactate Dehydrogenase Total Protein Albumin Globulin Albumin/Globulin Ratio Procalcitonin Mycoplasma pneumon IgM 09/14/18 09/14/18 09/14/18 05:05 05:26 08:59 WBC RBC Hgb Hct MCV MCH MCHC RDW Plt Count MPV Neut % (Auto) Lymph % (Auto) [place] % (Auto) Eos % (Auto) Baso % (Auto) Neut # (Auto) Lymph # (Auto) [place] # (Auto) Eos # (Auto) Baso # (Auto) Neutrophils % (Manual) Lymphocytes % (Manual) Monocytes % (Manual) Toxic Granulation Platelet Estimate Plt Clumps, EDTA Large Platelets Hypochromasia (manual) Anisocytosis (manual) Ovalocytes pCO2 pO2 HCO3 ABG pH ABG Total CO2 ABG O2 Saturation ABG O2 Content ABG Base Excess ABG Hemoglobin ABG Carboxyhemoglobin POC ABG HHb (Measured) ABG Methemoglobin ABG O2 Capacity Parviz Test A-a O2 Difference Hgb O2 Saturation Vent Mode FiO2 Inspiratory BiPAP Expiratory BiPAP Blood Gas Comments Crit Value Called To Crit Value Called By Crit Value Read Back Blood Gas Notified Time Sodium 138 Potassium 4.7 Chloride 89 L Carbon Dioxide 38 H Anion Gap 16 BUN 30 H Creatinine 1.2 Est GFR ( Amer) 53 Est GFR (Non-Af Amer) 44 POC Glucose (mg/dL) 374 H Random Glucose 357 H Calcium 9.0 Transferrin Ferritin 108.0 Total Bilirubin 0.4 AST 22 ALT 47 Alkaline Phosphatase 107 Lactate Dehydrogenase Total Protein 6.4 Albumin 3.7 Globulin 2.7 Albumin/Globulin Ratio 1.4 Procalcitonin Mycoplasma pneumon IgM 09/14/18 09:01 WBC RBC Hgb Hct MCV MCH MCHC RDW Plt Count MPV Neut % (Auto) Lymph % (Auto) [place] % (Auto) Eos % (Auto) Baso % (Auto) Neut # (Auto) Lymph # (Auto) [place] # (Auto) Eos # (Auto) Baso # (Auto) Neutrophils % (Manual) Lymphocytes % (Manual) Monocytes % (Manual) Toxic Granulation Platelet Estimate Plt Clumps, EDTA Large Platelets Hypochromasia (manual) Anisocytosis (manual) Ovalocytes pCO2 pO2 HCO3 ABG pH ABG Total CO2 ABG O2 Saturation ABG O2 Content ABG Base Excess ABG Hemoglobin ABG Carboxyhemoglobin POC ABG HHb (Measured) ABG Methemoglobin ABG O2 Capacity Parviz Test A-a O2 Difference Hgb O2 Saturation Vent Mode FiO2 Inspiratory BiPAP Expiratory BiPAP Blood Gas Comments Crit Value Called To Crit Value Called By Crit Value Read Back Blood Gas Notified Time Sodium Potassium Chloride Carbon Dioxide Anion Gap BUN Creatinine Est GFR ( Amer) Est GFR (Non-Af Amer) POC Glucose (mg/dL) 348 H Random Glucose Calcium Transferrin Ferritin Total Bilirubin AST ALT Alkaline Phosphatase Lactate Dehydrogenase Total Protein Albumin Globulin Albumin/Globulin Ratio Procalcitonin Mycoplasma pneumon IgM Assessment & Plan - Assessment and Plan (Free Text) Assessment: Impression; Anemia of chronic disease.. Possible iron and B12 deficiency. Plan: Plan: Stools for occult blood.x3. :
[2018-09-14] MEDS: Enoxaparin 40 mg Syringe SC SCH (11:34)
--- NOTE | 2018-09-14 13:25 | CP.PCM.PN ---
Subjective - Date & Time of Evaluation Date of Evaluation: 09/14/18 Time of Evaluation: 09:35 - Subjective Subjective: Patient seen and evaluated at bedside in AM. Patient did not use BiPAP mask yesterday night due to poor mask tolerance and was off of BiPAP. Family brought mask from home which patient is using now. Reports improvement in dyspnea but occasional dry cough. Tolerating diet well PO and ate food from home yesterday evening. Denies fever, chills, chest pain, nausea, vomiting, rectal bleeding, dizziness, headache, vision changes, calf tenderness. No BM yet, pending occult blood test. Patient on BiPAP settings 14 IPAP/6EPAP/40%O2/16 RR. Objective - Vital Signs/Intake and Output Vital Signs (last 24 hours): Temp Pulse Resp BP Pulse Ox 98.4 F 68 20 125/63 98 09/14/18 12:09 09/14/18 12:09 09/14/18 12:09 09/14/18 12:09 09/14/18 12:09 - Medications Medications: Current Medications Acetaminophen (Tylenol 325mg Tab) 650 mg PO Q6 PRN PRN Reason: Headache Last Admin: 09/13/18 23:24 Dose: 650 mg Aspirin (Ecotrin) 81 mg PO DAILY [facility] Last Admin: 09/14/18 08:53 Dose: 81 mg Atorvastatin Calcium (Lipitor) 40 mg PO DAILY [facility] Last Admin: 09/14/18 08:55 Dose: 40 mg Carvedilol (Coreg) 25 mg PO Q12 [facility] Last Admin: 09/14/18 08:53 Dose: 25 mg Clopidogrel Bisulfate (Plavix) 75 mg PO DAILY [facility] Last Admin: 09/13/18 09:43 Dose: 75 mg Dextrose (Dextrose 50% Inj) 0 ml IV STAT PRN; Protocol PRN Reason: Hypoglycemia Protocol Dextrose (Glutose 15) 0 gm PO ONCE PRN; Protocol PRN Reason: Hypoglycemia Protocol Docusate Sodium (Colace) 100 mg PO ONCE ONE Stop: 09/14/18 16:45 Enoxaparin Sodium (Lovenox) 40 mg SC DAILY [facility]; Protocol Last Admin: 09/14/18 11:34 Dose: 40 mg Escitalopram Oxalate (Lexapro) 20 mg PO DAILY [facility] Last Admin: 09/14/18 08:55 Dose: 20 mg Ferrous Sulfate (Feosol) 325 mg PO DAILY [facility] Last Admin: 09/14/18 08:52 Dose: 325 mg Furosemide (Lasix) 40 mg PO BID [facility] Last Admin: 09/14/18 08:55 Dose: 40 mg Glucagon (Glucagen Diagnostic Kit) 0 mg IM STAT PRN; Protocol PRN Reason: Hypoglycemia Protocol Ceftriaxone Sodium 1 gm/ (Sodium Chloride) 100 mls @ 100 mls/hr IVPB DAILY [facility]; Protocol Last Admin: 09/14/18 08:38 Dose: 100 mls/hr Azithromycin 500 mg/ Sodium (Chloride) 250 mls @ 250 mls/hr IVPB DAILY [facility]; Protocol Last Admin: 09/14/18 08:56 Dose: 250 mls/hr Insulin Detemir (Levemir) 15 units SC [facility] Insulin Detemir (Levemir) 5 units SC DAILY [facility] Last Admin: 09/14/18 11:37 Dose: 5 units Insulin Human Lispro (Humalog) 0 units SC ACCU-CHECK [facility]; Protocol Last Admin: 09/14/18 11:33 Dose: 6 units Isosorbide Mononitrate (Imdur) 60 mg PO DAILY [facility] Last Admin: 09/14/18 08:39 Dose: 60 mg Losartan Potassium (Cozaar) 100 mg PO DAILY [facility] Last Admin: 09/14/18 08:53 Dose: 100 mg Mirtazapine (Remeron) 15 mg PO [facility] Last Admin: 09/13/18 22:00 Dose: 15 mg - Labs Labs: 09/14/18 05:05 09/14/18 05:05 - Constitutional Appears: Well, No Acute Distress - Head Exam Head Exam: ATRAUMATIC, NORMAL INSPECTION, NORMOCEPHALIC - Eye Exam Eye Exam: EOMI, Normal appearance - ENT Exam ENT Exam: Mucous Membranes Moist - Neck Exam Neck Exam: Full ROM - Respiratory Exam Respiratory Exam: Decreased Breath Sounds, Rales - Cardiovascular Exam Cardiovascular Exam: REGULAR RHYTHM, +S1, +S2, Murmur - GI/Abdominal Exam GI & Abdominal Exam: Soft, Normal Bowel Sounds. absent: Distended, Tenderness - Extremities Exam Extremities Exam: absent: Calf Tenderness, Pedal Edema, Tenderness - Back Exam Back Exam: absent: paraspinal tenderness, vertebral tenderness - Neurological Exam Neurological Exam: Alert, Awake, Oriented x3 - Psychiatric Exam Psychiatric exam: Normal Affect, Normal Mood - Skin Skin Exam: Dry, Intact, Normal Color, Warm Assessment and Plan - Assessment and Plan (Free Text) Assessment: 78 y/o female with PMHx of CAD, HTN, preserved EF CHF, IDDM, СВЕТЛАНА(On CPAP), Hx of CVA on home O2 presents to ED complaining of shortness of breath. Pt admitted for CHF exacerbation vs symptomatic anemia. CTA Chest: Unremarkable CT pulmonary angiogram. No pulmonary embolus. Multifocal bilateral infiltrates. No discrete pulmonary nodules or masses. Small bilateral pleural effusions. Mediastinal and to a greater extent hilar adenopathy right greater than left. Plan: Shortness of breath 2/2 CAP vs CHF exacerbation - On BiPAP 14/6/40%, Family brought face mask from home. - CXR no infiltrate. right hilar infiltrate - D Dimer 2600+, CTA Chest negative for PE, B/L pulmonary infiltrate and small pleural effusion - Procalcitonin 0.08, WBC 7.4 - Continue Ceftriaxone 1 gm and Azithromycin 500 mg IVP daily - Continue BiPAP - Mycoplasma neg, F/U Urine antigen for strep pneumoniae, legionella. - Cable Way Operator Dr. River on board, Recs CXR tomorrow and CT chest in 2-3 weeks CHF Exacerbation - Probnp 693, B/L rales - Lasix 40 mg PO BID - Continue Coreg 25 mg PO BID - Monitor vitals Anemia - Likely anemia of chronic disease - Iron 53, TIBC 285, Iron sat 19, Transferrin 214, Ferritin 72. - H/H 8.0/24.9 > 8.5/27.0 > 7.9/24 - Continue Feosol 325 daily - Air Support Control Officer Dr. Selina Hammer consulted, Recommends PRBC transfusion 2 units - Will repeat Post transfusion CBC. - Monitor H/H DM - Uncontrolled - Consistent carb diet, Patient advised to eat hospital food, avoid home cooked food for better glycemic control. - Resume Home insulin regimen, Levemir 40 SC BID - SSI - Hypoglycemia protocol - Monitor glucose ACHS CKD stage 4 - chronic - hold metformin, no NSAIDs HTN - c/w Losartan 100 mg and Amlodipine H/O stroke - Hold clopidogrel - C/W ASA, Lovenox DVT Prophylaxis - Lovenox 40 sc daily GI prophylaxis -Protonix 40 mg daily
[2018-09-14] MEDS: Insulin Detemir 100 Units/ml Inj SC SCH (16:57)
[2018-09-15 05:53] LABS: BASO # 0.1 K/uL (0.0-0.2); EOS # 0.2 K/uL (0.0-0.7); EOS % 3.6 % (0.0-4.0); HEMOGLOBIN 9.4 g/dL (12.0-16.0); LYMPH # 1.2 K/uL (1.0-4.3); LYMPH % 17.4 % (20.0-40.0); MEAN CELL VOLUME 95.1 fl (81.0-99.0); MEAN CORPUSCULAR HEMOGLOBIN 31.1 pg (27.0-31.0); MEAN CORPUSCULAR HGB CONC 32.7 g/dL (33.0-37.0); MEAN PLATELET VOLUME 8.4 fl (7.2-11.7); MONO # 0.6 K/uL (0.0-0.8); MONO % 9.5 % (0.0-10.0); NEUT # 4.7 K/uL (1.8-7.0); NEUT % 68.5 % (50.0-75.0); RBC 3.01 Mil/uL (3.80-5.20); RED CELL DISTRIBUTION WIDTH 15.7 % (11.5-14.5); WHITE BLOOD COUNT 6.8 K/uL (4.8-10.8)
[2018-09-15 06:09] LABS: CALCIUM 9.2 mg/dL (8.4-10.2)
[2018-09-15] MEDS: Azithromycin 500 MG in Sodium Chloride 0.9% 250 ML IVPB SCH (09:27)
[2018-09-15] MEDS: Insulin Detemir 100 Units/ml Inj SC SCH ×2 (09:28→17:03)
[2018-09-15] MEDS: Insulin Lispro (humaLOG) 100 Units/ml Inj SC SCH ×4 (09:29→22:00)
[2018-09-15] MEDS: Enoxaparin 40 mg Syringe SC SCH (09:30)
--- NOTE | 2018-09-15 09:52 | CP.PCM.PN ---
Subjective - Date & Time of Evaluation Date of Evaluation: 09/15/18 Time of Evaluation: 09:50 - Subjective Subjective: Pt feels a little better today. Breathing is easier and po2 is 99. I explained to her that her anemia is secondary to chronic disease, and theonce dailyre no treatment that can be given now.I would just continue her po iro Objective - Vital Signs/Intake and Output Vital Signs (last 24 hours): Temp Pulse Resp BP Pulse Ox 98 F 77 20 175/75 H 95 09/15/18 08:27 09/15/18 09:30 09/15/18 08:27 09/15/18 09:30 09/15/18 08:27 Intake and Output: 09/15/18 09/15/18 06:59 18:59 Intake Total 325 Balance 325 - Medications Medications: Current Medications Acetaminophen (Tylenol 325mg Tab) 650 mg PO Q6 PRN PRN Reason: Headache Last Admin: 09/13/18 23:24 Dose: 650 mg Aspirin (Ecotrin) 81 mg PO DAILY [facility] Last Admin: 09/15/18 09:29 Dose: 81 mg Atorvastatin Calcium (Lipitor) 40 mg PO DAILY [facility] Last Admin: 09/15/18 09:30 Dose: 40 mg Carvedilol (Coreg) 25 mg PO Q12 [facility] Last Admin: 09/15/18 09:28 Dose: 25 mg Clopidogrel Bisulfate (Plavix) 75 mg PO DAILY [facility] Last Admin: 09/13/18 09:43 Dose: 75 mg Dextrose (Dextrose 50% Inj) 0 ml IV STAT PRN; Protocol PRN Reason: Hypoglycemia Protocol Dextrose (Glutose 15) 0 gm PO ONCE PRN; Protocol PRN Reason: Hypoglycemia Protocol Docusate Sodium (Colace) 100 mg PO BID [facility] Last Admin: 09/15/18 09:28 Dose: 100 mg Enoxaparin Sodium (Lovenox) 40 mg SC DAILY [facility]; Protocol Last Admin: 09/15/18 09:30 Dose: 40 mg Escitalopram Oxalate (Lexapro) 20 mg PO DAILY [facility] Last Admin: 09/15/18 09:28 Dose: 20 mg Ferrous Sulfate (Feosol) 325 mg PO DAILY [facility] Last Admin: 09/15/18 09:30 Dose: 325 mg Furosemide (Lasix) 40 mg PO BID [facility] Last Admin: 09/15/18 09:29 Dose: 40 mg Glucagon (Glucagen Diagnostic Kit) 0 mg IM STAT PRN; Protocol PRN Reason: Hypoglycemia Protocol Ceftriaxone Sodium 1 gm/ (Sodium Chloride) 100 mls @ 100 mls/hr IVPB DAILY [facility]; Protocol Last Admin: 09/15/18 09:27 Dose: 100 mls/hr Azithromycin 500 mg/ Sodium (Chloride) 250 mls @ 250 mls/hr IVPB DAILY [facility]; Protocol Last Admin: 09/15/18 09:27 Dose: 250 mls/hr Insulin Detemir (Levemir) 40 units SC BID [facility] Last Admin: 09/15/18 09:28 Dose: 40 units Insulin Human Lispro (Humalog) 0 units SC ACCU-CHECK [facility]; Protocol Last Admin: 09/15/18 09:29 Dose: 2 units Isosorbide Mononitrate (Imdur) 60 mg PO DAILY [facility] Last Admin: 09/15/18 09:28 Dose: 60 mg Losartan Potassium (Cozaar) 100 mg PO DAILY [facility] Last Admin: 09/15/18 09:30 Dose: 100 mg Mirtazapine (Remeron) 15 mg PO [facility] Last Admin: 09/14/18 22:00 Dose: Not Given - Labs Labs: 09/15/18 05:35 09/15/18 05:35
--- NOTE | 2018-09-15 09:53 | RAD ---
Date of service: 09/15/2018 PROCEDURE: CHEST RADIOGRAPH, 1 VIEW HISTORY: SOB, CHF, Pneumonia COMPARISON: 09/12/2018. FINDINGS: LUNGS: The lungs are well inflated. There is worsening pulmonary venous congestion and probable alveolar pulmonary edema. PLEURA: Stable effusions. No pneumothorax. CARDIOVASCULAR: Persistent cardiomegaly with prominent right pulmonary artery. There are aortic atherosclerotic calcifications present. OSSEOUS STRUCTURES: Within normal limits for the patient's age. VISUALIZED UPPER ABDOMEN: Normal. OTHER FINDINGS: None. IMPRESSION: Worsening congestive heart failure.
--- NOTE | 2018-09-15 15:15 | PQF ---
PROVIDER RESPONSE TEXT: Insulin dependent diabetes mellitus with hyperglycemia REVIEWER QUERY TEXT: Diabetic Associated Manifestations The resident has documented DM Uncontrolled. Please specify uncontrolled meaning Hyperglycemia or Hyp oglycemia. Please specify any manifestations associated / due to diabetes Glucose running 123-357 The patient's Clinical Indicators include: Glucose running 123--357. Rx: Accuchecks with insulin coverage Query created by: Gissel Anna on 09/15/2018 2:22 PM Electronically signed by: Matt Pham 09/15/2018 3:11 PM
--- NOTE | 2018-09-15 17:08 | CP.PCM.PN ---
Subjective - Date & Time of Evaluation Date of Evaluation: 09/15/18 Time of Evaluation: 10:20 - Subjective Subjective: Patient seen and evaluated at bedside. NAD. No acute events overnight. Patient currently on NC o2 4L. S/P 2 PRBC yesterday with 9.4 Hgb post transfusion. Tolerated transfusion well. Reports mild improvement in dyspnea. Denies any chest pain, headache, dizziness, nausea, vomiting, diarrhea. 1 BM yesterday. Tolerating diet well. On BiPAP with setting 14/6/40%. Objective - Vital Signs/Intake and Output Vital Signs (last 24 hours): Temp Pulse Resp BP Pulse Ox 97.8 F 85 20 167/67 H 94 L 09/15/18 15:37 09/15/18 17:02 09/15/18 15:37 09/15/18 17:02 09/15/18 15:37 Intake and Output: 09/15/18 09/15/18 06:59 18:59 Intake Total 325 Balance 325 - Medications Medications: Current Medications Acetaminophen (Tylenol 325mg Tab) 650 mg PO Q6 PRN PRN Reason: Headache Last Admin: 09/13/18 23:24 Dose: 650 mg Amlodipine Besylate (Norvasc) 5 mg PO DAILY [facility] Last Admin: 09/15/18 17:02 Dose: 5 mg Aspirin (Ecotrin) 81 mg PO DAILY [facility] Last Admin: 09/15/18 09:29 Dose: 81 mg Atorvastatin Calcium (Lipitor) 40 mg PO DAILY [facility] Last Admin: 09/15/18 09:30 Dose: 40 mg Carvedilol (Coreg) 25 mg PO Q12 [facility] Last Admin: 09/15/18 09:28 Dose: 25 mg Clopidogrel Bisulfate (Plavix) 75 mg PO DAILY [facility] Last Admin: 09/13/18 09:43 Dose: 75 mg Dextrose (Dextrose 50% Inj) 0 ml IV STAT PRN; Protocol PRN Reason: Hypoglycemia Protocol Dextrose (Glutose 15) 0 gm PO ONCE PRN; Protocol PRN Reason: Hypoglycemia Protocol Docusate Sodium (Colace) 100 mg PO BID [facility] Last Admin: 09/15/18 17:03 Dose: 100 mg Enoxaparin Sodium (Lovenox) 40 mg SC DAILY [facility]; Protocol Last Admin: 09/15/18 09:30 Dose: 40 mg Escitalopram Oxalate (Lexapro) 20 mg PO DAILY [facility] Last Admin: 09/15/18 09:28 Dose: 20 mg Ferrous Sulfate (Feosol) 325 mg PO DAILY [facility] Last Admin: 09/15/18 09:30 Dose: 325 mg Furosemide (Lasix) 40 mg PO BID [facility] Last Admin: 09/15/18 09:29 Dose: 40 mg Furosemide (Lasix) 40 mg IV DAILY [facility] Last Admin: 09/15/18 13:30 Dose: 40 mg Glucagon (Glucagen Diagnostic Kit) 0 mg IM STAT PRN; Protocol PRN Reason: Hypoglycemia Protocol Ceftriaxone Sodium 1 gm/ (Sodium Chloride) 100 mls @ 100 mls/hr IVPB DAILY [facility]; Protocol Last Admin: 09/15/18 09:27 Dose: 100 mls/hr Azithromycin 500 mg/ Sodium (Chloride) 250 mls @ 250 mls/hr IVPB DAILY [facility]; Protocol Last Admin: 09/15/18 09:27 Dose: 250 mls/hr Insulin Detemir (Levemir) 40 units SC BID [facility] Last Admin: 09/15/18 17:03 Dose: 40 units Insulin Human Lispro (Humalog) 0 units SC ACCU-CHECK [facility]; Protocol Last Admin: 09/15/18 17:03 Dose: 4 units Isosorbide Mononitrate (Imdur) 60 mg PO DAILY [facility] Last Admin: 09/15/18 09:28 Dose: 60 mg Losartan Potassium (Cozaar) 100 mg PO DAILY [facility] Last Admin: 09/15/18 09:30 Dose: 100 mg Mirtazapine (Remeron) [address] [facility] Last Admin: 09/14/18 22:00 Dose: Not Given - Labs Labs: 09/15/18 05:35 09/15/18 05:35 - Constitutional Appears: Well, No Acute Distress - Head Exam Head Exam: ATRAUMATIC, NORMAL INSPECTION, NORMOCEPHALIC - Eye Exam Eye Exam: EOMI, Normal appearance - ENT Exam ENT Exam: Mucous Membranes Moist - Neck Exam Neck Exam: absent: Tenderness - Respiratory Exam Respiratory Exam: Rales. absent: Rhonchi, Wheezes, Respiratory Distress - Cardiovascular Exam Cardiovascular Exam: REGULAR RHYTHM, +S1, +S2, Murmur - GI/Abdominal Exam GI & Abdominal Exam: Soft, Normal Bowel Sounds. absent: Distended, Tenderness - Extremities Exam Extremities Exam: absent: Calf Tenderness, Pedal Edema, Tenderness - Neurological Exam Neurological Exam: Alert, Awake, Oriented x3 - Psychiatric Exam Psychiatric exam: Normal Affect, Normal Mood - Skin Skin Exam: Dry, Intact, Normal Color, Warm Assessment and Plan - Assessment and Plan (Free Text) Assessment: 78 y/o female with PMHx of CAD, HTN, preserved EF CHF, IDDM, СВЕТЛАНА(On CPAP), Hx of CVA on home O2 presents to ED complaining of shortness of breath. Pt admitted for CHF exacerbation vs symptomatic anemia. CTA Chest: Unremarkable CT pulmonary angiogram. No pulmonary embolus. Multifocal bilateral infiltrates. No discrete pulmonary nodules or masses. Small bilateral pleural effusions. Mediastinal and to a greater extent hilar adenopathy right greater than left. Plan: Shortness of breath 2/2 CAP vs CHF exacerbation - Continues to be on BiPAP 14//40% - CXR no infiltrate. right hilar infiltrate - Repeat CXR on 09/15 showed worsening CHF - D Dimer 2600+, CTA Chest negative for PE, B/L pulmonary infiltrate and small pleural effusion - Procalcitonin 0.08, WBC 6.8 - Continue Ceftriaxone 1 gm and Azithromycin 500 mg IVP daily - Mycoplasma neg - F/U Urine antigen for strep pneumoniae, legionella. - Authorization Nurse Dr. River on board, CT chest in 2-3 weeks CHF Exacerbation - Probnp 693, B/L rales - Repeat CXR on 09/15 showed worsening CHF - D/C Po laxis and start Lasix 40 mg IV - Continue Coreg 25 mg PO BID - Monitor vitals Anemia - Likely anemia of chronic disease - Iron 53, TIBC 285, Iron sat 19, Transferrin 214, Ferritin 72. - HgB 9.4 s/p 2 PRBC transfusion - Continue Feosol 325 daily - [employer] Dr. Selina Hammer consulted, recs appreciated - F/U Stool occult blood x 3 DM - Uncontrolled - Consistent carb diet, Patient advised to eat hospital food, avoid home cooked food for better glycemic control. - Resume Home insulin regimen, Levemir 40 SC BID - SSI - Hypoglycemia protocol - Monitor glucose ACHS Constipation - Last BM yesterday - Miralax daily - Consistent carb diet CKD stage 4 - chronic - hold metformin, no NSAIDs HTN - c/w Losartan 100 mg and Amlodipine 5 mg H/O stroke - Hold clopidogrel - C/W ASA, Lovenox DVT Prophylaxis - Lovenox 40 sc daily GI prophylaxis -Protonix 40 mg daily
[2018-09-15] MEDS: POLYETHYLENE GLYCOL 3350 17 GM/Dose PACKET PO SCH (21:29)
[2018-09-16 06:24] LABS: BASO # 0.1 K/uL (0.0-0.2); EOS # 0.3 K/uL (0.0-0.7); HEMOGLOBIN 9.3 g/dL (12.0-16.0); LYMPH # 1.3 K/uL (1.0-4.3); LYMPH % 19.6 % (20.0-40.0); MEAN CELL VOLUME 95.1 fl (81.0-99.0); MEAN CORPUSCULAR HEMOGLOBIN 31.1 pg (27.0-31.0); MEAN CORPUSCULAR HGB CONC 32.7 g/dL (33.0-37.0); MEAN PLATELET VOLUME 8.5 fl (7.2-11.7); MONO # 0.7 K/uL (0.0-0.8); MONO % 10.5 % (0.0-10.0); NEUT # 4.3 K/uL (1.8-7.0); NEUT % 64.9 % (50.0-75.0); RBC 2.98 Mil/uL (3.80-5.20); RED CELL DISTRIBUTION WIDTH 15.1 % (11.5-14.5); WHITE BLOOD COUNT 6.6 K/uL (4.8-10.8)
[2018-09-16 06:39] LABS: CALCIUM 9.3 mg/dL (8.4-10.2)
[2018-09-16] MEDS: Enoxaparin 40 mg Syringe SC SCH (09:13)
[2018-09-16] MEDS: POLYETHYLENE GLYCOL 3350 17 GM/Dose PACKET PO SCH (09:14)
[2018-09-16] MEDS: Insulin Detemir 100 Units/ml Inj SC SCH ×2 (09:14→16:57)
[2018-09-16] MEDS: Insulin Lispro (humaLOG) 100 Units/ml Inj SC SCH ×4 (09:15→22:47)
[2018-09-16] MEDS: Azithromycin 500 MG in Sodium Chloride 0.9% 250 ML IVPB SCH (09:17)
--- NOTE | 2018-09-16 10:36 | CP.PCM.PN ---
Subjective - Date & Time of Evaluation Date of Evaluation: 09/16/18 Time of Evaluation: 10:10 - Subjective Subjective: Patient seen and examined this AM at bedside, in NAD. Patient currently on Ox NC 4L. She received 2 units PRBC on 09/14, today Hb 9.3 day 2 post transfusion. Patient states feeling better with less SOB. Patient denies CUELLAR, CP, N/V/D/C. Afebrile. BiPAP with setting 14/6/40%. No acute events reported overnight. Objective - Vital Signs/Intake and Output Vital Signs (last 24 hours): Temp Pulse Resp BP Pulse Ox 97.0 F L 73 16 172/74 H 97 09/16/18 05:56 09/16/18 09:13 09/16/18 05:56 09/16/18 09:13 09/16/18 05:56 - Medications Medications: Current Medications Acetaminophen (Tylenol 325mg Tab) 650 mg PO Q6 PRN PRN Reason: Headache Last Admin: 09/13/18 23:24 Dose: 650 mg Amlodipine Besylate (Norvasc) 5 mg PO DAILY [facility] Last Admin: 09/16/18 09:13 Dose: 5 mg Aspirin (Ecotrin) 81 mg PO DAILY [facility] Last Admin: 09/16/18 09:13 Dose: 81 mg Atorvastatin Calcium (Lipitor) 40 mg PO DAILY [facility] Last Admin: 09/16/18 09:12 Dose: 40 mg Carvedilol (Coreg) 25 mg PO Q12 [facility] Last Admin: 09/16/18 09:11 Dose: 25 mg Clopidogrel Bisulfate (Plavix) 75 mg PO DAILY [facility] Last Admin: 09/13/18 09:43 Dose: 75 mg Dextrose (Dextrose 50% Inj) 0 ml IV STAT PRN; Protocol PRN Reason: Hypoglycemia Protocol Dextrose (Glutose 15) 0 gm PO ONCE PRN; Protocol PRN Reason: Hypoglycemia Protocol Enoxaparin Sodium (Lovenox) 40 mg SC DAILY [facility]; Protocol Last Admin: 09/16/18 09:13 Dose: 40 mg Escitalopram Oxalate (Lexapro) 20 mg PO DAILY [facility] Last Admin: 09/16/18 09:13 Dose: 20 mg Ferrous Sulfate (Feosol) 325 mg PO DAILY [facility] Last Admin: 09/16/18 09:12 Dose: 325 mg Furosemide (Lasix) 40 mg PO BID [facility] Last Admin: 09/15/18 09:29 Dose: 40 mg Furosemide (Lasix) 40 mg IV DAILY [facility] Last Admin: 09/16/18 09:10 Dose: 40 mg Glucagon (Glucagen Diagnostic Kit) 0 mg IM STAT PRN; Protocol PRN Reason: Hypoglycemia Protocol Ceftriaxone Sodium 1 gm/ (Sodium Chloride) 100 mls @ 100 mls/hr IVPB DAILY [facility]; Protocol Last Admin: 09/16/18 09:16 Dose: 100 mls/hr Azithromycin 500 mg/ Sodium (Chloride) 250 mls @ 250 mls/hr IVPB DAILY [facility]; Protocol Last Admin: 09/16/18 09:17 Dose: 250 mls/hr Insulin Detemir (Levemir) 40 units SC BID [facility] Last Admin: 09/16/18 09:14 Dose: 40 units Insulin Human Lispro (Humalog) 0 units SC ACCU-CHECK [facility]; Protocol Last Admin: 09/16/18 09:15 Dose: Not Given Isosorbide Mononitrate (Imdur) 60 mg PO DAILY [facility] Last Admin: 09/16/18 09:15 Dose: 60 mg Losartan Potassium (Cozaar) 100 mg PO DAILY [facility] Last Admin: 09/16/18 09:10 Dose: 100 mg Mirtazapine (Remeron) 15 mg PO HS [facility] Last Admin: 09/15/18 21:25 Dose: 15 mg Polyethylene Glycol (Miralax) 17 gm PO DAILY [facility] Last Admin: 09/16/18 09:14 Dose: 17 gm - Labs Labs: 09/16/18 05:55 09/16/18 05:55 - Constitutional Appears: No Acute Distress - Head Exam Head Exam: ATRAUMATIC, NORMAL INSPECTION, NORMOCEPHALIC - Eye Exam Eye Exam: EOMI - ENT Exam ENT Exam: Mucous Membranes Moist - Neck Exam Neck Exam: Full ROM. absent: Thyromegaly - Respiratory Exam Respiratory Exam: Decreased Breath Sounds. absent: Wheezes Additional comments: b/l decreased BS to the bases - Cardiovascular Exam Cardiovascular Exam: REGULAR RHYTHM, +S1, +S2 - GI/Abdominal Exam GI & Abdominal Exam: Soft, Normal Bowel Sounds. absent: Tenderness - Extremities Exam Extremities Exam: absent: Pedal Edema - Neurological Exam Neurological Exam: Alert, Awake, Oriented x3 - Psychiatric Exam Psychiatric exam: Normal Affect - Skin Skin Exam: Dry, Normal Color, Warm Assessment and Plan - Assessment and Plan (Free Text) Assessment: 78 YO female with PMH of CAD, HTN, preserved EF CHF, IDDM, СВЕТЛАНА(On CPAP), Hx of CVA on home Ox who presents to ED complaining of shortness of breath. Patient was admitted for CHF exacerbation vs symptomatic anemia. CTA Chest: Unremarkable CT pulmonary angiogram. No pulmonary embolus. Multifocal bilateral infiltrates. No discrete pulmonary nodules or masses. Small bilateral pleural effusions. Mediastinal and to a greater extent hilar adenopathy right greater than left. Plan: # Shortness of breath 2/2 CAP vs CHF exacerbation - C/w BiPAP 14/6/40%, use during day and at night - CXR on 09/12 showed no infiltrate. right hilar infiltrate - Repeat CXR on 09/15 showed worsening CHF - CTA Chest negative for PE, B/L pulmonary infiltrate and small pleural effusion - Procalcitonin 0.08, WBC 6.6 - Continue Ceftriaxone 1 gm and Azithromycin 500 mg IVP daily - Mycoplasma neg - F/U Urine antigen for strep pneumoniae, legionella. - [employer] Dr. River on board, f/u recomms. CT chest in 2-3 weeks #CHF Exacerbation - Probnp 693, B/L rales - Repeat CXR on 09/15 showed worsening CHF - D/C Po laxis and start Lasix 40 mg IV - Continue Coreg 25 mg PO BID - Monitor vitals #Anemia - Likely anemia of chronic disease - Iron 53, TIBC 285, Iron sat 19, Transferrin 214, Ferritin 72. - HgB 9.3 s/p 2 PRBC transfusion on 09/14 - Continue Feosol 325 daily - Senior Payroll Manager Dr. Selina Hammer on board, recs appreciated - F/U Stool occult blood x 3 #DM - Uncontrolled - Consistent carb diet, Patient advised to eat hospital food, avoid home cooked food for better glycemic control. - Resume Home insulin regimen, Levemir 40 SC BID - SSI - Hypoglycemia protocol - Monitor glucose ACHS #CKD stage 4 - chronic - hold metformin, no NSAIDs #HTN - c/w Losartan 100 mg and Amlodipine 5 mg #H/O stroke - Hold clopidogrel - C/W ASA, Lovenox #DVT Prophylaxis - Lovenox 40 sc daily #GI prophylaxis -Protonix 40 mg daily
--- NOTE | 2018-09-16 11:10 | CP.PCM.PN ---
Subjective - Date & Time of Evaluation Date of Evaluation: 09/16/18 Time of Evaluation: 11:07 - Subjective Subjective: Patient claims she is breathing better, she has no expectoration, and no chest pain.CBC is stable. Will need transfusion if hgb drops below 8.0gms. I will sign off the case. Please recall if needed Objective - Vital Signs/Intake and Output Vital Signs (last 24 hours): Temp Pulse Resp BP Pulse Ox 97.0 F L 73 16 172/74 H 97 09/16/18 05:56 09/16/18 09:13 09/16/18 05:56 09/16/18 09:13 09/16/18 05:56 - Medications Medications: Current Medications Acetaminophen (Tylenol 325mg Tab) 650 mg PO Q6 PRN PRN Reason: Headache Last Admin: 09/13/18 23:24 Dose: 650 mg Amlodipine Besylate (Norvasc) 5 mg PO DAILY [facility] Last Admin: 09/16/18 09:13 Dose: 5 mg Aspirin (Ecotrin) 81 mg PO DAILY [facility] Last Admin: 09/16/18 09:13 Dose: 81 mg Atorvastatin Calcium (Lipitor) 40 mg PO DAILY [facility] Last Admin: 09/16/18 09:12 Dose: 40 mg Carvedilol (Coreg) 25 mg PO Q12 [facility] Last Admin: 09/16/18 09:11 Dose: 25 mg Clopidogrel Bisulfate (Plavix) 75 mg PO DAILY [facility] Last Admin: 09/13/18 09:43 Dose: 75 mg Dextrose (Dextrose 50% Inj) 0 ml IV STAT PRN; Protocol PRN Reason: Hypoglycemia Protocol Dextrose (Glutose 15) 0 gm PO ONCE PRN; Protocol PRN Reason: Hypoglycemia Protocol Enoxaparin Sodium (Lovenox) 40 mg SC DAILY [facility]; Protocol Last Admin: 09/16/18 09:13 Dose: 40 mg Escitalopram Oxalate (Lexapro) 20 mg PO DAILY [facility] Last Admin: 09/16/18 09:13 Dose: 20 mg Ferrous Sulfate (Feosol) 325 mg PO DAILY [facility] Last Admin: 09/16/18 09:12 Dose: 325 mg Furosemide (Lasix) 40 mg PO BID [facility] Last Admin: 09/15/18 09:29 Dose: 40 mg Furosemide (Lasix) 40 mg IV DAILY [facility] Last Admin: 09/16/18 09:10 Dose: 40 mg Glucagon (Glucagen Diagnostic Kit) 0 mg IM STAT PRN; Protocol PRN Reason: Hypoglycemia Protocol Ceftriaxone Sodium 1 gm/ (Sodium Chloride) 100 mls @ 100 mls/hr IVPB DAILY [facility]; Protocol Last Admin: 09/16/18 09:16 Dose: 100 mls/hr Azithromycin 500 mg/ Sodium (Chloride) 250 mls @ 250 mls/hr IVPB DAILY [facility]; Protocol Last Admin: 09/16/18 09:17 Dose: 250 mls/hr Insulin Detemir (Levemir) 40 units SC BID [facility] Last Admin: 09/16/18 09:14 Dose: 40 units Insulin Human Lispro (Humalog) 0 units SC ACCU-CHECK [facility]; Protocol Last Admin: 09/16/18 09:15 Dose: Not Given Isosorbide Mononitrate (Imdur) 60 mg PO DAILY [facility] Last Admin: 09/16/18 09:15 Dose: 60 mg Losartan Potassium (Cozaar) 100 mg PO DAILY [facility] Last Admin: 09/16/18 09:10 Dose: 100 mg Mirtazapine (Remeron) 15 mg PO HS [facility] Last Admin: 09/15/18 21:25 Dose: 15 mg Polyethylene Glycol (Miralax) 17 gm PO DAILY [facility] Last Admin: 09/16/18 09:14 Dose: 17 gm - Labs Labs: 09/16/18 05:55 09/16/18 05:55
[2018-09-16 14:29] LABS: ABG ALLEN TEST YES; ARTERIAL BLOOD GAS HCO3 37.7 mmol/L (21-28); ARTERIAL BLOOD GAS HEMOGLOBIN 9.2 g/dL (11.7-17.4); ARTERIAL BLOOD GAS O2 CAPACITY 12.6 mL/dL (16-24); ARTERIAL BLOOD GAS O2 CONTENT 12.4 ML/dL (15-23); ARTERIAL BLOOD GAS O2 SAT 98.6 % (95-98); ARTERIAL BLOOD GAS PCO2 81 mm/Hg (35-45); ARTERIAL BLOOD GAS PH 7.35 (7.35-7.45); ARTERIAL BLOOD GAS PO2 77 mm/Hg (80-100); ARTERIAL BLOOD GAS TCO2 47.2 mmol/L (22-28)
[2018-09-16] MEDS ORDERED: Chlorhexidine Gluconate 1 APPL/PKT TP ONE (17:59)
[2018-09-17 04:57] LABS: ABG ALLEN TEST YES; ARTERIAL BLOOD GAS HCO3 40.5 mmol/L (21-28); ARTERIAL BLOOD GAS O2 CAPACITY 12.5 mL/dL (16-24); ARTERIAL BLOOD GAS O2 CONTENT 12.5 ML/dL (15-23); ARTERIAL BLOOD GAS O2 SAT 100.4 % (95-98); ARTERIAL BLOOD GAS PCO2 75 mm/Hg (35-45); ARTERIAL BLOOD GAS PH 7.41 (7.35-7.45); ARTERIAL BLOOD GAS PO2 110 mm/Hg (80-100); ARTERIAL BLOOD GAS TCO2 49.8 mmol/L (22-28)
[2018-09-17 05:17] LABS: BASO % 0.7 % (0.0-2.0); EOS # 0.3 K/uL (0.0-0.7); EOS % 4.4 % (0.0-4.0); HEMOGLOBIN 8.9 g/dL (12.0-16.0); LYMPH # 1.3 K/uL (1.0-4.3); LYMPH % 22.6 % (20.0-40.0); MEAN CELL VOLUME 95.5 fl (81.0-99.0); MEAN CORPUSCULAR HEMOGLOBIN 31.2 pg (27.0-31.0); MEAN CORPUSCULAR HGB CONC 32.6 g/dL (33.0-37.0); MEAN PLATELET VOLUME 8.5 fl (7.2-11.7); MONO # 0.7 K/uL (0.0-0.8); MONO % 11.4 % (0.0-10.0); NEUT # 3.6 K/uL (1.8-7.0); NEUT % 60.9 % (50.0-75.0); RBC 2.84 Mil/uL (3.80-5.20); RED CELL DISTRIBUTION WIDTH 14.7 % (11.5-14.5); WHITE BLOOD COUNT 5.8 K/uL (4.8-10.8)
[2018-09-17] MEDS: Insulin Lispro (humaLOG) 100 Units/ml Inj SC SCH ×4 (06:22→23:00)
--- NOTE | 2018-09-17 09:51 | CP.PCM.PN ---
<Enzo Mcdermott - Last Filed: 09/17/18 11:31> Subjective - Date & Time of Evaluation Date of Evaluation: 09/17/18 Time of Evaluation: 09:47 - Subjective Subjective: pt seen and evaluated at bedside this morning. Lying in bed, comfortably, NAD on 4L NC. Pt reports adhering with BiPap last night and most the day yesterday w/o much issue. Overall reports moderate improvement in SOB. Was given Objective - Vital Signs/Intake and Output Vital Signs (last 24 hours): Temp Pulse Resp BP Pulse Ox 98.5 F 67 19 159/69 H 93 L 09/17/18 07:55 09/17/18 07:55 09/17/18 07:55 09/17/18 07:55 09/17/18 07:55 - Medications Medications: Current Medications Acetaminophen (Tylenol 325mg Tab) 650 mg PO Q6 PRN PRN Reason: Headache Last Admin: 09/16/18 12:55 Dose: 650 mg Amlodipine Besylate (Norvasc) 5 mg PO DAILY [facility] Last Admin: 09/16/18 09:13 Dose: 5 mg Aspirin (Ecotrin) 81 mg PO DAILY [facility] Last Admin: 09/16/18 09:13 Dose: 81 mg Atorvastatin Calcium (Lipitor) 40 mg PO DAILY [facility] Last Admin: 09/16/18 09:12 Dose: 40 mg Carvedilol (Coreg) 25 mg PO Q12 [facility] Last Admin: 09/16/18 21:14 Dose: 25 mg Clopidogrel Bisulfate (Plavix) 75 mg PO DAILY [facility] Last Admin: 09/13/18 09:43 Dose: 75 mg Dextrose (Dextrose 50% Inj) 0 ml IV STAT PRN; Protocol PRN Reason: Hypoglycemia Protocol Dextrose (Glutose 15) 0 gm PO ONCE PRN; Protocol PRN Reason: Hypoglycemia Protocol Docusate Sodium (Colace) 100 mg PO BID [facility] Enoxaparin Sodium (Lovenox) 40 mg SC DAILY [facility]; Protocol Last Admin: 09/16/18 09:13 Dose: 40 mg Escitalopram Oxalate (Lexapro) 20 mg PO DAILY [facility] Last Admin: 09/16/18 09:13 Dose: 20 mg Ferrous Sulfate (Feosol) 325 mg PO DAILY [facility] Last Admin: 09/16/18 09:12 Dose: 325 mg Furosemide (Lasix) 40 mg PO BID [facility] Last Admin: 09/15/18 09:29 Dose: 40 mg Furosemide (Lasix) 40 mg IV DAILY [facility] Last Admin: 09/16/18 09:10 Dose: 40 mg Glucagon (Glucagen Diagnostic Kit) 0 mg IM STAT PRN; Protocol PRN Reason: Hypoglycemia Protocol Ceftriaxone Sodium 1 gm/ (Sodium Chloride) 100 mls @ 100 mls/hr IVPB DAILY [facility]; Protocol Last Admin: 09/16/18 09:16 Dose: 100 mls/hr Azithromycin 500 mg/ Sodium (Chloride) 250 mls @ 250 mls/hr IVPB DAILY [facility]; Protocol Last Admin: 09/16/18 09:17 Dose: 250 mls/hr Insulin Detemir (Levemir) 40 units SC BID [facility] Last Admin: 09/16/18 16:57 Dose: 40 units Insulin Human Lispro (Humalog) 0 units SC ACCU-CHECK [facility]; Protocol Last Admin: 09/17/18 06:22 Dose: Not Given Isosorbide Mononitrate (Imdur) 60 mg PO DAILY [facility] Last Admin: 09/16/18 09:15 Dose: 60 mg Losartan Potassium (Cozaar) 100 mg PO DAILY [facility] Last Admin: 09/16/18 09:10 Dose: 100 mg Mirtazapine (Remeron) 15 mg PO HS [facility] Last Admin: 09/16/18 21:14 Dose: 15 mg Polyethylene Glycol (Miralax) 17 gm PO DAILY [facility] Last Admin: 09/16/18 09:14 Dose: 17 gm - Labs Labs: 09/17/18 04:15 09/17/18 04:15 - Constitutional Appears: Non-toxic, No Acute Distress - Eye Exam Eye Exam: EOMI, PERRL - ENT Exam ENT Exam: Mucous Membranes Moist - Neck Exam Neck Exam: Full ROM. absent: Lymphadenopathy - Respiratory Exam Respiratory Exam: Decreased Breath Sounds, Rales, NORMAL BREATHING PATTERN. absent: Clear to Ausculation Bilateral, Rhonchi, Wheezes, Respiratory Distress - Cardiovascular Exam Cardiovascular Exam: REGULAR RHYTHM, RRR, +S1, +S2. absent: JVD, Rubs - GI/Abdominal Exam GI & Abdominal Exam: Soft, Normal Bowel Sounds. absent: Tenderness - Extremities Exam Extremities Exam: absent: Pedal Edema, Tenderness - Neurological Exam Neurological Exam: Alert, Awake, CN II-XII Intact, Oriented x3 - Psychiatric Exam Psychiatric exam: Normal Affect, Normal Mood - Skin Skin Exam: Dry, Intact Assessment and Plan - Assessment and Plan (Free Text) Assessment: 78 YO female with PMH of CAD, HTN, preserved EF CHF, IDDM, СВЕТЛАНА(On CPAP), Hx of CVA on home Ox who presents to ED complaining of shortness of breath. Patient was admitted for CHF exacerbation vs symptomatic anemia. Plan: 1) Dyspnea 2/2 CAP vs CHF exacerbation - improving, ABG today with PCO2 of 75 - C/w BiPAP 14/6/40%, use during day and at night - CXR on 09/12 showed no infiltrate. right hilar infiltrate - Repeat CXR on 09/15 showed worsening CHF - CTA Chest negative for PE, B/L pulmonary infiltrate and small pleural effusion - Procalcitonin 0.08, WBC: 5.8 - Continue Ceftriaxone 1 gm and Azithromycin 500 mg IVP daily - Mycoplasma neg - F/U Urine antigen for strep pneumoniae, legionella. - Cardiovascular Or Nurse Dr. River on board, f/u recomms. CT chest in 2-3 weeks 2) CHF Exacerbation - Probnp 693, B/L rales - Repeat CXR on 09/15 showed worsening CHF - D/C Po lasix and start Lasix 40 mg IV - Continue Coreg 25 mg PO BID - Monitor vitals 3) Anemia - Likely anemia of chronic disease - stable - H/H: 8.9/27.2 - Iron 53, TIBC 285, Iron sat 19, Transferrin 214, Ferritin 72. - Continue Feosol 325 daily - F/U Stool occult blood x 3 4) IDDM - Uncontrolled - Consistent carb diet, Patient advised to eat hospital food, avoid home cooked food for better glycemic control. - Resume Home insulin regimen, Levemir 40 SC BID - SSI - Hypoglycemia protocol - Monitor glucose ACHS 5) CKD stage 4 - chronic - hold metformin, no NSAIDs 6) HTN - c/w Losartan 100 mg and Amlodipine 5 mg 7) H/O stroke - Hold clopidogrel - C/W ASA, Lovenox 8) DVT Prophylaxis - Lovenox 40 sc daily 9) GI prophylaxis -Protonix 40 mg daily <Lexi Ferrell - Last Filed: 09/17/18 15:56> Objective - Vital Signs/Intake and Output Vital Signs (last 24 hours): Temp Pulse Resp BP Pulse Ox 98.2 F 67 18 138/69 92 L 09/17/18 12:13 09/17/18 12:13 09/17/18 12:13 09/17/18 12:13 09/17/18 12:13 - Medications Medications: Current Medications Acetaminophen (Tylenol 325mg Tab) 650 mg PO Q6 PRN PRN Reason: Headache Last Admin: 09/16/18 12:55 Dose: 650 mg Amlodipine Besylate (Norvasc) 5 mg PO DAILY [facility] Last Admin: 09/17/18 10:15 Dose: 5 mg Aspirin (Ecotrin) 81 mg PO DAILY [facility] Last Admin: 09/17/18 10:16 Dose: 81 mg Atorvastatin Calcium (Lipitor) 40 mg PO DAILY [facility] Last Admin: 09/17/18 10:15 Dose: 40 mg Carvedilol (Coreg) 25 mg PO Q12 [facility] Last Admin: 09/17/18 10:15 Dose: 25 mg Clopidogrel Bisulfate (Plavix) 75 mg PO DAILY [facility] Last Admin: 09/13/18 09:43 Dose: 75 mg Dextrose (Dextrose 50% Inj) 0 ml IV STAT PRN; Protocol PRN Reason: Hypoglycemia Protocol Dextrose (Glutose 15) 0 gm PO ONCE PRN; Protocol PRN Reason: Hypoglycemia Protocol Docusate Sodium (Colace) 100 mg PO BID [facility] Last Admin: 09/17/18 10:17 Dose: 100 mg Enoxaparin Sodium (Lovenox) 40 mg SC DAILY [facility]; Protocol Last Admin: 09/17/18 10:14 Dose: 40 mg Escitalopram Oxalate (Lexapro) 20 mg PO DAILY [facility] Last Admin: 09/17/18 10:14 Dose: 20 mg Ferrous Sulfate (Feosol) 325 mg PO DAILY [facility] Last Admin: 09/17/18 10:15 Dose: 325 mg Furosemide (Lasix) 40 mg PO BID [facility] Last Admin: 09/15/18 09:29 Dose: 40 mg Furosemide (Lasix) 40 mg IV DAILY [facility] Last Admin: 09/17/18 10:16 Dose: 40 mg Glucagon (Glucagen Diagnostic Kit) 0 mg IM STAT PRN; Protocol PRN Reason: Hypoglycemia Protocol Ceftriaxone Sodium 1 gm/ (Sodium Chloride) 100 mls @ 100 mls/hr IVPB DAILY [facility]; Protocol Last Admin: 09/17/18 10:20 Dose: 100 mls/hr Azithromycin 500 mg/ Sodium (Chloride) 250 mls @ 250 mls/hr IVPB DAILY [facility]; Protocol Last Admin: 09/17/18 10:20 Dose: 250 mls/hr Insulin Detemir (Levemir) 40 units SC BID [facility] Last Admin: 09/17/18 10:19 Dose: 40 units Insulin Human Lispro (Humalog) 0 units SC ACCU-CHECK [facility]; Protocol Last Admin: 09/17/18 13:17 Dose: 6 units Isosorbide Mononitrate (Imdur) 60 mg PO DAILY [facility] Last Admin: 09/17/18 10:16 Dose: 60 mg Losartan Potassium (Cozaar) 100 mg PO DAILY [facility] Last Admin: 09/17/18 10:16 Dose: 100 mg Mirtazapine (Remeron) 15 mg PO HS [facility] Last Admin: 09/16/18 21:14 Dose: 15 mg Polyethylene Glycol (Miralax) 17 gm PO DAILY [facility] Last Admin: 09/17/18 10:14 Dose: 17 gm - Labs Labs: 09/17/18 04:15 09/17/18 04:15 Attending/Attestation - Attestation I have personally seen and examined this patient.: Yes I have fully participated in the care of the patient.: Yes I have reviewed all pertinent clinical information, including history, physical exam and plan: Yes Notes (Text): CAP CHF exacerbation Anemia, chronic dis DM type II with Hyperglycemia, insulin requiring HTN CKD Stage III - cont IV lasix, Losartan, Imdur and Coreg - cont IV ceftriaxone and Azithro -H/H stable, Guaiac neg - cont Accucheck with coverage, cont Levemir
[2018-09-17] MEDS: Enoxaparin 40 mg Syringe SC SCH (10:14)
[2018-09-17] MEDS: POLYETHYLENE GLYCOL 3350 17 GM/Dose PACKET PO SCH (10:14)
[2018-09-17] MEDS: Insulin Detemir 100 Units/ml Inj SC SCH ×2 (10:19→16:59)
[2018-09-17] MEDS: Azithromycin 500 MG in Sodium Chloride 0.9% 250 ML IVPB SCH (10:20)
[2018-09-18 07:11] LABS: BASO # 0.1 K/uL (0.0-0.2); BASO % 0.9 % (0.0-2.0); EOS # 0.3 K/uL (0.0-0.7); EOS % 4.9 % (0.0-4.0); HEMOGLOBIN 9.5 g/dL (12.0-16.0); LYMPH % 18.4 % (20.0-40.0); MEAN CELL VOLUME 95.7 fl (81.0-99.0); MEAN CORPUSCULAR HEMOGLOBIN 30.9 pg (27.0-31.0); MEAN CORPUSCULAR HGB CONC 32.3 g/dL (33.0-37.0); MEAN PLATELET VOLUME 8.8 fl (7.2-11.7); MONO # 0.6 K/uL (0.0-0.8); MONO % 11.1 % (0.0-10.0); NEUT # 3.6 K/uL (1.8-7.0); NEUT % 64.7 % (50.0-75.0); RBC 3.09 Mil/uL (3.80-5.20); RED CELL DISTRIBUTION WIDTH 14.8 % (11.5-14.5); WHITE BLOOD COUNT 5.6 K/uL (4.8-10.8)
[2018-09-18 07:29] LABS: BLOOD UREA NITROGEN 26 mg/dl (7-17); CALCIUM 9.4 mg/dL (8.4-10.2); GFR NON-AFRICAN AMERICAN 54
[2018-09-18] MEDS: Insulin Detemir 100 Units/ml Inj SC SCH ×2 (08:21→17:30)
[2018-09-18] MEDS: Insulin Lispro (humaLOG) 100 Units/ml Inj SC SCH ×4 (08:21→22:12)
[2018-09-18] MEDS: Enoxaparin 40 mg Syringe SC SCH (08:28)
[2018-09-18] MEDS: Azithromycin 500 MG in Sodium Chloride 0.9% 250 ML IVPB SCH (08:39)
[2018-09-18] MEDS: POLYETHYLENE GLYCOL 3350 17 GM/Dose PACKET PO SCH (08:41)
--- NOTE | 2018-09-18 09:50 | CP.PCM.PN ---
<Harish LoaizaAlejandro - Last Filed: 09/18/18 11:01> Subjective - Date & Time of Evaluation Date of Evaluation: 09/18/18 Time of Evaluation: 09:05 - Subjective Subjective: Patient seen and examined this morning at bedside, in NAD on 4L NC while having breakfast. Pt reports she is using her BiPap during the day and only takes it off to eat, she endorses feeling better with less SOB, denies CP , N/V/D/C. Objective - Vital Signs/Intake and Output Vital Signs (last 24 hours): Temp Pulse Resp BP Pulse Ox 97.8 F 68 19 164/69 H 97 09/18/18 08:02 09/18/18 08:28 09/18/18 08:02 09/18/18 08:28 09/18/18 08:02 - Medications Medications: Current Medications Acetaminophen (Tylenol 325mg Tab) 650 mg PO Q6 PRN PRN Reason: Headache Last Admin: 09/17/18 21:26 Dose: 650 mg Amlodipine Besylate (Norvasc) 5 mg PO DAILY [facility] Last Admin: 09/18/18 08:28 Dose: 5 mg Aspirin (Ecotrin) 81 mg PO DAILY [facility] Last Admin: 09/18/18 08:25 Dose: 81 mg Atorvastatin Calcium (Lipitor) 40 mg PO DAILY [facility] Last Admin: 09/18/18 08:27 Dose: 40 mg Carvedilol (Coreg) 25 mg PO Q12 [facility] Last Admin: 09/18/18 08:24 Dose: 25 mg Clopidogrel Bisulfate (Plavix) 75 mg PO DAILY [facility] Last Admin: 09/13/18 09:43 Dose: 75 mg Dextrose (Dextrose 50% Inj) 0 ml IV STAT PRN; Protocol PRN Reason: Hypoglycemia Protocol Dextrose (Glutose 15) 0 gm PO ONCE PRN; Protocol PRN Reason: Hypoglycemia Protocol Docusate Sodium (Colace) 100 mg PO BID [facility] Last Admin: 09/18/18 08:25 Dose: 100 mg Enoxaparin Sodium (Lovenox) 40 mg SC DAILY [facility]; Protocol Last Admin: 09/18/18 08:28 Dose: 40 mg Escitalopram Oxalate (Lexapro) 20 mg PO DAILY [facility] Last Admin: 09/18/18 08:24 Dose: 20 mg Ferrous Sulfate (Feosol) 325 mg PO DAILY [facility] Last Admin: 09/18/18 08:25 Dose: 325 mg Furosemide (Lasix) 40 mg PO BID [facility] Last Admin: 09/15/18 09:29 Dose: 40 mg Furosemide (Lasix) 40 mg IV DAILY [facility] Last Admin: 09/18/18 08:27 Dose: 40 mg Glucagon (Glucagen Diagnostic Kit) 0 mg IM STAT PRN; Protocol PRN Reason: Hypoglycemia Protocol Ceftriaxone Sodium 1 gm/ (Sodium Chloride) 100 mls @ 100 mls/hr IVPB DAILY [facility]; Protocol Last Admin: 09/18/18 08:38 Dose: 100 mls/hr Azithromycin 500 mg/ Sodium (Chloride) 250 mls @ 250 mls/hr IVPB DAILY [facility]; Protocol Last Admin: 09/18/18 08:39 Dose: 250 mls/hr Insulin Detemir (Levemir) 45 units SC BID [facility] Last Admin: 09/18/18 08:21 Dose: 45 units Insulin Human Lispro (Humalog) 0 units SC ACCU-CHECK [facility]; Protocol Last Admin: 09/18/18 08:21 Dose: 4 units Isosorbide Mononitrate (Imdur) 60 mg PO DAILY [facility] Last Admin: 09/18/18 08:26 Dose: 60 mg Losartan Potassium (Cozaar) 100 mg PO DAILY [facility] Last Admin: 09/18/18 08:26 Dose: 100 mg Mirtazapine (Remeron) 15 mg PO HS [facility] Last Admin: 09/17/18 21:22 Dose: 15 mg Polyethylene Glycol (Miralax) 17 gm PO DAILY [facility] Last Admin: 09/18/18 08:41 Dose: 17 gm - Labs Labs: 09/18/18 05:20 09/18/18 05:20 - Additional Findings Additional findings: - Constitutional Appears: No Acute Distress - Head Exam Head Exam: ATRAUMATIC, NORMAL INSPECTION, NORMOCEPHALIC - Eye Exam Eye Exam: EOMI - ENT Exam ENT Exam: Mucous Membranes Moist - Neck Exam Neck Exam: Full ROM. absent: Thyromegaly - Respiratory Exam Respiratory Exam: Decreased Breath Sounds. absent: Wheezes Additional comments: b/l decreased BS to the bases - Cardiovascular Exam Cardiovascular Exam: REGULAR RHYTHM, +S1, +S2 - GI/Abdominal Exam GI & Abdominal Exam: Soft, Normal Bowel Sounds. absent: Tenderness - Extremities Exam Extremities Exam: absent: Pedal Edema - Neurological Exam Neurological Exam: Alert, Awake, Oriented x3 - Psychiatric Exam Psychiatric exam: Normal Affect - Skin Skin Exam: Dry, Normal Color, Warm Assessment and Plan - Assessment and Plan (Free Text) Assessment: 78 YO female with PMH of CAD, HTN, preserved EF CHF, IDDM, СВЕТЛАНА(On CPAP), Hx of CVA on home Ox who presents to ED complaining of shortness of breath. Patient was admitted for CHF exacerbation vs symptomatic anemia. Plan: 1) Dyspnea 2/2 CAP vs CHF exacerbation - improving, ABG today with PCO2 of 75, F/u ABG in AM - C/w BiPAP 14/6/40%, use during day and at night - CXR on 09/12 showed no infiltrate. right hilar infiltrate - Repeat CXR on 09/15 showed worsening CHF - CTA Chest negative for PE, B/L pulmonary infiltrate and small pleural effusion - Procalcitonin 0.08, WBC: 5.6 - Continue Ceftriaxone 1 gm and Azithromycin 500 mg IVP daily - Mycoplasma neg - F/U Urine antigen for strep pneumoniae, legionella. - [employer] Handler Dr. River on board, f/u recomms. CT chest in 2-3 weeks 2) CHF Exacerbation - Probnp 693, B/L rales -F/u BMP in AM - Repeat CXR on 09/15 showed worsening CHF - D/C Po lasix and start Lasix 40 mg IV - Continue Coreg 25 mg PO BID - Monitor vitals 3) Anemia - Likely anemia of chronic disease - stable - H/H: 9.5/29.6 - Iron 53, TIBC 285, Iron sat 19, Transferrin 214, Ferritin 72. - Continue Feosol 325 daily - F/U Stool occult blood x 3 4) IDDM - Uncontrolled - Consistent carb diet, Patient advised to eat hospital food, avoid home cooked food for better glycemic control. - Resume Home insulin regimen, Levemir 40 SC BID - SSI - Hypoglycemia protocol - Monitor glucose ACHS 5) CKD stage 4 - chronic - hold metformin, no NSAIDs 6) HTN - c/w Losartan 100 mg and Amlodipine 5 mg 7) H/O stroke - Hold clopidogrel - C/W ASA, Lovenox 8) DVT Prophylaxis - Lovenox 40 sc daily 9) GI prophylaxis -Protonix 40 mg daily <Lexi Ferrell - Last Filed: 09/18/18 16:06> Objective - Vital Signs/Intake and Output Vital Signs (last 24 hours): Temp Pulse Resp BP Pulse Ox 97.7 F 77 18 173/67 H 94 L 09/18/18 15:59 09/18/18 15:59 09/18/18 15:59 09/18/18 15:59 09/18/18 15:59 - Medications Medications: Current Medications Acetaminophen (Tylenol 325mg Tab) 650 mg PO Q6 PRN PRN Reason: Headache Last Admin: 09/17/18 21:26 Dose: 650 mg Amlodipine Besylate (Norvasc) 5 mg PO DAILY [facility] Last Admin: 09/18/18 08:28 Dose: 5 mg Aspirin (Ecotrin) 81 mg PO DAILY [facility] Last Admin: 09/18/18 08:25 Dose: 81 mg Atorvastatin Calcium (Lipitor) 40 mg PO DAILY [facility] Last Admin: 09/18/18 08:27 Dose: 40 mg Carvedilol (Coreg) 25 mg PO Q12 [facility] Last Admin: 09/18/18 08:24 Dose: 25 mg Clopidogrel Bisulfate (Plavix) 75 mg PO DAILY [facility] Last Admin: 09/13/18 09:43 Dose: 75 mg Dextrose (Dextrose 50% Inj) 0 ml IV STAT PRN; Protocol PRN Reason: Hypoglycemia Protocol Dextrose (Glutose 15) 0 gm PO ONCE PRN; Protocol PRN Reason: Hypoglycemia Protocol Docusate Sodium (Colace) 100 mg PO BID [facility] Last Admin: 09/18/18 08:25 Dose: 100 mg Escitalopram Oxalate (Lexapro) 20 mg PO DAILY [facility] Last Admin: 09/18/18 08:24 Dose: 20 mg Ferrous Sulfate (Feosol) 325 mg PO DAILY [facility] Last Admin: 09/18/18 08:25 Dose: 325 mg Furosemide (Lasix) 40 mg PO BID [facility] Last Admin: 09/15/18 09:29 Dose: 40 mg Furosemide (Lasix) 40 mg IV DAILY [facility] Last Admin: 09/18/18 08:27 Dose: 40 mg Glucagon (Glucagen Diagnostic Kit) 0 mg IM STAT PRN; Protocol PRN Reason: Hypoglycemia Protocol Insulin Detemir (Levemir) 45 units SC BID [facility] Last Admin: 09/18/18 08:21 Dose: 45 units Insulin Human Lispro (Humalog) 0 units SC ACCU-CHECK [facility]; Protocol Last Admin: 09/18/18 12:02 Dose: 6 units Isosorbide Mononitrate (Imdur) 60 mg PO DAILY [facility] Last Admin: 09/18/18 08:26 Dose: 60 mg Losartan Potassium (Cozaar) 100 mg PO DAILY [facility] Last Admin: 09/18/18 08:26 Dose: 100 mg Mirtazapine (Remeron) 15 mg PO HS [facility] Last Admin: 09/17/18 21:22 Dose: 15 mg Polyethylene Glycol (Miralax) 17 gm PO DAILY [facility] Last Admin: 09/18/18 08:41 Dose: 17 gm - Labs Labs: 09/18/18 05:20 09/18/18 05:20 Attending/Attestation - Attestation I have personally seen and examined this patient.: Yes I have fully participated in the care of the patient.: Yes I have reviewed all pertinent clinical information, including history, physical exam and plan: Yes Notes (Text): CAP prob bacterial CHF mild exacerbation, diastolic dysfunction EF 55% Anemia, chronic dis DM type II with Hyperglycemia, insulin requiring HTN CKD Stage III - Pt on Bipap - cont IV lasix, Losartan, Imdur and Coreg - cont IV ceftriaxone and Azithro -H/H stable, Guaiac neg - cont Accucheck with coverage, Increase Levemir 45 units BID
--- NOTE | 2018-09-18 17:30 | PQF ---
PROVIDER RESPONSE TEXT: Bronchopneumonia organism unknown REVIEWER QUERY TEXT: Pneumonia Specificity CAP Pneumonia is documented in the Medical Record. CAP represents the method of acquisition and not the specific type of pneumonia Please specify the type of pneumonia and the causative organism (includes probable or suspected) Such as: Type: -- Aspiration pneumonia (please also specify the aspirate) -- Bacterial (please document suspected or probable organism) -- Bronchopneumonia (please document suspected or probable organism) -- Interstitial pneumonia -- Organizing pneumonia / BOOP -- Tuberculosis, pulmonary -- Viral -- Other, please specify The patient's Clinical Indicators include: Admitted with SOB, fatigue, + swelling of the lower extremities. On oxygen at home. WBC 7.9, Afebrile, Mycoplasma pneumoniae IgM Negtive CXR:Right hilar/infrahilar mass/prominence not seen previously. CT Angio: No pulmonary embolus. Multifocal bilateral infiltrates. Small bilateral pleural effusions . Rx: IVAB, O2 Query created by: Gissel Anna on 09/16/2018 11:03 AM Electronically signed by: Santhosh Burger MD 09/18/2018 5:28 PM
[2018-09-19 05:05] LABS: ABG ALLEN TEST YES; ARTERIAL BLOOD GAS HCO3 40.1 mmol/L (21-28); ARTERIAL BLOOD GAS HEMOGLOBIN 10.2 g/dL (11.7-17.4); ARTERIAL BLOOD GAS O2 CAPACITY 14.1 mL/dL (16-24); ARTERIAL BLOOD GAS O2 CONTENT 14.1 ML/dL (15-23); ARTERIAL BLOOD GAS O2 SAT 99.8 % (95-98); ARTERIAL BLOOD GAS PCO2 81 mm/Hg (35-45); ARTERIAL BLOOD GAS PH 7.38 (7.35-7.45); ARTERIAL BLOOD GAS PO2 136 mm/Hg (80-100); ARTERIAL BLOOD GAS TCO2 50.4 mmol/L (22-28)
[2018-09-19 06:12] LABS: CALCIUM 9.5 mg/dL (8.4-10.2)
--- NOTE | 2018-09-19 08:47 | CP.PCM.PN ---
Subjective - Date & Time of Evaluation Date of Evaluation: 09/19/18 Time of Evaluation: 08:42 - Subjective Subjective: Seen on morning rounds. Interim events and labs reviewed. Continues to have high CO2 levels despite use of BiPAP. Maintains a good SpO2 @ 95% presently on nasal canula. Patient claims to use her BiPAP overnight, but found asleep on NC this morning. Vital signs have been stable, she has remained afebrile. Easily awaken, appears oriented and cooperative with exam. No dependant edema, no cyanosis. Neck is supple and trachea midline. No dullness on percussion anterior chest wall. Breath sounds are diminished bilaterally w/o audible wheezes. Few dry rales in dependant regions, no bronchial breath sounds. Heart sounds are distant, rhythm regular, rate ~ 80. Would reduce supplemental O2 further (keep SpO2 between 89-93%). Using two SRI antidepressants may be causing respiratory suppression. Have added Acetazolamide SR 500 once daily to regimen. Objective - Vital Signs/Intake and Output Vital Signs (last 24 hours): Temp Pulse Resp BP Pulse Ox 98.2 F 64 19 142/57 L 94 L 09/19/18 05:00 09/19/18 05:00 09/19/18 05:00 09/19/18 05:00 09/19/18 05:00 Intake and Output: 09/18/18 09/19/18 23:59 11:59 Intake Total 1090 Balance 1090 - Medications Medications: Current Medications Acetaminophen (Tylenol 325mg Tab) 650 mg PO Q6 PRN PRN Reason: Headache Last Admin: 09/17/18 21:26 Dose: 650 mg Acetazolamide (Diamox Sequels 500 Mg Sr Cap) 500 mg PO DAILY [facility] Amlodipine Besylate (Norvasc) 5 mg PO DAILY [facility] Last Admin: 09/18/18 08:28 Dose: 5 mg Aspirin (Ecotrin) 81 mg PO DAILY [facility] Last Admin: 09/18/18 08:25 Dose: 81 mg Atorvastatin Calcium (Lipitor) 40 mg PO DAILY [facility] Last Admin: 09/18/18 08:27 Dose: 40 mg Carvedilol (Coreg) 25 mg PO Q12 [facility] Last Admin: 09/18/18 22:15 Dose: 25 mg Clopidogrel Bisulfate (Plavix) 75 mg PO DAILY [facility] Last Admin: 09/13/18 09:43 Dose: 75 mg Dextrose (Dextrose 50% Inj) 0 ml IV STAT PRN; Protocol PRN Reason: Hypoglycemia Protocol Dextrose (Glutose 15) 0 gm PO ONCE PRN; Protocol PRN Reason: Hypoglycemia Protocol Docusate Sodium (Colace) 100 mg PO BID [facility] Last Admin: 09/18/18 17:29 Dose: 100 mg Enoxaparin Sodium (Lovenox) 40 mg SC DAILY [facility]; Protocol Escitalopram Oxalate (Lexapro) 20 mg PO DAILY [facility] Last Admin: 09/18/18 08:24 Dose: 20 mg Ferrous Sulfate (Feosol) 325 mg PO DAILY [facility] Last Admin: 09/18/18 08:25 Dose: 325 mg Furosemide (Lasix) 40 mg PO BID [facility] Last Admin: 09/15/18 09:29 Dose: 40 mg Furosemide (Lasix) 40 mg IV DAILY [facility] Last Admin: 09/18/18 08:27 Dose: 40 mg Glucagon (Glucagen Diagnostic Kit) 0 mg IM STAT PRN; Protocol PRN Reason: Hypoglycemia Protocol Insulin Detemir (Levemir) 45 units SC BID [facility] Last Admin: 09/18/18 17:30 Dose: 45 units Insulin Human Lispro (Humalog) 0 units SC ACCU-CHECK [facility]; Protocol Last Admin: 09/18/18 22:12 Dose: Not Given Isosorbide Mononitrate (Imdur) 60 mg PO DAILY [facility] Last Admin: 09/18/18 08:26 Dose: 60 mg Losartan Potassium (Cozaar) 100 mg PO DAILY [facility] Last Admin: 09/18/18 08:26 Dose: 100 mg Mirtazapine (Remeron) 15 mg PO HS [facility] Last Admin: 09/18/18 22:15 Dose: 15 mg Polyethylene Glycol (Miralax) 17 gm PO DAILY [facility] Last Admin: 09/18/18 08:41 Dose: 17 gm - Labs Labs: 09/18/18 05:20 09/19/18 04:30 Assessment and Plan (1) Pulmonary infiltrates Status: Acute (2) Acute and chronic respiratory failure with hypercapnia Status: Acute (3) Obesity with alveolar hypoventilation Status: Chronic (4) Obstructive sleep apnea Status: Chronic
[2018-09-19] MEDS: Insulin Lispro (humaLOG) 100 Units/ml Inj SC SCH ×4 (08:48→22:19)
[2018-09-19] MEDS: Enoxaparin 40 mg Syringe SC SCH (08:52)
[2018-09-19] MEDS: POLYETHYLENE GLYCOL 3350 17 GM/Dose PACKET PO SCH (08:53)
[2018-09-19] MEDS: acetaZOLAMIDE 500 mg SR Cap PO SCH (10:44)
[2018-09-19] MEDS: Insulin Detemir 100 Units/ml Inj SC SCH ×2 (10:46→18:10)
--- NOTE | 2018-09-19 11:23 | CP.PCM.PN ---
Subjective - Date & Time of Evaluation Date of Evaluation: 09/19/18 Time of Evaluation: 09:40 - Subjective Subjective: Patient seen and examined this AM, in NAD. Patient is lying in bed using BiPAP. Patient states she is not feeling SOB, states that compared to prior day there is no change in how she feels, denies CP, N/V/D. Remains afebrile. Objective - Vital Signs/Intake and Output Vital Signs (last 24 hours): Temp Pulse Resp BP Pulse Ox 98.3 F 71 18 169/70 H 95 09/19/18 08:50 09/19/18 10:45 09/19/18 08:50 09/19/18 10:45 09/19/18 08:50 - Medications Medications: Current Medications Acetaminophen (Tylenol 325mg Tab) 650 mg PO Q6 PRN PRN Reason: Headache Last Admin: 09/17/18 21:26 Dose: 650 mg Acetazolamide (Diamox Sequels 500 Mg Sr Cap) 500 mg PO DAILY [facility] Last Admin: 09/19/18 10:44 Dose: 500 mg Amlodipine Besylate (Norvasc) 5 mg PO DAILY [facility] Last Admin: 09/19/18 08:54 Dose: 5 mg Aspirin (Ecotrin) 81 mg PO DAILY [facility] Last Admin: 09/19/18 08:45 Dose: 81 mg Atorvastatin Calcium (Lipitor) 40 mg PO DAILY [facility] Last Admin: 09/19/18 08:52 Dose: 40 mg Carvedilol (Coreg) 25 mg PO Q12 [facility] Last Admin: 09/19/18 10:45 Dose: 25 mg Clopidogrel Bisulfate (Plavix) 75 mg PO DAILY [facility] Last Admin: 09/13/18 09:43 Dose: 75 mg Dextrose (Dextrose 50% Inj) 0 ml IV STAT PRN; Protocol PRN Reason: Hypoglycemia Protocol Dextrose (Glutose 15) 0 gm PO ONCE PRN; Protocol PRN Reason: Hypoglycemia Protocol Docusate Sodium (Colace) 100 mg PO BID [facility] Last Admin: 09/19/18 08:44 Dose: 100 mg Enoxaparin Sodium (Lovenox) 40 mg SC DAILY [facility]; Protocol Last Admin: 09/19/18 08:52 Dose: 40 mg Escitalopram Oxalate (Lexapro) 20 mg PO DAILY [facility] Last Admin: 09/19/18 08:52 Dose: 20 mg Ferrous Sulfate (Feosol) 325 mg PO DAILY [facility] Last Admin: 09/19/18 08:46 Dose: 325 mg Furosemide (Lasix) 40 mg PO BID [facility] Last Admin: 09/15/18 09:29 Dose: 40 mg Furosemide (Lasix) 40 mg IV DAILY [facility] Last Admin: 09/19/18 08:49 Dose: 40 mg Glucagon (Glucagen Diagnostic Kit) 0 mg IM STAT PRN; Protocol PRN Reason: Hypoglycemia Protocol Ceftriaxone Sodium 1 gm/ (Sodium Chloride) 100 mls @ 100 mls/hr IVPB DAILY [facility]; Protocol Insulin Detemir (Levemir) 45 units SC BID [facility] Last Admin: 09/19/18 10:46 Dose: 45 units Insulin Human Lispro (Humalog) 0 units SC ACCU-CHECK [facility]; Protocol Last Admin: 09/19/18 08:48 Dose: Not Given Isosorbide Mononitrate (Imdur) 60 mg PO DAILY [facility] Last Admin: 09/19/18 08:48 Dose: 60 mg Losartan Potassium (Cozaar) 100 mg PO DAILY [facility] Last Admin: 09/19/18 08:44 Dose: 100 mg Mirtazapine (Remeron) 15 mg PO HS [facility] Last Admin: 09/18/18 22:15 Dose: 15 mg Polyethylene Glycol (Miralax) 17 gm PO DAILY [facility] Last Admin: 09/19/18 08:53 Dose: 17 gm - Labs Labs: 09/18/18 05:20 09/19/18 04:30 - Constitutional Appears: No Acute Distress - Head Exam Head Exam: ATRAUMATIC, NORMAL INSPECTION, NORMOCEPHALIC - ENT Exam ENT Exam: Mucous Membranes Moist - Neck Exam Neck Exam: Full ROM - Respiratory Exam Respiratory Exam: Decreased Breath Sounds Additional comments: decreased breath sounds to the b/l bases. - Cardiovascular Exam Cardiovascular Exam: REGULAR RHYTHM, +S1, +S2 - GI/Abdominal Exam GI & Abdominal Exam: Soft - Extremities Exam Extremities Exam: absent: Pedal Edema - Neurological Exam Neurological Exam: Alert, Awake, Oriented x3 - Psychiatric Exam Psychiatric exam: Normal Affect - Skin Skin Exam: Normal Color, Warm Assessment and Plan - Assessment and Plan (Free Text) Assessment: 78 YO female with PMH of CAD, HTN, preserved EF CHF, IDDM, СВЕТЛАНА(On CPAP), Hx of CVA on home Ox who presents to ED complaining of shortness of breath. Patient was admitted for CHF exacerbation vs symptomatic anemia. Plan: 1) Dyspnea 2/2 CAP vs CHF exacerbation -Clinically stable - ABG today with PCO2 81, F/u ABG in AM - C/w BiPAP Rate 16 , setting 14/6/30%, use during day and at night - CXR on 09/12 showed no infiltrate. right hilar infiltrate - Repeat CXR on 09/15 showed worsening CHF - CTA Chest negative for PE, B/L pulmonary infiltrate and small pleural effusion - Procalcitonin 0.08, WBC: 5.6 - Continue Ceftriaxone 1 gm IVP daily -Acetazozolamide added today 500 PO QD, as per Dr River - Mycoplasma neg - F/U Urine antigen for strep pneumoniae, legionella. -F/u repeat CXR done today - Conference Director Dr. River on board, f/u recomms. -CT chest in 2-3 weeks 2) CHF -Clinically stable, no LE edema - Probnp 693, decreased b/l bases sounds -Will repeat f/u proBNP - BMP CO2 42 today - Repeat CXR on 09/15 showed worsening CHF - Lasix 40 mg IV - Continue Coreg 25 mg PO BID - Monitor vitals -Consult Dr Martinez cardiology, recomms appreciated 3) Anemia - Likely anemia of chronic disease - stable - H/H: 9.5/29.6 - Iron 53, TIBC 285, Iron sat 19, Transferrin 214, Ferritin 72. - Continue Feosol 325 daily - F/U Stool occult blood x 3 4) IDDM - Uncontrolled - Consistent carb diet, Patient advised to eat hospital food, avoid home cooked food for better glycemic control. - Resume Home insulin regimen, Levemir 45 SC BID - SSI - Hypoglycemia protocol - Monitor glucose ACHS 5) CKD stage 4 - chronic - hold metformin, no NSAIDs 6) HTN - c/w Losartan 100 mg and Amlodipine 5 mg 7) H/O stroke - Hold clopidogrel - C/W ASA, Lovenox 8) DVT Prophylaxis - Lovenox 40 sc daily 9) GI prophylaxis -Protonix 40 mg daily
[2018-09-19 12:06] LABS: HEMOGLOBIN 9.3 g/dL (12.0-16.0); MEAN CELL VOLUME 95.8 fl (81.0-99.0); MEAN CORPUSCULAR HEMOGLOBIN 30.9 pg (27.0-31.0); MEAN CORPUSCULAR HGB CONC 32.3 g/dL (33.0-37.0); RBC 2.99 Mil/uL (3.80-5.20); WHITE BLOOD COUNT 6.5 K/uL (4.8-10.8)
--- NOTE | 2018-09-19 13:44 | CP.PCM.CON ---
History of Present Illness - History of Present Illness History of Present Illness: 78 year old female with admitted with hypercapneic respiratory failure, COPD, CHF with preserved LV function, Anemia of chronic disease, Diabetes Mellitus , CAD Stent on dual antiplatelet therapy. On IV Lasix, Beta Gustavo and ARB. Cur rently stable resting comfortably at rest Past Patient History - Infectious Disease Hx of Infectious Diseases: None - Tetanus Immunizations Tetanus Immunization: Unknown - Past Medical History & Family History Past Medical History?: Yes Past Family History: Reviewed and not pertinent - Past Social History Smoking Status: Never Smoked Chewing Tobacco Use: No Cigar Use: No Alcohol: None Drugs: Denies Home Situation {Lives}: With Family - CARDIAC Hx Congestive Heart Failure: Yes Hx Hypercholesterolemia: Yes Hx Hypertension: Yes Other/Comment: CAD - PULMONARY Hx Pneumonia: Yes Hx Sleep Apnea: Yes Other/Comment: Chronic hypercapnic respiratory failure - NEUROLOGICAL HX Cerebrovascular Accident: Yes - HEENT Hx HEENT Problems: No - RENAL Hx Chronic Kidney Disease: No - ENDOCRINE/METABOLIC Hx Diabetes Mellitus Type 2: Yes - HEMATOLOGICAL/ONCOLOGICAL Hx Anemia: Yes Hx Human Immunodeficiency Virus (HIV): No - INTEGUMENTARY Hx Dermatological Problems: No - MUSCULOSKELETAL/RHEUMATOLOGICAL Hx Arthritis: Yes Hx Falls: Yes - GASTROINTESTINAL Hx Gastritis: Yes - GENITOURINARY/GYNECOLOGICAL Hx Genitourinary Disorders: No - PSYCHIATRIC Hx Anxiety: Yes - SURGICAL HISTORY Hx Angioplasty: Yes Hx Cardiac Catheterization: Yes Hx Coronary Stent: Yes - ANESTHESIA Hx Anesthesia: Yes Hx Anesthesia Reactions: No Hx Malignant Hyperthermia: No Meds Allergies/Adverse Reactions: Allergies Allergy/AdvReac Type Severity Reaction Status Date / Time No Known Allergies Allergy Verified 04/29/18 23:30 - Medications Medications: Current Medications Acetaminophen (Tylenol 325mg Tab) 650 mg PO Q6 PRN PRN Reason: Headache Last Admin: 09/17/18 21:26 Dose: 650 mg Acetazolamide (Diamox Sequels 500 Mg Sr Cap) 500 mg PO DAILY [facility] Last Admin: 09/19/18 10:44 Dose: 500 mg Amlodipine Besylate (Norvasc) 5 mg PO DAILY [facility] Last Admin: 09/19/18 08:54 Dose: 5 mg Aspirin (Ecotrin) 81 mg PO DAILY [facility] Last Admin: 09/19/18 08:45 Dose: 81 mg Atorvastatin Calcium (Lipitor) 40 mg PO DAILY [facility] Last Admin: 09/19/18 08:52 Dose: 40 mg Carvedilol (Coreg) 25 mg PO Q12 [facility] Last Admin: 09/19/18 10:45 Dose: 25 mg Clopidogrel Bisulfate (Plavix) 75 mg PO DAILY [facility] Last Admin: 09/13/18 09:43 Dose: 75 mg Dextrose (Dextrose 50% Inj) 0 ml IV STAT PRN; Protocol PRN Reason: Hypoglycemia Protocol Dextrose (Glutose 15) 0 gm PO ONCE PRN; Protocol PRN Reason: Hypoglycemia Protocol Docusate Sodium (Colace) 100 mg PO BID [facility] Last Admin: 09/19/18 08:44 Dose: 100 mg Enoxaparin Sodium (Lovenox) 40 mg SC DAILY [facility]; Protocol Last Admin: 09/19/18 08:52 Dose: 40 mg Escitalopram Oxalate (Lexapro) 20 mg PO DAILY [facility] Last Admin: 09/19/18 08:52 Dose: 20 mg Ferrous Sulfate (Feosol) 325 mg PO DAILY [facility] Last Admin: 09/19/18 08:46 Dose: 325 mg Furosemide (Lasix) 40 mg PO BID [facility] Last Admin: 09/15/18 09:29 Dose: 40 mg Furosemide (Lasix) 40 mg IV DAILY [facility] Last Admin: 09/19/18 08:49 Dose: 40 mg Glucagon (Glucagen Diagnostic Kit) 0 mg IM STAT PRN; Protocol PRN Reason: Hypoglycemia Protocol Ceftriaxone Sodium 1 gm/ (Sodium Chloride) 100 mls @ 100 mls/hr IVPB DAILY [facility]; Protocol Last Admin: 09/19/18 13:36 Dose: 100 mls/hr Insulin Detemir (Levemir) 45 units SC BID [facility] Last Admin: 09/19/18 10:46 Dose: 45 units Insulin Human Lispro (Humalog) 0 units SC ACCU-CHECK [facility]; Protocol Last Admin: 09/19/18 13:33 Dose: 4 units Isosorbide Mononitrate (Imdur) 60 mg PO DAILY [facility] Last Admin: 09/19/18 08:48 Dose: 60 mg Losartan Potassium (Cozaar) 100 mg PO DAILY [facility] Last Admin: 09/19/18 08:44 Dose: 100 mg Mirtazapine (Remeron) 15 mg PO HS [facility] Last Admin: 09/18/18 22:15 Dose: 15 mg Polyethylene Glycol (Miralax) 17 gm PO DAILY [facility] Last Admin: 09/19/18 08:53 Dose: 17 gm Physical Exam - Neck Exam Neck exam: Positive for: Normal Inspection - Respiratory Exam Respiratory Exam: Decreased Breath Sounds - Cardiovascular Exam Cardiovascular Exam: REGULAR RHYTHM - GI/Abdominal Exam GI & Abdominal Exam: Normal Bowel Sounds - Extremities Exam Extremities exam: Positive for: normal inspection Results - Vital Signs Recent Vital Signs: Last Vital Signs Temp 98.7 F 09/19/18 13:02 Pulse 66 09/19/18 13:02 Resp 20 09/19/18 13:02 BP 154/65 H 09/19/18 13:02 Pulse Ox 96 09/19/18 13:02 - Labs Result Diagrams: 09/19/18 11:32 09/19/18 04:30 Labs: Laboratory Results - last 24 hr 09/18/18 09/18/18 09/18/18 14:45 16:03 21:39 WBC RBC Hgb Hct MCV MCH MCHC RDW Plt Count pCO2 pO2 HCO3 ABG pH ABG Total CO2 ABG O2 Saturation ABG O2 Content ABG Base Excess ABG Hemoglobin ABG Carboxyhemoglobin POC ABG HHb (Measured) ABG Methemoglobin ABG O2 Capacity Parviz Test A-a O2 Difference Hgb O2 Saturation Vent Mode Mechanical Rate FiO2 Inspiratory BiPAP Expiratory BiPAP Crit Value Called To Crit Value Called By Crit Value Read Back Blood Gas Notified Time Sodium Potassium Chloride Carbon Dioxide Anion Gap BUN Creatinine Est GFR ( Amer) Est GFR (Non-Af Amer) POC Glucose (mg/dL) 200 H 233 H Random Glucose Calcium Stool Occult Blood Negative 09/19/18 09/19/18 09/19/18 04:00 04:30 05:11 WBC RBC Hgb Hct MCV MCH MCHC RDW Plt Count pCO2 81 H* pO2 136 H HCO3 40.1 H* ABG pH 7.38 ABG Total CO2 50.4 H ABG O2 Saturation 99.8 H ABG O2 Content 14.1 L ABG Base Excess 19.4 H ABG Hemoglobin 10.2 L ABG Carboxyhemoglobin 1.4 POC ABG HHb (Measured) 0.2 ABG Methemoglobin 2.2 ABG O2 Capacity 14.1 L Parviz Test Yes A-a O2 Difference 12.0 Hgb O2 Saturation 96.2 Vent Mode Bipap Mechanical Rate 16 FiO2 35.0 Inspiratory BiPAP 14 Expiratory BiPAP 6 Crit Value Called To Paco galarza Crit Value Called By Sharlene skinner pourer Crit Value Read Back Y Blood Gas Notified Time 505 Sodium 143 Potassium 3.7 Chloride 98 Carbon Dioxide 43 H* Anion Gap 6 L BUN 28 H Creatinine 1.1 Est GFR ( Amer) 58 Est GFR (Non-Af Amer) 48 POC Glucose (mg/dL) 62 L Random Glucose 70 Calcium 9.5 Stool Occult Blood 09/19/18 09/19/18 09/19/18 06:28 11:32 11:44 WBC 6.5 RBC 2.99 L Hgb 9.3 L Hct 28.7 L MCV 95.8 MCH 30.9 MCHC 32.3 L RDW 15.0 H Plt Count 214 pCO2 pO2 HCO3 ABG pH ABG Total CO2 ABG O2 Saturation ABG O2 Content ABG Base Excess ABG Hemoglobin ABG Carboxyhemoglobin POC ABG HHb (Measured) ABG Methemoglobin ABG O2 Capacity Parviz Test A-a O2 Difference Hgb O2 Saturation Vent Mode Mechanical Rate FiO2 Inspiratory BiPAP Expiratory BiPAP Crit Value Called To Crit Value Called By Crit Value Read Back Blood Gas Notified Time Sodium Potassium Chloride Carbon Dioxide Anion Gap BUN Creatinine Est GFR ( Amer) Est GFR (Non-Af Amer) POC Glucose (mg/dL) 97 282 H Random Glucose Calcium Stool Occult Blood Assessment & Plan - Assessment and Plan (Free Text) Assessment: Currently hemodynamically stable , improved respiratory status Edema most likely due to hypoxia , diastolic dysfunction Would Continue 40mg IV Lasix Continue ARB, Beta Gustavo
--- NOTE | 2018-09-19 15:13 | RAD ---
Date of service: 09/19/2018 HISTORY: SOB COMPARISON: Portable chest 09/15/2018. chest CT without contrast 04/22/2018. FINDINGS: LUNGS: No active pulmonary disease. PLEURA: No significant pleural effusion identified, no pneumothorax apparent. CARDIOVASCULAR: Calcific atherosclerotic changes are seen related to the thoracic aorta. Mild cardiomegaly appears stable. Diminished pulmonary vascular congestion noted. Right hilar vascular appearance remains somewhat prominent. OSSEOUS STRUCTURES: No significant abnormalities. VISUALIZED UPPER ABDOMEN: Normal. OTHER FINDINGS: None. IMPRESSION: Markedly improved pulmonary vascular congestion the right hilar prominence remains likely is a function of overlapped vascular structures based on prior chest CT 04/22/2018.
[2018-09-20 05:16] LABS: ABG ALLEN TEST YES; ARTERIAL BLOOD GAS HCO3 34.3 mmol/L (21-28); ARTERIAL BLOOD GAS HEMOGLOBIN 9.7 g/dL (11.7-17.4); ARTERIAL BLOOD GAS O2 CAPACITY 13.4 mL/dL (16-24); ARTERIAL BLOOD GAS O2 CONTENT 13.4 ML/dL (15-23); ARTERIAL BLOOD GAS PCO2 59 mm/Hg (35-45); ARTERIAL BLOOD GAS PH 7.42 (7.35-7.45); ARTERIAL BLOOD GAS PO2 115 mm/Hg (80-100); ARTERIAL BLOOD GAS TCO2 40.1 mmol/L (22-28)
[2018-09-20 06:10] LABS: CALCIUM 9.6 mg/dL (8.4-10.2)
--- NOTE | 2018-09-20 07:48 | CP.PCM.PN ---
Subjective - Date & Time of Evaluation Date of Evaluation: 09/20/18 Time of Evaluation: 09:45 - Subjective Subjective: Patient seen and examined this AM, in NAD. Patient is sitting in bed using BiPAP. Patient states feeling better today, states , denies SOB CP, N/V/D. Remains afebrile. Objective - Vital Signs/Intake and Output Vital Signs (last 24 hours): Temp Pulse Resp BP Pulse Ox 97.5 F L 60 18 146/63 98 09/20/18 05:43 09/20/18 05:43 09/20/18 05:43 09/20/18 05:43 09/20/18 05:43 Intake and Output: 09/20/18 09/20/18 06:59 18:59 Intake Total 100 Output Total 700 Balance -600 - Medications Medications: Current Medications Acetaminophen (Tylenol 325mg Tab) 650 mg PO Q6 PRN PRN Reason: Headache Last Admin: 09/19/18 22:18 Dose: 650 mg Acetazolamide (Diamox Sequels 500 Mg Sr Cap) 500 mg PO DAILY [facility] Last Admin: 09/19/18 10:44 Dose: 500 mg Amlodipine Besylate (Norvasc) 5 mg PO DAILY [facility] Last Admin: 09/19/18 08:54 Dose: 5 mg Aspirin (Ecotrin) 81 mg PO DAILY [facility] Last Admin: 09/19/18 08:45 Dose: 81 mg Atorvastatin Calcium (Lipitor) 40 mg PO DAILY [facility] Last Admin: 09/19/18 08:52 Dose: 40 mg Carvedilol (Coreg) 25 mg PO Q12 [facility] Last Admin: 09/19/18 20:38 Dose: 25 mg Clopidogrel Bisulfate (Plavix) 75 mg PO DAILY [facility] Last Admin: 09/13/18 09:43 Dose: 75 mg Dextrose (Dextrose 50% Inj) 0 ml IV STAT PRN; Protocol PRN Reason: Hypoglycemia Protocol Dextrose (Glutose 15) 0 gm PO ONCE PRN; Protocol PRN Reason: Hypoglycemia Protocol Docusate Sodium (Colace) 100 mg PO BID [facility] Last Admin: 09/19/18 18:04 Dose: 100 mg Enoxaparin Sodium (Lovenox) 40 mg SC DAILY [facility]; Protocol Last Admin: 09/19/18 08:52 Dose: 40 mg Escitalopram Oxalate (Lexapro) 20 mg PO DAILY [facility] Last Admin: 09/19/18 08:52 Dose: 20 mg Ferrous Sulfate (Feosol) 325 mg PO DAILY [facility] Last Admin: 09/19/18 08:46 Dose: 325 mg Furosemide (Lasix) 40 mg PO BID [facility] Last Admin: 09/15/18 09:29 Dose: 40 mg Furosemide (Lasix) 40 mg IV DAILY [facility] Last Admin: 09/19/18 08:49 Dose: 40 mg Glucagon (Glucagen Diagnostic Kit) 0 mg IM STAT PRN; Protocol PRN Reason: Hypoglycemia Protocol Ceftriaxone Sodium 1 gm/ (Sodium Chloride) 100 mls @ 100 mls/hr IVPB DAILY [facility]; Protocol Last Admin: 09/19/18 13:36 Dose: 100 mls/hr Insulin Detemir (Levemir) 45 units SC BID [facility] Last Admin: 09/19/18 18:10 Dose: 45 units Insulin Human Lispro (Humalog) 0 units SC ACCU-CHECK [facility]; Protocol Last Admin: 09/19/18 22:19 Dose: Not Given Isosorbide Mononitrate (Imdur) 60 mg PO DAILY [facility] Last Admin: 09/19/18 08:48 Dose: 60 mg Losartan Potassium (Cozaar) 100 mg PO DAILY [facility] Last Admin: 09/19/18 08:44 Dose: 100 mg Mirtazapine (Remeron) 15 mg PO HS [facility] Last Admin: 09/19/18 22:20 Dose: 15 mg Polyethylene Glycol (Miralax) 17 gm PO DAILY [facility] Last Admin: 09/19/18 08:53 Dose: 17 gm - Labs Labs: 09/19/18 11:32 09/20/18 04:30 - Additional Findings Additional findings: - Constitutional Appears: No Acute Distress - Head Exam Head Exam: ATRAUMATIC, NORMAL INSPECTION, NORMOCEPHALIC - ENT Exam ENT Exam: Mucous Membranes Moist - Neck Exam Neck Exam: Full ROM - Respiratory Exam Respiratory Exam: Decreased Breath Sounds Additional comments: decreased breath sounds to the b/l bases. - Cardiovascular Exam Cardiovascular Exam: REGULAR RHYTHM, +S1, +S2 - GI/Abdominal Exam GI & Abdominal Exam: Soft - Extremities Exam Extremities Exam: absent: Pedal Edema - Neurological Exam Neurological Exam: Alert, Awake, Oriented x3 - Psychiatric Exam Psychiatric exam: Normal Affect - Skin Skin Exam: Normal Color, Warm Assessment and Plan - Assessment and Plan (Free Text) Assessment: 78 YO female with PMH of CAD, HTN, preserved EF CHF, IDDM, СВЕТЛАНА(On CPAP), Hx of CVA on home Ox who presents to ED complaining of shortness of breath. Patient was admitted for CHF exacerbation vs symptomatic anemia. Plan: 1) Dyspnea 2/2 CAP vs CHF exacerbation -Clinically improved, ABG better - ABG today with PCO2 59, F/u ABG in AM - C/w BiPAP Rate 16 , setting 14/6/30%, use during day and at night - CXR on 09/12 showed no infiltrate. right hilar infiltrate - Repeat CXR on 09/15 showed worsening CHF - CTA Chest negative for PE, B/L pulmonary infiltrate and small pleural effusion - Procalcitonin 0.08, WBC: 5.6 - Continue Ceftriaxone 1 gm IVP daily -Acetazozolamide added today 500 PO QD, as per Dr River - Mycoplasma neg - F/U Urine antigen for strep pneumoniae, legionella. -F/u repeat CXR done today - [employer] Dr. River on board, f/u recomms. -CT chest in 2-3 weeks 2) CHF -Clinically stable, no LE edema - Probnp 693, decreased b/l bases sounds -Will repeat f/u proBNP - BMP CO2 42 today - Repeat CXR on 09/15 showed worsening CHF - Lasix 40 mg IV - Continue Coreg 25 mg PO BID - Monitor vitals -Consult Dr Martinez cardiology, C/w current management 3) Anemia - Likely anemia of chronic disease - stable - H/H: 9.3/28.7 - Iron 53, TIBC 285, Iron sat 19, Transferrin 214, Ferritin 72. - Continue Feosol 325 daily - F/U Stool occult blood x 3 4) IDDM - Uncontrolled - Consistent carb diet, Patient advised to eat hospital food, avoid home cooked food for better glycemic control. - Resume Home insulin regimen, Levemir 45 SC BID - SSI - Hypoglycemia protocol - Monitor glucose ACHS 5) CKD stage 4 - chronic - hold metformin, no NSAIDs 6) HTN - c/w Losartan 100 mg and Amlodipine 5 mg 7) H/O stroke - Hold clopidogrel - C/W ASA, Lovenox 8) DVT Prophylaxis - Lovenox 40 sc daily 9) GI prophylaxis -Protonix 40 mg daily
[2018-09-20] MEDS: Insulin Lispro (humaLOG) 100 Units/ml Inj SC SCH ×4 (09:06→22:28)
[2018-09-20] MEDS: Insulin Detemir 100 Units/ml Inj SC SCH ×2 (09:07→16:58)
[2018-09-20] MEDS: POLYETHYLENE GLYCOL 3350 17 GM/Dose PACKET PO SCH (09:07)
[2018-09-20] MEDS: Enoxaparin 40 mg Syringe SC SCH (09:08)
[2018-09-20] MEDS: acetaZOLAMIDE 500 mg SR Cap PO SCH (09:09)
--- NOTE | 2018-09-20 10:04 | CP.PCM.PN ---
Subjective - Date & Time of Evaluation Date of Evaluation: 09/20/18 Time of Evaluation: 10:04 Objective - Vital Signs/Intake and Output Vital Signs (last 24 hours): Temp Pulse Resp BP Pulse Ox 97.9 F 65 18 153/68 H 98 09/20/18 08:00 09/20/18 09:09 09/20/18 08:00 09/20/18 09:09 09/20/18 08:00 Intake and Output: 09/19/18 09/20/18 23:59 11:59 Intake Total 960 100 Output Total 800 700 Balance 160 -600 - Medications Medications: Current Medications Acetaminophen (Tylenol 325mg Tab) 650 mg PO Q6 PRN PRN Reason: Headache Last Admin: 09/19/18 22:18 Dose: 650 mg Acetazolamide (Diamox Sequels 500 Mg Sr Cap) 500 mg PO DAILY [facility] Last Admin: 09/20/18 09:09 Dose: 500 mg Amlodipine Besylate (Norvasc) 5 mg PO DAILY [facility] Last Admin: 09/20/18 09:08 Dose: 5 mg Aspirin (Ecotrin) 81 mg PO DAILY [facility] Last Admin: 09/20/18 09:07 Dose: 81 mg Atorvastatin Calcium (Lipitor) 40 mg PO DAILY [facility] Last Admin: 09/20/18 09:10 Dose: 40 mg Carvedilol (Coreg) 25 mg PO Q12 [facility] Last Admin: 09/20/18 09:07 Dose: 25 mg Clopidogrel Bisulfate (Plavix) 75 mg PO DAILY [facility] Last Admin: 09/13/18 09:43 Dose: 75 mg Dextrose (Dextrose 50% Inj) 0 ml IV STAT PRN; Protocol PRN Reason: Hypoglycemia Protocol Dextrose (Glutose 15) 0 gm PO ONCE PRN; Protocol PRN Reason: Hypoglycemia Protocol Docusate Sodium (Colace) 100 mg PO BID [facility] Last Admin: 09/20/18 09:08 Dose: 100 mg Enoxaparin Sodium (Lovenox) 40 mg SC DAILY [facility]; Protocol Last Admin: 09/20/18 09:08 Dose: 40 mg Escitalopram Oxalate (Lexapro) 20 mg PO DAILY [facility] Last Admin: 09/20/18 09:09 Dose: 20 mg Ferrous Sulfate (Feosol) 325 mg PO DAILY [facility] Last Admin: 09/20/18 09:09 Dose: 325 mg Furosemide (Lasix) 40 mg PO BID [facility] Last Admin: 09/15/18 09:29 Dose: 40 mg Furosemide (Lasix) 40 mg IV DAILY [facility] Last Admin: 09/20/18 09:09 Dose: 40 mg Glucagon (Glucagen Diagnostic Kit) 0 mg IM STAT PRN; Protocol PRN Reason: Hypoglycemia Protocol Ceftriaxone Sodium 1 gm/ (Sodium Chloride) 100 mls @ 100 mls/hr IVPB DAILY [facility]; Protocol Last Admin: 09/20/18 09:10 Dose: 100 mls/hr Insulin Detemir (Levemir) 45 units SC BID [facility] Last Admin: 09/20/18 09:07 Dose: 45 units Insulin Human Lispro (Humalog) 0 units SC ACCU-CHECK [facility]; Protocol Last Admin: 09/20/18 09:06 Dose: Not Given Isosorbide Mononitrate (Imdur) 60 mg PO DAILY [facility] Last Admin: 09/20/18 09:08 Dose: 60 mg Lidocaine (Lidoderm) 1 ea TD DAILY [facility] Losartan Potassium (Cozaar) 100 mg PO DAILY [facility] Last Admin: 09/20/18 09:09 Dose: 100 mg Mirtazapine (Remeron) 15 mg PO HS [facility] Last Admin: 09/19/18 22:20 Dose: 15 mg Polyethylene Glycol (Miralax) 17 gm PO DAILY [facility] Last Admin: 09/20/18 09:07 Dose: 17 gm - Labs Labs: 09/19/18 11:32 09/20/18 04:30 Assessment and Plan (1) Pulmonary infiltrates Status: Acute (2) Acute and chronic respiratory failure with hypercapnia Status: Acute (3) Obesity with alveolar hypoventilation Status: Chronic (4) Obstructive sleep apnea Status: Chronic
[2018-09-21 06:29] LABS: CALCIUM 9.8 mg/dL (8.4-10.2)
[2018-09-21] MEDS: Insulin Lispro (humaLOG) 100 Units/ml Inj SC SCH ×3 (06:39→17:35)
[2018-09-21] MEDS: Insulin Detemir 100 Units/ml Inj SC SCH ×2 (09:00→17:36)
[2018-09-21] MEDS ORDERED: Lidocaine 5% Patch TD SCH ×2 (09:00)
--- NOTE | 2018-09-21 09:39 | CP.PCM.PN ---
Subjective - Date & Time of Evaluation Date of Evaluation: 09/21/18 Time of Evaluation: 09:36 - Subjective Subjective: Has done well with current regimen. Using BiPAP as directed. Encouraged to increase time spent on NPPV at home. Acetazolamide ER 500 POOD added to regimen. Awake and alert this morning. Breath sounds are diminished bilaterally. Few dry rales in dependant regions of both lungs. No audible wheezing or bronchial breathing. Plan for discharge on present regimen. Objective - Vital Signs/Intake and Output Vital Signs (last 24 hours): Temp Pulse Resp BP Pulse Ox 98.0 F 66 20 119/69 98 09/21/18 08:48 09/21/18 08:48 09/21/18 08:48 09/21/18 08:48 09/21/18 08:48 - Medications Medications: Current Medications Acetaminophen (Tylenol 325mg Tab) 650 mg PO Q6 PRN PRN Reason: Headache Last Admin: 09/19/18 22:18 Dose: 650 mg Acetazolamide (Diamox Sequels 500 Mg Sr Cap) 500 mg PO DAILY [facility] Last Admin: 09/20/18 09:09 Dose: 500 mg Amlodipine Besylate (Norvasc) 5 mg PO DAILY [facility] Last Admin: 09/20/18 09:08 Dose: 5 mg Aspirin (Ecotrin) 81 mg PO DAILY [facility] Last Admin: 09/20/18 09:07 Dose: 81 mg Atorvastatin Calcium (Lipitor) 40 mg PO DAILY [facility] Last Admin: 09/20/18 09:10 Dose: 40 mg Carvedilol (Coreg) 25 mg PO Q12 [facility] Last Admin: 09/20/18 22:27 Dose: 25 mg Clopidogrel Bisulfate (Plavix) 75 mg PO DAILY [facility] Last Admin: 09/13/18 09:43 Dose: 75 mg Dextrose (Dextrose 50% Inj) 0 ml IV STAT PRN; Protocol PRN Reason: Hypoglycemia Protocol Dextrose (Glutose 15) 0 gm PO ONCE PRN; Protocol PRN Reason: Hypoglycemia Protocol Docusate Sodium (Colace) 100 mg PO BID [facility] Last Admin: 09/20/18 16:57 Dose: 100 mg Enoxaparin Sodium (Lovenox) 40 mg SC DAILY [facility]; Protocol Last Admin: 09/20/18 09:08 Dose: 40 mg Escitalopram Oxalate (Lexapro) 20 mg PO DAILY [facility] Last Admin: 09/20/18 09:09 Dose: 20 mg Ferrous Sulfate (Feosol) 325 mg PO DAILY [facility] Last Admin: 09/20/18 09:09 Dose: 325 mg Furosemide (Lasix) 40 mg PO BID [facility] Last Admin: 09/15/18 09:29 Dose: 40 mg Furosemide (Lasix) 40 mg IV DAILY [facility] Last Admin: 09/20/18 09:09 Dose: 40 mg Glucagon (Glucagen Diagnostic Kit) 0 mg IM STAT PRN; Protocol PRN Reason: Hypoglycemia Protocol Ceftriaxone Sodium 1 gm/ (Sodium Chloride) 100 mls @ 100 mls/hr IVPB DAILY [facility]; Protocol Last Admin: 09/20/18 09:10 Dose: 100 mls/hr Insulin Detemir (Levemir) 45 units SC BID [facility] Last Admin: 09/20/18 16:58 Dose: 45 units Insulin Human Lispro (Humalog) 0 units SC ACCU-CHECK [facility]; Protocol Last Admin: 09/21/18 06:39 Dose: Not Given Isosorbide Mononitrate (Imdur) 60 mg PO DAILY [facility] Last Admin: 09/20/18 09:08 Dose: 60 mg Lidocaine (Lidoderm) 1 ea TD DAILY [facility] Losartan Potassium (Cozaar) 100 mg PO DAILY [facility] Last Admin: 09/20/18 09:09 Dose: 100 mg Mirtazapine (Remeron) 15 mg PO HS [facility] Last Admin: 09/20/18 22:27 Dose: 15 mg Polyethylene Glycol (Miralax) 17 gm PO DAILY [facility] Last Admin: 09/20/18 09:07 Dose: 17 gm - Labs Labs: 09/19/18 11:32 09/21/18 05:25 Assessment and Plan (1) Pulmonary infiltrates Status: Acute (2) Acute and chronic respiratory failure with hypercapnia Status: Acute (3) Obesity with alveolar hypoventilation Status: Chronic (4) Obstructive sleep apnea Status: Chronic
[2018-09-21] MEDS: Enoxaparin 40 mg Syringe SC SCH (09:52)
[2018-09-21] MEDS: POLYETHYLENE GLYCOL 3350 17 GM/Dose PACKET PO SCH (09:52)
[2018-09-21] MEDS: acetaZOLAMIDE 500 mg SR Cap PO SCH (09:56)
--- NOTE | 2018-09-21 09:57 | CP.PCM.PN ---
Objective - Vital Signs/Intake and Output Vital Signs (last 24 hours): Temp Pulse Resp BP Pulse Ox 98.0 F 66 20 119/69 98 09/21/18 08:48 09/21/18 08:48 09/21/18 08:48 09/21/18 08:48 09/21/18 08:48 - Medications Medications: Current Medications Acetaminophen (Tylenol 325mg Tab) 650 mg PO Q6 PRN PRN Reason: Headache Last Admin: 09/19/18 22:18 Dose: 650 mg Acetazolamide (Diamox Sequels 500 Mg Sr Cap) 500 mg PO DAILY [facility] Last Admin: 09/20/18 09:09 Dose: 500 mg Amlodipine Besylate (Norvasc) 5 mg PO DAILY [facility] Last Admin: 09/20/18 09:08 Dose: 5 mg Aspirin (Ecotrin) 81 mg PO DAILY [facility] Last Admin: 09/20/18 09:07 Dose: 81 mg Atorvastatin Calcium (Lipitor) 40 mg PO DAILY [facility] Last Admin: 09/20/18 09:10 Dose: 40 mg Carvedilol (Coreg) 25 mg PO Q12 [facility] Last Admin: 09/20/18 22:27 Dose: 25 mg Clopidogrel Bisulfate (Plavix) 75 mg PO DAILY [facility] Last Admin: 09/13/18 09:43 Dose: 75 mg Dextrose (Dextrose 50% Inj) 0 ml IV STAT PRN; Protocol PRN Reason: Hypoglycemia Protocol Dextrose (Glutose 15) 0 gm PO ONCE PRN; Protocol PRN Reason: Hypoglycemia Protocol Docusate Sodium (Colace) 100 mg PO BID [facility] Last Admin: 09/20/18 16:57 Dose: 100 mg Enoxaparin Sodium (Lovenox) 40 mg SC DAILY [facility]; Protocol Last Admin: 09/20/18 09:08 Dose: 40 mg Escitalopram Oxalate (Lexapro) 20 mg PO DAILY [facility] Last Admin: 09/20/18 09:09 Dose: 20 mg Ferrous Sulfate (Feosol) 325 mg PO DAILY [facility] Last Admin: 09/20/18 09:09 Dose: 325 mg Furosemide (Lasix) 40 mg PO BID [facility] Last Admin: 09/15/18 09:29 Dose: 40 mg Furosemide (Lasix) 40 mg IV DAILY [facility] Last Admin: 09/20/18 09:09 Dose: 40 mg Glucagon (Glucagen Diagnostic Kit) 0 mg IM STAT PRN; Protocol PRN Reason: Hypoglycemia Protocol Ceftriaxone Sodium 1 gm/ (Sodium Chloride) 100 mls @ 100 mls/hr IVPB DAILY [facility]; Protocol Last Admin: 09/20/18 09:10 Dose: 100 mls/hr Insulin Detemir (Levemir) 45 units SC BID [facility] Last Admin: 09/20/18 16:58 Dose: 45 units Insulin Human Lispro (Humalog) 0 units SC ACCU-CHECK [facility]; Protocol Last Admin: 09/21/18 06:39 Dose: Not Given Isosorbide Mononitrate (Imdur) 60 mg PO DAILY [facility] Last Admin: 09/20/18 09:08 Dose: 60 mg Lidocaine (Lidoderm) 1 ea TD DAILY [facility] Losartan Potassium (Cozaar) 100 mg PO DAILY [facility] Last Admin: 09/20/18 09:09 Dose: 100 mg Mirtazapine (Remeron) 15 mg PO HS [facility] Last Admin: 09/20/18 22:27 Dose: 15 mg Polyethylene Glycol (Miralax) 17 gm PO DAILY [facility] Last Admin: 09/20/18 09:07 Dose: 17 gm - Labs Labs: 09/19/18 11:32 09/21/18 05:25
--- NOTE | 2018-09-21 15:29 | CP.PCM.DIS ---
Provider - Provider Date of Admission: 09/12/18 15:51 Attending physician: Santhosh Burger MD Consults: 09/13/18 07:03 Pulmonology Consult Routine Comment: Consulting Provider: Francisco River Consulting Physician: Francisco River Reason for Consult: SOB, СВЕТЛАНА, Symptomatic anemia, CHF exacerbation 09/14/18 07:36 Hematology Oncology Consult Routine Comment: Anemia of chronic disease Consulting Provider: Christine Hammer Consulting Physician: Christine Hammer Reason for Consult: Anemia of chronic disease 09/19/18 10:19 Cardiology Consult Routine Comment: Consulting Provider: Nick Martinez Consulting Physician: Nick Martinez Reason for Consult: CHF Time Spent in preparation of Discharge (in minutes): 33 Diagnosis - Discharge Diagnosis (1) Pulmonary infiltrates Status: Resolved Priority: Medium (2) CHF (congestive heart failure) Status: Chronic (3) Morbid obesity Status: Chronic (4) Uncontrolled type 2 diabetes mellitus with hyperglycemia Status: Chronic (5) HTN (hypertension) Status: Chronic (6) СВЕТЛАНА on CPAP Status: Chronic (7) Obstructive sleep apnea Status: Chronic Priority: High Hospital Course - Lab Results Lab Results: Micro Results 09/12/18 17:05 Blood-Venous Blood Culture - Final NO GROWTH AFTER 5 DAYS 09/12/18 17:05 Blood-Venous Gram Stain - Final TEST NOT PERFORMED 09/12/18 16:50 Blood-Venous Blood Culture - Final NO GROWTH AFTER 5 DAYS 09/12/18 16:50 Blood-Venous Gram Stain - Final TEST NOT PERFORMED Most Recent Lab Values WBC 6.5 K/uL (4.8-10.8) 09/19/18 11:32 RBC 2.99 Mil/uL (3.80-5.20) L 09/19/18 11:32 Hgb 9.3 g/dL (12.0-16.0) L 09/19/18 11:32 Hct 28.7 % (34.0-47.0) L 09/19/18 11:32 MCV 95.8 fl (81.0-99.0) 09/19/18 11:32 MCH 30.9 pg (27.0-31.0) 09/19/18 11:32 MCHC 32.3 g/dL (33.0-37.0) L 09/19/18 11:32 RDW 15.0 % (11.5-14.5) H 09/19/18 11:32 Plt Count 214 K/uL (130-400) 09/19/18 11:32 MPV 8.8 fl (7.2-11.7) 09/18/18 05:20 Neut % (Auto) 64.7 % (50.0-75.0) 09/18/18 05:20 Lymph % (Auto) 18.4 % (20.0-40.0) L 09/18/18 05:20 Rosebud % (Auto) 11.1 % (0.0-10.0) H 09/18/18 05:20 Eos % (Auto) 4.9 % (0.0-4.0) H 09/18/18 05:20 Baso % (Auto) 0.9 % (0.0-2.0) 09/18/18 05:20 Neut # (Auto) 3.6 K/uL (1.8-7.0) 09/18/18 05:20 Lymph # (Auto) 1.0 K/uL (1.0-4.3) 09/18/18 05:20 Rosebud # (Auto) 0.6 K/uL (0.0-0.8) 09/18/18 05:20 Eos # (Auto) 0.3 K/uL (0.0-0.7) 09/18/18 05:20 Baso # (Auto) 0.1 K/uL (0.0-0.2) 09/18/18 05:20 Neutrophils % (Manual) 85 % (42-75) H 09/13/18 09:16 Lymphocytes % (Manual) 8 % (20-50) L 09/13/18 09:16 Monocytes % (Manual) 7 % (0-10) 09/13/18 09:16 Toxic Granulation Present 09/13/18 09:16 Platelet Estimate Normal (NORMAL) 09/13/18 09:16 Plt Clumps, EDTA Present 09/13/18 09:16 Large Platelets Present 09/13/18 09:16 Hypochromasia (manual) Moderate 09/13/18 09:16 Anisocytosis (manual) Slight 09/13/18 09:16 Ovalocytes Slight 09/13/18 09:16 Retic Count 3.9 % (0.5-1.5) H D 09/12/18 19:22 D-Dimer, Quantitative 2668 ng/mlDDU (0-230) H 09/12/18 19:22 pCO2 59 mm/Hg (35-45) H 09/20/18 05:00 pO2 115 mm/Hg (80-100) H 09/20/18 05:00 HCO3 34.3 mmol/L (21-28) H 09/20/18 05:00 ABG pH 7.42 (7.35-7.45) 09/20/18 05:00 ABG Total CO2 40.1 mmol/L (22-28) H 09/20/18 05:00 ABG O2 Saturation 100.0 % (95-98) H 09/20/18 05:00 ABG O2 Content 13.4 ML/dL (15-23) L 09/20/18 05:00 ABG Base Excess 12.0 mmol/L (-2.0-3.0) H 09/20/18 05:00 ABG Hemoglobin 9.7 g/dL (11.7-17.4) L 09/20/18 05:00 ABG Carboxyhemoglobin 1.9 % (0.5-1.5) H 09/20/18 05:00 POC ABG HHb (Measured) 0.0 % (0.0-5.0) 09/20/18 05:00 ABG Methemoglobin 1.4 % (0.0-3.0) 09/20/18 05:00 ABG O2 Capacity 13.4 mL/dL (16-24) L 09/20/18 05:00 Parviz Test Yes 09/20/18 05:00 A-a O2 Difference 25.0 mm/Hg 09/20/18 05:00 Hgb O2 Saturation 96.8 % (95.0-98.0) 09/20/18 05:00 Vent Mode Bipap 09/20/18 05:00 Mechanical Rate 16 09/20/18 05:00 FiO2 30.0 % 09/20/18 05:00 Inspiratory BiPAP 14 09/20/18 05:00 Expiratory BiPAP 6 09/20/18 05:00 Blood Gas Comments Bipap 09/13/18 11:31 Crit Value Called To Paco galarza 09/19/18 04:00 Crit Value Called By Sharlene skinner leather production machine operator 09/19/18 04:00 Crit Value Read Back Y 09/19/18 04:00 Blood Gas Notified Time 505 09/19/18 04:00 Sodium 144 mmol/l (132-148) 09/21/18 05:25 Potassium 4.1 MMOL/L (3.6-5.0) 09/21/18 05:25 Chloride 99 mmol/L (98-107) 09/21/18 05:25 Carbon Dioxide 35 mmol/L (22-30) H 09/21/18 05:25 Anion Gap 14 (10-20) 09/21/18 05:25 BUN 33 mg/dl (7-17) H 09/21/18 05:25 Creatinine 1.4 mg/dl (0.7-1.2) H 09/21/18 05:25 Est GFR ( Amer) 44 09/21/18 05:25 Est GFR (Non-Af Amer) 36 09/21/18 05:25 POC Glucose (mg/dL) 278 mg/dL (65-110) H 09/21/18 11:02 Random Glucose 59 mg/dL (65-105) L 09/21/18 05:25 Calcium 9.8 mg/dL (8.4-10.2) 09/21/18 05:25 Iron 53 ug/dL (37-170) 09/12/18 19:22 TIBC 285 ug/dL (250-450) 09/12/18 19:22 % Saturation 19 % (20-55) L 09/12/18 19:22 Transferrin 214.18 mg/dL (206-381) 09/12/18 19:22 Ferritin 108.0 ng/Ml (11.1-264.0) 09/14/18 08:59 Total Bilirubin 0.4 mg/dl (0.2-1.3) 09/14/18 05:05 AST 22 U/L (14-36) 09/14/18 05:05 ALT 47 U/L (9-52) 09/14/18 05:05 Alkaline Phosphatase 107 U/L (38-126) 09/14/18 05:05 Lactate Dehydrogenase 437 U/L (313-618) 09/13/18 11:04 Troponin I 0.0190 ng/mL (0.00-0.120) 09/12/18 14:15 NT-Pro-B Natriuret Pep 686 pg/ml (0-900) 09/19/18 12:25 Total Protein 6.4 G/DL (6.3-8.2) 09/14/18 05:05 Albumin 3.7 g/dL (3.5-5.0) 09/14/18 05:05 Globulin 2.7 gm/dL (2.2-3.9) 09/14/18 05:05 Albumin/Globulin Ratio 1.4 (1.0-2.1) 09/14/18 05:05 Angiotensin Convert Enz 46 U/L (9-67) 09/18/18 05:20 Procalcitonin 0.08 NG/ML (0.19-0.49) L 09/13/18 11:04 Stool Occult Blood Negative (NEGATIVE) 09/18/18 14:45 MAGALI Screen Negative (Negative) 09/18/18 05:20 Influenza Typ A,B (EIA) Negative for flu a/b (NEGATIVE) 09/12/18 14:15 Mycoplasma pneumon IgM Negative (NEGATIVE) 09/13/18 11:04 Blood Type A NEGATIVE 09/12/18 19:22 Antibody Screen Negative 09/12/18 19:22 Crossmatch See Detail 09/12/18 19:22 BBK History Checked Patient has bt 09/12/18 19:22 - Hospital Course Hospital Course: 78 Y/O female with PMH of CAD, HTN, preserved EF CHF, IDDM, СВЕТЛАНА(On CPAP), Hx of CVA on home O2 who presented to the ED complaining of shortness of breath. Pt was admitted for CHF exacerbation vs symptomatic anemia on Sep 12 2018. She was found on admission to be anemic with a hb of 8.0., MCV97. WBC,7.9 and platelets.233, with no bleeding site, occult blood negative. Patient was evaluated by hematology Dr Hammer. Patient's anemia is interpreted secondary to anemia of chronic disease. She received 2 units of PRBC during hospital course resulting in stabilization of Hb around 9 g/dl and showing improvement of fatigue. As per tractor trailer truck driver recommendation patient is to continue treatment with oral iron. Patient was also evaluated by seasonal tax preparer and found hemodinamically stable with ProBNP normal, troponin negative with hypoxia most likely secondary to respiratory status. Recommendation by cardio given to continue current treatment for preserved EF CHF, continue ARB, Beta Gustavo and lasix. During Hptal course patient showed persistent hypercapnia on ABG, patient was also consulted with gut snatcher Dr River. She uses BiPAP at home night time for СВЕТЛАНА, current hypoxemia likely secondary to progression of СВЕТЛАНА, obesity and patient immobility at home. Patient BiPAP setting modified by pulmo with RR 16, IPAP 14, EPAP 6, FiO2 30, and time use extended to during day during course, Diamox was added 500 PO QD, also patient encouraged to increase time spent on NPPV upon discharge. Patient today has shown significant improvement on her respiratory status with ABG showing improvement to baseline range since yesterday 09/20/18. Patient today is found hemodianmically stable, denies CP, SOB, N/V/D, states feeling better. Patient labs today show mild azotemia compared to prior day with creatinine 1.4, BUN 33 likely secondary to intense diuresis treatment for CHF prior, today electrolyte within normal range, patient clinically stable to be DC, decision to decrease lasix from 40 PO BID to QD. Patient has shown decreased mobility and debility due to her multiple comorbidities and course days of hospitalization, she will definitely benefit with DC to TCU for further treatment with PT to improve her deconditioning and ADL. Discharge Exam - Head Exam Head Exam: ATRAUMATIC, NORMAL INSPECTION, NORMOCEPHALIC - Additional Findings Additional findings: - Additional Findings Additional findings: - Constitutional Appears: No Acute Distress - Head Exam Head Exam: ATRAUMATIC, NORMAL INSPECTION, NORMOCEPHALIC - ENT Exam ENT Exam: Mucous Membranes Moist - Neck Exam Neck Exam: Full ROM - Respiratory Exam Respiratory Exam: Decreased Breath Sounds Additional comments: decreased breath sounds to the b/l bases. - Cardiovascular Exam Cardiovascular Exam: REGULAR RHYTHM, +S1, +S2 - GI/Abdominal Exam GI & Abdominal Exam: Soft - Extremities Exam Extremities Exam: absent: Pedal Edema - Neurological Exam Neurological Exam: Alert, Awake, Oriented x3 - Psychiatric Exam Psychiatric exam: Normal Affect - Skin Skin Exam: Normal Color, Warm Discharge Plan - Follow Up Plan Condition: GUARDED Disposition: REHAB FACILITY/REHAB UNIT Patient education suggested?: Yes Instructions: Anemia of Chronic Disease (DC) Additional Instructions: Patient will be DC to TCU Instructions to continue home medication as reconciled Will continue to f/u patient in TCU. Referrals: Santhosh Burger MD [Family Provider] - Clinical Quality Measures - CQM - Stroke Antithrombotic Prescribed: Yes Anticoagulation Prescribed for Atrial Flutter, Atrial Fibrillation and History of:: Not Applicable Statin prescribed: Yes - CQM - VTE Did patient receive overlap therapy during hosptialization?: Yes Is patient being discharged on overlap therapy?: Yes - CQM - Heart Failure VIET Inhibitor Prescribed: Yes [facility]
[2018-09-21 17:18] VITALS: BP 115/54; PULSE 68; RESP 18; TEMP 98.7; O2SAT 96
--- NOTE | 2018-09-25 15:23 | PQF ---
PROVIDER RESPONSE TEXT: Chronic CHF, Pneumonia, Respiratory Failure,Hypercapnia REVIEWER QUERY TEXT: Conflicting Documentation Clarification A single mention or documentation of multiple diagnoses for the same clinical presentation appears in the record. Please clarify the acuity of the diagnosis/diagnoses. Congestive heart failure: Acute, chronic, acute on chronic. The patient's Clinical Indicators include: History and Physical documented "Pt admitted for chf exacerbation vs symptomatic anemia." Discharge Summary documented "chronic chf." Lab data BNP 09/12 693, BNP 09/19 686 Query created by: Ya Amaya on 09/22/2018 11:52 AM Electronically signed by: Santhosh Burger MD 09/25/2018 3:19 PM
== END 2018-09-21 19:05 | DRG 189 ==
LOC: H.ER 12:58 → H.ERHOLD 15:51 → H.MEDSURG1 18:20 → H.TEL 22:05
PROVIDERS: ADMIT Family Medicine; ATTEND Family Medicine
PROC: 5A09557 Assistance with Respiratory Ventilation, Greater than 96 Consecutive Hours, Continuous Positive Airway Pressure (ICD-10-PCS; 2018-09-13)
PROC: 30233N0 Transfusion of Autologous Red Blood Cells into Peripheral Vein, Percutaneous Approach (ICD-10-PCS; principal; 2018-09-14)
DX: J96.21 Acute and chronic respiratory failure with hypoxia (principal); J18.0 Bronchopneumonia, unspecified organism; I50.33 Acute on chronic diastolic (congestive) heart failure; J96.22 Acute and chronic respiratory failure with hypercapnia; I13.0 Hypertensive heart and chronic kidney disease with heart failure and stage 1 through stage 4 chronic kidney disease, or unspecified chronic kidney disease; N18.4 Chronic kidney disease, stage 4 (severe); E66.2 Morbid (severe) obesity with alveolar hypoventilation; I16.9 Hypertensive crisis, unspecified; D63.8 Anemia in other chronic diseases classified elsewhere; D63.1 Anemia in chronic kidney disease; Z99.81 Dependence on supplemental oxygen; E11.22 Type 2 diabetes mellitus with diabetic chronic kidney disease; E11.65 Type 2 diabetes mellitus with hyperglycemia; Z79.4 Long term (current) use of insulin; E78.00 Pure hypercholesterolemia, unspecified; I25.10 Atherosclerotic heart disease of native coronary artery without angina pectoris; Z95.5 Presence of coronary angioplasty implant and graft; F41.9 Anxiety disorder, unspecified; K29.70 Gastritis, unspecified, without bleeding; Z86.73 Personal history of transient ischemic attack (TIA), and cerebral infarction without residual deficits; Z79.02 Long term (current) use of antithrombotics/antiplatelets; Z79.82 Long term (current) use of aspirin; K64.4 Residual hemorrhoidal skin tags; M19.90 Unspecified osteoarthritis, unspecified site; Z68.34 Body mass index [BMI] 34.0-34.9, adult; K59.00 Constipation, unspecified; R53.81 Other malaise

== ENCOUNTER 2018-09-21 17:42 | Inpatient (IN) | payer OTHER, MEDICAID ==
[2018-09-21 19:52] VITALS: BMI 33.9
[2018-09-21] MEDS ORDERED: Glucagon Recombinant 1 mg Inj IM PRN (20:50)
[2018-09-22] MEDS ORDERED: INSULIN ASPART RECOMBINANT 5 UNIT SC SCH (07:30)
[2018-09-22] MEDS: Insulin Lispro (humaLOG) 100 Units/ml Inj SC SCH ×3 (07:45→16:55)
[2018-09-22] MEDS: acetaZOLAMIDE 500 mg SR Cap PO SCH (08:49)
[2018-09-22] MEDS: Multivitamin With Minerals Tab PO SCH (08:50)
[2018-09-22] MEDS: Enoxaparin 40 mg Syringe SC SCH (08:50)
[2018-09-22] MEDS: Insulin Detemir 100 Units/ml Inj SC SCH ×2 (08:52→16:54)
[2018-09-22] MEDS: Lidocaine 5% Patch TD SCH (08:54)
[2018-09-22] MEDS ORDERED: Patient's Own Med (Multivitamin [Multi-Vitamin Daily] 1 TAB) PO SCH (09:00)
--- NOTE | 2018-09-22 09:59 | CP.PCM.HP ---
History of Present Illness - History of Present Illness History of Present Illness: 78 Y/O female with PMH of CAD, HTN, preserved EF CHF, IDDM, СВЕТЛАНА(On CPAP), Hx of CVA on home O2 who presented to the ED complaining of shortness of breath on 09/12/18. Pt was admitted for CHF exacerbation vs symptomatic anemia on Sep 12 2018. She was found on admission to be anemic with a hb of 8.0., MCV97. WBC,7.9 and platelets.233, with no bleeding site, occult blood negative. Patient was evaluated by hematology Dr Hammer and diagnosed with anemia of chronic disease. She received 2 units of PRBC during her hospitalization resulting in stabilization of Hb around 9 g/dl and showing improvement of her fatigue. As per miter operator recommendation patient will need to continue treatment with oral iron. Patient was also evaluated by emergency medicine nurse practitioner during this last hospitalization and found hemodinamically stable with ProBNP normal, troponin were negative and her hypoxia interpreted most likely secondary to respiratory status. During this last Hptal course patient showed persistent hypercapnia on ABG and was consulted with basket braider Dr River. Patient uses BiPAP at home night time for СВЕТЛАНА, but developed hypoxemia likely secondary to progression of СВЕТЛАНА, obesity and patient immobility at home. Patient BiPAP settin g was modified by pulmo with RR 16, IPAP 14, EPAP 6, FiO2 30, and recommendation given to extend BiPAP use to during day time, Diamox was also added 500 PO QD during her last hospital staty. Patient showed significant improvement on her respiratory status with ABG showing improvement to baseline range since yesterday 09/20/18 and was discharge to TCU yesterday 09/21/18. Patient chemistry on DC day 09/21/18 showed mild azotemia compared to prior day with creatinine 1.4, BUN 33 likely secondary to intense diuresis treatment for CHF prior, her lasix was decreased from 40 PO BID to QD. Patient today during encounter denies CP, SOB, N/V/D, states feeling better. Patient has shown decreased mobility and debility due to her multiple comorbidities and course days of hospitalization, she will definitely benefit with TCU for further treatment with PT to improve her deconditioning and ADL. PMD: Dr. Burger Wrapping Clerk: Dr. Ambrose PMH: CAD, HTN, preserved EF CHF, IDDM2, Hx of CVA, СВЕТЛАНА (CPAP at home), on home O2 Meds: See med list PSH: none Fam: non-contributory SOC: denies smoking, alcohol, and drugs ROS: 12 points assessed and negative unless otherwise reported in the HPI Present on Admission - Present on Admission Any Indicators Present on Admission: No History of DVT/PE: No History of Uncontrolled Diabetes: No Urinary Catheter: No Decubitus Ulcer Present: No Past Patient History - Infectious Disease Hx of Infectious Diseases: None - Tetanus Immunizations Tetanus Immunization: Unknown - Past Medical History & Family History Past Medical History?: Yes - Past Social History Smoking Status: Never Smoked - CARDIAC Hx Congestive Heart Failure: Yes Hx Hypercholesterolemia: Yes Hx Hypertension: Yes Other/Comment: CAD - PULMONARY Hx Pneumonia: Yes Hx Sleep Apnea: Yes Other/Comment: Chronic hypercapnic respiratory failure - NEUROLOGICAL HX Cerebrovascular Accident: Yes - HEENT Hx HEENT Problems: No - RENAL Hx Chronic Kidney Disease: No - ENDOCRINE/METABOLIC Hx Endocrine Disorders: Yes Hx Diabetes Mellitus Type 2: Yes - HEMATOLOGICAL/ONCOLOGICAL Hx Blood Disorders: Yes Hx Anemia: Yes Hx Human Immunodeficiency Virus (HIV): No - INTEGUMENTARY Hx Dermatological Problems: No - MUSCULOSKELETAL/RHEUMATOLOGICAL Hx Musculoskeletal Disorders: Yes Hx Arthritis: Yes Hx Falls: No - GASTROINTESTINAL Hx Gastrointestinal Disorders: Yes Hx Gastritis: Yes - GENITOURINARY/GYNECOLOGICAL Hx Genitourinary Disorders: No - PSYCHIATRIC Hx Psychophysiologic Disorder: Yes Hx Anxiety: Yes Hx Substance Use: No - SURGICAL HISTORY Hx Angioplasty: Yes Hx Cardiac Catheterization: Yes Hx Coronary Stent: Yes - ANESTHESIA Hx Anesthesia: Yes Hx Anesthesia Reactions: No Hx Malignant Hyperthermia: No Meds Allergies/Adverse Reactions: Allergies Allergy/AdvReac Type Severity Reaction Status Date / Time No Known Allergies Allergy Verified 04/29/18 23:30 Physical Exam - Additional Findings Additional findings: - Head Exam Head Exam: ATRAUMATIC, NORMAL INSPECTION, NORMOCEPHALIC - Additional Findings Additional findings: - Additional Findings Additional findings: - Constitutional Appears: No Acute Distress - Head Exam Head Exam: ATRAUMATIC, NORMAL INSPECTION, NORMOCEPHALIC - ENT Exam ENT Exam: Mucous Membranes Moist - Neck Exam Neck Exam: Full ROM - Respiratory Exam Respiratory Exam: Decreased Breath Sounds Additional comments: decreased breath sounds to the b/l bases. - Cardiovascular Exam Cardiovascular Exam: REGULAR RHYTHM, +S1, +S2 - GI/Abdominal Exam GI & Abdominal Exam: Soft - Extremities Exam Extremities Exam: absent: Pedal Edema - Neurological Exam Neurological Exam: Alert, Awake, Oriented x3 - Psychiatric Exam Psychiatric exam: Normal Affect - Skin Skin Exam: Normal Color, Warm Results - Vital Signs Recent Vital Signs: Last Vital Signs Temp 98.4 F 09/22/18 08:05 Pulse 67 09/22/18 08:51 Resp 18 09/22/18 08:05 BP 128/75 09/22/18 08:51 Pulse Ox 99 09/22/18 08:05 - Labs Labs: Laboratory Results - last 24 hr 09/21/18 09/22/18 21:01 05:07 POC Glucose (mg/dL) 274 H 193 H Assessment & Plan - Assessment and Plan (Free Text) Assessment: 78 Y/O female with PMH of CAD, HTN, preserved EF CHF, IDDM, СВЕТЛАНА(On CPAP), Hx of CVA on home O2. Patient was recently hospitalized for symptomatic anemia of chronic disease, now s/p 2 units PRBC, CHF exacebation and exacerbation of progressive СВЕТЛАНА with hypoxemic-hypercanic respiratory failure. Patient also received a course of IV antibiotic during her last hospital stay for lung infilttrates on CXR with negative pro-calcitonin, was afebrile with normal WBC. Patient has shown decreased mobility and debility due to her multiple comorbidities and course days of hospitalization, she will definitely benefit with TCU for further treatment with PT to improve her deconditioning and ADL. Plan: #Deconditioning -C/w PT eval and treatment #СВЕТЛАНА on CPAP -Clinically improved, stable - C/w BiPAP Rate 16 , setting 14/6/30%, use during day and at night - CTA Chest negative for PE, B/L pulmonary infiltrate and small pleural effusion on last admission - Procalcitonin 0.08 on 09/13, WBC: normal -Acetazozolamide 500 PO QD, as per Dr River - Mycoplasma neg -Cake Maker Dr. River on board, f/u recomms. -CT chest in 2-3 weeks # CHF w/pEF Diastolic dysfunction -Clinically stable, no LE edema - Probnp 693 in range last admission -C/w Lasix 40 PO QD ( was taking 40 PO BID at home) - Continue Coreg 25 mg PO BID - Monitor vitals # Anemia - Likely anemia of chronic disease - stable - H/H: 9.3/28.7 - Iron 53, TIBC 285, Iron sat 19, Transferrin 214, Ferritin 72. - Continue Feosol 325 daily - occult blood neg # IDDM - controlled - Consistent carb diet, Patient advised to eat hospital food, avoid home cooked food for better glycemic control. - Resume Home insulin regimen, Levemir 45 SC BID - SSI - Hypoglycemia protocol - Monitor glucose ACHS # CKD stage 4 - chronic - hold metformin, no NSAIDs -F/u BMP # HTN - c/w Losartan 100 mg and Amlodipine 5 mg # H/O stroke -clopidogrel held - C/W ASA, Lovenox #Depression -C/w Remeron, lexapro #DVT Prophylaxis - Lovenox 40 sc daily # GI prophylaxis -Protonix 40 mg daily
[2018-09-22 12:57] LABS: CALCIUM 9.8 mg/dL (8.4-10.2)
[2018-09-23] MEDS: Insulin Lispro (humaLOG) 100 Units/ml Inj SC SCH ×3 (08:00→16:35)
[2018-09-23] MEDS: Enoxaparin 40 mg Syringe SC SCH (08:19)
[2018-09-23] MEDS: Lidocaine 5% Patch TD SCH (08:22)
[2018-09-23] MEDS: Multivitamin With Minerals Tab PO SCH (08:24)
[2018-09-23] MEDS: acetaZOLAMIDE 500 mg SR Cap PO SCH (08:24)
[2018-09-23] MEDS: Insulin Detemir 100 Units/ml Inj SC SCH ×2 (09:50→16:36)
--- NOTE | 2018-09-23 12:25 | CP.PCM.PN ---
Subjective - Date & Time of Evaluation Date of Evaluation: 09/23/18 Time of Evaluation: 09:15 - Subjective Subjective: Patient seen and examined this morning, in NAD. Patient is currently using CPAP machine with good compliance, states feeling better. Patient denies CP ,CUELLAR, SOB, N/V/D, dysuria, or other acute medical complaint at this time. Objective - Vital Signs/Intake and Output Vital Signs (last 24 hours): Temp Pulse Resp BP Pulse Ox 98.2 F 77 20 151/80 H 98 09/23/18 07:50 09/23/18 09:30 09/23/18 07:50 09/23/18 08:24 09/23/18 09:30 - Medications Medications: Current Medications Acetaminophen (Tylenol 325mg Tab) 650 mg PO Q6 PRN PRN Reason: Headache Last Admin: 09/23/18 09:45 Dose: 650 mg Acetazolamide (Diamox Sequels 500 Mg Sr Cap) 500 mg PO DAILY [facility] Last Admin: 09/23/18 08:24 Dose: 500 mg Amlodipine Besylate (Norvasc) 5 mg PO DAILY [facility] Last Admin: 09/23/18 08:24 Dose: 5 mg Aspirin (Ecotrin) 81 mg PO DAILY [facility] Last Admin: 09/23/18 08:23 Dose: 81 mg Atorvastatin Calcium (Lipitor) 40 mg PO DAILY [facility] Last Admin: 09/23/18 08:24 Dose: 40 mg Carvedilol (Coreg) 25 mg PO Q12 [facility] Last Admin: 09/23/18 08:21 Dose: 25 mg Clopidogrel Bisulfate (Plavix) 75 mg PO DAILY [facility] Last Admin: 09/23/18 08:24 Dose: 75 mg Dextrose (Glutose 15) 0 gm PO ONCE PRN; Protocol PRN Reason: Hypoglycemia Protocol Docusate Sodium (Colace) 100 mg PO BID [facility] Last Admin: 09/23/18 08:23 Dose: 100 mg Enoxaparin Sodium (Lovenox) 40 mg SC DAILY [facility]; Protocol Last Admin: 09/23/18 08:19 Dose: 40 mg Escitalopram Oxalate (Lexapro) 20 mg PO DAILY [facility] Last Admin: 09/23/18 08:23 Dose: 20 mg Ferrous Sulfate (Feosol) 325 mg PO DAILY [facility] Last Admin: 09/23/18 08:19 Dose: 325 mg Furosemide (Lasix) 40 mg PO DAILY [facility] Last Admin: 03/08/19 08:21 Dose: 40 mg Glucagon (Glucagen Diagnostic Kit) 0 mg IM STAT PRN; Protocol PRN Reason: Hypoglycemia Protocol Insulin Detemir (Levemir) 45 units SC BID [facility] Last Admin: 09/23/18 09:50 Dose: 45 units Insulin Human Lispro (Humalog) 5 units SC ACTID [facility] Last Admin: 09/23/18 10:51 Dose: 5 units Isosorbide Mononitrate (Imdur) 60 mg PO DAILY [facility] Last Admin: 09/23/18 08:21 Dose: 60 mg Lidocaine (Lidoderm) 1 ea TD DAILY [facility] Last Admin: 09/23/18 08:22 Dose: 1 ea Losartan Potassium (Cozaar) 100 mg PO DAILY [facility] Last Admin: 09/23/18 08:21 Dose: 100 mg Mirtazapine (Remeron) 15 mg PO HS [facility] Last Admin: 09/22/18 21:06 Dose: 15 mg Multivitamins/Minerals (Therapeutic-M Tab) 1 tab PO DAILY [facility] Last Admin: 09/23/18 08:24 Dose: 1 tab - Labs Labs: 09/22/18 12:00 - Additional Findings Additional findings: - Additional Findings Additional findings: - Head Exam Head Exam: ATRAUMATIC, NORMAL INSPECTION, NORMOCEPHALIC - Additional Findings Additional findings: - Additional Findings Additional findings: - Constitutional Appears: No Acute Distress - Head Exam Head Exam: ATRAUMATIC, NORMAL INSPECTION, NORMOCEPHALIC - ENT Exam ENT Exam: Mucous Membranes Moist - Neck Exam Neck Exam: Full ROM - Respiratory Exam Respiratory Exam: Decreased Breath Sounds Additional comments: decreased breath sounds to the b/l bases. - Cardiovascular Exam Cardiovascular Exam: REGULAR RHYTHM, +S1, +S2 - GI/Abdominal Exam GI & Abdominal Exam: Soft - Extremities Exam Extremities Exam: absent: Pedal Edema - Neurological Exam Neurological Exam: Alert, Awake, Oriented x3 - Psychiatric Exam Psychiatric exam: Normal Affect - Skin Skin Exam: Normal Color, Warm Assessment and Plan - Assessment and Plan (Free Text) Assessment: 78 Y/O female with PMH of CAD, HTN, preserved EF CHF, IDDM, СВЕТЛАНА(On CPAP), Hx of CVA on home O2. Patient was recently hospitalized for symptomatic anemia of chronic disease, now s/p 2 units PRBC, CHF exacebation and exacerbation of progressive СВЕТЛАНА with hypoxemic-hypercanic respiratory failure. Patient also received a course of IV antibiotic during her last hospital stay for lung infilttrates on CXR with negative pro-calcitonin, was afebrile with normal WBC. Patient has shown decreased mobility and debility due to her multiple comorbidities and course days of hospitalization, she will definitely benefit with TCU for further treatment with PT to improve her deconditioning and ADL. Plan: #Deconditioning -C/w PT eval and treatment # HODA on CKD stage 4 Patient is showing Azotemia increased possibly 2/2 Diamox use - chronic - hold metformin, no NSAIDs -Creatinine 1.6, BUN 46 on 09/22/18 mild increased -Will hold Lasix and Diamox -F/u BMP #СВЕТЛАНА on CPAP -Clinically improved, stable - C/w BiPAP Rate 16 , setting 14/6/30%, use during day and at night - CTA Chest negative for PE, B/L pulmonary infiltrate and small pleural effusion on last admission - Procalcitonin 0.08 on 09/13, WBC: normal -Acetazozolamide 500 PO QD, as per Dr River, will hold due to HODA - Mycoplasma neg -Fermentation Manager Dr. River on board, f/u recomms. -CT chest in 2-3 weeks # CHF w/pEF Diastolic dysfunction -Clinically stable, no LE edema - Probnp 693 in range last admission - Lasix 40 PO QD ( was taking 40 PO BID at home) will hold due HODA - Continue Coreg 25 mg PO BID - Monitor vitals # Anemia - Likely anemia of chronic disease - stable - H/H: 9.3/28.7 - Iron 53, TIBC 285, Iron sat 19, Transferrin 214, Ferritin 72. - Continue Feosol 325 daily - occult blood neg # IDDM - controlled - Consistent carb diet, Patient advised to eat hospital food, avoid home cooked food for better glycemic control. - Resume Home insulin regimen, Levemir 45 SC BID - SSI - Hypoglycemia protocol - Monitor glucose ACHS # HTN - c/w Losartan 100 mg and Amlodipine 5 mg # H/O stroke -c/w clopidogrel - C/W ASA, Lovenox #Depression -C/w Remeron, lexapro #DVT Prophylaxis - Lovenox 40 sc daily # GI prophylaxis -Protonix 40 mg daily
[2018-09-24 07:35] LABS: CALCIUM 9.2 mg/dL (8.4-10.2)
[2018-09-24] MEDS: Lidocaine 5% Patch TD SCH (08:23)
[2018-09-24] MEDS: Enoxaparin 40 mg Syringe SC SCH (08:24)
[2018-09-24] MEDS: Insulin Detemir 100 Units/ml Inj SC SCH ×2 (08:25→16:57)
[2018-09-24] MEDS: Multivitamin With Minerals Tab PO SCH (08:29)
[2018-09-24] MEDS: Insulin Lispro (humaLOG) 100 Units/ml Inj SC SCH ×3 (08:32→16:58)
--- NOTE | 2018-09-24 12:34 | CP.PCM.CON ---
History of Present Illness - History of Present Illness History of Present Illness: Consultation in follow up from acute medicine. Admitted with bilateral pulmonary infiltrates and hypercapnic ventilatory failure. 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 She was placed on BiPAP ventilation because of CO2 r etention and she was treated for pneumonia. Acetazolamide was also added to the regimen, but this was later placed on 'hold' because of increased BUN. She progressed well with this regimen and was discharged to transitional care for further therapy. Past Patient History - Infectious Disease Hx of Infectious Diseases: None - Tetanus Immunizations Tetanus Immunization: Unknown - Past Medical History & Family History Past Medical History?: Yes - Past Social History Smoking Status: Never Smoked - CARDIAC Hx Congestive Heart Failure: Yes Hx Hypercholesterolemia: Yes Hx Hypertension: Yes Other/Comment: CAD - PULMONARY Hx Pneumonia: Yes Hx Sleep Apnea: Yes Other/Comment: Chronic hypercapnic respiratory failure - NEUROLOGICAL HX Cerebrovascular Accident: Yes - HEENT Hx HEENT Problems: No - RENAL Hx Chronic Kidney Disease: No - ENDOCRINE/METABOLIC Hx Endocrine Disorders: Yes Hx Diabetes Mellitus Type 2: Yes - HEMATOLOGICAL/ONCOLOGICAL Hx Blood Disorders: Yes Hx Anemia: Yes Hx Human Immunodeficiency Virus (HIV): No - INTEGUMENTARY Hx Dermatological Problems: No - MUSCULOSKELETAL/RHEUMATOLOGICAL Hx Musculoskeletal Disorders: Yes Hx Arthritis: Yes Hx Falls: No - GASTROINTESTINAL Hx Gastrointestinal Disorders: Yes Hx Gastritis: Yes - GENITOURINARY/GYNECOLOGICAL Hx Genitourinary Disorders: No - PSYCHIATRIC Hx Psychophysiologic Disorder: Yes Hx Anxiety: Yes Hx Substance Use: No - SURGICAL HISTORY Hx Angioplasty: Yes Hx Cardiac Catheterization: Yes Hx Coronary Stent: Yes - ANESTHESIA Hx Anesthesia: Yes Hx Anesthesia Reactions: No Hx Malignant Hyperthermia: No Meds Allergies/Adverse Reactions: Allergies Allergy/AdvReac Type Severity Reaction Status Date / Time No Known Allergies Allergy Verified 04/29/18 23:30 - Medications Medications: Current Medications Acetaminophen (Tylenol 325mg Tab) 650 mg PO Q6 PRN PRN Reason: Headache Last Admin: 09/23/18 09:45 Dose: 650 mg Acetazolamide (Diamox Sequels 500 Mg Sr Cap) 500 mg PO DAILY [facility] Last Admin: 09/23/18 08:24 Dose: 500 mg Amlodipine Besylate (Norvasc) 5 mg PO DAILY [facility] Last Admin: 09/24/18 08:33 Dose: 5 mg Aspirin (Ecotrin) 81 mg PO DAILY [facility] Last Admin: 09/24/18 08:36 Dose: 81 mg Atorvastatin Calcium (Lipitor) 40 mg PO DAILY [facility] Last Admin: 09/24/18 08:32 Dose: 40 mg Carvedilol (Coreg) 25 mg PO Q12 [facility] Last Admin: 09/24/18 08:30 Dose: 25 mg Clopidogrel Bisulfate (Plavix) 75 mg PO DAILY [facility] Last Admin: 09/24/18 08:30 Dose: 75 mg Dextrose (Glutose 15) 0 gm PO ONCE PRN; Protocol PRN Reason: Hypoglycemia Protocol Docusate Sodium (Colace) 100 mg PO BID [facility] Last Admin: 09/24/18 08:31 Dose: 100 mg Enoxaparin Sodium (Lovenox) 40 mg SC DAILY [facility]; Protocol Last Admin: 09/24/18 08:24 Dose: 40 mg Escitalopram Oxalate (Lexapro) 20 mg PO DAILY [facility] Last Admin: 09/24/18 08:30 Dose: 20 mg Ferrous Sulfate (Feosol) 325 mg PO DAILY [facility] Last Admin: 09/24/18 08:36 Dose: 325 mg Furosemide (Lasix) 40 mg PO DAILY [facility] Last Admin: 09/23/18 08:21 Dose: 40 mg Glucagon (Glucagen Diagnostic Kit) 0 mg IM STAT PRN; Protocol PRN Reason: Hypoglycemia Protocol Insulin Detemir (Levemir) 45 units SC BID [facility] Last Admin: 09/24/18 08:25 Dose: 45 units Insulin Human Lispro (Humalog) 5 units SC ACTID [facility] Last Admin: 09/24/18 12:01 Dose: 5 units Isosorbide Mononitrate (Imdur) 60 mg PO DAILY [facility] Last Admin: 09/24/18 08:30 Dose: 60 mg Lidocaine (Lidoderm) 1 ea TD DAILY [facility] Last Admin: 09/24/18 08:23 Dose: 1 ea Losartan Potassium (Cozaar) 100 mg PO DAILY [facility] Last Admin: 09/24/18 08:31 Dose: 100 mg Mirtazapine (Remeron) 15 mg PO HS [facility] Last Admin: 09/23/18 21:23 Dose: 15 mg Multivitamins/Minerals (Therapeutic-M Tab) 1 tab PO DAILY [facility] Last Admin: 09/24/18 08:29 Dose: 1 tab Physical Exam - Additional Findings Additional findings: Awake, cooperative, in no distress. Neck is supple and trachea midline. No dullness on chest percussion. Breath sounds are equally present in both lungs, mildly diminished. No audible wheezes were heard, few dry rales in lung bases. Heart sounds were slightly distant. Results - Vital Signs Recent Vital Signs: Last Vital Signs Temp 97.9 F 09/24/18 10:05 Pulse 68 09/24/18 10:05 Resp 20 09/24/18 10:05 BP 144/76 09/24/18 10:05 Pulse Ox 99 09/24/18 10:05 - Labs Result Diagrams: 09/28/18 06:10 09/28/18 06:10 Labs: Laboratory Results - last 24 hr 09/23/18 09/23/18 09/24/18 16:19 20:42 00:08 Sodium Potassium Chloride Carbon Dioxide Anion Gap BUN Creatinine Est GFR ( Amer) Est GFR (Non-Af Amer) POC Glucose (mg/dL) 465 H* 416 H* 355 H Random Glucose Calcium 09/24/18 09/24/18 09/24/18 05:28 11:56 12:00 Sodium Potassium Chloride Carbon Dioxide Anion Gap BUN Creatinine Est GFR ( Amer) Est GFR (Non-Af Amer) POC Glucose (mg/dL) 270 H > 500 H* 415 H* Random Glucose Calcium 09/24/18 Unknown Sodium 140 Potassium 4.1 Chloride 103 Carbon Dioxide 28 Anion Gap 13 BUN 48 H Creatinine 1.3 H Est GFR ( Amer) 48 Est GFR (Non-Af Amer) 40 POC Glucose (mg/dL) Random Glucose 294 H Calcium 9.2 Assessment & Plan (1) Chronic hypercapnic respiratory failure Status: Chronic Priority: High (2) Obesity with alveolar hypoventilation Status: Chronic Priority: High (3) Obstructive sleep apnea Status: Chronic Priority: High - Assessment and Plan (Free Text) Plan: Will need NPPV when discharged home. Nasal CPAP no longer sufficient because of 'Obesity Hypoventilation' and chronic CO2 retention. Will need to use Bi-Level positive pressure ventilation going forward. - Date & Time Date: 09/24/18 Time: 12:34
[2018-09-24] MEDS ORDERED: Glucagon Recombinant 1 mg Inj IM PRN (22:21)
[2018-09-24] MEDS ORDERED: Dextrose 50% SYRINGE Inj (50 ml) IV PRN (22:21)
[2018-09-25 06:14] LABS: CALCIUM 9.4 mg/dL (8.4-10.2)
[2018-09-25] MEDS: Insulin Lispro (humaLOG) 100 Units/ml Inj SC SCH ×7 (07:25→23:54)
[2018-09-25] MEDS: Lidocaine 5% Patch TD SCH (08:50)
[2018-09-25] MEDS: Enoxaparin 40 mg Syringe SC SCH (08:52)
[2018-09-25] MEDS: Insulin Detemir 100 Units/ml Inj SC SCH ×2 (08:53→16:37)
[2018-09-25] MEDS: Multivitamin With Minerals Tab PO SCH (08:54)
--- NOTE | 2018-09-25 12:26 | CP.PCM.PN ---
Subjective - Date & Time of Evaluation Date of Evaluation: 09/25/18 Time of Evaluation: 10:00 - Subjective Subjective: Patient seen and examined this AM at bedside, in NAD. Patient states feeling better and improving with PT. Patient denies CP ,CUELLAR, SOB, N/V/D, dysuria, or other acute medical complaint at this time. Objective - Vital Signs/Intake and Output Vital Signs (last 24 hours): Temp Pulse Resp BP Pulse Ox 97.3 F L 68 20 106/66 98 09/25/18 08:30 09/25/18 08:54 09/25/18 08:30 09/25/18 08:54 09/25/18 08:30 - Medications Medications: Current Medications Acetaminophen (Tylenol 325mg Tab) 650 mg PO Q6 PRN PRN Reason: Headache Last Admin: 09/23/18 09:45 Dose: 650 mg Acetazolamide (Diamox Sequels 500 Mg Sr Cap) 500 mg PO DAILY [facility] Last Admin: 09/23/18 08:24 Dose: 500 mg Amlodipine Besylate (Norvasc) 5 mg PO DAILY [facility] Last Admin: 09/25/18 08:54 Dose: 5 mg Aspirin (Ecotrin) 81 mg PO DAILY [facility] Last Admin: 09/25/18 08:52 Dose: 81 mg Atorvastatin Calcium (Lipitor) 40 mg PO DAILY [facility] Last Admin: 09/25/18 08:55 Dose: 40 mg Carvedilol (Coreg) 25 mg PO Q12 [facility] Last Admin: 09/25/18 08:51 Dose: 25 mg Clopidogrel Bisulfate (Plavix) 75 mg PO DAILY [facility] Last Admin: 09/25/18 08:55 Dose: 75 mg Dextrose (Glutose 15) 0 gm PO ONCE PRN; Protocol PRN Reason: Hypoglycemia Protocol Dextrose (Dextrose 50% Inj) 0 ml IV STAT PRN; Protocol PRN Reason: Hypoglycemia Protocol Dextrose (Glutose 15) 0 gm PO ONCE PRN; Protocol PRN Reason: Hypoglycemia Protocol Docusate Sodium (Colace) 100 mg PO BID [facility] Last Admin: 09/25/18 08:52 Dose: 100 mg Escitalopram Oxalate (Lexapro) 20 mg PO DAILY [facility] Last Admin: 09/25/18 08:51 Dose: 20 mg Ferrous Sulfate (Feosol) 325 mg PO DAILY [facility] Last Admin: 09/25/18 08:51 Dose: 325 mg Furosemide (Lasix) 40 mg PO DAILY [facility] Last Admin: 09/23/18 08:21 Dose: 40 mg Glucagon (Glucagen Diagnostic Kit) 0 mg IM STAT PRN; Protocol PRN Reason: Hypoglycemia Protocol Glucagon (Glucagen Diagnostic Kit) 0 mg IM STAT PRN; Protocol PRN Reason: Hypoglycemia Protocol Insulin Detemir (Levemir) 45 units SC BID [facility] Last Admin: 09/25/18 08:53 Dose: 45 units Insulin Human Lispro (Humalog) 5 units SC ACTID [facility] Last Admin: 09/25/18 12:03 Dose: 5 units Insulin Human Lispro (Humalog) 0 units SC ACHS [facility]; Protocol Last Admin: 09/25/18 12:03 Dose: 2 u Isosorbide Mononitrate (Imdur) 60 mg PO DAILY [facility] Last Admin: 09/25/18 08:51 Dose: 60 mg Lidocaine (Lidoderm) 1 ea TD DAILY [facility] Last Admin: 09/25/18 08:50 Dose: 1 ea Losartan Potassium (Cozaar) 100 mg PO DAILY [facility] Last Admin: 09/25/18 08:52 Dose: 100 mg Mirtazapine (Remeron) 15 mg PO HS [facility] Last Admin: 09/24/18 21:00 Dose: 15 mg Multivitamins/Minerals (Therapeutic-M Tab) 1 tab PO DAILY [facility] Last Admin: 09/25/18 08:54 Dose: 1 tab - Labs Labs: 09/25/18 04:30 - Constitutional Appears: No Acute Distress - Head Exam Head Exam: ATRAUMATIC, NORMOCEPHALIC - Eye Exam Eye Exam: EOMI - ENT Exam ENT Exam: Mucous Membranes Moist - Respiratory Exam Respiratory Exam: Decreased Breath Sounds - Cardiovascular Exam Cardiovascular Exam: REGULAR RHYTHM, +S1, +S2 - GI/Abdominal Exam GI & Abdominal Exam: Soft, Normal Bowel Sounds. absent: Tenderness - Extremities Exam Extremities Exam: absent: Pedal Edema - Neurological Exam Neurological Exam: Alert, Awake - Psychiatric Exam Psychiatric exam: Normal Affect - Skin Skin Exam: Normal Color, Warm Assessment and Plan - Assessment and Plan (Free Text) Assessment: 78 Y/O female with PMH of CAD, HTN, preserved EF CHF, IDDM, СВЕТЛАНА(On CPAP), Hx of CVA on home O2. Patient was recently hospitalized for symptomatic anemia of chronic disease, now s/p 2 units PRBC, CHF exacebation and exacerbation of progressive СВЕТЛАНА with hypoxemic-hypercanic respiratory failure. Patient also received a course of IV antibiotic during her last hospital stay for lung infilttrates on CXR with negative pro-calcitonin, was afebrile with normal WBC. Patient has shown decreased mobility and debility due to her multiple comorbidities and course days of hospitalization, she will definitely benefit with TCU for further treatment with PT to improve her deconditioning and ADL. Plan: #Deconditioning -C/w PT eval and treatment # HODA on CKD stage 4 - Azotemia showing some improvement today - chronic - hold metformin, no NSAIDs -Creatinine 1.4, BUN 46 on 09/25/18 mild increased -Will hold Lasix and Diamox -F/u BMP #СВЕТЛАНА on CPAP -Clinically improved, stable - C/w BiPAP Rate 16, setting 14/6/30%, use during day and at night - CTA Chest negative for PE, B/L pulmonary infiltrate and small pleural effusion on last admission - Procalcitonin 0.08 on 09/13, WBC: normal - Acetazozolamide 500 PO QD, as per Dr River, will hold due to HODA - Mycoplasma neg -Powder Operator Dr. River on board, f/u recomms. -CT chest in 2-3 weeks # CHF w/pEF Diastolic dysfunction -Clinically stable, no LE edema - Probnp 693 in range last admission - Lasix 40 PO QD ( was taking 40 PO BID at home) will hold due HODA - Continue Coreg 25 mg PO BID - Monitor vitals # Anemia - Likely anemia of chronic disease - stable - H/H: 9.3/28.7 - Iron 53, TIBC 285, Iron sat 19, Transferrin 214, Ferritin 72. - Continue Feosol 325 daily - occult blood neg -F/U CBC # IDDM - controlled - Consistent carb diet, Patient advised to eat hospital food, avoid home cooked food for better glycemic control. - Resume Home insulin regimen, Levemir 45 SC BID - SSI - Hypoglycemia protocol - Monitor glucose ACHS # HTN - c/w Losartan 100 mg and Amlodipine 5 mg # H/O stroke -c/w clopidogrel - C/W ASA, Lovenox #Depression -C/w Remeron, lexapro #DVT Prophylaxis - Lovenox 40 sc daily # GI prophylaxis -Protonix 40 mg daily
[2018-09-26] MEDS: Insulin Lispro (humaLOG) 100 Units/ml Inj SC SCH ×7 (06:45→22:29)
[2018-09-26 06:48] LABS: HEMOGLOBIN 9.7 g/dL (12.0-16.0); MEAN CELL VOLUME 95.2 fl (81.0-99.0); MEAN CORPUSCULAR HEMOGLOBIN 31.6 pg (27.0-31.0); MEAN CORPUSCULAR HGB CONC 33.2 g/dL (33.0-37.0); RBC 3.06 Mil/uL (3.80-5.20); RED CELL DISTRIBUTION WIDTH 14.5 % (11.5-14.5); WHITE BLOOD COUNT 6.4 K/uL (4.8-10.8)
[2018-09-26 07:03] LABS: CALCIUM 9.7 mg/dL (8.4-10.2)
--- NOTE | 2018-09-26 07:30 | CP.PCM.PN ---
Subjective - Date & Time of Evaluation Date of Evaluation: 09/26/18 Time of Evaluation: 08:30 - Subjective Subjective: Patient seen and examined this morning at bedside, in NAD. Patient states feeling better and improving with PT. PT at bedside working with patient, patient is tolerating PT. Patient denies CP ,CUELLAR, SOB, N/V/D, or other acute medical complaint at this time. Objective - Vital Signs/Intake and Output Vital Signs (last 24 hours): Temp Pulse Resp BP Pulse Ox 99.6 F 98 H 16 163/77 H 100 09/25/18 20:03 09/26/18 04:11 09/25/18 20:03 09/25/18 20:44 09/25/18 20:03 - Medications Medications: Current Medications Acetaminophen (Tylenol 325mg Tab) 650 mg PO Q6 PRN PRN Reason: Headache Last Admin: 09/23/18 09:45 Dose: 650 mg Acetazolamide (Diamox Sequels 500 Mg Sr Cap) 500 mg PO DAILY [facility] Last Admin: 09/23/18 08:24 Dose: 500 mg Amlodipine Besylate (Norvasc) 5 mg PO DAILY [facility] Last Admin: 09/25/18 08:54 Dose: 5 mg Aspirin (Ecotrin) 81 mg PO DAILY [facility] Last Admin: 09/25/18 08:52 Dose: 81 mg Atorvastatin Calcium (Lipitor) 40 mg PO DAILY [facility] Last Admin: 09/25/18 08:55 Dose: 40 mg Carvedilol (Coreg) 25 mg PO Q12 [facility] Last Admin: 09/25/18 20:44 Dose: 25 mg Clopidogrel Bisulfate (Plavix) 75 mg PO DAILY [facility] Last Admin: 09/25/18 08:55 Dose: 75 mg Dextrose (Glutose 15) 0 gm PO ONCE PRN; Protocol PRN Reason: Hypoglycemia Protocol Dextrose (Dextrose 50% Inj) 0 ml IV STAT PRN; Protocol PRN Reason: Hypoglycemia Protocol Dextrose (Glutose 15) 0 gm PO ONCE PRN; Protocol PRN Reason: Hypoglycemia Protocol Docusate Sodium (Colace) 100 mg PO BID [facility] Last Admin: 09/25/18 16:35 Dose: 100 mg Enoxaparin Sodium (Lovenox) 40 mg SC DAILY [facility]; Protocol Escitalopram Oxalate (Lexapro) 20 mg PO DAILY [facility] Last Admin: 09/25/18 08:51 Dose: 20 mg Ferrous Sulfate (Feosol) 325 mg PO DAILY [facility] Last Admin: 09/25/18 08:51 Dose: 325 mg Furosemide (Lasix) 40 mg PO DAILY [facility] Last Admin: 09/23/18 08:21 Dose: 40 mg Glucagon (Glucagen Diagnostic Kit) 0 mg IM STAT PRN; Protocol PRN Reason: Hypoglycemia Protocol Glucagon (Glucagen Diagnostic Kit) 0 mg IM STAT PRN; Protocol PRN Reason: Hypoglycemia Protocol Insulin Detemir (Levemir) 45 units SC BID [facility] Last Admin: 09/25/18 16:37 Dose: 45 units Insulin Human Lispro (Humalog) 5 units SC ACTID [facility] Last Admin: 09/25/18 16:36 Dose: 5 units Insulin Human Lispro (Humalog) 0 units SC ACHS [facility]; Protocol Last Admin: 09/26/18 06:45 Dose: Not Given Isosorbide Mononitrate (Imdur) 60 mg PO DAILY [facility] Last Admin: 09/25/18 08:51 Dose: 60 mg Lidocaine (Lidoderm) 1 ea TD DAILY [facility] Last Admin: 09/25/18 08:50 Dose: 1 ea Losartan Potassium (Cozaar) 100 mg PO DAILY [facility] Last Admin: 09/25/18 08:52 Dose: 100 mg Mirtazapine (Remeron) 15 mg PO HS [facility] Last Admin: 09/25/18 21:04 Dose: 15 mg Multivitamins/Minerals (Therapeutic-M Tab) 1 tab PO DAILY [facility] Last Admin: 09/25/18 08:54 Dose: 1 tab - Labs Labs: 09/26/18 06:00 09/26/18 06:00 - Additional Findings Additional findings: - Constitutional Appears: No Acute Distress - Head Exam Head Exam: ATRAUMATIC, NORMOCEPHALIC - Eye Exam Eye Exam: EOMI - ENT Exam ENT Exam: Mucous Membranes Moist - Respiratory Exam Respiratory Exam: Decreased Breath Sounds - Cardiovascular Exam Cardiovascular Exam: REGULAR RHYTHM, +S1, +S2 - GI/Abdominal Exam GI & Abdominal Exam: Soft, Normal Bowel Sounds. absent: Tenderness - Extremities Exam Extremities Exam: absent: Pedal Edema - Neurological Exam Neurological Exam: Alert, Awake - Psychiatric Exam Psychiatric exam: Normal Affect - Skin Skin Exam: Normal Color, Warm Assessment and Plan - Assessment and Plan (Free Text) Assessment: 78 Y/O female with PMH of CAD, HTN, preserved EF CHF, IDDM, СВЕТЛАНА(On CPAP), Hx of CVA on home O2. Patient was recently hospitalized for symptomatic anemia of chronic disease, now s/p 2 units PRBC with stable Hb, CHF exacebation and she had exacerbation of progressive СВЕТЛАНА with hypoxemic-hypercanic respiratory failure. Patient also received a course of IV antibiotic during her last hospital stay for lung infilttrates on CXR, pro-calcitonin test was negative, she was afebrile with normal WBC. Patient has shown decreased mobility and debility due to her multiple comorbidities and course days of hospitalization, she will definitely benefit with TCU for further treatment with PT to improve her deconditioning and ADL. Plan: #Deconditioning -Patient getting PT and tolerating it -C/w PT treatment # HODA on CKD stage 4 Likely secondary to recent hospitalization and required intense diuretic treatment received for CHF exacerbation, on patient with already baseline CKD - Azotemia continue showing some slow improvement today - metformin DC, no NSAIDs -Creatinine 1.3, BUN 40 on 09/26/18 -Lasix resumed 40 PO QD - Diamox held -F/u BMP #СВЕТЛАНА on CPAP -Clinically improved, stable - C/w BiPAP Rate 16, setting 14/6/30%, use during day and at night - CTA Chest negative for PE, CXR showed B/L pulmonary infiltrate and small pleural effusion on last Hpatl admissio - Procalcitonin 0.08 on 09/13 - Mycoplasma neg.(this data is from last [facility] admission for reference) - Acetazozolamide 500 PO QD, as per Dr River, will hold due to HODA -Physical Scientist Dr. River on board, f/u recomms. -CT chest in 2-3 weeks -WBC: 6.4 today # CHF w/pEF Diastolic dysfunction -Clinically stable, no LE edema - Probnp 693 in range last admission - Lasix 40 PO QD ( was taking 40 PO BID at home) - Continue Coreg 25 mg PO BID - Monitor vitals # Anemia - Likely anemia of chronic disease - stable, slowly imnproving - H/H: 9.7/29.1 - Iron 53, TIBC 285, Iron sat 19, Transferrin 214, Ferritin 72. - Continue Feosol 325 daily - occult blood neg -F/U CBC # IDDM - Consistent carb diet, Patient advised to eat hospital food, avoid home cooked food for better glycemic control. - Home insulin regimen, Levemir 45 SC BID - SSI - Hypoglycemia protocol - Monitor glucose ACHS # HTN - c/w Losartan 100 mg and Amlodipine 5 mg # H/O stroke -c/w clopidogrel - C/W ASA #Depression -C/w Remeron, lexapro #DVT Prophylaxis - Lovenox 40 sc daily # GI prophylaxis -Protonix 40 mg daily
[2018-09-26] MEDS: Lidocaine 5% Patch TD SCH (08:03)
[2018-09-26] MEDS: Enoxaparin 40 mg Syringe SC SCH (08:04)
[2018-09-26] MEDS: acetaZOLAMIDE 500 mg SR Cap PO SCH (08:05)
[2018-09-26] MEDS: Multivitamin With Minerals Tab PO SCH (08:07)
[2018-09-26] MEDS: Insulin Detemir 100 Units/ml Inj SC SCH ×2 (08:08→16:29)
[2018-09-27] MEDS: Insulin Lispro (humaLOG) 100 Units/ml Inj SC SCH ×7 (06:44→21:23)
[2018-09-27] MEDS: Enoxaparin 40 mg Syringe SC SCH (09:05)
[2018-09-27] MEDS: Lidocaine 5% Patch TD SCH (09:05)
[2018-09-27] MEDS: Multivitamin With Minerals Tab PO SCH (09:06)
[2018-09-27] MEDS: Insulin Detemir 100 Units/ml Inj SC SCH ×2 (09:08→16:26)
[2018-09-27] MEDS: acetaZOLAMIDE 500 mg SR Cap PO SCH (09:08)
--- NOTE | 2018-09-27 09:55 | CP.PCM.PN ---
Subjective - Date & Time of Evaluation Date of Evaluation: 09/27/18 Time of Evaluation: 08:20 - Subjective Subjective: Patient seen and examined this morning at bedside, in NAD. Patient has good participation and improving with PT. Patient denies CP ,CUELLAR, SOB, N/V/D, or other acute medical complaint at this time. Objective - Vital Signs/Intake and Output Vital Signs (last 24 hours): Temp Pulse Resp BP Pulse Ox 98.2 F 70 20 136/70 100 09/27/18 08:16 09/27/18 09:07 09/27/18 08:16 09/27/18 09:07 09/27/18 08:16 - Medications Medications: Current Medications Acetaminophen (Tylenol 325mg Tab) 650 mg PO Q6 PRN PRN Reason: Headache Last Admin: 09/23/18 09:45 Dose: 650 mg Acetazolamide (Diamox Sequels 500 Mg Sr Cap) 500 mg PO DAILY [facility] Last Admin: 09/27/18 09:08 Dose: 500 mg Amlodipine Besylate (Norvasc) 5 mg PO DAILY [facility] Last Admin: 09/27/18 09:07 Dose: 5 mg Aspirin (Ecotrin) 81 mg PO DAILY [facility] Last Admin: 09/27/18 09:06 Dose: 81 mg Atorvastatin Calcium (Lipitor) 40 mg PO DAILY [facility] Last Admin: 09/27/18 09:09 Dose: 40 mg Carvedilol (Coreg) 25 mg PO Q12 [facility] Last Admin: 09/27/18 09:07 Dose: 25 mg Clopidogrel Bisulfate (Plavix) 75 mg PO DAILY [facility] Last Admin: 09/27/18 09:08 Dose: 75 mg Dextrose (Glutose 15) 0 gm PO ONCE PRN; Protocol PRN Reason: Hypoglycemia Protocol Dextrose (Dextrose 50% Inj) 0 ml IV STAT PRN; Protocol PRN Reason: Hypoglycemia Protocol Dextrose (Glutose 15) 0 gm PO ONCE PRN; Protocol PRN Reason: Hypoglycemia Protocol Docusate Sodium (Colace) 100 mg PO BID [facility] Last Admin: 09/27/18 09:08 Dose: 100 mg Enoxaparin Sodium (Lovenox) 40 mg SC DAILY [facility]; Protocol Last Admin: 09/27/18 09:05 Dose: 40 mg Escitalopram Oxalate (Lexapro) 20 mg PO DAILY [facility] Last Admin: 09/27/18 09:06 Dose: 20 mg Ferrous Sulfate (Feosol) 325 mg PO DAILY [facility] Last Admin: 09/27/18 09:08 Dose: 325 mg Furosemide (Lasix) 40 mg PO DAILY [facility] Last Admin: 09/27/18 09:07 Dose: 40 mg Glucagon (Glucagen Diagnostic Kit) 0 mg IM STAT PRN; Protocol PRN Reason: Hypoglycemia Protocol Glucagon (Glucagen Diagnostic Kit) 0 mg IM STAT PRN; Protocol PRN Reason: Hypoglycemia Protocol Insulin Detemir (Levemir) 45 units SC BID [facility] Last Admin: 09/27/18 09:08 Dose: 45 units Insulin Human Lispro (Humalog) 5 units SC ACTID [facility] Last Admin: 09/27/18 06:44 Dose: 5 units Insulin Human Lispro (Humalog) 0 units SC ACHS [facility]; Protocol Last Admin: 09/27/18 06:44 Dose: 1 u Isosorbide Mononitrate (Imdur) 60 mg PO DAILY [facility] Last Admin: 09/27/18 09:07 Dose: 60 mg Lidocaine (Lidoderm) 1 ea TD DAILY [facility] Last Admin: 09/27/18 09:05 Dose: 1 ea Losartan Potassium (Cozaar) 100 mg PO DAILY [facility] Last Admin: 09/27/18 09:07 Dose: 100 mg Mirtazapine (Remeron) 15 mg PO HS [facility] Last Admin: 09/26/18 21:29 Dose: 15 mg Multivitamins/Minerals (Therapeutic-M Tab) 1 tab PO DAILY [facility] Last Admin: 09/27/18 09:06 Dose: 1 tab - Labs Labs: 09/26/18 06:00 09/26/18 06:00 - Constitutional Appears: No Acute Distress - Head Exam Head Exam: ATRAUMATIC, NORMOCEPHALIC - Eye Exam Eye Exam: EOMI - ENT Exam ENT Exam: Mucous Membranes Moist - Neck Exam Neck Exam: Full ROM - Respiratory Exam Respiratory Exam: Clear to Ausculation Bilateral, Prolonged Expiratory Phase - Cardiovascular Exam Cardiovascular Exam: REGULAR RHYTHM, +S1, +S2 - Extremities Exam Extremities Exam: absent: Calf Tenderness, Pedal Edema - Neurological Exam Neurological Exam: Alert, Awake, Oriented x3 - Psychiatric Exam Psychiatric exam: Normal Affect - Skin Skin Exam: Normal Color, Warm Assessment and Plan - Assessment and Plan (Free Text) Assessment: 78 Y/O female with PMH of CAD, HTN, preserved EF CHF, IDDM, СВЕТЛАНА(On CPAP), Hx of CVA on home O2. Patient was recently hospitalized for symptomatic anemia of chronic disease, now s/p 2 units PRBC with stable Hb, CHF exacebation and she had exacerbation of progressive СВЕТЛАНА with hypoxemic-hypercanic respiratory failure. Patient also received a course of IV antibiotic during her last hospital stay for lung infilttrates on CXR, pro-calcitonin test was negative, she was afebrile with normal WBC. Patient has shown decreased mobility and debility due to her multiple comorbidities and course days of hospitalization, she will definitely benefit with TCU for further treatment with PT to improve her deconditioning and ADL. Plan: #Deconditioning -Patient getting PT and tolerating it -C/w PT treatment -DC planning 09/29/18 # HODA on CKD stage 4 Likely secondary to recent hospitalization and required intense diuretic treatment received for CHF exacerbation, on patient with already baseline CKD - Azotemia continue showing some slow improvement today - metformin DC, no NSAIDs -Creatinine 1.3, BUN 40 on 09/26/18 -Lasix resumed 40 PO QD - Diamox held -F/u BMP #СВЕТЛАНА on CPAP -Clinically improved, stable - C/w BiPAP Rate 16, setting 14/6/30%, use during day and at night - CTA Chest negative for PE, CXR showed B/L pulmonary infiltrate and small pleural effusion on last Hpatl admissio - Procalcitonin 0.08 on 09/13 - Mycoplasma neg.(this data is from last [facility] admission for reference) - Acetazozolamide 500 PO QD, as per Dr River, will hold due to HODA -Digital Marketer Dr. River on board, f/u recomms. -CT chest in 2-3 weeks -WBC: 6.4 today # CHF w/pEF Diastolic dysfunction -Clinically stable, no LE edema - Probnp 693 in range last admission - Lasix 40 PO QD ( was taking 40 PO BID at home) - Continue Coreg 25 mg PO BID - Monitor vitals # Anemia - Likely anemia of chronic disease - stable, slowly imnproving - H/H: 9.7/29.1 - Iron 53, TIBC 285, Iron sat 19, Transferrin 214, Ferritin 72. - Continue Feosol 325 daily - occult blood neg -F/U CBC # IDDM - Consistent carb diet, Patient advised to eat hospital food, avoid home cooked food for better glycemic control. - Home insulin regimen, Levemir 45 SC BID - SSI - Hypoglycemia protocol - Monitor glucose ACHS # HTN - c/w Losartan 100 mg and Amlodipine 5 mg # H/O stroke -c/w clopidogrel - C/W ASA #Depression -C/w Remeron, lexapro #DVT Prophylaxis - Lovenox 40 sc daily # GI prophylaxis -Protonix 40 mg daily
[2018-09-28 06:25] LABS: HEMOGLOBIN 9.5 g/dL (12.0-16.0); MEAN CELL VOLUME 96.2 fl (81.0-99.0); MEAN CORPUSCULAR HEMOGLOBIN 30.1 pg (27.0-31.0); MEAN CORPUSCULAR HGB CONC 31.3 g/dL (33.0-37.0); RBC 3.16 Mil/uL (3.80-5.20); RED CELL DISTRIBUTION WIDTH 14.9 % (11.5-14.5); WHITE BLOOD COUNT 6.1 K/uL (4.8-10.8)
[2018-09-28] MEDS: Insulin Lispro (humaLOG) 100 Units/ml Inj SC SCH ×7 (06:29→21:05)
[2018-09-28 06:40] LABS: CALCIUM 9.8 mg/dL (8.4-10.2)
[2018-09-28] MEDS: Lidocaine 5% Patch TD SCH (08:25)
[2018-09-28] MEDS: Enoxaparin 40 mg Syringe SC SCH (08:27)
[2018-09-28] MEDS: Insulin Detemir 100 Units/ml Inj SC SCH ×2 (08:29→16:38)
[2018-09-28] MEDS: Multivitamin With Minerals Tab PO SCH (08:31)
[2018-09-28] MEDS: acetaZOLAMIDE 500 mg SR Cap PO SCH (08:32)
--- NOTE | 2018-09-28 10:00 | CP.PCM.PN ---
Subjective - Date & Time of Evaluation Date of Evaluation: 09/28/18 Time of Evaluation: 08:00 - Subjective Subjective: Patient seen and examined this AM, in NAD. Patient states feeling well, she has good participation with PT. Patient denies CP ,CUELLAR, SOB, N/V/D, or other acute medical complaint at this time. Objective - Vital Signs/Intake and Output Vital Signs (last 24 hours): Temp Pulse Resp BP Pulse Ox 98.4 F 74 20 126/72 100 09/28/18 08:01 09/28/18 08:32 09/28/18 08:01 09/28/18 08:32 09/28/18 08:01 - Medications Medications: Current Medications Acetaminophen (Tylenol 325mg Tab) 650 mg PO Q6 PRN PRN Reason: Headache Last Admin: 09/23/18 09:45 Dose: 650 mg Acetazolamide (Diamox Sequels 500 Mg Sr Cap) 500 mg PO DAILY [facility] Last Admin: 09/28/18 08:32 Dose: 500 mg Amlodipine Besylate (Norvasc) 5 mg PO DAILY [facility] Last Admin: 09/28/18 08:32 Dose: 5 mg Aspirin (Ecotrin) 81 mg PO DAILY [facility] Last Admin: 09/28/18 08:32 Dose: 81 mg Atorvastatin Calcium (Lipitor) 40 mg PO DAILY [facility] Last Admin: 09/28/18 08:31 Dose: 40 mg Carvedilol (Coreg) 25 mg PO Q12 [facility] Last Admin: 09/28/18 08:31 Dose: 25 mg Clopidogrel Bisulfate (Plavix) 75 mg PO DAILY [facility] Last Admin: 09/28/18 08:32 Dose: 75 mg Dextrose (Glutose 15) 0 gm PO ONCE PRN; Protocol PRN Reason: Hypoglycemia Protocol Dextrose (Dextrose 50% Inj) 0 ml IV STAT PRN; Protocol PRN Reason: Hypoglycemia Protocol Dextrose (Glutose 15) 0 gm PO ONCE PRN; Protocol PRN Reason: Hypoglycemia Protocol Docusate Sodium (Colace) 100 mg PO BID [facility] Last Admin: 09/28/18 08:30 Dose: 100 mg Enoxaparin Sodium (Lovenox) 40 mg SC DAILY [facility]; Protocol Last Admin: 09/28/18 08:27 Dose: 40 mg Escitalopram Oxalate (Lexapro) 20 mg PO DAILY [facility] Last Admin: 09/28/18 08:30 Dose: 20 mg Ferrous Sulfate (Feosol) 325 mg PO DAILY [facility] Last Admin: 09/28/18 08:30 Dose: 325 mg Furosemide (Lasix) 40 mg PO DAILY [facility] Last Admin: 09/28/18 08:31 Dose: 40 mg Glucagon (Glucagen Diagnostic Kit) 0 mg IM STAT PRN; Protocol PRN Reason: Hypoglycemia Protocol Glucagon (Glucagen Diagnostic Kit) 0 mg IM STAT PRN; Protocol PRN Reason: Hypoglycemia Protocol Insulin Detemir (Levemir) 45 units SC BID [facility] Last Admin: 09/28/18 08:29 Dose: 45 units Insulin Human Lispro (Humalog) 5 units SC ACTID [facility] Last Admin: 09/28/18 08:27 Dose: 5 units Insulin Human Lispro (Humalog) 0 units SC ACHS [facility]; Protocol Last Admin: 09/28/18 06:29 Dose: 1 u Isosorbide Mononitrate (Imdur) 60 mg PO DAILY [facility] Last Admin: 09/28/18 08:32 Dose: 60 mg Lidocaine (Lidoderm) 1 ea TD DAILY [facility] Last Admin: 09/28/18 08:25 Dose: 1 ea Losartan Potassium (Cozaar) 100 mg PO DAILY [facility] Last Admin: 09/28/18 08:32 Dose: 100 mg Mirtazapine (Remeron) 15 mg PO HS [facility] Last Admin: 09/27/18 21:23 Dose: 15 mg Multivitamins/Minerals (Therapeutic-M Tab) 1 tab PO DAILY [facility] Last Admin: 09/28/18 08:31 Dose: 1 tab - Labs Labs: 09/28/18 06:10 09/28/18 06:10 - Additional Findings Additional findings: - Constitutional Appears: No Acute Distress - Head Exam Head Exam: ATRAUMATIC, NORMOCEPHALIC - Eye Exam Eye Exam: EOMI - ENT Exam ENT Exam: Mucous Membranes Moist - Neck Exam Neck Exam: Full ROM - Respiratory Exam Respiratory Exam: Clear to Ausculation Bilateral, Prolonged Expiratory Phase - Cardiovascular Exam Cardiovascular Exam: REGULAR RHYTHM, +S1, +S2 - Extremities Exam Extremities Exam: absent: Calf Tenderness, Pedal Edema - Neurological Exam Neurological Exam: Alert, Awake, Oriented x3 - Psychiatric Exam Psychiatric exam: Normal Affect - Skin Skin Exam: Normal Color, Warm Assessment and Plan - Assessment and Plan (Free Text) Assessment: 78 Y/O female with PMH of CAD, HTN, preserved EF CHF, IDDM, СВЕТЛАНА(On CPAP), Hx of CVA on home O2. Patient was recently hospitalized for symptomatic anemia of chronic disease, now s/p 2 units PRBC with stable Hb, CHF exacebation and she had exacerbation of progressive СВЕТЛАНА with hypoxemic-hypercanic respiratory failure. Patient also received a course of IV antibiotic during her last hospital stay for lung infilttrates on CXR, pro-calcitonin test was negative, she was afebrile with normal WBC. Patient has shown decreased mobility and debility due to her multiple comorbidities and course days of hospitalization, she will definitely benefit with TCU for further treatment with PT to improve her deconditioning and ADL. Plan: #Deconditioning -Patient getting PT and tolerating it -C/w PT treatment -DC planning 09/29/18 # HODA on CKD stage 4 Likely secondary to recent hospitalization and required intense diuretic treatment received for CHF exacerbation, on patient with already baseline CKD - Azotemia continue showing some slow improvement today - metformin DC, no NSAIDs -Creatinine 1.3, BUN 39 on 09/28/18 -Lasix resumed 40 PO QD - Diamox held -F/u BMP #СВЕТЛАНА on CPAP -Clinically improved, stable - C/w BiPAP Rate 16, setting 14/6/28%, use during day and at night - CTA Chest negative for PE, CXR showed B/L pulmonary infiltrate and small pleural effusion on last Hpatl admissio - Procalcitonin 0.08 on 09/13 - Mycoplasma neg.(this data is from last [facility] admission for reference) - Acetazozolamide 500 PO QD, as per Dr River, will hold due to HODA -Distribution Driver Dr. River on board, f/u recomms. -CT chest in 2-3 weeks -WBC: 6.1 today # CHF w/pEF Diastolic dysfunction -Clinically stable, no LE edema - Probnp 693 in range last admission - Lasix 40 PO QD ( was taking 40 PO BID at home) - Continue Coreg 25 mg PO BID - Monitor vitals # Anemia - Likely anemia of chronic disease - stable, slowly imnproving - H/H: 9.5/30.4.1 - Iron 53, TIBC 285, Iron sat 19, Transferrin 214, Ferritin 72. - Continue Feosol 325 daily - occult blood neg -F/U CBC # IDDM - Consistent carb diet, Patient advised to eat hospital food, avoid home cooked food for better glycemic control. - Home insulin regimen, Levemir 45 SC BID - SSI - Hypoglycemia protocol - Monitor glucose ACHS # HTN - c/w Losartan 100 mg and Amlodipine 5 mg # H/O stroke -c/w clopidogrel - C/W ASA #Depression -C/w Remeron, lexapro #DVT Prophylaxis - Lovenox 40 sc daily # GI prophylaxis -Protonix 40 mg daily
[2018-09-29] MEDS: Insulin Lispro (humaLOG) 100 Units/ml Inj SC SCH ×7 (06:51→23:07)
[2018-09-29] MEDS: Lidocaine 5% Patch TD SCH (07:59)
[2018-09-29] MEDS: Multivitamin With Minerals Tab PO SCH (08:00)
[2018-09-29] MEDS: Enoxaparin 40 mg Syringe SC SCH (08:02)
[2018-09-29] MEDS: acetaZOLAMIDE 500 mg SR Cap PO SCH (08:03)
[2018-09-29] MEDS: Insulin Detemir 100 Units/ml Inj SC SCH ×2 (08:03→16:34)
--- NOTE | 2018-09-29 11:25 | CP.PCM.PN ---
Subjective - Date & Time of Evaluation Date of Evaluation: 09/29/18 Time of Evaluation: 11:22 - Subjective Subjective: Has done well with present medical regimen. Vital signs remain stable and labs are acceptable. Has responded well to the use of BiPAP mask use overnight. TCO2 has decreased nicely and SpO2 has been good. Repeat ABG requested for documentation of benefit. Will need to continue NPPV use at home as well (BiPAP). Objective - Vital Signs/Intake and Output Vital Signs (last 24 hours): Temp Pulse Resp BP Pulse Ox 98.7 F 81 18 155/82 H 99 09/29/18 08:09 09/29/18 08:09 09/29/18 08:09 09/29/18 08:09 09/29/18 08:09 - Medications Medications: Current Medications Acetaminophen (Tylenol 325mg Tab) 650 mg PO Q6 PRN PRN Reason: Headache Last Admin: 09/23/18 09:45 Dose: 650 mg Acetazolamide (Diamox Sequels 500 Mg Sr Cap) 500 mg PO DAILY [facility] Last Admin: 09/29/18 08:03 Dose: 500 mg Amlodipine Besylate (Norvasc) 5 mg PO DAILY [facility] Last Admin: 09/29/18 08:01 Dose: 5 mg Aspirin (Ecotrin) 81 mg PO DAILY [facility] Last Admin: 09/29/18 08:01 Dose: 81 mg Atorvastatin Calcium (Lipitor) 40 mg PO DAILY [facility] Last Admin: 09/29/18 08:03 Dose: 40 mg Carvedilol (Coreg) 25 mg PO Q12 [facility] Last Admin: 09/29/18 08:00 Dose: 25 mg Clopidogrel Bisulfate (Plavix) 75 mg PO DAILY [facility] Last Admin: 09/29/18 08:03 Dose: 75 mg Dextrose (Glutose 15) 0 gm PO ONCE PRN; Protocol PRN Reason: Hypoglycemia Protocol Dextrose (Dextrose 50% Inj) 0 ml IV STAT PRN; Protocol PRN Reason: Hypoglycemia Protocol Dextrose (Glutose 15) 0 gm PO ONCE PRN; Protocol PRN Reason: Hypoglycemia Protocol Docusate Sodium (Colace) 100 mg PO BID [facility] Last Admin: 09/29/18 08:00 Dose: 100 mg Enoxaparin Sodium (Lovenox) 40 mg SC DAILY [facility]; Protocol Last Admin: 09/29/18 08:02 Dose: 40 mg Escitalopram Oxalate (Lexapro) 20 mg PO DAILY [facility] Last Admin: 09/29/18 08:02 Dose: 20 mg Ferrous Sulfate (Feosol) 325 mg PO DAILY [facility] Last Admin: 09/29/18 08:01 Dose: 325 mg Furosemide (Lasix) 40 mg PO DAILY [facility] Last Admin: 09/29/18 08:01 Dose: 40 mg Glucagon (Glucagen Diagnostic Kit) 0 mg IM STAT PRN; Protocol PRN Reason: Hypoglycemia Protocol Glucagon (Glucagen Diagnostic Kit) 0 mg IM STAT PRN; Protocol PRN Reason: Hypoglycemia Protocol Insulin Detemir (Levemir) 45 units SC BID [facility] Last Admin: 09/29/18 08:03 Dose: 45 units Insulin Human Lispro (Humalog) 5 units SC ACTID [facility] Last Admin: 09/29/18 08:04 Dose: 5 units Insulin Human Lispro (Humalog) 0 units SC ACHS [facility]; Protocol Last Admin: 09/29/18 06:51 Dose: 1 u Isosorbide Mononitrate (Imdur) 60 mg PO DAILY [facility] Last Admin: 09/29/18 08:01 Dose: 60 mg Lidocaine (Lidoderm) 1 ea TD DAILY [facility] Last Admin: 09/29/18 07:59 Dose: 1 ea Losartan Potassium (Cozaar) 100 mg PO DAILY [facility] Last Admin: 09/29/18 08:02 Dose: 100 mg Mirtazapine (Remeron) 15 mg PO HS [facility] Last Admin: 09/28/18 21:04 Dose: 15 mg Multivitamins/Minerals (Therapeutic-M Tab) 1 tab PO DAILY [facility] Last Admin: 09/29/18 08:00 Dose: 1 tab - Labs Labs: 09/28/18 06:10 09/28/18 06:10 Assessment and Plan (1) Chronic hypercapnic respiratory failure Status: Chronic (2) Obesity with alveolar hypoventilation Status: Chronic (3) Obstructive sleep apnea Status: Chronic
[2018-09-29 12:11] LABS: ABG ALLEN TEST YES; ARTERIAL BLOOD GAS HCO3 24.9 mmol/L (21-28); ARTERIAL BLOOD GAS HEMOGLOBIN 9.8 g/dL (11.7-17.4); ARTERIAL BLOOD GAS O2 CAPACITY 13.5 mL/dL (16-24); ARTERIAL BLOOD GAS O2 CONTENT 13.4 ML/dL (15-23); ARTERIAL BLOOD GAS O2 SAT 99.5 % (95-98); ARTERIAL BLOOD GAS PCO2 62 mm/Hg (35-45); ARTERIAL BLOOD GAS PH 7.26 (7.35-7.45); ARTERIAL BLOOD GAS PO2 117 mm/Hg (80-100); ARTERIAL BLOOD GAS TCO2 29.7 mmol/L (22-28)
--- NOTE | 2018-09-29 13:23 | CP.PCM.PN ---
Subjective - Date & Time of Evaluation Date of Evaluation: 09/29/18 Time of Evaluation: 09:45 - Subjective Subjective: Patient seen and examined this morning at bedside, in NAD. Patient states feeling well. Patient denies CP ,CUELLAR, SOB, N/V/D, or other acute medical complaint at this time. Objective - Vital Signs/Intake and Output Vital Signs (last 24 hours): Temp Pulse Resp BP Pulse Ox 98.7 F 81 18 155/82 H 99 09/29/18 08:09 09/29/18 08:09 09/29/18 08:09 09/29/18 08:09 09/29/18 08:09 - Medications Medications: Current Medications Acetaminophen (Tylenol 325mg Tab) 650 mg PO Q6 PRN PRN Reason: Headache Last Admin: 09/23/18 09:45 Dose: 650 mg Acetazolamide (Diamox Sequels 500 Mg Sr Cap) 500 mg PO DAILY [facility] Last Admin: 09/29/18 08:03 Dose: 500 mg Amlodipine Besylate (Norvasc) 5 mg PO DAILY [facility] Last Admin: 09/29/18 08:01 Dose: 5 mg Aspirin (Ecotrin) 81 mg PO DAILY [facility] Last Admin: 09/29/18 08:01 Dose: 81 mg Atorvastatin Calcium (Lipitor) 40 mg PO DAILY [facility] Last Admin: 09/29/18 08:03 Dose: 40 mg Carvedilol (Coreg) 25 mg PO Q12 [facility] Last Admin: 09/29/18 08:00 Dose: 25 mg Clopidogrel Bisulfate (Plavix) 75 mg PO DAILY [facility] Last Admin: 09/29/18 08:03 Dose: 75 mg Dextrose (Glutose 15) 0 gm PO ONCE PRN; Protocol PRN Reason: Hypoglycemia Protocol Dextrose (Dextrose 50% Inj) 0 ml IV STAT PRN; Protocol PRN Reason: Hypoglycemia Protocol Dextrose (Glutose 15) 0 gm PO ONCE PRN; Protocol PRN Reason: Hypoglycemia Protocol Docusate Sodium (Colace) 100 mg PO BID [facility] Last Admin: 09/29/18 08:00 Dose: 100 mg Enoxaparin Sodium (Lovenox) 40 mg SC DAILY [facility]; Protocol Last Admin: 09/29/18 08:02 Dose: 40 mg Escitalopram Oxalate (Lexapro) 20 mg PO DAILY [facility] Last Admin: 09/29/18 08:02 Dose: 20 mg Ferrous Sulfate (Feosol) 325 mg PO DAILY [facility] Last Admin: 09/29/18 08:01 Dose: 325 mg Furosemide (Lasix) 40 mg PO DAILY [facility] Last Admin: 09/29/18 08:01 Dose: 40 mg Glucagon (Glucagen Diagnostic Kit) 0 mg IM STAT PRN; Protocol PRN Reason: Hypoglycemia Protocol Glucagon (Glucagen Diagnostic Kit) 0 mg IM STAT PRN; Protocol PRN Reason: Hypoglycemia Protocol Insulin Detemir (Levemir) 45 units SC BID [facility] Last Admin: 09/29/18 08:03 Dose: 45 units Insulin Human Lispro (Humalog) 5 units SC ACTID [facility] Last Admin: 09/29/18 12:00 Dose: 5 units Insulin Human Lispro (Humalog) 0 units SC ACHS [facility]; Protocol Last Admin: 09/29/18 12:00 Dose: 3 u Isosorbide Mononitrate (Imdur) 60 mg PO DAILY [facility] Last Admin: 09/29/18 08:01 Dose: 60 mg Lidocaine (Lidoderm) 1 ea TD DAILY [facility] Last Admin: 09/29/18 07:59 Dose: 1 ea Losartan Potassium (Cozaar) 100 mg PO DAILY [facility] Last Admin: 09/29/18 08:02 Dose: 100 mg Mirtazapine (Remeron) 15 mg PO HS [facility] Last Admin: 09/28/18 21:04 Dose: 15 mg Multivitamins/Minerals (Therapeutic-M Tab) 1 tab PO DAILY [facility] Last Admin: 09/29/18 08:00 Dose: 1 tab - Labs Labs: 09/28/18 06:10 09/28/18 06:10 - Additional Findings Additional findings: - Constitutional Appears: No Acute Distress - Head Exam Head Exam: ATRAUMATIC, NORMOCEPHALIC - Eye Exam Eye Exam: EOMI - ENT Exam ENT Exam: Mucous Membranes Moist - Neck Exam Neck Exam: Full ROM - Respiratory Exam Respiratory Exam: Clear to Ausculation Bilateral, Prolonged Expiratory Phase - Cardiovascular Exam Cardiovascular Exam: REGULAR RHYTHM, +S1, +S2 - Extremities Exam Extremities Exam: absent: Calf Tenderness, Pedal Edema - Neurological Exam Neurological Exam: Alert, Awake, Oriented x3 - Psychiatric Exam Psychiatric exam: Normal Affect - Skin Skin Exam: Normal Color, Warm Assessment and Plan - Assessment and Plan (Free Text) Assessment: 78 Y/O female with PMH of CAD, HTN, preserved EF CHF, IDDM, СВЕТЛАНА, hypoventilation, Chronic hypercapnia, hx of CVA on home O2. Patient was recently hospitalized for symptomatic anemia of chronic disease, received 2 units PRBC during last hospital, has been stable Hb after that. Patient was admitted with hypoxemic-hypercanic respiratory failure, during hospitalization showed persistent CO2 retention (hypercapnia) requiring BiPAP use since admission during night time and intermittently day time. After stabilization patient was discharged to TCU on 09/21/18 to continue management of her Chronic hypercapnic respiratory failure and deconditioning, Patient has been doing well with current medical management for her Chronic hypercapnia, and has responded well to the use of BiPAP with PCO2 improved and O2 stable, ABG done today shows pCO2 62. Patient will benefit to continue use BiPAP at home due to her chronic CO2 retention. Patient has shown improvement of her deconditioning, mobility and respiratory status overall, plans for discharge home today, pending arrangements for BiPAP set up at home. Plan: #Deconditioning -Improved -DC planning today 09/29/18 # CKD stage 3 -Creatinine 1.3, BUN 39, GFR 40 on 09/28/18 - metformin DC, no NSAIDs -Lasix 40 PO QD -Diamox 500 PO QD -F/u BMP #Chronic Hypercapnic Resp Failure on BiPAP - Improved on current management - C/w BiPAP Rate 16, setting 30/12/28%, use during day and at night - CTA Chest negative for PE(records) - CXR showed B/L pulmonary infiltrate and small pleural effusion on last [facility] admission - Procalcitonin 0.08 on 09/13 - Mycoplasma neg.(this data is from last [facility] admission for reference) - Acetazozolamide 500 PO QD -Crew Truck Driver Dr. River on board, f/u recomms. -CT chest in 2-3 weeks # CHF w/pEF Diastolic dysfunction -Clinically stable, no LE edema - Probnp 693 in range last admission - Lasix 40 PO QD( was taking BID prior hospitalization) - Continue Coreg 25 mg PO BID - Isosorbide mononitrate 60mg PO QD - Monitor vitals # Anemia - Likely anemia of chronic disease - stable - H/H: 9.5/30.4.1 - Iron 53, TIBC 285, Iron sat 19, Transferrin 214, Ferritin 72. - Continue Feosol 325 daily - occult blood neg - F/U CBC # IDDM - Consistent carb - Home insulin regimen, Levemir 45 SC BID - SSI-Monitor glucose ACHS in place - Hypoglycemia protocol # HTN - c/w Losartan 100 mg and Amlodipine 5 mg # H/O stroke -c/w clopidogrel, Atorvastatin 40 - C/w ASA 81 #Depression -C/w Remeron, lexapro #OA (Chronic R shoulder joint pain) -Lidocaine 5% TD QD -Acetaminophen PRN #DVT Prophylaxis - Lovenox 40 sc daily # GI prophylaxis -Protonix 40 mg daily
[2018-09-30] MEDS: Insulin Lispro (humaLOG) 100 Units/ml Inj SC SCH ×4 (07:02→11:26)
[2018-09-30 08:16] VITALS: BP 147/70; PULSE 76; RESP 19; TEMP 98.3
[2018-09-30] MEDS: Enoxaparin 40 mg Syringe SC SCH (08:33)
[2018-09-30] MEDS: Lidocaine 5% Patch TD SCH (08:34)
[2018-09-30] MEDS: Multivitamin With Minerals Tab PO SCH (08:34)
[2018-09-30] MEDS: acetaZOLAMIDE 500 mg SR Cap PO SCH (08:36)
[2018-09-30] MEDS: Insulin Detemir 100 Units/ml Inj SC SCH (08:37)
[2018-09-30 12:03] VITALS: O2SAT 99
--- NOTE | 2018-09-30 13:00 | CP.PCM.DIS ---
Provider - Provider Date of Admission: 09/21/18 19:52 Attending physician: Santhosh Burger MD Consults: 09/22/18 10:33 Pulmonology Consult Routine Comment: Consulting Provider: Francisco River Consulting Physician: Francisco River Reason for Consult: СВЕТЛАНА(on CPAP), History of recent hospitalization for hypoxemia Time Spent in preparation of Discharge (in minutes): 33 Diagnosis - Discharge Diagnosis (1) Acute and chronic respiratory failure with hypercapnia Status: Chronic Priority: High (2) Arthritis Status: Chronic (3) Elevated serum creatinine Status: Chronic Priority: High (4) Pneumonia Status: Acute (5) Respiratory acidosis Status: Acute (6) CHF (congestive heart failure) Status: Chronic (7) Chronic hypercapnic respiratory failure Status: Chronic Priority: High (8) Diabetes mellitus type 2, uncontrolled Status: Chronic Priority: High (9) HTN (hypertension) Status: Chronic Hospital Course - Lab Results Lab Results: Most Recent Lab Values WBC 6.1 K/uL (4.8-10.8) 09/28/18 06:10 RBC 3.16 Mil/uL (3.80-5.20) L 09/28/18 06:10 Hgb 9.5 g/dL (12.0-16.0) L 09/28/18 06:10 Hct 30.4 % (34.0-47.0) L 09/28/18 06:10 MCV 96.2 fl (81.0-99.0) 09/28/18 06:10 MCH 30.1 pg (27.0-31.0) 09/28/18 06:10 MCHC 31.3 g/dL (33.0-37.0) L 09/28/18 06:10 RDW 14.9 % (11.5-14.5) H 09/28/18 06:10 Plt Count 195 K/uL (130-400) 09/28/18 06:10 pCO2 62 mm/Hg (35-45) H 09/29/18 11:55 pO2 117 mm/Hg (80-100) H 09/29/18 11:55 HCO3 24.9 mmol/L (21-28) 09/29/18 11:55 ABG pH 7.26 (7.35-7.45) L 09/29/18 11:55 ABG Total CO2 29.7 mmol/L (22-28) H 09/29/18 11:55 ABG O2 Saturation 99.5 % (95-98) H 09/29/18 11:55 ABG O2 Content 13.4 ML/dL (15-23) L 09/29/18 11:55 ABG Base Excess 0 mmol/L (-2.0-3.0) 09/29/18 11:55 ABG Hemoglobin 9.8 g/dL (11.7-17.4) L 09/29/18 11:55 ABG Carboxyhemoglobin 0.9 % (0.5-1.5) 09/29/18 11:55 POC ABG HHb (Measured) 0.5 % (0.0-5.0) 09/29/18 11:55 ABG Methemoglobin 2.5 % (0.0-3.0) 09/29/18 11:55 ABG O2 Capacity 13.5 mL/dL (16-24) L 09/29/18 11:55 Parviz Test Yes 09/29/18 11:55 A-a O2 Difference 34.0 mm/Hg 09/29/18 11:55 Hgb O2 Saturation 96.0 % (95.0-98.0) 09/29/18 11:55 FiO2 32.0 % 09/29/18 11:55 Sodium 143 mmol/l (132-148) 09/28/18 06:10 Potassium 4.2 MMOL/L (3.6-5.0) 09/28/18 06:10 Chloride 109 mmol/L (98-107) H 09/28/18 06:10 Carbon Dioxide 27 mmol/L (22-30) 09/28/18 06:10 Anion Gap 11 (10-20) 09/28/18 06:10 BUN 39 mg/dl (7-17) H 09/28/18 06:10 Creatinine 1.3 mg/dl (0.7-1.2) H 09/28/18 06:10 Est GFR ( Amer) 48 09/28/18 06:10 Est GFR (Non-Af Amer) 40 09/28/18 06:10 POC Glucose (mg/dL) 287 mg/dL (65-110) H 09/30/18 10:54 Random Glucose 163 mg/dL (65-105) H 09/28/18 06:10 Calcium 9.8 mg/dL (8.4-10.2) 09/28/18 06:10 - Hospital Course Hospital Course: 78 Y/O female with PMH of CAD, HTN, preserved EF CHF, IDDM, СВЕТЛАНА, hypoventilation, Chronic hypercapnia, hx of CVA on home O2. Patient was recently hospitalized for symptomatic anemia of chronic disease, received 2 units PRBC during last hospital, has been stable Hb after that. Patient was admitted with hypoxemic-hypercanic respiratory failure, during hospitalization showed persistent CO2 retention (hypercapnia) requiring BiPAP use since admission during night time and intermittently day time. After stabilization patient was discharged to TCU on 09/21/18 to continue management of her Chronic hypercapnic respiratory failure and deconditioning, Patient has been doing well with current medical management for her Chronic hy percapnia, and has responded well to the use of BiPAP with PCO2 improved and O2 stable, ABG done today shows pCO2 62. Patient will benefit to continue use BiPAP at home due to her chronic CO2 retention. Patient has shown improvement of her deconditioning, mobility and respiratory status overall, plans for discharge home today, pending arrangements for BiPAP set up at home. Patient was on CPAP at home for treatment of COPD. At home treatment for COPD with CPAP failed and CPAP is no longer effective for her COPD. Patient now must be discharged on BiPAP. Patient today found stable for DC home with outpatient follow up within a week with PMD. Plan: #Deconditioning -Improved -DC planning today # CKD stage 3 -Creatinine 1.3, BUN 39, GFR 40 on 09/28/18 - metformin DC, no NSAIDs -Lasix 40 PO QD -F/u renal function and BMP outpatient #Chronic Hypercapnic Resp Failure on BiPAP - Improved on current management - C/w BiPAP Rate 16, setting 14/6/28%, use during day and at night - CTA Chest negative for PE(records) - CXR showed B/L pulmonary infiltrate and small pleural effusion on last [facility] admission - Procalcitonin 0.08 on 09/13 - Mycoplasma neg[facility] - Acetazozolamide 500 PO QD -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 - Continue Feosol 325 daily - occult blood neg - F/U CBC outpatient # IDDM - Consistent carb - Home insulin regimen, Levemir 45 SC BID - c/w SSI-Monitor glucose ACHS -c/w Insulin Lispro 5 units SC ACTID - Hypoglycemia protocol # HTN - c/w valsartan hm and Amlodipine 5 mg # H/O stroke -c/w clopidogrel, Atorvastatin 40 - C/w ASA 81 #Depression -C/w Remeron, lexapro #OA (Chronic R shoulder joint pain) -Lidocaine 5% TD QD -Acetaminophen PRN Discharge Exam - Head Exam Head Exam: ATRAUMATIC, NORMOCEPHALIC - Additional Findings Additional findings: - Constitutional Appears: No Acute Distress - Head Exam Head Exam: ATRAUMATIC, NORMOCEPHALIC - Eye Exam Eye Exam: EOMI - ENT Exam ENT Exam: Mucous Membranes Moist - Neck Exam Neck Exam: Full ROM - Respiratory Exam Respiratory Exam: Clear to Ausculation Bilateral, Prolonged Expiratory Phase on BiPAP now - Cardiovascular Exam Cardiovascular Exam: REGULAR RHYTHM, +S1, +S2 - Extremities Exam Extremities Exam: absent: Calf Tenderness, Pedal Edema - Neurological Exam Neurological Exam: Alert, Awake, Oriented x3 - Psychiatric Exam Psychiatric exam: Normal Affect - Skin Skin Exam: Normal Color, Warm Discharge Plan - Discharge Medications Prescriptions: Acetaminophen [Tylenol 325mg tab] 650 mg PO Q6 PRN #20 tab PRN Reason: Headache amLODIPine [Norvasc] 5 mg PO DAILY 30 Days #30 tab Atorvastatin [Lipitor] 40 mg PO DAILY #30 tab Carvedilol [Coreg] 25 mg PO Q12 #60 tab Clopidogrel [Plavix] 75 mg PO DAILY #30 tab Escitalopram [Lexapro] 20 mg PO DAILY #30 tab Ferrous Sulfate [Feosol] 325 mg PO DAILY #30 tab Furosemide [Lasix] 40 mg PO DAILY #30 tab Isosorbide Mononitrate [Imdur] 60 mg PO DAILY #30 tab Lidocaine 5% [Lidoderm] 1 ea TD DAILY #30 patch Mirtazapine [Remeron] 15 mg PO HS #30 tab Valsartan [Diovan] 160 mg PO DAILY #30 tab - Follow Up Plan Condition: GOOD Disposition: HOME/ ROUTINE Instructions: Anemia of Chronic Disease (DC), How to Use a CPAP or BPAP Machine Additional Instructions: Continue your home medications as prescribed in your discharge. Continue monitoring you BS at home Follow up with your PMD within a week. ED Precautions: Return to the ED if your condition recurs or you have shortness of breath that does not improve with your treatments, or chest pain, fever or other new symptoms or concerns presents. Referrals: Santhosh Burger MD [Family Provider] -
== END 2018-09-30 15:45 | disposition home health service (06) | DRG 189 ==
LOC: H.TCU 19:52
PROVIDERS: ADMIT Family Medicine; ATTEND Family Medicine
PROC: 5A09557 Assistance with Respiratory Ventilation, Greater than 96 Consecutive Hours, Continuous Positive Airway Pressure (ICD-10-PCS; principal; 2018-09-22)
PROC: F08Z4FZ Home Management Treatment using Assistive, Adaptive, Supportive or Protective Equipment (ICD-10-PCS; 2018-09-22)
PROC: F07M6FZ Therapeutic Exercise Treatment of Musculoskeletal System - Whole Body using Assistive, Adaptive, Supportive or Protective Equipment (ICD-10-PCS; 2018-09-22)
DX: J96.22 Acute and chronic respiratory failure with hypercapnia (principal); J18.9 Pneumonia, unspecified organism; E66.2 Morbid (severe) obesity with alveolar hypoventilation; E87.2 Acidosis; I50.32 Chronic diastolic (congestive) heart failure; J44.0 Chronic obstructive pulmonary disease with (acute) lower respiratory infection; I13.0 Hypertensive heart and chronic kidney disease with heart failure and stage 1 through stage 4 chronic kidney disease, or unspecified chronic kidney disease; N18.4 Chronic kidney disease, stage 4 (severe); J96.21 Acute and chronic respiratory failure with hypoxia; D63.8 Anemia in other chronic diseases classified elsewhere; E11.65 Type 2 diabetes mellitus with hyperglycemia; Z68.33 Body mass index [BMI] 33.0-33.9, adult; E78.00 Pure hypercholesterolemia, unspecified; I25.10 Atherosclerotic heart disease of native coronary artery without angina pectoris; M19.90 Unspecified osteoarthritis, unspecified site; Z79.4 Long term (current) use of insulin; Z86.73 Personal history of transient ischemic attack (TIA), and cerebral infarction without residual deficits; Z87.01 Personal history of pneumonia (recurrent); Z95.5 Presence of coronary angioplasty implant and graft; Z99.81 Dependence on supplemental oxygen; F41.9 Anxiety disorder, unspecified; K29.70 Gastritis, unspecified, without bleeding; G89.29 Other chronic pain; M25.511 Pain in right shoulder